=== PATIENT | female | born 1950 | race Caucasian/White ===

== ENCOUNTER 2018-06-24 22:59 | Emergency (ER) | payer OTHER, MEDICARE ==
--- NOTE | 2018-06-24 23:55 | EDPHYS ---
Physician Documentation [facility] Name: [place] Tao Age: 67 yrs Sex: Female : 1950 Arrival Date: 06/24/2018 Time: 23:09 Bed 24 Private MD: Ton Sparks ED Physician Frankie Velázquez HPI: 06/24 23:52 This 67 yrs old Female presents to ER via Ambulatory with complaints of jr8 WITHDRAWAL. 23:52 Patient stated that she has been on 1 mg of Xanax for several months. Stopped abruptly jr8 to get off of it and start Ambien instead for sleeping. Stated that she has been off of it for two days. Now having shaking and feels that her head is on fire . Severity of symptoms: At their worst the symptoms were mild in the emergency department the symptoms are unchanged. The patient has not experienced similar symptoms in the past. The patient has been recently seen by a physician:. Historical: - Allergies: 23:21 Sulfa (Sulfonamide Antibiotics); bp - Home Meds: 23:21 metformin 500 mg Oral Tb24 3 tabs once daily [Active]; Ambien 10 mg Oral tab 1 tab once bp daily [Active]; amlodipine 10 mg tab 1 tab once daily [Active]; metoprolol tartrate 25 mg Oral tab 1 tab once daily [Active]; - PMHx: 23:21 kidney problems; Hypothyroidism; Hypertension; Diabetes - NIDDM; Anxiety; bp - Immunization history:: Adult Immunizations up to date. - Social history:: Smoking status: Patient/guardian denies using tobacco. - Ebola Screening: : Patient negative for fever greater than or equal to 101.5 degrees Fahrenheit, and additional compatible Ebola Virus Disease symptoms Patient denies exposure to infectious person Patient denies travel to an Ebola-affected area in the 21 days before illness onset No symptoms or risks identified at this time. ROS: 23:52 Eyes: Negative for injury, pain, redness, and discharge, ENT: Negative for injury, jr8 pain, and discharge, Neck: Negative for injury, pain, and swelling, Cardiovascular: Negative for chest pain, palpitations, and edema, Respiratory: Negative for shortness of breath, cough, wheezing, and pleuritic chest pain, Abdomen/GI: Negative for abdominal pain, nausea, vomiting, diarrhea, and constipation, Back: Negative for injury and pain, MS/Extremity: Negative for injury and deformity, Skin: Negative for injury, rash, and discoloration, Neuro: Negative for headache, weakness, numbness, tingling, and seizure. Exam: 23:52 Eyes: Pupils equal round and reactive to light, extra-ocular motions intact. Lids and jr8 lashes normal. Conjunctiva and sclera are non-icteric and not injected. Cornea within normal limits. Periorbital areas with no swelling, redness, or edema. ENT: Nares patent. No nasal discharge, no septal abnormalities noted. Tympanic membranes are normal and external auditory canals are clear. Oropharynx with no redness, swelling, or masses, exudates, or evidence of obstruction, uvula midline. Mucous membranes moist. Neck: Trachea midline, no thyromegaly or masses palpated, and no cervical lymphadenopathy. Supple, full range of motion without nuchal rigidity, or vertebral point tenderness. No Meningismus. Cardiovascular: Regular rate and rhythm with a normal S1 and S2. No gallops, murmurs, or rubs. Normal PMI, no JVD. No pulse deficits. Respiratory: Lungs have equal breath sounds bilaterally, clear to auscultation and percussion. No rales, rhonchi or wheezes noted. No increased work of breathing, no retractions or nasal flaring. Abdomen/GI: Soft, non-tender, with normal bowel sounds. No distension or tympany. No guarding or rebound. No evidence of tenderness throughout. Back: No spinal tenderness. No costovertebral tenderness. Full range of motion. Skin: Warm, dry with normal turgor. Normal color with no rashes, no lesions, and no evidence of cellulitis. MS/ Extremity: Pulses equal, no cyanosis. Neurovascular intact. Full, normal range of motion. 23:52 Neuro: Orientation: to person, place \T\ time. Mentation: is normal, Memory: is normal, immediate memory is intact, recent memory is intact, remote memory is intact, Cranial nerves: CN I not tested, CN II- XII are normal as tested, visual merida are intact. Facial palsy and sensory deficits are absent. Nystagmus is absent. Cerebellar function: is grossly normal, Motor: moves all fours, Sensation: no obvious gross deficits, seizure activity, is not displayed by the patient, Abnormal movements: resting tremor, is located in the right arm, left arm, right leg and left leg. Vital Signs: 23:21 BP 154 / 84; Pulse 77; Resp 18; Temp 98; Pulse Ox 97% ; Weight 83.91 kg; Height 5 ft. 3 bp in. (160.02 cm); 06/25 00:00 BP 143 / 77; Pulse 66; Resp 14; Pulse Ox 96% ; bp 06/24 23:21 Body Mass Index 32.77 (83.91 kg, 160.02 cm) bp MDM: 06/24 23:22 Patient medically screened. [facility] 23:52 Data reviewed: vital signs, nurses notes, and as a result, I will discharge patient. jr8 Data interpreted: Pulse oximetry: on room air is 97 %. Interpretation: normal. Counseling: I had a detailed discussion with the patient and/or guardian regarding: the historical points, exam findings, and any diagnostic results supporting the discharge/admit diagnosis, the need for outpatient follow up, a family practitioner, to return to the emergency department if symptoms worsen or persist or if there are any questions or concerns that arise at home. ED course: Patient given Xanax here and has appointment tomorrow morning to start tapering dose . Administered Medications: 06/25 00:08 Drug: XANax Tablet 1 mg Route: PO; bp 00:08 Follow up: Response: Medication administered at discharge. bp Disposition: 06:49 Co-signature as Attending Physician, Frankie Velázquez MD I agree with the assessment and [facility] plan of care. Disposition: 06/24/18 23:55 Discharged to Home. Impression: Adverse effect of benzodiazepines. - Condition is Stable. - Discharge Instructions: Benzodiazepine Withdrawal. - Medication Reconciliation Form, Thank You Letter, Antibiotic Education, Prescription Opioid Use form. - Follow up: Ton Sparks DO; When: Tomorrow; Reason: Recheck today's complaints, Continuance of care, Re-evaluation by your physician. - Problem is new. - Symptoms have improved. Signatures: Frankie Velázquez MD MD cha Roszak, Josh, PA PA jr8 Jareth Ross RN RN bp Corrections: (The following items were deleted from the chart) 00:10 06/24 23:55 06/24/2018 23:55 Discharged to Home. Impression: Adverse effect of bp benzodiazepines. Condition is Stable. Forms are Medication Reconciliation Form, Thank You Letter, Antibiotic Education, Prescription Opioid Use. Follow up: Ton Sparks; When: Tomorrow; Reason: Recheck today's complaints, Continuance of care, Re-evaluation by your physician. Problem is new. Symptoms have improved. jr8
--- NOTE | 2018-06-24 23:55 | ER ---
Nurse's Notes [facility] Name: [place] Tao Age: 67 yrs Sex: Female : 1950 Arrival Date: 06/24/2018 Time: 23:09 Bed 24 Private MD: Ton Sparks Diagnosis: Adverse effect of benzodiazepines Presentation: 06/24 23:19 Presenting complaint: Patient states: SUBJECTIVE XANAX WITHDRAWL. Transition of care: bp patient was not received from another setting of care. Onset of symptoms is unknown. Risk Assessment: Do you want to hurt yourself or someone else? Patient reports no desire to harm self or others. Initial Sepsis Screen: Does the patient meet any 2 criteria? No. Patient's initial sepsis screen is negative. Does the patient have a suspected source of infection? No. Patient's initial sepsis screen is negative. Care prior to arrival: None. 23:19 Method Of Arrival: Ambulatory bp 23:19 Acuity: KYE 5 bp Triage Assessment: 23:21 General: Appears in no apparent distress. comfortable, obese, Behavior is cooperative, bp appropriate for age, anxious. Pain: Denies pain. Historical: - Allergies: 23:21 Sulfa (Sulfonamide Antibiotics); bp - Home Meds: 23:21 metformin 500 mg Oral Tb24 3 tabs once daily [Active]; Ambien 10 mg Oral tab 1 tab once bp daily [Active]; amlodipine 10 mg tab 1 tab once daily [Active]; metoprolol tartrate 25 mg Oral tab 1 tab once daily [Active]; - PMHx: 23:21 kidney problems; Hypothyroidism; Hypertension; Diabetes - NIDDM; Anxiety; bp - Immunization history:: Adult Immunizations up to date. - Social history:: Smoking status: Patient/guardian denies using tobacco. - Ebola Screening: : Patient negative for fever greater than or equal to 101.5 degrees Fahrenheit, and additional compatible Ebola Virus Disease symptoms Patient denies exposure to infectious person Patient denies travel to an Ebola-affected area in the 21 days before illness onset No symptoms or risks identified at this time. Screenin:23 Abuse screen: Denies threats or abuse. Denies injuries from another. Nutritional bp screening: No deficits noted. Tuberculosis screening: No symptoms or risk factors identified. Fall Risk None identified. Assessment: 23:23 General: SEE TRIAGE NOTE. bp Vital Signs: 23:21 BP 154 / 84; Pulse 77; Resp 18; Temp 98; Pulse Ox 97% ; Weight 83.91 kg; Height 5 ft. 3 bp in. (160.02 cm); 06/25 00:00 BP 143 / 77; Pulse 66; Resp 14; Pulse Ox 96% ; bp 06/24 23:21 Body Mass Index 32.77 (83.91 kg, 160.02 cm) bp ED Course: 06/24 23:09 Patient arrived in ED. es 23:09 Ton Sparks DO is Private Physician. es 23:14 Jareth Ross, RN is Primary Nurse. bp 23:19 Abel Martell PA is PHCP. jr8 23:19 Frankie Velázquez MD is Attending Physician. jr8 23:19 Triage completed. bp 23:22 Arm band placed on. bp 23:23 Patient has correct armband on for positive identification. Bed in low position. Call bp light in reach. Side rails up X2. Adult w/ patient. 23:55 Ton Sparks DO is Referral Physician. 06/25 00:09 No provider procedures requiring assistance completed. Patient did not have IV access bp during this emergency room visit. Administered Medications: 00:08 Drug: XANax Tablet 1 mg Route: PO; bp 00:08 Follow up: Response: Medication administered at discharge. bp Outcome: 06/24 23:55 Discharge ordered by . jr8 06/25 00:10 Discharged to home ambulatory, with family. bp Condition: stable Discharge instructions given to patient, Instructed on discharge instructions, follow up and referral plans. Demonstrated understanding of instructions, follow-up care. 00:10 Patient left the ED. bp Signatures: Luanne Felder Josh, PA PA jr8 Jareth Ross, RN RN bp
[2018-06-25] MEDS ORDERED: ALPRAZOLAM 1 MG TABLET ONE (00:11)
[2018-06-25 00:26] VITALS: TEMP 98
[2018-06-25 00:28] VITALS: BP 143/77; O2SAT 96
== END 2018-06-25 00:10 | disposition home or self-care (01) ==
LOC: ER 22:59
DX: T42.4X5A Adverse effect of benzodiazepines, initial encounter (principal); I10 Essential (primary) hypertension; E11.9 Type 2 diabetes mellitus without complications; E03.9 Hypothyroidism, unspecified; F41.9 Anxiety disorder, unspecified; Z88.2 Allergy status to sulfonamides
CPT/HCPCS: 99283

== ENCOUNTER 2018-12-25 08:11 | Emergency (ER) | payer OTHER, MEDICARE ==
--- OUTSIDE RECORDS SUMMARY | 2018-12-25 08:13 | XMS REPORT ---
:1950 [facility] Address [address] [place] [address] Dr. Harris [address] [place] [id number] Care Team Providers Name Role Phone Unavailable Unavailable Unavailable Problems This patient has no known problems. Allergies, Adverse Reactions, Alerts This patient has no known allergies or adverse reactions. Medications This patient has no known medications.
--- NOTE | 2018-12-25 09:47 | EDPHYS ---
Physician Documentation [facility] Name: [place] Tao Age: 68 yrs Sex: Female : 1950 Arrival Date: 12/25/2018 Time: 08:14 Bed 16 Private MD: Harshal Neely C ED Physician Frankie Velázquez HPI: 12/25 09:21 This 68 yrs old Female presents to ER via Ambulatory with complaints of Sinus cinthia Pain. 09:21 The patient or guardian reports airway noise, cough. Onset: The symptoms/episode cinthia began/occurred 3 day(s) ago. Severity of symptoms: At their worst the symptoms were mild, in the emergency department the symptoms are unchanged. Modifying factors: The symptoms are alleviated by nothing, the symptoms are aggravated by nothing. Associated signs and symptoms: The patient has no apparent associated signs or symptoms. The patient has not experienced similar symptoms in the past. Historical: - Allergies: 08:21 Sulfa (Sulfonamide Antibiotics); sv - PMHx: 08:21 Anxiety; Diabetes - NIDDM; Hypertension; Hypothyroidism; kidney problems; sv - PSHx: 08:21 Hysterectomy; Cholecystectomy; sv - Immunization history:: Flu vaccine is up to date. - Social history:: Smoking status: Patient/guardian denies using tobacco, Patient/guardian denies using alcohol. - Ebola Screening: : No symptoms or risks identified at this time. - Family history:: not pertinent. ROS: 09:21 Constitutional: Negative for fever, chills, and weight loss, Eyes: Negative for injury, cinthia pain, redness, and discharge, ENT: Negative for injury, pain, and discharge, Neck: Negative for injury, pain, and swelling, Cardiovascular: Negative for chest pain, palpitations, and edema, Abdomen/GI: Negative for abdominal pain, nausea, vomiting, diarrhea, and constipation, Back: Negative for injury and pain, : Negative for injury, bleeding, discharge, and swelling, MS/Extremity: Negative for injury and deformity, Skin: Negative for injury, rash, and discoloration, Neuro: Negative for headache, weakness, numbness, tingling, and seizure, Psych: Negative for depression, anxiety, suicide ideation, homicidal ideation, and hallucinations, Allergy/Immunology: Negative for hives, rash, and allergies, Endocrine: Negative for neck swelling, polydipsia, polyuria, polyphagia, and marked weight changes, Hematologic/Lymphatic: Negative for swollen nodes, abnormal bleeding, and unusual bruising. 09:21 Respiratory: Positive for cough, with no reported sputum. Exam: 09:21 Constitutional: This is a well developed, well nourished patient who is awake, alert, cinthia and in no acute distress. Head/Face: Normocephalic, atraumatic. Eyes: Pupils equal round and reactive to light, extra-ocular motions intact. Lids and lashes normal. Conjunctiva and sclera are non-icteric and not injected. Cornea within normal limits. Periorbital areas with no swelling, redness, or edema. Neck: Trachea midline, no thyromegaly or masses palpated, and no cervical lymphadenopathy. Supple, full range of motion without nuchal rigidity, or vertebral point tenderness. No Meningismus. Chest/axilla: Normal chest wall appearance and motion. Nontender with no deformity. No lesions are appreciated. Cardiovascular: Regular rate and rhythm with a normal S1 and S2. No gallops, murmurs, or rubs. Normal PMI, no JVD. No pulse deficits. Respiratory: Lungs have equal breath sounds bilaterally, clear to auscultation and percussion. No rales, rhonchi or wheezes noted. No increased work of breathing, no retractions or nasal flaring. Abdomen/GI: Soft, non-tender, with normal bowel sounds. No distension or tympany. No guarding or rebound. No evidence of tenderness throughout. Back: No spinal tenderness. No costovertebral tenderness. Full range of motion. Skin: Warm, dry with normal turgor. Normal color with no rashes, no lesions, and no evidence of cellulitis. MS/ Extremity: Pulses equal, no cyanosis. Neurovascular intact. Full, normal range of motion. Neuro: Awake and alert, GCS 15, oriented to person, place, time, and situation. Cranial nerves II-XII grossly intact. Motor strength 5/5 in all extremities. Sensory grossly intact. Cerebellar exam normal. Normal gait. Psych: Awake, alert, with orientation to person, place and time. Behavior, mood, and affect are within normal limits. 09:21 ENT: Ear canal(s): are normal, no acute changes, TM's: dullness, erythema, Posterior pharynx: Airway: normal, no evidence of obstruction, Tonsils: are normal in appearance, Uvula: normal, midline, swelling, is not appreciated, erythema, that is mild. Vital Signs: 08:21 Pulse 90; Resp 18; Temp 99.5; Pulse Ox 95% ; Weight 77.11 kg; Height 5 ft. 3 in. sv (160.02 cm); Pain 0/10; 09:31 BP 139 / 79; Pulse 88; Resp 18; Pulse Ox 94% ; sv 11:08 BP 145 / 86; Pulse 81; Resp 18; Pulse Ox 96% on R/A; aj1 08:21 Body Mass Index 30.11 (77.11 kg, 160.02 cm) sv MDM: 08:23 Patient medically screened. [facility] 09:23 Data reviewed: vital signs, nurses notes, radiologic studies. [facility] 12/25 09:21 Order name: Urine Culture [facility] 12/25 10:31 Order name: Urine Dipstick--Ancillary (enter results) 12/25 09:21 Order name: Chest Pa And Lat (2 Views) XRAY [facility] 12/25 09:21 Order name: Urine Dipstick-Ancillary (obtain specimen); Complete Time: 10:26 [facility] Administered Medications: 10:20 Drug: Rocephin (cefTRIAXone) 1 grams Route: IM; Site: left gluteus; 1 11:07 Follow up: Response: No adverse reaction [facility] 10:20 Drug: Zithromax 500 mg Route: PO; aj1 11:07 Follow up: Response: No adverse reaction [facility] Disposition: 12/25/18 09:47 Discharged to Home. Impression: Otitis media, unspecified, bilateral, Fever, unspecified, Acute upper respiratory infection, unspecified. - Condition is Stable. - Discharge Instructions: Otitis Media, Adult, Upper Respiratory Infection, Adult, Cool Mist Vaporizer, Otitis Media, Adult, [id number], Cough, Adult. - Prescriptions for Cheratussin AC 10- 100 mg/5 mL Oral liquid - take 10 milliliter by ORAL route every 4 hours; 160 milliliter. Stephenie- D 12 Hour 60-120 mg Oral Tablet Sustained Release 12 hr - take 1 tablet by ORAL route every 12 hours As needed; 14 tablet. Zithromax 500 mg Oral Tablet - take 1 tablet by ORAL route once daily for 5 days; 5 tablet. - Medication Reconciliation Form, Thank You Letter, Antibiotic Education, Prescription Opioid Use form. - Follow up: A Neely; When: 2 - 3 days; Reason: Recheck today's complaints, Continuance of care, Re-evaluation by your physician. - Problem is new. - Symptoms have improved. Signatures: Dispatcher [employer] EDOlga Cardona RN RN aj1 Mona Diaz RN RN sv Anderson, Corey, MD MD cha Corrections: (The following items were deleted from the chart) 11:09 09:47 12/25/2018 09:47 Discharged to Home. Impression: Otitis media, unspecified, aj1 bilateral; Fever, unspecified; Acute upper respiratory infection, unspecified. Condition is Stable. Discharge Instructions: Otitis Media, Adult, Upper Respiratory Infection, Adult, Cool Mist Vaporizer, Otitis Media, Adult, [id number], Cough, Adult. Prescriptions for Cheratussin AC 10-100 mg/5 mL Oral liquid - take 10 milliliter by ORAL route every 4 hours; 160 milliliter, Stephenie-D 12 Hour 60-120 mg Oral Tablet Sustained Release 12 hr - take 1 tablet by ORAL route every 12 hours As needed; 14 tablet, Zithromax 500 mg Oral Tablet - take 1 tablet by ORAL route once daily for 5 days; 5 tablet. and Forms are Medication Reconciliation Form, Thank You Letter, Antibiotic Education, Prescription Opioid Use. Follow up: A Neely; When: 2 - 3 days; Reason: Recheck today's complaints, Continuance of care, Re-evaluation by your physician. Problem is new. Symptoms have improved. cinthia
--- NOTE | 2018-12-25 09:47 | ER ---
Nurse's Notes [facility] Name: Steff Burger Age: 68 yrs Sex: Female : 1950 Arrival Date: 12/25/2018 Time: 08:14 Bed 16 Private MD: Harshal Neely C Diagnosis: Otitis media, unspecified, bilateral;Fever, unspecified;Acute upper respiratory infection, unspecified Presentation: 12/25 08:19 Presenting complaint: Patient states: sinus pain/congestion, left ear unable to hear sv out of since Friday. Transition of care: patient was not received from another setting of care. Onset of symptoms was December 22, 2018. Risk Assessment: Do you want to hurt yourself or someone else? Patient reports no desire to harm self or others. Initial Sepsis Screen: Does the patient meet any 2 criteria? No. Patient's initial sepsis screen is negative. Does the patient have a suspected source of infection? No. Patient's initial sepsis screen is negative. Care prior to arrival: None. 08:19 Method Of Arrival: Ambulatory sv 08:19 Acuity: KYE 4 sv Triage Assessment: 08:19 Headache History: The patient has had previous headaches and this one is similar to previous episodes. General: Appears in no apparent distress. uncomfortable, well developed, Behavior is calm, cooperative, appropriate for age. General: Reports fever for 12-24 hours. Pain: Denies pain. Neuro: Level of Consciousness is awake, alert, obeys commands, Oriented to person, place, time, situation, Moves all extremities. Full function Gait is steady, Speech is normal. Respiratory: Airway is patent Respiratory effort is even, unlabored, Respiratory pattern is regular, symmetrical. Derm: Skin is pink, warm \T\ dry. Historical: - Allergies: 08:21 Sulfa (Sulfonamide Antibiotics); sv - PMHx: 08:21 Anxiety; Diabetes - NIDDM; Hypertension; Hypothyroidism; kidney problems; sv - PSHx: 08:21 Hysterectomy; Cholecystectomy; sv - Immunization history:: Flu vaccine is up to date. - Social history:: Smoking status: Patient/guardian denies using tobacco, Patient/guardian denies using alcohol. - Ebola Screening: : No symptoms or risks identified at this time. - Family history:: not pertinent. Screenin:19 Abuse screen: Denies threats or abuse. Denies injuries from another. Nutritional sv screening: No deficits noted. Tuberculosis screening: No symptoms or risk factors identified. Fall Risk None identified. Assessment: 09:31 Reassessment: Patient appears in no apparent distress at this time. No changes from sv previously documented assessment. Patient and/or family updated on plan of care and expected duration. Pain level reassessed. Patient is alert, oriented x 3, equal unlabored respirations, skin warm/dry/pink. 10:30 Reassessment: Patient appears in no apparent distress at this time. No changes from aj1 previously documented assessment. Patient and/or family updated on plan of care and expected duration. Pain level reassessed. Patient is alert, oriented x 3, equal unlabored respirations, skin warm/dry/pink. Vital Signs: 08:21 Pulse 90; Resp 18; Temp 99.5; Pulse Ox 95% ; Weight 77.11 kg; Height 5 ft. 3 in. sv (160.02 cm); Pain 0/10; 09:31 BP 139 / 79; Pulse 88; Resp 18; Pulse Ox 94% ; sv 11:08 BP 145 / 86; Pulse 81; Resp 18; Pulse Ox 96% on R/A; aj1 08:21 Body Mass Index 30.11 (77.11 kg, 160.02 cm) sv ED Course: 08:14 Patient arrived in ED. rg4 08:14 Harshal Neely MD is Private Physician. rg4 08:16 Mona Diaz, KEELEY is Primary Nurse. sv 08:19 Arm band placed on. sv 08:19 Patient has correct armband on for positive identification. Bed in low position. Call sv light in reach. Pulse ox on. NIBP on. Door closed. Head of bed elevated. 08:21 Triage completed. sv 08:23 Frankie Velázquez MD is Attending Physician. cinthia 09:34 Patient moved to radiology via wheelchair. sw 09:47 Harshal Neely MD is Referral Physician. cinthia 09:56 Report given to Olga MINA. sv 09:59 X-ray completed. Patient tolerated procedure well. sw 10:02 Chest Pa And Lat (2 Views) XRAY In Process Unspecified. EDMS 11:07 No provider procedures requiring assistance completed. Patient did not have IV access aj1 during this emergency room visit. Administered Medications: 10:20 Drug: Rocephin (cefTRIAXone) 1 grams Route: IM; Site: left gluteus; aj1 11: Follow up: Response: No adverse reaction aj1 10:20 Drug: Zithromax 500 mg Route: PO; aj1 : Follow up: Response: No adverse reaction aj1 Outcome: 09:47 Discharge ordered by MD. vicente 11:08 Discharged to home ambulatory, with family. aj1 11:08 Condition: good 11:08 Discharge instructions given to patient, family, Instructed on discharge instructions, follow up and referral plans. medication usage, Demonstrated understanding of instructions, follow-up care, medications, Prescriptions given X 3. 11:09 Patient left the ED. aj1 Signatures: Dispatcher [employer] EDOlga Cardona RN RN aj1 Mona Diaz RN RN sv Anderson, Corey, MD MD cha Warren, Inge Varela rg4
[2018-12-25] MEDS ORDERED: AZITHROMYCIN 250 MG TAB ONE (10:18)
[2018-12-25] MEDS ORDERED: LIDOCAINE 1% MPF 2 ML AMPULE ONE (10:19)
[2018-12-25] MEDS ORDERED: CEFTRIAXONE 1000 MG/VIAL ONE (10:19)
--- NOTE | 2018-12-25 10:30 | RAD REPORT ---
EXAM DESCRIPTION: RAD - Chest Pa And Lat (2 Views) - 12/25/2018 10:02 am CLINICAL HISTORY: Cough and congestion COMPARISON: May 2015 TECHNIQUE: PA and lateral views of the chest were obtained. FINDINGS: The lungs are normal volume. No peripheral mass or consolidation. Interstitial markings ar e prominent and increased over the comparison. Small granuloma in the upper left lung field. Heart s ize is normal and central vasculature is within normal limits. No pleural effusion or pneumothorax s een. No acute bony finding noted. No aortic abnormality. IMPRESSION: No peripheral mass or consolidation. Increased interstitial markings suspicious for interstitial edema or interstitial pneumonia.
[2018-12-25 10:58] LABS: Urine Blood NEGATIVE (NEG); Urine Glucose NEGATIVE (NEG); Urine Protein NEGATIVE (NEG); Urine pH 6.5 (5.0-7.0)
[2018-12-25 11:15] VITALS: TEMP 99.5
[2018-12-25 11:18] VITALS: BP 145/86; O2SAT 96
== END 2018-12-25 11:09 | disposition home or self-care (01) ==
LOC: ER 08:11
DX: H66.93 Otitis media, unspecified, bilateral (principal); J06.9 Acute upper respiratory infection, unspecified; F41.9 Anxiety disorder, unspecified; E11.9 Type 2 diabetes mellitus without complications; I10 Essential (primary) hypertension; E03.9 Hypothyroidism, unspecified; Z88.2 Allergy status to sulfonamides
CPT/HCPCS: 87088; 87086; 81003; 71046; 96372; 99284; J2001

== ENCOUNTER 2019-01-22 21:07 | Emergency (ER) | payer OTHER, MEDICARE ==
--- OUTSIDE RECORDS SUMMARY | 2019-01-22 21:10 | XMS REPORT ---
:1950 [facility] Address [address] [place] [address] Dr. Harris [address] [place] [id number] Care Team Providers Name Role Phone Unavailable Unavailable Unavailable Problems This patient has no known problems. Allergies, Adverse Reactions, Alerts This patient has no known allergies or adverse reactions. Medications This patient has no known medications.
[2019-01-22] MEDS ORDERED: cloNIDine HCl 0.1 MG TAB ONE (22:30)
--- NOTE | 2019-01-22 23:33 | EDPHYS ---
Physician Documentation [facility] Name: Steff Burger Age: 68 yrs Sex: Female : 1950 Arrival Date: 01/22/2019 Time: 21:09 Bed 6 Private MD: Harshal Neely C ED Physician Norbert Aguirre HPI: 01/23 06:13 This 68 yrs old Female presents to ER via Ambulatory with complaints of High tw4 Blood Pressure. 06:13 The patient has elevated blood pressure and discovered this at home. Onset: The tw4 symptoms/episode began/occurred today. Associated signs and symptoms: The patient has no apparent associated signs or symptoms. The patient has not experienced similar symptoms in the past. Historical: - Allergies: 01/22 21:15 Sulfa (Sulfonamide Antibiotics); aj1 - Home Meds: 21:15 metoprolol tartrate 25 mg Oral tab 1 tab once daily [Active]; metformin 500 mg Oral aj1 Tb24 3 tabs once daily [Active]; levothyroxine oral [Active]; - PMHx: 21:15 Anxiety; Diabetes - NIDDM; Hypothyroidism; kidney problems; aj1 - PSHx: 21:15 None; aj1 - Immunization history:: Flu vaccine is up to date. - Social history:: Smoking status: Patient/guardian denies using tobacco. - Ebola Screening: : Patient denies travel to an Ebola-affected area in the 21 days before illness onset. ROS: 01/23 06:13 Constitutional: Negative for fever, chills, and weight loss, Eyes: Negative for injury, tw4 pain, redness, and discharge, Cardiovascular: Negative for chest pain, palpitations, and edema, Respiratory: Negative for shortness of breath, cough, wheezing, and pleuritic chest pain, Abdomen/GI: Negative for abdominal pain, nausea, vomiting, diarrhea, and constipation. Exam: 06:13 Constitutional: This is a well developed, well nourished patient who is awake, alert, tw4 and in no acute distress. Head/Face: Normocephalic, atraumatic. Chest/axilla: Normal chest wall appearance and motion. Nontender with no deformity. No lesions are appreciated. Cardiovascular: Regular rate and rhythm with a normal S1 and S2. No gallops, murmurs, or rubs. Normal PMI, no JVD. No pulse deficits. Respiratory: Lungs have equal breath sounds bilaterally, clear to auscultation and percussion. No rales, rhonchi or wheezes noted. No increased work of breathing, no retractions or nasal flaring. Abdomen/GI: Soft, non-tender, with normal bowel sounds. No distension or tympany. No guarding or rebound. No evidence of tenderness throughout. Back: No spinal tenderness. No costovertebral tenderness. Full range of motion. MS/ Extremity: Pulses equal, no cyanosis. Neurovascular intact. Full, normal range of motion. Neuro: Awake and alert, GCS 15, oriented to person, place, time, and situation. Cranial nerves II-XII grossly intact. Motor strength 5/5 in all extremities. Sensory grossly intact. Cerebellar exam normal. Normal gait. Vital Signs: 01/22 21:15 BP 182 / 96; Pulse 71; Resp 18; Temp 97.8; Pulse Ox 95% on R/A; Weight 79.38 kg (R); aj1 Height 5 ft. 3 in. (160.02 cm) (R); Pain 0/10; 22:04 BP 156 / 87; Pulse 62; Resp 18; Pulse Ox 95% on R/A; tl2 23:10 BP 176 / 99; Pulse 61; Resp 18; Pulse Ox 96% on R/A; tl2 23:29 BP 147 / 87; Pulse 66; Resp 16; Temp 97.8; Pulse Ox 100% ; Pain 0/10; tl1 21:15 Body Mass Index 31.00 (79.38 kg, 160.02 cm) aj1 MDM: 21:21 Patient medically screened. tw4 01/23 06:13 Differential diagnosis: hypertensive crisis, Malignant HTN. Data reviewed: vital signs, tw4 nurses notes. Data interpreted: Pulse oximetry: Interpretation: normal. Counseling: I had a detailed discussion with the patient and/or guardian regarding: the historical points, exam findings, and any diagnostic results supporting the discharge/admit diagnosis, the presence of at least one elevated blood pressure reading (>120/80) during this emergency department visit. Medication response: clonidine reduced the patient's elevated blood pressure to within acceptable limits. Response to treatment: the patient's symptoms have markedly improved after treatment, and as a result, I will discharge patient. Special discussion: I discussed with the patient/guardian in detail that at this point there is no indication for admission to the hospital. It is understood, however, that if the symptoms persist or worsen the patient needs to return immediately for re-evaluation. Administered Medications: 01/22 22:27 Drug: cloNIDine 0.1 mg Route: PO; tl1 23:33 Follow up: Response: No adverse reaction; Marked relief of symptoms; Blood pressure is tl1 lowered Disposition: 01/22/19 23:32 Discharged to Home. Impression: HYPERTENSIVE URGENCY. - Condition is Stable. - Discharge Instructions: Hypertension. - Medication Reconciliation Form, Thank You Letter, Antibiotic Education, Prescription Opioid Use form. - Follow up: Harshal Neely MD; When: Upon discharge from the Emergency Department; Reason: If symptoms return, Recheck today's complaints, Continuance of care. - Problem is new. - Symptoms have improved. Signatures: Olga Lazaro RN RN aj1 Cassandra Lacy RN RN tl1 Norbert Aguirre MD MD tw4 Corrections: (The following items were deleted from the chart) 23:43 23:32 01/22/2019 23:32 Discharged to Home. Impression: HYPERTENSIVE URGENCY. Condition tl1 is Stable. Forms are Medication Reconciliation Form, Thank You Letter, Antibiotic Education, Prescription Opioid Use. Follow up: Harshal Neely; When: Upon discharge from the Emergency Department; Reason: If symptoms return, Recheck today's complaints, Continuance of care. Problem is new. Symptoms have improved. tw4
--- NOTE | 2019-01-22 23:33 | ER ---
Nurse's Notes [facility] Name: Steff Burger Age: 68 yrs Sex: Female : 1950 Arrival Date: 01/22/2019 Time: 21:09 Bed 6 Private MD: Harshal Neely C Diagnosis: HYPERTENSIVE URGENCY Presentation: 01/22 21:12 Presenting complaint: Patient states: She checked her blood pressure at around 1999 aj1 because she had a pounding headache and her blood pressure was high. States that she takes metoprolol for high heart rate, reports she used to take medication for hypertension but has not had to take anything for years. Transition of care: patient was not received from another setting of care. Onset of symptoms was January 22, 2019. Risk Assessment: Do you want to hurt yourself or someone else? Patient reports no desire to harm self or others. Initial Sepsis Screen: Does the patient meet any 2 criteria? No. Patient's initial sepsis screen is negative. Does the patient have a suspected source of infection? No. Patient's initial sepsis screen is negative. Care prior to arrival: None. 21:12 Method Of Arrival: Ambulatory aj1 21:12 Acuity: KYE 3 aj1 Triage Assessment: 21:15 General: Appears in no apparent distress. comfortable, Behavior is calm, cooperative, aj1 appropriate for age. Pain: Denies pain. Neuro: Level of Consciousness is awake, alert, obeys commands, Oriented to person, place, time, situation. Cardiovascular: Patient's skin is warm and dry. Respiratory: Airway is patent Respiratory effort is even, unlabored, Respiratory pattern is regular, symmetrical. Historical: - Allergies: 21:15 Sulfa (Sulfonamide Antibiotics); aj1 - Home Meds: 21:15 metoprolol tartrate 25 mg Oral tab 1 tab once daily [Active]; metformin 500 mg Oral aj1 Tb24 3 tabs once daily [Active]; levothyroxine oral [Active]; - PMHx: 21:15 Anxiety; Diabetes - NIDDM; Hypothyroidism; kidney problems; aj1 - PSHx: 21:15 None; aj1 - Immunization history:: Flu vaccine is up to date. - Social history:: Smoking status: Patient/guardian denies using tobacco. - Ebola Screening: : Patient denies travel to an Ebola-affected area in the 21 days before illness onset. Screenin:32 Abuse screen: Denies threats or abuse. Denies injuries from another. Nutritional tl1 screening: No deficits noted. Tuberculosis screening: No symptoms or risk factors identified. Fall Risk None identified. Assessment: 21:20 General: Appears in no apparent distress. comfortable, Behavior is calm, cooperative, tl2 appropriate for age. Pain: Denies pain. Neuro: Level of Consciousness is awake, alert, obeys commands, Oriented to person, place, time, situation. Cardiovascular: Denies chest pain. Respiratory: Airway is patent Respiratory effort is even, unlabored, Respiratory pattern is regular, symmetrical. GI: No signs and/or symptoms were reported involving the gastrointestinal system. : No signs and/or symptoms were reported regarding the genitourinary system. Derm: Skin is pink, warm \T\ dry. 21:45 Reassessment: Will continue to monitor BP, no further orders at this time. tl2 23:32 Reassessment: Patient and/or family updated on plan of care and expected duration. Pain tl1 level reassessed. Patient is alert, oriented x 3, equal unlabored respirations, skin warm/dry/pink. Patient states feeling better. Patient states symptoms have improved. Vital Signs: 21:15 BP 182 / 96; Pulse 71; Resp 18; Temp 97.8; Pulse Ox 95% on R/A; Weight 79.38 kg (R); aj1 Height 5 ft. 3 in. (160.02 cm) (R); Pain 0/10; 22:04 BP 156 / 87; Pulse 62; Resp 18; Pulse Ox 95% on R/A; tl2 23:10 BP 176 / 99; Pulse 61; Resp 18; Pulse Ox 96% on R/A; tl2 23:29 BP 147 / 87; Pulse 66; Resp 16; Temp 97.8; Pulse Ox 100% ; Pain 0/10; tl1 21:15 Body Mass Index 31.00 (79.38 kg, 160.02 cm) aj1 ED Course: 21:09 Patient arrived in ED. do 21:09 Harshal Neely MD is Private Physician. do 21:14 Triage completed. aj1 21:15 Arm band placed on Patient placed in an exam room. aj1 21:15 Patient has correct armband on for positive identification. Placed in gown. Bed in low tl1 position. Call light in reach. Side rails up X 1. 21:21 Norbert Aguirre MD is Attending Physician. tw4 23:29 Cassandra Lacy RN is Primary Nurse. tl1 23:32 Harshal Neely MD is Referral Physician. tw4 23:32 No provider procedures requiring assistance completed. Patient did not have IV access tl1 during this emergency room visit. Administered Medications: 22:27 Drug: cloNIDine 0.1 mg Route: PO; tl1 23:33 Follow up: Response: No adverse reaction; Marked relief of symptoms; Blood pressure is tl1 lowered Outcome: 23:32 Discharge ordered by MD. tw4 23:42 Discharged to home ambulatory, with family. tl1 23:42 Condition: good 23:42 Discharge instructions given to patient, family, Instructed on discharge instructions, follow up and referral plans. Demonstrated understanding of instructions, follow-up care. 23:43 Patient left the ED. tl1 Signatures: Olga Lazaro RN RN aj1 Cassandra Lacy, RN RN tl1 Tejal Morales Taylor, RN RN tl2 Norbert Aguirre MD MD tw4
[2019-01-22 23:54] VITALS: TEMP 97.8
[2019-01-22 23:58] VITALS: BP 147/87; O2SAT 100
== END 2019-01-22 23:43 | disposition home or self-care (01) ==
LOC: ER 21:07
DX: I16.0 Hypertensive urgency (principal); E03.9 Hypothyroidism, unspecified; E11.9 Type 2 diabetes mellitus without complications; F41.9 Anxiety disorder, unspecified; Z88.2 Allergy status to sulfonamides
CPT/HCPCS: 99283

== ENCOUNTER 2019-01-25 20:21 | Emergency (ER) | payer OTHER, MEDICARE ==
--- OUTSIDE RECORDS SUMMARY | 2019-01-25 20:23 | XMS REPORT ---
:1950 [facility] Address [address] [place] [address] Dr. Harris [address] [place] [id number] Care Team Providers Name Role Phone Unavailable Unavailable Unavailable Problems This patient has no known problems. Allergies, Adverse Reactions, Alerts This patient has no known allergies or adverse reactions. Medications This patient has no known medications.
[2019-01-25 21:37] LABS: Absolute Lymphocytes (CBC) 2.6 K/uL (0.7-4.9); Absolute Monocytes 0.9 K/uL (0.1-1.3); Basophils % 0.9 % (0-1.3); Eosinophils % 6.6 % (0-4.4); Lymphocytes % 32.3 % (15.3-44.8); Monocytes % 10.7 % (3.3-12.3); RBC Red Blood Cell Count 4.75 M/uL (3.86-4.86)
[2019-01-25 21:38] LABS: Protime INR 0.82
--- NOTE | 2019-01-25 21:55 | RAD REPORT ---
EXAM DESCRIPTION: Luis Single View01/25/2019 9:38 pm CLINICAL HISTORY: Chest pain COMPARISON: December 2018 FINDINGS: The lungs appear clear of acute infiltrate. The heart is normal size IMPRESSION: No acute abnormalities displayed
[2019-01-25 21:56] LABS: ALT/SGPT 19 U/L (12-78); AST/SGOT 15 U/L (15-37); Albumin 4.1 g/dL (3.4-5.0); Alkaline Phosphatase 68 U/L (45-117); BUN Blood Urea Nitrogen 19 mg/dL (7-18); Bicarbonate 29 mmol/L (21-32); Bilirubin Direct < 0.1 mg/dL (0-0.2); Bilirubin Total 0.3 mg/dL (0.2-1.0); Glucose Level 118 mg/dL (74-106); Magnesium 2.7 mg/dL (1.8-2.4); NT PRO-BNP 252 pg/mL (<125); Potassium 4.1 mmol/L (3.5-5.1); Protein, Total 7.7 g/dL (6.4-8.2); Sodium Level 142 mmol/L (136-145); Troponin (Emerg Dept Use Only) < 0.02 ng/mL (0.0-0.045)
--- NOTE | 2019-01-25 22:36 | ER ---
Nurse's Notes [facility] Name: Steff Burger Age: 68 yrs Sex: Female : 1950 Arrival Date: 01/25/2019 Time: 20:24 Bed 2 Private MD: Harshal Neely C Diagnosis: Essential (primary) hypertension Presentation: 01/25 20:51 Presenting complaint: Patient states: "My pressure was 176/101 when I checked it at lp1 1999"; Complaint of headache, chest heaviness. Transition of care: patient was not received from another setting of care. Onset of symptoms was January 25, 2019. Risk Assessment: Do you want to hurt yourself or someone else? Patient reports no desire to harm self or others. Initial Sepsis Screen: Does the patient meet any 2 criteria? No. Patient's initial sepsis screen is negative. Does the patient have a suspected source of infection? No. Patient's initial sepsis screen is negative. Care prior to arrival: None. 20:51 Method Of Arrival: Ambulatory lp1 20:51 Acuity: KYE 3 lp1 Historical: - Allergies: 20:53 Sulfa (Sulfonamide Antibiotics); lp1 - Home Meds: 20:53 levothyroxine oral [Active]; metformin 500 mg Oral Tb24 3 tabs once daily [Active]; lp1 metoprolol tartrate 25 mg Oral tab 1 tab once daily [Active]; Lunesta oral oral [Active]; - PMHx: 20:53 Anxiety; Diabetes - NIDDM; Hypothyroidism; kidney problems; lp1 - PSHx: 20:53 Cholecystectomy; Hysterectomy; lp1 - Immunization history:: Adult Immunizations up to date. - Social history:: Smoking status: Patient/guardian denies using tobacco. - Ebola Screening: : No symptoms or risks identified at this time. Screenin:29 Abuse screen: Denies threats or abuse. Denies injuries from another. Nutritional ak1 screening: No deficits noted. Tuberculosis screening: No symptoms or risk factors identified. Fall Risk None identified. Assessment: 21:29 General: Appears in no apparent distress. Behavior is calm, cooperative. Pain: Denies ak1 pain. Pain does not radiate. Quality of pain is described as pressure. Neuro: No deficits noted. Cardiovascular: Reports chest tightness since this morning with elevated blood pressure. pt also c/o headache with elevated BP. pt has appointment with Dr. Neely at 1000 Friday morning. Respiratory: No deficits noted. GI: No signs and/or symptoms were reported involving the gastrointestinal system. : No signs and/or symptoms were reported regarding the genitourinary system. EENT: No signs and/or symptoms were reported regarding the EENT system. Derm: No signs and/or symptoms reported regarding the dermatologic system. Musculoskeletal: No signs and/or symptoms reported regarding the musculoskeletal system. 22:17 Reassessment: Patient appears in no apparent distress at this time. No changes from ak1 previously documented assessment. Patient and/or family updated on plan of care and expected duration. Pain level reassessed. Patient is alert, oriented x 3, equal unlabored respirations, skin warm/dry/pink. Patient denies pain at this time. Patient states feeling better. Patient states symptoms have improved. 22:45 Reassessment: Patient appears in no apparent distress at this time. No changes from ak1 previously documented assessment. Patient and/or family updated on plan of care and expected duration. Pain level reassessed. Patient is alert, oriented x 3, equal unlabored respirations, skin warm/dry/pink. Patient denies pain at this time. Patient states feeling better. Patient states symptoms have improved. Vital Signs: 20:54 BP 183 / 100; Pulse 59; Resp 18; Temp 98.7(O); Pulse Ox 95% on R/A; Weight 81.65 kg; lp1 Height 5 ft. 3 in. (160.02 cm); Pain 1/10; 21:29 BP 177 / 91; Pulse 58; Resp 16; Pulse Ox 95% on R/A; ak1 21:43 BP 178 / 81; Pulse 53; Resp 18; Pulse Ox 96% ; ea 20:54 Body Mass Index 31.89 (81.65 kg, 160.02 cm) lp1 ED Course: 20:24 Patient arrived in ED. ds1 20:25 Harshal Neely MD is Private Physician. ds1 20:52 Triage completed. lp1 20:53 Arm band placed on left wrist. lp1 21:27 Susan Vaughan, KEELEY is Primary Nurse. ak1 21:29 Cleveland Dent NP is PHCP. pm1 21:29 Chintan Riley MD is Attending Physician. pm1 21:29 Patient has correct armband on for positive identification. Placed in gown. Bed in low ak1 position. Call light in reach. Side rails up X 1. air sampling and monitoring on. Pulse ox on. NIBP on. :29 Initial lab(s) drawn, by me, sent to lab. EKG done, by ED staff, reviewed by Chintan Riley MD ak1 X-ray(s) taken. Inserted saline lock: 20 gauge in left antecubital area, using aseptic technique. Blood collected. 21:38 XRAY Chest (1 view) In Process Unspecified. EDMS 22:17 No provider procedures requiring assistance completed. ak1 22:44 IV discontinued, intact, bleeding controlled, No redness/swelling at site. Pressure ak1 dressing applied. Administered Medications: No medications were administered Outcome: 22:35 Discharge ordered by . pm1 22:44 Discharged to home ambulatory, with family. ak1 22:44 Condition: good 22:44 Discharge instructions given to patient, family, Instructed on discharge instructions, follow up and referral plans. Demonstrated understanding of instructions, follow-up care. 22:45 Patient left the ED. ak1 Signatures: Dispatcher [employer] EDME Shahrzad Antonio ds1 Carline Guerra RN RN lp1 Susan Vaughan RN RN ak1 Cleveland Dent, WOOD CABINETMAKER WOOD CABINETMAKER pm1 Nunu Lemus RN RN juliet
--- NOTE | 2019-01-25 22:36 | EDPHYS ---
Physician Documentation [facility] Name: Steff Burger Age: 68 yrs Sex: Female : 1950 Arrival Date: 01/25/2019 Time: 20:24 Bed 2 Private MD: Harshal Neely C ED Physician Chintan Riley HPI: 01/25 22:00 This 68 yrs old Female presents to ER via Ambulatory with complaints of High pm1 Blood Pressure. 22:00 The patient has elevated blood pressure and discovered this at home, with a home device.pm1 22:00 Onset: The symptoms/episode began/occurred 3 day(s) ago. Associated signs and symptoms: pm1 Pertinent positives: chest pain, headache. Severity of symptoms: in the emergency department the blood pressure is improved. The patient has not experienced similar symptoms in the past. The patient has not recently seen a physician, the patient's primary care provider is Dr. Neely, has an appointment scheduled, tomorrow at 1000. Patient with hypertension for the past 3 days. Has had some chest pressure and headache with her hypertension. Today her chest pressure and headache started this AM and have resolved prior to ER arrival. . Historical: - Allergies: 20:53 Sulfa (Sulfonamide Antibiotics); lp1 - Home Meds: 20:53 levothyroxine oral [Active]; metformin 500 mg Oral Tb24 3 tabs once daily [Active]; lp1 metoprolol tartrate 25 mg Oral tab 1 tab once daily [Active]; Lunesta oral oral [Active]; - PMHx: 20:53 Anxiety; Diabetes - NIDDM; Hypothyroidism; kidney problems; lp1 - PSHx: 20:53 Cholecystectomy; Hysterectomy; lp1 - Immunization history:: Adult Immunizations up to date. - Social history:: Smoking status: Patient/guardian denies using tobacco. - Ebola Screening: : No symptoms or risks identified at this time. ROS: 22:00 Constitutional: Negative for fever, chills, and weight loss, Eyes: Negative for injury, pm1 pain, redness, and discharge, ENT: Negative for injury, pain, and discharge, Neck: Negative for injury, pain, and swelling, Respiratory: Negative for shortness of breath, cough, wheezing, and pleuritic chest pain, Abdomen/GI: Negative for abdominal pain, nausea, vomiting, diarrhea, and constipation, Back: Negative for injury and pain, : Negative for injury, bleeding, discharge, and swelling, MS/Extremity: Negative for injury and deformity, Skin: Negative for injury, rash, and discoloration. 22:00 Cardiovascular: Positive for chest pain, Negative for edema, orthopnea, palpitations. 22:00 Neuro: Positive for headache, Negative for numbness, tingling, weakness. Exam: 22:00 Constitutional: This is a well developed, well nourished patient who is awake, alert, pm1 and in no acute distress. Head/Face: Normocephalic, atraumatic. Eyes: Pupils equal round and reactive to light, extra-ocular motions intact. Lids and lashes normal. Conjunctiva and sclera are non-icteric and not injected. Cornea within normal limits. Periorbital areas with no swelling, redness, or edema. ENT: Nares patent. No nasal discharge, no septal abnormalities noted. Tympanic membranes are normal and external auditory canals are clear. Oropharynx with no redness, swelling, or masses, exudates, or evidence of obstruction, uvula midline. Mucous membranes moist. Neck: Trachea midline, no thyromegaly or masses palpated, and no cervical lymphadenopathy. Supple, full range of motion without nuchal rigidity, or vertebral point tenderness. No Meningismus. Chest/axilla: Normal chest wall appearance and motion. Nontender with no deformity. No lesions are appreciated. Cardiovascular: Regular rate and rhythm with a normal S1 and S2. No gallops, murmurs, or rubs. Normal PMI, no JVD. No pulse deficits. Respiratory: Lungs have equal breath sounds bilaterally, clear to auscultation and percussion. No rales, rhonchi or wheezes noted. No increased work of breathing, no retractions or nasal flaring. Abdomen/GI: Soft, non-tender, with normal bowel sounds. No distension or tympany. No guarding or rebound. No evidence of tenderness throughout. Back: No spinal tenderness. No costovertebral tenderness. Full range of motion. Skin: Warm, dry with normal turgor. Normal color with no rashes, no lesions, and no evidence of cellulitis. MS/ Extremity: Pulses equal, no cyanosis. Neurovascular intact. Full, normal range of motion. 22:00 Neuro: Orientation: is normal, Motor: is normal, moves all fours, strength is normal, strength is 5/5 in all extremities. Vital Signs: 20:54 BP 183 / 100; Pulse 59; Resp 18; Temp 98.7(O); Pulse Ox 95% on R/A; Weight 81.65 kg; lp1 Height 5 ft. 3 in. (160.02 cm); Pain 1/10; 21:29 BP 177 / 91; Pulse 58; Resp 16; Pulse Ox 95% on R/A; ak1 21:43 BP 178 / 81; Pulse 53; Resp 18; Pulse Ox 96% ; ea 20:54 Body Mass Index 31.89 (81.65 kg, 160.02 cm) lp1 MDM: 21:38 Patient medically screened. pm1 22:07 Data reviewed: vital signs. Data interpreted: Pulse oximetry: on room air is 96 %. pm1 Interpretation: normal. Counseling: I had a detailed discussion with the patient and/or guardian regarding: the historical points, exam findings, and any diagnostic results supporting the discharge/admit diagnosis, lab results, radiology results, the need for outpatient follow up, to return to the emergency department if symptoms worsen or persist or if there are any questions or concerns that arise at home. 01/25 21:16 Order name: Basic Metabolic Panel; Complete Time: 22:06 01/25 21:16 Order name: CBC with Diff; Complete Time: 22: 01/25 21:16 Order name: LFT's; Complete Time: 22: 01/25 21:16 Order name: Magnesium; Complete Time: 22: 01/25 21:16 Order name: NT PRO-BNP; Complete Time: 22:06 01/25 21:16 Order name: PT-INR; Complete Time: 22:06 01/25 21:16 Order name: Troponin (emerg Dept Use Only); Complete Time: 22:06 01/25 21:16 Order name: XRAY Chest (1 view); Complete Time: 22:06 01/25 21:16 Order name: EKG; Complete Time: 21:17 01/25 21:16 Order name: Cardiac monitoring; Complete Time: 21: 01/25 21:16 Order name: EKG - Nurse/Tech; Complete Time: 21:29 01/25 21:17 Order name: IV Saline Lock; Complete Time: 01/25 21:17 Order name: Labs collected and sent; Complete Time: 01/25 21:17 Order name: O2 Per Protocol; Complete Time: 01/25 21:17 Order name: O2 Sat Monitoring; Complete Time: : Administered Medications: No medications were administered Disposition: 01/26 03:06 Co-signature as Attending Physician, Chintan Riley MD. pk Disposition: 01/25/19 22:35 Discharged to Home. Impression: Essential (primary) hypertension. - Condition is Stable. - Discharge Instructions: Hypertension, How to Take Your Blood Pressure, [id number], DASH Eating Plan, Managing Your Hypertension. - Medication Reconciliation Form, Thank You Letter, Antibiotic Education, Prescription Opioid Use form. - Follow up: Emergency Department; When: As needed; Reason: Worsening of condition. Follow up: Private Physician; When: Tomorrow; Reason: Recheck today's complaints, Continuance of care, Re-evaluation by your physician. - Problem is new. - Symptoms have improved. Signatures: Dispatcher [employer] EDMS Chintan Riley MD MD pkl Ayaka Rivera RN RN Carline Guerra RN RN bruce1 Susan Vaughan RN RN ak1 Cleveland Dent, RYAN RIVET THROWER pm1 Corrections: (The following items were deleted from the chart) 01/25 22:45 22:35 01/25/2019 22:35 Discharged to Home. Impression: Essential (primary) ak1 hypertension. Condition is Stable. Forms are Medication Reconciliation Form, Thank You Letter, Antibiotic Education, Prescription Opioid Use. Follow up: Emergency Department; When: As needed; Reason: Worsening of condition. Follow up: Private Physician; When: Tomorrow; Reason: Recheck today's complaints, Continuance of care, Re-evaluation by your physician. Problem is new. Symptoms have improved. pm1
[2019-01-25 22:58] VITALS: TEMP 98.7
[2019-01-25 23:01] VITALS: BP 178/81; O2SAT 96
--- NOTE | 2019-01-26 05:47 | EKG ---
Test Date: 2019-01-25 Test Time: 21:20:23 Kiln Charger: HOMA MEASUREMENT RESULTS: Intervals: Rate: 52 [place]: 182 QRSD: 80 QT: 444 QTc: 412 [place]: P: 57 [place]: 182 QRS: 62 T: 35 INTERPRETIVE STATEMENTS: Sinus bradycardia Cannot rule out Anterior infarct, age undetermined Abnormal ECG Compared to ECG 08/21/2015 15:13:10 Sinus rhythm no longer present Myocardial infarct finding still present Electronically Signed On 01-26-19 05:47:01 CDT by Steve Arango
== END 2019-01-25 22:45 | disposition home or self-care (01) ==
LOC: ER 20:21
DX: I10 Essential (primary) hypertension (principal); R94.31 Abnormal electrocardiogram [ECG] [EKG]; E11.9 Type 2 diabetes mellitus without complications; E03.9 Hypothyroidism, unspecified; Z79.84 Long term (current) use of oral hypoglycemic drugs; Z79.899 Other long term (current) drug therapy
CPT/HCPCS: 36415; 71045; 80048; 80076; 83735; 83880; 84484; 85025; 85610; 93005; 99284

== ENCOUNTER 2019-02-01 22:21 | Emergency (ER) | payer OTHER, MEDICARE ==
--- OUTSIDE RECORDS SUMMARY | 2019-02-01 22:22 | XMS REPORT ---
:1950 [facility] [address] [place] [address] Dr. Harris [address] [place] [id number] Care Team Providers Name Role Phone Unavailable Unavailable Unavailable Problems This patient has no known problems. Allergies, Adverse Reactions, Alerts This patient has no known allergies or adverse reactions. Medications This patient has no known medications.
--- NOTE | 2019-02-01 23:02 | ER ---
Nurse's Notes [facility] Name: Steff Burger Age: 68 yrs Sex: Female : 1950 Arrival Date: 02/01/2019 Time: 22:22 Bed Waiting Private MD: Harshal Neely C Diagnosis: Presentation: 02/01 22:56 Presenting complaint: Patient states: States having headache about 2000, checked BP and lp1 was 175/102; States began on new meds by PCP and has been keeping log of BP; Wanted to see if BP was any better now; States "If it's better, I think I will just leave". Transition of care: patient was not received from another setting of care. Onset of symptoms was February 01, 2019 at 20:00. Risk Assessment: Do you want to hurt yourself or someone else? Patient reports no desire to harm self or others. Initial Sepsis Screen: Does the patient meet any 2 criteria? No. Patient's initial sepsis screen is negative. Does the patient have a suspected source of infection? No. Patient's initial sepsis screen is negative. Care prior to arrival: None. 22:56 Method Of Arrival: Ambulatory lp1 22:56 Acuity: KYE 3 lp1 Triage Assessment: 22:59 General: Appears in no apparent distress. Behavior is appropriate for age. Pain: lp1 Complains of pain in head, no pain at this time. Neuro: No deficits noted. Respiratory: No deficits noted. Derm: Skin is pink, warm \\T\\ dry. Historical: - Allergies: 22:58 Sulfa (Sulfonamide Antibiotics); lp1 - Home Meds: 22:58 levothyroxine oral [Active]; Lunesta Oral [Active]; metformin 500 mg Oral Tb24 3 tabs lp1 once daily [Active]; metoprolol tartrate 25 mg Oral tab 1 tab once daily [Active]; - PMHx: 22:58 Anxiety; Diabetes - NIDDM; Hypothyroidism; kidney problems; Hypertension; lp1 - Immunization history:: Adult Immunizations up to date. - Social history:: Smoking status: Patient/guardian denies using tobacco. - Ebola Screening: : No symptoms or risks identified at this time. Screenin:58 Abuse screen: Denies threats or abuse. Denies injuries from another. Nutritional lp1 screening: No deficits noted. Tuberculosis screening: No symptoms or risk factors identified. Fall Risk None identified. Assessment: 22:59 Reassessment: After vitals checked, patient states "I think I will just go home, I feel lp1 better now that my blood pressure has gotten lower"; Patient educated on seeing Provider, patient declines; Informed of returning if symptoms worsen. Vital Signs: 22:58 BP 169 / 86; Pulse 64; Resp 18; Temp 99(O); Pulse Ox 96% on R/A; Weight 81.19 kg; lp1 Height 5 ft. 3 in. (160.02 cm); Pain 0/10; 22:58 Body Mass Index 31.71 (81.19 kg, 160.02 cm) lp1 ED Course: 22:22 Patient arrived in ED. am2 22:22 Harshal Neely MD is Private Physician. am2 22:57 Triage completed. lp1 22:58 Arm band placed on right wrist. lp1 Administered Medications: No medications were administered Outcome: 23:00 Eloped from waiting room, before seeing physician Time discovered patient gone: January lp1 2018 at 23:00 23:00 Condition: stable 23:01 Patient left the ED. lp1 Signatures: Carline Guerra RN RN lp1 Maggie Macias amSayda
[2019-02-01 23:16] VITALS: BP 169/86; TEMP 99; O2SAT 96
== END 2019-02-01 23:01 | disposition left against medical advice (07) ==
LOC: ER 22:21
DX: I10 Essential (primary) hypertension (principal); E11.9 Type 2 diabetes mellitus without complications; E03.9 Hypothyroidism, unspecified; F41.9 Anxiety disorder, unspecified; Z79.84 Long term (current) use of oral hypoglycemic drugs; Z88.2 Allergy status to sulfonamides; Z53.21 Procedure and treatment not carried out due to patient leaving prior to being seen by health care provider
CPT/HCPCS: 99281

== ENCOUNTER 2023-07-15 13:06 | Observation (INO) | payer OTHER ==
--- OUTSIDE RECORDS SUMMARY | 2023-07-15 13:09 | XMS REPORT | Continuity of Care Document ---
:1950 Author Organization [facility] t Address [address] [facility] [address] [place] [id number] Care Team Providers Name Role Phone PIOTR NIETO Primary Care Physician Unavailable HIREN, SENDIL K.H. Attending Clinician Unavailable RAVIN LOPES Attending Clinician Unavailable JOVON DURON Attending Clinician Unavailable Hiren FLOYD, Sendil K.H. Attending Clinician Doctor Unassigned, [place] Attending Clinician Unavailable JACKIE TALLEY Attending Clinician Unavailable Ravin Bermudez Attending Clinician Jackie Talley MD Attending Clinician Mikki Gloria MD Attending Clinician MIKKI GLORIA Attending Clinician Unavailable 2, [facility] Attending Clinician Unavailable Nimo Jade DO Attending Clinician NIMO JADE Attending Clinician Unavailable ELIAN RESTREPO Attending Clinician Unavailable HIREN, SENDIL K.H. 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 10-14 ity of mellitus mellitus 00:00: [place] without without 00 Medical complicati complicati Br anch on, on, without without long-term long-term current current use of use of insulin insulin Essential Essential Disease Active 2014-10 Uni vers hypertensi hypertensi 10-14 it y of on on 00:00: [place] 00 [facility] Dyslipidem Dyslipidem Disease Active 2014-10 U nivers ia ia 10-14 ity of 00:00: [place] 00 [facility] Obesity Obesity Disease Active 2014-10 Univers 10-14 ity of 00:00: [place] 00 [facility] Branch Primary Primary Disease Active 2014-10 Univers hypothyroi hypothyroi 10-14 it y of dism dism 00:00: [place] 00 [facility] Branch Postmenopa Postmenopa Disease Active 2014-10 U nivers use use 10-14 ity of 00:00: [place] 00 [facility] Allergies, Adverse Reactions, Alerts Allergy Allergy Status Severity Reaction(s) Onset Inactive Treating Comm ents Source Name Type Date Date Clinician Sulfa Propensi Active Rash Univers (Sulfona ty to 2-02 ity of mide adverse 00:00: [place] Antibiot reaction 00 Medica l ics) s Branch SULFA Drug Active ITCHING Univers (SULFONA Class 2-02 ity of MIDE 00:00: [place] ANTIBIOT 00 Medical ICS) Branch Sulfa Propensi Active Rash Univers (Sulfona ty to 2-02 ity of mide adverse 00:00: [place] Antibiot reaction 00 Medica l ics) s Branch Social History Social Habit Start Date Stop Date Quantity Comments Source History of Current smoker [facility] tobacco use [facility] Exposure to 2022-12-02 2022-12-12 Not sure [facility] SARS-CoV-2 00:00:00 13:38:00 [facility] (event) [place] Alcohol intake 2022-07-24 2022-07-24 0 /d University 00:00:00 00:00:00 [facility] Tobacco use and 2022-07-09 2022-07-09 Smokeless tobacco Un iversity of exposure 00:00:00 00:00:00 non-user [facility] Sex Ass[birth year] Universit y of 00:00:00 00:00:00 [facility] Smoking Status Start Date Stop Date Source Ex-smoker 2022-07-09 00:00:00 2022-07-09 00:00:00 [facility] Medications Ordered Filled Start Stop Current Ordering Indication Dosage Frequency Signature Comments Components Source Medication Medication Date Date Medication? Clinician (SIG) Name Name aspirin 81 Yes 81mg Take 81 mg U nivers mg EC 3-02 by mouth ity of tablet 14:03: daily. [address] rosuvastati Yes 20mg Take 20 mg Univers n 20 mg 3-02 by mouth ity of tablet 14:03: at [place] [address] bedtime. Medical Branch aspirin 81 Yes 81mg Take 81 mg U nivers mg EC 3-02 by mouth ity of tablet 14:03: daily. [address] rosuvastati Yes 20mg Take 20 mg Univers n 20 mg 3-02 by mouth ity of tablet 14:03: at [place] [address] bedtime. [facility] aspirin 81 Yes 81mg Take 81 mg U nivers mg EC 3-02 by mouth ity of tablet 14:03: daily. [address] rosuvastati Yes 20mg Take 20 mg Univers n 20 mg 3-02 by mouth ity of tablet 14:03: at [place] [address] bedtime. [facility] aspirin 81 2021-10 Yes 81mg Take 81 mg U nivers mg EC 0-12 by mouth ity of tablet 15:37: daily. [address] aspirin 81 2021-10 Yes 81mg Take 81 mg U nivers mg EC 0-12 by mouth ity of tablet 15:37: daily. [address] aspirin 81 2021-10 Yes 81mg Take 81 mg U nivers mg EC 0-12 by mouth ity of tablet 15:37: daily. [address] aspirin 81 2021-10 Yes 81mg Take 81 mg U nivers mg EC 0-12 by mouth ity of tablet 15:37: daily. [address] eszopiclone Yes 3mg Take 3 mg U nivers 3 mg tablet 9-27 by mouth ity of 15:46: at [place] [address] bedtime. Medical Branch rosuvastati Yes 20mg Take 20 mg Univers n 20 mg 9-27 by mouth ity of tablet 15:46: at [place] [address] bedtime. Medical Branch CYANOCOBALA Yes Take by Uni vers MIN, 9-27 mouth ity of VITAMIN 15:46: daily. [place] [facility] (VITAMIN Branch B-12 ORAL) MV-MN/IRON/ Yes Take by Uni vers FOLIC 9- mouth ity of ACID/HERB 15:46: daily. [place] 190 [address] Medical (VITAMIN D3 Branch COMPLETE ORAL) FERROUS Yes Take by Univers SULFATE 9- mouth ity of (IRON ORAL) 15:46: daily. [place] [address] Medical Branch L.ACID/L.CA Yes Take by Uni vers SEI/B.BIF/B 9- mouth ity of .MELVIN/FOS 15:46: daily. [place] (PROBIOTIC 51 Medical BLEND ORAL) Branch eszopiclone Yes 3mg Take 3 mg U nivers 3 mg tablet - by mouth ity of 15:46: at [place] [address] bedtime. Medical Branch rosuvastati Yes 20mg Take 20 mg Univers n 20 mg 9-27 by mouth ity of tablet 15:46: at [place] [address] bedtime. Medical Branch CYANOCOBALA Yes Take by Uni vers MIN, 9- mouth ity of VITAMIN 15:46: daily. [place] [facility] (VITAMIN Branch B-12 ORAL) MV-MN/IRON/ Yes Take by Uni vers FOLIC 9-27 mouth ity of ACID/HERB 15:46: daily. [place] 190 51 Medical (VITAMIN D3 Branch COMPLETE ORAL) FERROUS 0 Yes Take by Univers SULFATE 9-27 mouth ity of (IRON ORAL) 15:46: daily. [place] [address] Medical Branch L.ACID/L.CA 0 Yes Take by Uni vers SEI/B.BIF/B 9-27 mouth ity of .MELVIN/FOS 15:46: daily. [place] (PROBIOTIC 51 Medical BLEND ORAL) Branch eszopiclone Yes 3mg Take 3 mg U nivers 3 mg tablet 9-27 by mouth ity of 15:46: at [place] [address] bedtime. Medical Branch rosuvastati Yes 20mg Take 20 mg Univers n 20 mg 9-27 by mouth ity of tablet 15:46: at [place] [address] bedtime. Medical Branch CYANOCOBALA Yes Take by Uni vers MIN, 9-27 mouth ity of VITAMIN 15:46: daily. [place] [facility] (VITAMIN Branch B-12 ORAL) MV-MN/IRON/ Yes Take by Uni vers FOLIC 9- mouth ity of ACID/HERB 15:46: daily. [place] 190 51 Medical (VITAMIN D3 Branch COMPLETE ORAL) FERROUS Yes Take by Univers SULFATE 9- mouth ity of (IRON ORAL) 15:46: daily. [place] [address] Medical Branch L.ACID/L.CA Yes Take by Uni vers SEI/B.BIF/B 9- mouth ity of .MELVIN/FOS 15:46: daily. [place] (PROBIOTIC 51 Medical BLEND ORAL) Branch eszopiclone Yes 3mg Take 3 mg U nivers 3 mg tablet - by mouth ity of 15:46: at [place] [address] bedtime. Medical Branch rosuvastati Yes 20mg Take 20 mg Univers n 20 mg 9-27 by mouth ity of tablet 15:46: at [place] [address] bedtime. Medical Branch CYANOCOBALA Yes Take by Uni vers MIN, 9- mouth ity of VITAMIN 15:46: daily. [place] [facility] (VITAMIN Branch B-12 ORAL) MV-MN/IRON/ Yes Take by Uni vers FOLIC 9-27 mouth ity of ACID/HERB 15:46: daily. [place] 190 51 Medical (VITAMIN D3 Branch COMPLETE ORAL) FERROUS 0 Yes Take by Univers SULFATE 9-27 mouth ity of (IRON ORAL) 15:46: daily. [place] [address] Medical Branch L.ACID/L.CA 0 Yes Take by Uni vers SEI/B.BIF/B 9-27 mouth ity of .MELVIN/FOS 15:46: daily. [place] (PROBIOTIC 51 Medical BLEND ORAL) Branch eszopiclone Yes 3mg Take 3 mg U nivers 3 mg tablet 9-27 by mouth ity of 15:46: at [place] [address] bedtime. Medical Branch rosuvastati Yes 20mg Take 20 mg Univers n 20 mg -27 by mouth ity of tablet 15:46: at [place] [address] bedtime. Medical Branch CYANOCOBALA Yes Take by Uni vers MIN, 9- mouth ity of VITAMIN 15:46: daily. [facility] Medical (VITAMIN Branch B-12 ORAL) MV-MN/IRON/ Yes Take by Uni vers FOLIC 9-27 mouth ity of ACID/HERB 15:46: daily. [place] 190 51 Medical (VITAMIN D3 Branch COMPLETE ORAL) FERROUS Yes Take by Univers SULFATE 9 mouth ity of (IRON ORAL) 15:46: daily. [place] [address] Medical Branch L.ACID/L.CA Yes Take by Uni vers SEI/B.BIF/B 07-09 mouth ity of .MELVIN/FOS 15:46: daily. [place] (PROBIOTIC 51 Medical BLEND ORAL) Branch eszopiclone Yes 3mg Take 3 mg U nivers 3 mg tablet 07-09 by mouth ity of 15:46: at [place] [address] bedtime. Medical Branch CYANOCOBALA Yes Take by Uni vers MIN, 9 mouth ity of VITAMIN 15:46: daily. [facility] Medical (VITAMIN Branch B-12 ORAL) MV-MN/IRON/ Yes Take by Uni vers FOLIC 9-27 mouth ity of ACID/HERB 15:46: daily. [place] [id number] 51 Medical (VITAMIN D3 Branch COMPLETE ORAL) FERROUS Yes Take by Univers SULFATE 07-09 mouth ity of (IRON ORAL) 15:46: daily. [place] [address] Medical Branch L.ACID/L.CA Yes Take by Uni vers SEI/B.BIF/B 9 mouth ity of .MELVIN/FOS 15:46: daily. [place] (PROBIOTIC 51 Medical BLEND ORAL) Branch eszopiclone Yes 3mg Take 3 mg U nivers 3 mg tablet 07-09 by mouth ity of 15:46: at [place] [address] bedtime. Medical Branch CYANOCOBALA Yes Take by Uni vers MIN, 9- mouth ity of VITAMIN 15:46: daily. [facility] Medical (VITAMIN Branch B-12 ORAL) MV-MN/IRON/ Yes Take by Uni vers FOLIC 9-27 mouth ity of ACID/HERB 15:46: daily. [place] 190 [address] Medical (VITAMIN D3 Branch COMPLETE ORAL) FERROUS 0 Yes Take by Univers SULFATE 9-27 mouth ity of (IRON ORAL) 15:46: daily. [place] [address] Medical Branch L.ACID/L.CA Yes Take by Uni vers SEI/B.BIF/B 927 mouth ity of .MELVIN/FOS 15:46: daily. [place] (PROBIOTIC 51 Medical BLEND ORAL) Branch eszopiclone Yes 3mg Take 3 mg U nivers 3 mg tablet 07-09 by mouth ity of 15:46: at [place] [address] bedtime. Medical Branch CYANOCOBALA Yes Take by Uni vers MIN, 07-09 mouth ity of VITAMIN 15:46: daily. [facility] Medical (VITAMIN Branch B-12 ORAL) MV-MN/IRON/ Yes Take by Uni vers FOLIC 9-27 mouth ity of ACID/HERB 15:46: daily. [place] 190 [address] Medical (VITAMIN D3 Branch COMPLETE ORAL) FERROUS Yes Take by Univers SULFATE 9-27 mouth ity of (IRON ORAL) 15:46: daily. [place] [address] Medical Branch L.ACID/L.CA Yes Take by Uni vers SEI/B.BIF/B 9-27 mouth ity of .MELVIN/FOS 15:46: daily. [place] (PROBIOTIC 51 Medical BLEND ORAL) Branch aspirin 81 0 Yes 81mg Take 81 mg U nivers mg EC 07-09 by mouth ity of tablet 15:46: daily. [place] [address] Medical Branch eszopiclone 0 Yes 3mg Take 3 mg U nivers 3 mg tablet 07-09 by mouth ity of 15:46: at [place] [address] bedtime. Medical Branch rosuvastati 0 Yes 20mg Take 20 mg Univers n 20 mg - by mouth ity of tablet 15:46: at [place] [address] bedtime. Medical Branch CYANOCOBALA Yes Take by Uni vers MIN, 07-09 mouth ity of VITAMIN 15:46: daily. [place] Medical (VITAMIN Branch B-12 ORAL) MV-MN/IRON/ Yes Take by Uni vers FOLIC 07-09 mouth ity of ACID/HERB 15:46: daily. [place] 190 51 Medical (VITAMIN D3 Branch COMPLETE ORAL) FERROUS Yes Take by Univers SULFATE 07-09 mouth ity of (IRON ORAL) 15:46: daily. [place] [address] Medical Branch L.ACID/L.CA Yes Take by Uni vers SEI/B.BIF/B 07-09 mouth ity of .MELVIN/FOS 15:46: daily. [place] (PROBIOTIC 51 Medical BLEND ORAL) Branch aspirin 81 Yes 81mg Take 81 mg U nivers mg EC 07-09 by mouth ity of tablet 15:46: daily. [place] [address] Medical Branch eszopiclone Yes 3mg Take 3 mg U nivers 3 mg tablet 07-09 by mouth ity of 15:46: at [place] [address] bedtime. Medical Branch rosuvastati Yes 20mg Take 20 mg Univers n 20 mg 07-09 by mouth ity of tablet 15:46: at [place] [address] bedtime. Medical Branch CYANOCOBALA Yes Take by Uni vers MIN, 07-09 mouth ity of VITAMIN 15:46: daily. [place] [facility] (VITAMIN Branch B-12 ORAL) MV-MN/IRON/ Yes Take by Uni vers FOLIC 07-09 mouth ity of ACID/HERB 15:46: daily. [place] 190 51 Medical (VITAMIN D3 Branch COMPLETE ORAL) FERROUS Yes Take by Univers SULFATE 07-09 mouth ity of (IRON ORAL) 15:46: daily. [place] [address] Medical Branch L.ACID/L.CA Yes Take by Uni vers SEI/B.BIF/B 07-09 mouth ity of .MELVIN/FOS 15:46: daily. [place] (PROBIOTIC 51 Medical BLEND ORAL) Branch aspirin 81 Yes 81mg Take 81 mg U nivers mg EC 07-09 by mouth ity of tablet 15:46: daily. [place] [address] Medical Branch clobetasoL Yes [id number] Apply to Univers 0.05 % 07-09 area(s) ity of ointment 00:00: daily. Use [place] as 00 every Medical night for Branch 4 weeks and then three times a week, M/W/F estradioL 2021-0 Yes [id number] 1g Insert 1 g Univers 0.01 % (0.1 9-27 into ity of mg/gram) 00:00: [place] vaginal 00 the Medical cream morning. Branch Use every night for 2 weeks and then three times a week M/W/F clobetasoL 2021-0 Yes [id number] Apply to Univers 0.05 % 9-27 area(s) ity of ointment 00:00: daily. Use [place] as 00 every Medical night for Branch 4 weeks and then three times a week, M/W/F estradioL 2021-0 Yes [id number] 1g Insert 1 g Univers 0.01 % (0.1 9-27 into ity of mg/gram) 00:00: [place] vaginal 00 the Medical cream morning. Branch Use every night for 2 weeks and then three times a week M/W/F clobetasoL 2021-0 Yes [id number] Apply to Univers 0.05 % 9-27 area(s) ity of ointment 00:00: daily. Use [place] as 00 every Medical night for Branch 4 weeks and then three times a week, M/W/F estradioL 2021-0 Yes [id number] 1g Insert 1 g Univers 0.01 % (0.1 9-27 into ity of mg/gram) 00:00: [place] vaginal 00 the Medical cream morning. Branch Use every night for 2 weeks and then three times a week M/W/F clobetasoL 2021-0 Yes [id number] Apply to Univers 0.05 % 9-27 area(s) ity of ointment 00:00: daily. Use [place] as 00 every Medical night for Branch 4 weeks and then three times a week, M/W/F estradioL 2021-0 Yes [id number] 1g Insert 1 g Univers 0.01 % (0.1 9-27 into ity of mg/gram) 00:00: [place] vaginal 00 the Medical cream morning. Branch Use every night for 2 weeks and then three times a week M/W/F clobetasoL 2-0 Yes [id number] Apply to Univers 0.05 % 9-27 area(s) ity of ointment 00:00: daily. Use [place] as 00 every Medical night for Branch 4 weeks and then three times a week, M/W/F estradioL 2021-0 Yes [id number] 1g Insert 1 g Univers 0.01 % (0.1 9-27 into ity of mg/gram) 00:00: [place] vaginal 00 the Medical cream morning. Branch Use every night for 2 weeks and then three times a week M/W/F clobetasoL 2021-0 Yes [id number] Apply to Univers 0.05 % 9-27 area(s) ity of ointment 00:00: daily. Use [place] as 00 every Medical night for Branch 4 weeks and then three times a week, M/W/F estradioL 2021-0 Yes [id number] 1g Insert 1 g Univers 0.01 % (0.1 9-27 into ity of mg/gram) 00:00: [place] vaginal 00 the Medical cream morning. Branch Use every night for 2 weeks and then three times a week M/W/F clobetasoL 2021-0 Yes [id number] Apply to Univers 0.05 % 9-27 area(s) ity of ointment 00:00: daily. Use [place] as 00 every Medical night for Branch 4 weeks and then three times a week, M/W/F estradioL 2021-0 Yes [id number] 1g Insert 1 g Univers 0.01 % (0.1 9-27 into ity of mg/gram) 00:00: vagina [place] vaginal 00 the Medical cream morning. Branch Use every night for 2 weeks and then three times a week M/W/F clobetasoL 2021-0 Yes [id number] Apply to Univers 0.05 % 9-27 area(s) ity of ointment 00:00: daily. Use [place] as 00 every Medical night for Branch 4 weeks and then three times a week, M/W/F estradioL 2021-0 Yes [id number] 1g Insert 1 g Univers 0.01 % (0.1 9-27 into ity of mg/gram) 00:00: vagina [place] vaginal 00 the Medical cream morning. Branch Use every night for 2 weeks and then three times a week M/W/F clobetasoL Yes [id number] Apply to Univers 0.05 % 9-27 area(s) ity of ointment 00:00: daily. Use [place] as 00 every Medical night for Branch 4 weeks and then three times a week, /W/ estradioL Yes [id number] 1g Insert 1 g Univers 0.01 % (0.1 9-27 into ity of mg/gram) 00:00: vagina [place] vaginal 00 the Medical cream morning. Branch Use every night for 2 weeks and then three times a week /W/ clobetasoL Yes [id number] Apply to Univers 0.05 % 9-27 area(s) ity of ointment 00:00: daily. Use [place] as 00 every Medical night for Branch 4 weeks and then three times a week, /W/ estradioL Yes [id number] 1g Insert 1 g Univers 0.01 % (0.1 9-27 into ity of mg/gram) 00:00: vagina [place] vaginal 00 the Medical cream morning. Branch Use every night for 2 weeks and then three times a week /W/ GLIPIZIDE Yes [id number] 2.5mg Take 1 Univers XL 2.5 mg 1-18 tablet by ity o f 24 hr 00:00: mouth [place] tablet 00 daily with Medical breakfast. [place] GLIPIZIDE Yes [id number] 2.5mg Take 1 Univers XL 2.5 mg 1-18 tablet by ity o f 24 hr 00:00: mouth [place] tablet 00 daily with Medical breakfast. [place] GLIPIZIDE Yes [id number] 2.5mg Take 1 Univers XL 2.5 mg 1-18 tablet by ity o f 24 hr 00:00: mouth [place] tablet 00 daily with Medical breakfast. [place] GLIPIZIDE Yes [id number] 2.5mg Take 1 Univers XL 2.5 mg 1-18 tablet by ity o f 24 hr 00:00: mouth [place] tablet 00 daily with Medical breakfast. [place] GLIPIZIDE Yes [id number] 2.5mg Take 1 Univers XL 2.5 mg 1-18 tablet by ity o f 24 hr 00:00: mouth [place] tablet 00 daily with Medical breakfast. [place] GLIPIZIDE 2021-0 Yes [id number] 2.5mg Take 1 Univers XL 2.5 mg 1-18 tablet by ity o f 24 hr 00:00: mouth [place] tablet 00 daily with Medical breakfast. Branch GLIPIZIDE 2021-0 Yes [id number] 2.5mg Take 1 Univers XL 2.5 mg 1-18 tablet by ity o f 24 hr 00:00: mouth [place] tablet 00 daily with Medical breakfast. Branch GLIPIZIDE 2021-0 Yes [id number] 2.5mg Take 1 Univers XL 2.5 mg 1-18 tablet by ity o f 24 hr 00:00: mouth [place] tablet 00 daily with Medical breakfast. Branch GLIPIZIDE 2021-0 Yes [id number] 2.5mg Take 1 Univers XL 2.5 mg 1-18 tablet by ity o f 24 hr 00:00: mouth [place] tablet 00 daily with Medical breakfast. [place] GLIPIZIDE 2021-0 Yes [id number] 2.5mg Take 1 Univers XL 2.5 mg 1-18 tablet by ity o f 24 hr 00:00: mouth [place] tablet 00 daily with Medical breakfast. Branch GLIPIZIDE 0 Yes [id number] 2.5mg Take 1 Univers XL 2.5 mg 1-18 tablet by ity o f 24 hr 00:00: mouth [place] tablet 00 daily with Medical breakfast. [place] GLIPIZIDE 0 Yes [id number] 2.5mg Take 1 Univers XL 2.5 mg 1-18 tablet by ity o f 24 hr 00:00: mouth [place] tablet 00 daily with Medical breakfast. [place] METFORMIN 0 Yes [id number] TAKE FOUR Univers ER 500 mg 1-12 (4) ity of 24 hr 00:00: TABLET(S) [place] tablet 00 BY MOUTH Medical ONCE A Branch DAY. METFORMIN 2021-0 Yes [id number] TAKE FOUR Univers ER 500 mg 1-12 (4) ity of 24 hr 00:00: TABLET(S) [place] tablet 00 BY MOUTH Medical ONCE A Branch DAY. METFORMIN 2021-0 Yes [id number] TAKE FOUR Univers ER 500 mg 1-12 (4) ity of 24 hr 00:00: TABLET(S) [place] tablet 00 BY MOUTH Medical ONCE A Branch DAY. METFORMIN 2021-0 Yes [id number] TAKE FOUR Univers ER 500 mg 1-12 (4) ity of 24 hr 00:00: TABLET(S) [place] tablet 00 BY MOUTH Medical ONCE A Branch DAY. METFORMIN 2021-0 Yes [id number] TAKE FOUR Univers ER 500 mg 1-12 (4) ity of 24 hr 00:00: TABLET(S) [place] tablet 00 BY MOUTH Medical ONCE A Branch DAY. METFORMIN 2021-0 Yes [id number] TAKE FOUR Univers ER 500 mg 1-12 (4) ity of 24 hr 00:00: TABLET(S) [place] tablet 00 BY MOUTH Medical ONCE A Branch DAY. METFORMIN 2021-0 Yes [id number] TAKE FOUR Univers ER 500 mg 1-12 (4) ity of 24 hr 00:00: TABLET(S) [place] tablet 00 BY MOUTH Medical ONCE A Branch DAY. METFORMIN 2021-0 Yes [id number] TAKE FOUR Univers ER 500 mg 1-12 (4) ity of 24 hr 00:00: TABLET(S) [place] tablet 00 BY MOUTH Medical ONCE A Branch DAY. METFORMIN 2021-0 Yes [id number] TAKE FOUR Univers ER 500 mg 1-12 (4) ity of 24 hr 00:00: TABLET(S) [place] tablet 00 BY MOUTH Medical ONCE A Branch DAY. METFORMIN 2021-0 Yes [id number] TAKE FOUR Univers ER 500 mg 1-12 (4) ity of 24 hr 00:00: TABLET(S) [place] tablet 00 BY MOUTH Medical ONCE A Branch DAY. METFORMIN 2021-0 Yes [id number] TAKE FOUR Univers ER 500 mg 1-12 (4) ity of 24 hr 00:00: TABLET(S) [place] tablet 00 BY MOUTH Medical ONCE A Branch DAY. METFORMIN 2021-0 Yes [id number] TAKE FOUR Univers ER 500 mg 1-12 (4) ity of 24 hr 00:00: TABLET(S) [place] tablet 00 BY MOUTH Medical ONCE A Branch DAY. aspirin 81 2020-10 Yes 81mg Take 81 mg U nivers mg EC 0-11 by mouth ity of tablet 15:57: daily. [address] aspirin 81 2020-10 Yes 81mg Take 81 mg U nivers mg EC 0-11 by mouth ity of tablet 15:57: daily. [address] MV-MN/IRON/ 2020-10 Yes Take by Uni vers FOLIC 0-11 mouth ity of ACID/HERB 15:35: daily. [place] [address] Medical (VITAMIN D3 Branch COMPLETE ORAL) rosuvastati 2020-10 Yes 20mg Take 20 mg Univers n 20 mg 0-11 by mouth ity of tablet 15:35: at [place] [address] bedtime. Medical Branch MV-MN/IRON/ 2020-10 Yes Take by Uni vers FOLIC 0-11 mouth ity of ACID/HERB 15:35: daily. [place] [address] Medical (VITAMIN D3 Branch COMPLETE ORAL) rosuvastati 2020-10 Yes 20mg Take 20 mg Univers n 20 mg 0-11 by mouth ity of tablet 15:35: at [place] [address] bedtime. Medical Branch CYANOCOBALA 2020-10 Yes Take by Uni vers MIN, 0-11 mouth ity of VITAMIN 15:35: daily. [place] B[address] 25 Medical (VITAMIN Branch B-12 ORAL) FERROUS 2020-10 Yes Take by Univers SULFATE 0-11 mouth ity of (IRON ORAL) 15:35: daily. [place] [address] Medical Branch L.ACID/L.CA 2020-10 Yes Take by Uni vers SEI/B.BIF/B 0-11 mouth ity of .MELVIN/FOS 15:35: daily. [place] (PROBIOTIC 25 Medical BLEND ORAL) Branch eszopiclone 2020-10 Yes 3mg Take 3 mg U nivers 3 mg tablet 0-11 by mouth ity of 15:35: at [place] [address] bedtime. Medical Branch CYANOCOBALA 2020-10 Yes Take by Uni vers MIN, 0-11 mouth ity of VITAMIN 15:35: daily. [place] [address] 25 Medical (VITAMIN Branch B-12 ORAL) FERROUS 2020-10 Yes Take by Univers SULFATE 0-11 mouth ity of (IRON ORAL) 15:35: daily. [place] [address] Medical Branch L.ACID/L.CA 2020-10 Yes Take by Uni vers SEI/B.BIF/B 0-11 mouth ity of .MELVIN/FOS 15:35: daily. [place] (PROBIOTIC 25 Medical BLEND ORAL) Branch eszopiclone 2020-10 Yes 3mg Take 3 mg U nivers 3 mg tablet 0-11 by mouth ity of 15:35: at [place] [address] bedtime. Medical Branch metoprolol 2020-10 Yes 50mg Take 1 Unive rs succinate 0-11 tablet by ity o f XL 50 mg 24 00:00: mouth 2 [place] as hr tablet 00 (two) Medical times Branch daily. metoprolol 2020-10 Yes 50mg Take 1 Unive rs succinate 0-11 tablet by ity o f XL 50 mg 24 00:00: mouth 2 [place] hr tablet 00 (two) Medical times Branch daily. metoprolol 2020-10 Yes 50mg Take 1 Unive rs succinate 0-11 tablet by ity o f XL 50 mg 24 00:00: mouth 2 [place] hr tablet 00 (two) Medical times Branch daily. metoprolol 2020-10 Yes 50mg Take 1 Unive rs succinate 0-11 tablet by ity o f XL 50 mg 24 00:00: mouth 2 [place] hr tablet 00 (two) Medical times Branch daily. metoprolol 2020-10 Yes 50mg Take 1 Unive rs succinate 0-11 tablet by ity o f XL 50 mg 24 00:00: mouth 2 [place] hr tablet 00 (two) Medical times Branch daily. metoprolol 2020-10 Yes 50mg Take 1 Unive rs succinate 0-11 tablet by ity o f XL 50 mg 24 00:00: mouth 2 [place] hr tablet 00 (two) Medical times Branch daily. metoprolol 2020-10 Yes 50mg Take 1 Unive rs succinate 0-11 tablet by ity o f XL 50 mg 24 00:00: mouth 2 [place] hr tablet 00 (two) Medical times Branch daily. metoprolol 2020-10 Yes 50mg Take 1 Unive rs succinate 0-11 tablet by ity o f XL 50 mg 24 00:00: mouth 2 [place] hr tablet 00 (two) Medical times Branch daily. metoprolol 2020-10 Yes 50mg Take 1 Unive rs succinate 0-11 tablet by ity o f XL 50 mg 24 00:00: mouth 2 [place] hr tablet 00 (two) Medical times Branch daily. metoprolol 2020-10 Yes 50mg Take 1 Unive rs succinate 0-11 tablet by ity o f XL 50 mg 24 00:00: mouth 2 [place] hr tablet 00 (two) Medical times Branch daily. metoprolol 2020-10 Yes 50mg Take 1 Unive rs succinate 0-11 tablet by ity o f XL 50 mg 24 00:00: mouth 2 Eren as hr tablet 00 (two) Medical times Branch daily. metoprolol 2020-10 Yes 50mg Take 1 Unive rs succinate 0-11 tablet by ity o f XL 50 mg 24 00:00: mouth 2 Eren as hr tablet 00 (two) Medical times [place] daily. levothyroxi Yes [id number] 125ug Take 1 Univers ne 125 mcg 5-04 tablet by ity of tablet 00:00: mouth [place] 00 every Medical morning. [place] levothyroxi Yes [id number] 125ug Take 1 Univers ne 125 mcg 5-04 tablet by ity of tablet 00:00: mouth [place] 00 every Medical morning. [place] levothyroxi Yes [id number] 125ug Take 1 Univers ne 125 mcg 5-04 tablet by ity of tablet 00:00: mouth [place] 00 every Medical morning. Branch levothyroxi Yes [id number] 125ug Take 1 Univers ne 125 mcg 5-04 tablet by ity of tablet 00:00: mouth [place] 00 every Medical morning. [place] levothyroxi Yes [id number] 125ug Take 1 Univers ne 125 mcg 5-04 tablet by ity of tablet 00:00: mouth [place] 00 every Medical morning. [place] levothyroxi Yes [id number] 125ug Take 1 Univers ne 125 mcg 5-04 tablet by ity of tablet 00:00: mouth [place] 00 every Medical morning. Branch levothyroxi Yes [id number] 125ug Take 1 Univers ne 125 mcg 5-04 tablet by ity of tablet 00:00: mouth [place] 00 every Medical morning. Branch levothyroxi Yes [id number] 125ug Take 1 Univers ne 125 mcg 5-04 tablet by ity of tablet 00:00: mouth [place] 00 every Medical morning. [place] levothyroxi Yes [id number] 125ug Take 1 Univers ne 125 mcg 5-04 tablet by ity of tablet 00:00: mouth [place] 00 every Medical morning. Branch levothyroxi Yes [id number] 125ug Take 1 Univers ne 125 mcg 5-04 tablet by ity of tablet 00:00: mouth [place] 00 every Medical morning. [place] levothyroxi Yes [id number] 125ug Take 1 Univers ne 125 mcg 5-04 tablet by ity of tablet 00:00: mouth [place] 00 every Medical morning. [place] levothyroxi 2020-0 Yes [id number] 125ug Take 1 Univers ne 125 mcg 5-04 tablet by ity of tablet 00:00: mouth 00 every Medical morning. Branch amLODIPine 2020-0 Yes 5mg Take 1 Unive rs 5 mg tablet 1-02 tablet by ity of 00:00: mouth (two) Medical times Branch daily. amLODIPine 2020-0 Yes 5mg Take 1 Unive rs 5 mg tablet 1-02 tablet by ity of 00:00: mouth (two) Medical times Branch daily. amLODIPine 2020-0 Yes 5mg Take 1 Unive rs 5 mg tablet 1-02 tablet by ity of 00:00: mouth (two) Medical times Branch daily. amLODIPine 2020-0 Yes 5mg Take 1 Unive rs 5 mg tablet 1-02 tablet by ity of 00:00: mouth (two) Medical times Branch daily. amLODIPine 2020-0 Yes 5mg Take 1 Unive rs 5 mg tablet 1-02 tablet by ity of 00:00: mouth (two) Medical times Branch daily. amLODIPine 2020-0 Yes 5mg Take 1 Unive rs 5 mg tablet 1-02 tablet by ity of 00:00: mouth (two) Medical times Branch daily. amLODIPine 2020-0 Yes 5mg Take 1 Unive rs 5 mg tablet 1-02 tablet by ity of 00:00: mouth (two) Medical times Branch daily. amLODIPine 2020-0 Yes 5mg Take 1 Unive rs 5 mg tablet 1-02 tablet by ity of 00:00: mouth (two) Medical times Branch daily. amLODIPine 2020-0 Yes 5mg Take 1 Unive rs 5 mg tablet 1-02 tablet by ity of 00:00: mouth (two) Medical times Branch daily. amLODIPine 2020-0 Yes 5mg Take 1 Unive rs 5 mg tablet 1-02 tablet by ity of 00:00: mouth (two) Medical times Branch daily. amLODIPine 2020-0 Yes 5mg Take 1 Unive rs 5 mg tablet 1-02 tablet by ity of 00:00: mouth (two) Medical times Branch daily. amLODIPine 2020-0 Yes 5mg Take 1 Unive rs 5 mg tablet 1-02 tablet by ity of 00:00: mouth 2 [place] [id number] (two) Medical times Branch daily. lancets 2014- Yes Use as Univers (ONE TOUCH 1-02 directed, ity of [place]) 33 00:00: daily, [facility] 00 Dx:E11.65 [facility] Branch lancets 2014- Yes Use as Univers (ONE TOUCH 1-02 directed, ity of [place]) 33 00:00: daily, [facility] Dx:E11.65 [facility] Branch lancets 2015- Yes Use as Univers (ONE TOUCH 1-02 directed, ity of [place]) 33 00:00: daily, [facility] Dx:E11.65 [facility] Branch lancets 2014- Yes Use as Univers (ONE TOUCH 1-02 directed, ity of [place]) 33 00:00: daily, [facility] Dx:E11.65 [facility] Branch lancets 2014- Yes Use as Univers (ONE TOUCH 1-02 directed, ity of [place]) 33 00:00: daily, [facility] Dx:E11.65 [facility] Branch lancets 2014- Yes Use as Univers (ONE TOUCH 1-02 directed, ity of [place]) 33 00:00: daily, [facility] Dx:E11.65 [facility] Branch lancets 2014- Yes Use as Univers (ONE TOUCH 1-02 directed, ity of [place]) 33 00:00: daily, [facility] 00 Dx:E11.65 [facility] Branch lancets 2014- Yes Use as Univers (ONE TOUCH 1-02 directed, ity of [place]) 33 00:00: daily, [facility] Dx:E11.65 [facility] Branch lancets 2014- Yes Use as Univers (ONE TOUCH 1-02 directed, ity of [place]) 33 00:00: daily, [facility] 00 Dx:E11.65 [facility] Branch lancets 2014- Yes Use as Univers (ONE TOUCH 1-02 directed, ity of [place]) 33 00:00: daily, [facility] 00 Dx:E11.65 [facility] Branch lancets 2014- Yes Use as Univers (ONE TOUCH 1-02 directed, ity of [place]) 33 00:00: daily, [facility] 00 Dx:E11.65 [facility] Branch lancets 2014-10 Yes Use as Univers (ONE TOUCH 1-02 directed, ity of [place]) 33 00:00: daily, [place] gauge Mis 00 Dx:E11.65 [facility] Branch Vital Signs Vital Name Observation Time Observation Value Comments Source Systolic blood 2022-12-12 19:49:00 133 mm[Hg] Univer sity of pressure [place] [facility] Diastolic blood 2022-12-12 19:49:00 71 mm[Hg] Unive rsity of pressure [place] [facility] Heart rate 2022-12-12 19:49:00 73 /min Universi ty of [place] [facility] Respiratory rate 2022-12-12 19:49:00 19 /min Univ ersity of [place] [facility] Body height 2022-12-12 19:49:00 160 cm Universi ty [facility] [place] [facility] Body weight 2022-12-12 19:49:00 86.183 kg [facility] [place] [facility] BMI 2022-12-12 19:49:00 33.66 kg/m2 Universi [facility] [place] [facility] Oxygen saturation in 2022-12-12 19:49:00 94 /min University of Arterial blood by [facility] Pulse oximetry Branch Systolic blood 2022-07-24 20:39:00 121 mm[Hg] Univer sity of pressure [place] [facility] Diastolic blood 2022-07-24 20:39:00 65 mm[Hg] Unive rsity of pressure [place] [facility] Heart rate 2022-07-24 20:39:00 71 /min Universi ty [facility] [place] [facility] Body weight 2022-07-24 20:39:00 89.812 kg [facility]i [facility] [place] [facility] BMI 2022-07-24 20:39:00 35.07 kg/m2 Universi [facility] [place] [facility] Oxygen saturation in 2022-07-24 20:39:00 95 /min University of Arterial blood by [facility] Pulse oximetry Branch Systolic blood 2022-07-09 20:41:00 114 mm[Hg] Univer sity of pressure [place] [facility] Diastolic blood 2022-07-09 20:41:00 76 mm[Hg] Unive rsity of pressure [place] [facility] Heart rate 2022-07-09 20:41:00 68 /min [facility]i [facility] [place] [facility] Body temperature 2022-07-09 20:41:00 36.61 Essie [facility] Respiratory rate 2022-07-09 20:41:00 18 /min [facility] Body height 2022-07-09 20:41:[address] [facility] Body weight 2022-07-09 20:41:[address] [facility] BMI 2022-07-09 20:41:00 34.72 kg/m2 [facility] Procedures Procedure Date / Time Performed Performing Clinician Aubrey lo [facility] PATIENT 2022-12-12 19:40:14 Doctor Unassigned, No [facility] FINANCIAL POLICY Name [facility] MEDICAL 2022 06:01:00 Doctor Unassigned, No [facility] RELEASE/CLEARANCE Name [facility] FORMS CONSENT/REFUSAL FOR 2022-07-24 20:29:39 Doctor Unassigned, No Un [facility] DIAGNOSIS AND Name [facility] TREATMENT GALV ONLY - VAGINAL 2022-07-09 21:06:00 Jackie [facility] PATHOGENS BY NUCLEIC Medical [facility] ACID TESTING Encounters Start End Encounter Admission Attending Care Care Encounter Source Date/Time Date/Time Type Type Clinicians Facility Department ID 2023-12-12 2023-12-12 Outpatient Colt MARADIAGA [facility] [id number] Univers 10:00:00 10:00:00 SENDALBA [facility] 2023-07-23 2023-07-23 Outpatient Colt LOPES [facility] [id number] Univers 13:00:00 13:00:00 RAVIN [facility] 2023-01-23 2023-01-23 Outpatient MONIQUE DURON [id number] Monique 14:30:00 14:30:00 JOVON muhammad 2022-12-25 2022-12-25 Outpatient Colt MARADIAGA [facility] [id number] Univers 13:49:38 23:59:00 SENDIL [facility] 2022-12-17 2022-12-17 Holli Maradiaga DEYOAV [id number] Univers 00:00:00 00:00:00 Gbaby FOFANA 350.1.13.10 ity of [place] [phone] Mi dicnj NAL [address] [place] [address] 2022-12-12 2022-12-12 Outpatient R HIREN [facility] [id number] Univers 14:00:00 14:12:42 SENDIL ity of [facility] 2022-12-12 2022-12-12 Office Hiren [facility] 1.2.840.114 [id number] Univers 14:00:00 14:12:42 Visit Gabby FOFANA 350.1.13.10 ity [place] [phone] Mi dicnj NAL [address] [place] [address] 2022-12-12 2022-12-12 Orders Doctor MORAN 1.2.840.114 [id number] Univers 00:00:00 00:00:00 Only Unassigned, PATRICIA 350.1.13.10 ity of [place] [facility] 4.2.7.2.686 Eren as [phone] [address] 2022 2022 Orders Doctor LUISA 1.2.840.114 [id number] Univers 00:00:00 00:00:00 Only Unassigned, PATRICIA 350.1.13.10 ity of [place] [facility] 4.2.7.2.686 Eren as [phone] [address] 2022-07-24 2022-07-24 [facility] 1.2.840.114 [id number] Univers 15:40:00 16:02:58 Visit Ravin FOFANA 350.1.13.10 i ty of [place] [phone] Mi dicnj NAL [address] [place] [address] 2022-07-24 2022-07-24 Outpatient R SANDRA [facility] [id number] Univers 15:40:00 16:02:58 RAVIN ity of [facility] 2022-07-24 2022-07-24 Orders Doctor MORAN 1.2.840.114 [id number] Univers 00:00:00 00:00:00 Only Unassigned, PATRICIA 350.1.13.10 ity of [place] [facility] 4.2.7.2.686 Eren as [phone] [address] 2022-07-09 2022-07-09 Outpatient R JONNA, [facility] [id number] Univers 15:00:00 16:11:20 JACKIE ity of [facility] 2022-07-09 2022-07-09 Office Adum, [facility] 1.2.840.114 [id number] Univers 15:00:00 16:11:20 Visit Jackie Camacho ST[place] 350.1.13.10 ity [place] [phone] Mi kaia [address] 2022-01-25 2022-01-25 Refjani Gloria, [facility] 1.2.840.114 [id number] Univers 00:00:00 00:00:00 [facility] 350.1.13.10 it y of [place] 4.2.7.2.686 Eren as ANDREW?BLEA [phone] Mi diclarry [facility] [address] [place] MEDICAL OFFICE BUILDING 2022-01-21 2022-01-21 [facility] 1.2.840.114 [id number] Univers 00:00:00 00:00:00 Critical access hospital 350.1.13.10 it [facility] 4.2.7.2.686 Eren as ANDREW?BLEA [phone] [facility] [address] [place] MEDICAL OFFICE [facility] 2021-12-25 2021-12-25 Outpatient R HIREN, [facility] [id number] Univers 00:00:00 00:00:00 SENDIL ity of [facility] 2021-10-28 2021-10-28 Refjani Gloria, [facility] 1.2.840.114 [id number] Univers 00:00:00 00:00:00 [facility] tado 350.1.13.10 it [facility] 4.2.7.2.686 Eren as ANDREW?BLEA [phone] Mi dic[address] MEDICAL OFFICE BUILDING 2021-10-22 2021-10-22 Refjani Gloria, [facility] 1.2.840.114 [id number] Univers 00:00:00 00:00:00 Critical access hospital 350.1.13.10 it y of [place] 4.2.7.2.686 Eren as ANDREW?BLEA [phone] [facility] [address] [place] MEDICAL OFFICE [facility] 2021-08-21 2021-08-21 Outpatient R FAIZAN [facility] [id number] Univers 14:00:00 14:00:00 WENTONG ity [facility] 2021-07-30 2021-07-30 Refill [facility] 1.2.840.114 [id number] Univers 00:00:00 00:00:00 [facility] 350.1.13.10 it y of [place] 4.2.7.2.686 Eren as Andrew?Blea [phone] [address] Office [facility] 2021-07-23 2021-07-23 Office [facility] 1.2.840.114 [id number] Univers 15:16:51 16:02:57 Visit Gabby Fofana 350.1.13.10 ity [facility] [place] [phone] [facility] 059 [facility] 2021-07-23 2021-07-23 [facility] [id number] Univers 15:30:00 15:30:00 SENDIL ity [facility] 2021-07-23 2021-07-23 Orders Doctor MORAN 1.2.840.114 [id number] Univers 00:00:00 00:00:00 Only Unassigned, PATRICIA 350.1.13.10 ity of [place] [facility] 4.2.7.2.686 Eren as [phone] [address] 2021-07-19 2021-07-19 Outpatient R HIREN [facility] [id number] Univers 13:00:00 13:00:00 SENDIL ity [facility] 2021-06-13 2021-06-13 [facility] 1.2.840.114 [id number] Univers 07:51:09 23:59:00 Encounter Sendil [facility] [place] 350.1.13.10 ity of [place] [phone] [facility] 843 [facility] 2021-06-13 2021-06-13 Outpatient R [facility] [id number] Univers 09:00:00 09:00:00 ity [facility] 2021-06-13 2021-06-13 Outpatient R HIREN [facility] [id number] Univers 08:00:00 08:00:00 SENDIL ity [facility] 2021-05-18 2021-05-18 [facility] [id number] Univers 14:30:00 14:30:00 [facility] 2021-04-25 2021-04-25 [facility]ani [facility] 1.2.840.114 [id number] Univers 00:00:00 00:00:00 Mikki Fofana 350.1.13.10 i ty [place] [phone] [facility] 220 [facility] 2021-02-13 2021-02-13 Office [facility] 1.2.840.114 [id number] Univers 15:48:02 16:28:42 Visit Mikki Fofana 350.1.13.10 i ty of [place] [phone] [facility] 220 [facility] 2021-02-13 2021-02-13 Outpatient R FAIZAN [facility] [id number] Univers 16:00:00 16:00:00 WENTONG ity [facility] 2021-02-12 2021-02-12 Refill [facility] 1.2.840.114 [id number] Univers 00:00:00 00:00:00 Mikki Fofana 350.1.13.10 i ty [place] [phone] [facility] 220 [facility] 2021-01-02 2021-01-02 [facility] [id number] Univers 08:00:00 08:00:00 WENTONG ity [facility] 2021-01-01 2021-01-01 Cut Press Operator 2, Adc Lab [facility] 1.2.840.114 [id number] Univers 10:47:43 11:02:43 Visit Nimo Jade 350.1.13.10 ity of [place] [phone] Mi dical nal 353 [facility] 2021-01-01 2021-01-01 Outpatient R KALIE [facility] [id number] Univers 10:45:00 10:45:00 NIMO elizalde [facility] 2021-01-01 2021-01-01 Telephone Gloria, [facility] [id number] Univers 00:00:00 00:00:00 Mikki [place] 350.1.13.10 i ty of [place] [phone] Mi dical nal 220 [facility] 2020-12-29 2020-12-29 [facility] [id number] [id number] Univers 14:17:39 23:59:00 Encounter Nimo [place] 350.1.13.10 ity [place] [phone] [facility] [address] [place] 2020-12-29 2020-12-29 Outpatient R KALIE [facility] [id number] Univers 00:00:00 00:00:00 NIMO rafalalfred [facility] 2020-11-15 2020-11-15 Outpatient R LAURO [facility] [id number] Univers 15:20:00 15:20:00 ELIAN elizalde [facility] 2020-11-01 2020-11-01 Outpatient R KALIE [facility] [id number] Univers 09:15:00 09:15:00 NIMO elizalde [facility] 2020-11-01 2020-11-01 Cut Press Operator 2, Adc Lab [facility] 1.2.840.114 [id number] Univers 08:50:56 09:05:56 Visit Nimo Jade 350.1.13.10 ity of [place] [phone] [facility] 353 [facility] 2020-11-01 2020-11-01 Orders Doctor LUISA 1.2.840.114 [id number] Univers 00:00:00 00:00:00 Only Unassigned, PATRICIA 350.1.13.10 ity of [place] [facility] 4.2.7.2.686 Eren as [phone] [address] 2020-10-18 2020-10-18 Outpatient R LAURO [facility] [id number] Univers 15:50:00 15:50:00 ELIAN [facility] 2020-08-01 2020-08-01 Telephone [facility] [id number] 00:00:00 00:00:00 Sendalba Fofana 350.1.13.10 [place] 4.2.7.2.686 Professio [phone] [address] 2020-08-01 2020-08-01 Telephone [facility] [id number] Univers 00:00:00 00:00:00 Gabby Fofana 350.1.13.10 ity of [place] [phone] [address] 2020-07-31 2020-07-31 Outpatient R KALIE [facility] [id number] Univers 09:15:00 09:15:00 NIMO ity [facility] 2020-07-31 2020-07-31 Cut Press Operator 2, Adc Lab [facility] 1.2.840.114 [id number] 08:33:54 08:48:54 Visit Salbador 350.1.13.10 [place] 4.2.7.2.686 Professio [phone] [address] 2020-07-31 2020-07-31 Cut Press Operator 2, Adc Lab [facility] 1.2.840.114 [id number] Univers 08:33:54 08:48:54 Visit Nimo Jade 350.1.13.10 ity of [place] [phone] Mi dical nal 353 [facility] 2020-07-31 2020-07-31 Orders Doctor LUISA 1.2.840.114 [id number] 00:00:00 00:00:00 Only Unassigned, PATRICIA 350.1.13.10 [place] [facility] 4.2.7.2.686 [id number] 2020-07-31 2020-07-31 Orders Doctor LUISA 1.2.840.114 [id number] Univers 00:00:00 00:00:00 Only Unassigned, PATRICIA 350.1.13.10 ity of [place] [facility] 4.2.7.2.686 Eren as [phone] [address] 2020-07-14 2020-07-14 Office Hiren [facility] 1.2.840.[id number] [place] [address] 10:42:11 11:35:40 Visit Gabby Fofana 350.1.13.10 ity of [place] [phone] Mi dical nal 059 [facility] 2020-07-14 2020-07-14 Outpatient R HIREN [facility] [id number] [facility] 11:00:00 11:00:00 SENDIL ity of [facility] 2020-07-14 2020-07-14 Orders Doctor MORAN 1.2.840.114 [id number] Univers 00:00:00 00:00:00 Only Unassigned, PATRICIA 350.1.13.10 ity of [place] [facility] 4.2.7.2.686 Eren as [phone] [address] 2020-07-04 2020-07-04 [facility] 1.2.840.114 [id number] 14:45:38 15:43:36 Visit Mikki Fofana 350.1.13.10 [place] 4.2.7.2.686 Professio [phone] [address] 2020-07-04 2020-07-04 Office [facility] 1.2.840.114 [id number] Univers 14:45:38 15:43:36 Visit Mikki Fof[place] 350.1.13.10 i ty of [place] [phone] Mi dical [address] 2020-07-04 2020-07-04 Outpatient R FAIZAN [facility] [id number] Univers 15:00:00 15:00:00 [facility] 2020-02-29 2020-02-29 Office [facility] 1.2.840.114 [id number] Univers 12:50:36 13:29:37 Visit [facility] 350.1.13.10 i ty of [place] [phone] [address] 2020-02-29 2020-02-29 [facility] [id number] Univers 13:00:00 13:00:00 [facility] 2020-02-22 2020-02-22 Out[facility] [id number] Univers 13:00:00 13:00:00 [facility] 2020-02-22 2020-02-22 Telemedici [facility] 1.2.840.114 [id number] Univers 08:11:10 08:41:10 ne Visit Mikki [place] 350.1.13.10 ity of [place] [phone] [address] 2019-12-27 2019-12-27 Refill [facility] 1.2.840.114 [id number] Univers 00:00:00 00:00:00 Mikki Fofana 350.1.13.10 i ty of [place] [phone] [address] Results This patient has no known results.
[2023-07-15] MEDS ORDERED: METOPROLOL TARTRATE 5 MG/5 ML INJ IV ONE (13:29)
[2023-07-15 13:34] LABS: Absolute Lymphocytes (CBC) 4.4 K/uL (0.7-4.9); Hematocrit 39.7 % (36.0-45.0); Lymphocytes % 33.9 % (15.3-44.8); MCV 81.4 fL (80-100); MPV 9.6 fL (7.6-11.3); Platelets 349 thou/uL (152-406); RBC Red Blood Cell Count 4.88 M/uL (3.86-4.86)
[2023-07-15 13:41] LABS: Protime INR 0.93
[2023-07-15 14:02] LABS: ALT/SGPT 22 U/L (13-56); AST/SGOT 9 U/L (15-37); Albumin 3.9 g/dL (3.4-5.0); Alkaline Phosphatase 71 U/L (45-117); BUN Blood Urea Nitrogen 24 mg/dL (7-18); Bicarbonate 25 mEq/L (21-32); Bilirubin Direct < 0.1 mg/dL (0-0.2); Bilirubin Indirect, Calculated ND mg/dL (0.2-0.8); Bilirubin Total 0.4 mg/dL (0.2-1.0); Glomerular Filtration Rate 43 ml/min (=/>90); Glucose Level 194 mg/dL (74-106); NT PRO-BNP 75 pg/mL (<125); Potassium 4.1 mEq/L (3.5-5.1); Protein, Total 8.2 g/dL (6.4-8.2); Sodium Level 138 mEq/L (136-145); Troponin High Sensitivity 8.1 pg/mL (<58.9)
--- NOTE | 2023-07-15 14:24 | RAD REPORT ---
EXAM DESCRIPTION: RAD - Chest Single View - 07/15/2023 2:14 pm CLINICAL HISTORY: CHEST PAIN Chest pain. COMPARISON: <Comparisons> FINDINGS: Portable technique limits examination quality. The lungs are grossly clear. The heart is moderately enlarged in size. No displaced fractures. IMPRESSION: No acute intrathoracic process suspected.
--- NOTE | 2023-07-15 14:51 | EDPHYS ---
Physician Documentation [facility] Name: Steff Burger Age: 72 yrs Sex: Female : 1950 Arrival Date: 07/15/2023 Time: 13:06 Bed 7 Private MD: ED Physician Nir Dominguez HPI: 07/15 13:46 This 72 yrs old Female presents to ER via Wheelchair with complaints of Chest Pain, rt Breathing Difficulty, Shortness Of Breath. 13:46 Patient presents to the ED with acute onset of chest pain, shortness of breath started rt about 1 hour prior to arrival. Patient denies any history of A-fib or a flutter. Patient states that she did take her home dose of oral metoprolol, states no improvement of symptoms. She states her heart rate was elevated. Denies other acute complaints at this time, symptoms are moderate in severity, no other aggravating or alleviating factors.. Historical: - Allergies: 13:19 Sulfa (Sulfonamide Antibiotics); aa5 - PMHx: 13:19 Anxiety; Diabetes - NIDDM; Hypertension; Hypothyroidism; kidney problems; aa5 - Family history:: not pertinent. ROS: 13:46 Constitutional: Negative for fever, chills, and weight loss, Neck: Negative for injury, rt pain, and swelling, Abdomen/GI: Negative for abdominal pain, nausea, vomiting, diarrhea, and constipation, MS/Extremity: Negative for injury and deformity, Skin: Negative for injury, rash, and discoloration, Neuro: Negative for headache, weakness, numbness, tingling, and seizure, Psych: Negative for depression, anxiety, suicide ideation, homicidal ideation, and hallucinations, 13:46 Cardiovascular: Positive for chest pain, Negative for edema, 13:46 Respiratory: Positive for shortness of breath, Negative for cough, Exam: 13:46 Constitutional: This is a well developed, well nourished patient who is awake, alert, rt and in no acute distress. Head/Face: Normocephalic, atraumatic. Chest/axilla: Normal chest wall appearance and motion. Nontender with no deformity. No lesions are appreciated. Cardiovascular: Regular rate and rhythm with a normal S1 and S2. No gallops, murmurs, or rubs. Normal PMI, no JVD. No pulse deficits. Respiratory: Lungs have equal breath sounds bilaterally, clear to auscultation and percussion. No rales, rhonchi or wheezes noted. No increased work of breathing, no retractions or nasal flaring. Abdomen/GI: Soft, non-tender, with normal bowel sounds. No distension or tympany. No guarding or rebound. No evidence of tenderness throughout. Skin: Warm, dry with normal turgor. Normal color with no rashes, no lesions, and no evidence of cellulitis. MS/ Extremity: Pulses equal, no cyanosis. Neurovascular intact. Full, normal range of motion. Neuro: Awake and alert, GCS 15, oriented to person, place, time, and situation. Cranial nerves II-XII grossly intact. Motor strength 5/5 in all extremities. Sensory grossly intact. Cerebellar exam normal. Normal gait. Psych: Awake, alert, with orientation to person, place and time. Behavior, mood, and affect are within normal limits. 13:46 ECG was reviewed by the Attending Physician. 14:11 ECG was reviewed by the Attending Physician. rt Vital Signs: 13:11 BP 145 / 110; Pulse 172; Resp 26 S; Temp 98(TE); Pulse Ox 100% on R/A; aa5 13:15 BP 158 / 106; Pulse 155; Resp 24; Pulse Ox 95% on R/A; ld1 13:23 BP 160 / 102; Pulse 78; Resp 21; Pulse Ox 94% on R/A; ld1 14:21 BP 120 / 79; Pulse 72; Resp 18; Pulse Ox 93% on R/A; ld1 14:49 Weight 86.18 kg; ld1 MDM: 13:14 Patient medically screened. cinthia 14:52 Differential diagnosis: A-flutter, A-fib, electrolyte disturbance, thyrotoxicosis. Data rt reviewed: vital signs, nurses notes, lab test result(s), EKG, radiologic studies. Consideration of Admission/Observation Patient was admitted/placed on observation. Management of patient was discussed with the following: Primary Care Provider: Agrees to admit. I considered the following discharge prescriptions or medication management in the emergency department Medications were administered in the Emergency Department. See MAR. Independent interpretation of the following test(s) in the Emergency Department X-Ray: My interpretation is No edema seen on interpretation of the x-ray images. Care significantly affected by the following chronic conditions: Diabetes. Counseling: I had a detailed discussion with the patient and/or guardian regarding the historical points, exam findings, and any diagnostic results supporting the discharge/admit diagnosis, lab results, radiology results, the need for further work-up and treatment in the hospital. Response to treatment: the patient's symptoms have markedly improved after treatment. 07/15 13:19 Order name: Basic Metabolic Panel; Complete Time: 14:08 rt 07/15 13:19 Order name: CBC with Diff; Complete Time: 13:46 rt 07/15 13:19 Order name: LFT's; Complete Time: 14:08 rt 07/15 13:19 Order name: Magnesium; Complete Time: 14:08 rt 07/15 13:19 Order name: NT PRO-BNP; Complete Time: 14:08 rt 07/15 13:19 Order name: PT-INR; Complete Time: 13:46 rt 07/15 13:19 Order name: Troponin HS; Complete Time: 14:08 rt 07/15 13:19 Order name: TSH; Complete Time: 14:08 rt 07/15 13:19 Order name: XRAY Chest (1 view); Complete Time: 14:27 rt 07/15 13:19 Order name: EKG; Complete Time: 13:20 rt 07/15 13:46 Order name: EKG; Complete Time: 13:46 rt 07/15 14:51 Order name: CONS Physician Consult EDMS 07/15 13:19 Order name: Cardiac monitoring; Complete Time: 13:19 rt 07/15 13:19 Order name: EKG - Nurse/Tech; Complete Time: 13:19 rt 07/15 13:19 Order name: IV Saline Lock; Complete Time: 13:19 rt 07/15 13:19 Order name: Labs collected and sent; Complete Time: 13:19 rt 07/15 13:19 Order name: O2 Per Protocol; Complete Time: 13:19 rt 07/15 13:19 Order name: O2 Sat Monitoring; Complete Time: 13:19 rt 07/15 13:46 Order name: EKG - Nurse/Tech; Complete Time: 14:05 rt EC:46 Rate is 156 beats/min. Rhythm is regular, A flutter with No ectopy, Rate related ST and rt T wave changes. QRS interval is normal. QT interval is normal. No Q waves. 14:11 Rate is 74 beats/min. Rhythm is regular, Normal Sinus Rhythm with No ectopy. QRS [place] rt is Normal. [place] interval is normal. QRS interval is normal. QT interval is normal. No Q waves. T waves are Normal. No ST changes noted. Administered Medications: 13:19 Drug: Metoprolol IVP 5 mg IVP every 5 minutes; Hold for SBP < 100 or HR < 60. x3 Route: ld1 IVP; Site: right antecubital; 14:57 Drug: Enoxaparin Sub-Q 1 mg/kg Sub-Q once Route: Sub-Q; Site: abdomen; kc6 Disposition Summary: 07/15/23 14:51 Hospitalization Ordered Notes: Hospitalization Status: Observation rt Provider: Anselmo Neely rt Location: Telemetry/MedSurg (observation) rt Condition: Stable rt Problem: new rt Symptoms: have improved rt Bed/Room Type: Standard rt Room Assignment: 217(07/15/23 16:29) bd Diagnosis - New onset atrial flutter with rapid ventricular rate rt Forms: - Medication Reconciliation Form rt - SBAR form rt - Leadership Thank You Letter rt Signatures: Dispatcher [employer] EDTrinidad Cason Corey, MD MD cha Calderon, Audri RN RN aa5 Dione Rendon RN RN ld1 Sonia Florence RN RN kc6 Nir Dominguez MD MD rt Corrections: (The following items were deleted from the chart) 16:29 14:51 rt bd
--- NOTE | 2023-07-15 14:51 | ER ---
Nurse's Notes [facility] Name: Steff Burger Age: 72 yrs Sex: Female : 1950 Arrival Date: 07/15/2023 Time: 13:06 Bed 7 Private MD: Diagnosis: New onset atrial flutter with rapid ventricular rate Presentation: 07/15 13:11 Acuity: KYE 2 aa5 13:11 Onset of symptoms was July 15, 2023. aa5 13:11 Chief complaint: Patient states: chest pain and SOB, pt states "I checked my pulse and aa5 it was 140 on the little machine". Coronavirus screen: shortness of breath. Ebola Screen: Patient denies travel to an Ebola-affected area in the 21 days before illness onset. Initial Sepsis Screen: Does the patient meet any 2 criteria? HR > 90 bpm. Does the patient have a suspected source of infection? No. Patient's initial sepsis screen is negative. Risk Assessment: Do you want to hurt yourself or someone else? Patient reports no desire to harm self or others. 13:11 Method Of Arrival: Wheelchair aa5 Historical: - Allergies: 13:19 Sulfa (Sulfonamide Antibiotics); aa5 - PMHx: 13:19 Anxiety; Diabetes - NIDDM; Hypertension; Hypothyroidism; kidney problems; aa5 - Family history:: not pertinent. Screenin:[address] [facility] ED Fall Risk Assessment (Adult) History of falling in the last 3 months, ld1 including since admission No falls in past 3 months (0 pts). Abuse screen: Denies threats or abuse. Denies injuries from another. Nutritional screening: No deficits noted. Tuberculosis screening: No symptoms or risk factors identified. Assessment: 13:20 General: Appears in no apparent distress. uncomfortable, Behavior is calm, cooperative, ld1 appropriate for age. Pain: Denies pain. Neuro: Level of Consciousness is awake, alert, obeys commands, Oriented to person, place, time, situation. Cardiovascular: Capillary refill < 3 seconds Patient's skin is warm and dry. Rhythm is atrial flutter. Respiratory: Airway is patent Respiratory effort is even, unlabored. GI: Abdomen is round non-distended. : No signs and/or symptoms were reported regarding the genitourinary system. EENT: No signs and/or symptoms were reported regarding the EENT system. Derm: No signs and/or symptoms reported regarding the dermatologic system. Musculoskeletal: No signs and/or symptoms reported regarding the musculoskeletal system. Vital Signs: 13:11 BP 145 / 110; Pulse 172; Resp 26 S; Temp 98(TE); Pulse Ox 100% on R/A; aa5 13:15 BP 158 / 106; Pulse 155; Resp 24; Pulse Ox 95% on R/A; ld1 13:23 BP 160 / 102; Pulse 78; Resp 21; Pulse Ox 94% on R/A; ld1 14:21 BP 120 / 79; Pulse 72; Resp 18; Pulse Ox 93% on R/A; ld1 14:49 Weight 86.18 kg; ld1 ED Course: 13:10 Patient arrived in ED. mg5 13:11 Arm band placed on Patient placed in an exam room, on a stretcher. aa5 13:14 Frankie Velázquez MD is Attending Physician. cinthia 13:17 Triage completed. aa5 13:18 Attending Physician role handed off by Frankie Velázquez MD rt 13:18 Nir Dominguez MD is Attending Physician. rt 13:19 Dione Rendon, KEELEY is Primary Nurse. ld1 13:23 Patient has correct armband on for positive identification. Placed in gown. Bed in low ld1 position. Call light in reach. Side rails up X2. registered nurse bone marrow transplant on. Pulse ox on. NIBP on. Door closed. Noise minimized. Warm blanket given. 13:23 No provider procedures requiring assistance completed. Inserted saline lock: 22 gauge ld1 in right antecubital area, using aseptic technique. Blood collected. Patient maintains SpO2 saturation greater than 95% on room air. 14:12 XRAY Chest (1 view) In Process Unspecified. EDMS 14:51 Anselmo Neely MD is Hospitalizing Provider. rt 17:07 Patient admitted, IV remains in place. ld1 Administered Medications: 13:19 Drug: Metoprolol IVP 5 mg IVP every 5 minutes; Hold for SBP < 100 or HR < 60. x3 Route: ld1 IVP; Site: right antecubital; 14:57 Drug: Enoxaparin Sub-Q 1 mg/kg Sub-Q once Route: Sub-Q; Site: abdomen; kc6 Medication: 13:23 VIS not applicable for this client. ld1 Outcome: 14:51 Decision to Hospitalize by Provider. rt 17:07 Admitted to Med/surg accompanied by nurse, via wheelchair, ld1 17:07 Condition: stable 17:07 Instructed on the need for admit, 17:08 Patient left the ED. ld1 Signatures: Dispatcher [employer] EDFrankie Mazariegos MD MD cha Calderon, Audri RN RN aa5 Dione Rendon RN RN ld1 Sonia Florence RN RN kc6 Nir Dominguez MD MD rt Lynne Antoine mg5
[2023-07-15] MEDS ORDERED: ENOXAPARIN 80 MG/0.8 ML SQ ONE (15:03)
[2023-07-15 18:21] VITALS: BMI 33.6
[2023-07-15 18:46] VITALS: O2SAT 96
[2023-07-15] MEDS: APIXABAN 5 MG TABLET PO SCH (20:06)
[2023-07-15 22:27] LABS: Specific Gravity 1.006 (1.005-1.030); Urine Bilirubin NEGATIVE (Negative); Urine Blood Negative (Negative); Urine Clarity Clear (Clear); Urine Color Colorless (Yellow); Urine Glucose NEGATIVE (Negative); Urine Protein NEGATIVE (Negative); Urine Urobilinogen Normal (Normal); Urine pH 6.5 (5.0-7.0)
--- NOTE | 2023-07-16 01:06 | HP ---
Date of Admission: 07/15/2023 Chief Complaint: Heart racing feeling. History Of Present Illness: This is a 72-year-old female patient who was doing fine in her normal usual state of health until today. All of a sudden, she started to have this heart racing feeling associated with some shortness of breath and heaviness, tightness in her chest. She took 2 doses of metoprolol at home and her symptoms did not improve, so after about 20 minutes she came into emergency room and after she arrived in the emergency room, she was given metoprolol and initially she was in atrial flutter with rapid ventricular rate and subsequently after metoprolol she converted to sinus rhythm and her symptoms resolved and I was contacted requesting admission to the hospital. I saw her this evening. She was sitting in the bed. Her and daughter were present with her at bedside. Allergies: TO CODEINE, CAUSING ITCHING; AND SULFA, CAUSING SWELLING OF FINGERS AND REDNESS. Medications: Amlodipine 5 mg daily, Lunesta 3 mg at bedtime as needed for sleep, ferrous fumarate 324 mg daily, levothyroxine 100 mcg daily, metformin 500 mg takes 2 tablets daily with breakfast, metoprolol succinate 50 mg 2 times a day, pantoprazole 40 mg daily, paroxetine 10 mg daily with breakfast, rosuvastatin 20 mg daily in the evening, vitamin B12 500 mcg daily. Review of Systems: Cardiovascular: As mentioned above. All other systems reviewed and negative. Past Medical History: Significant for hypothyroidism, type 2 diabetes mellitus, hypertension, mixed hyperlipidemia, gastroesophageal reflux disease, chronic kidney disease stage 3A, osteoarthritis at multiple sites, anxiety, insomnia. Past Surgical History: Cholecystectomy, hemorrhoid surgery, and hysterectomy. Family History: Father had prostate cancer. Mother had stroke and heart disease. Brother with lung cancer and sister also with lung cancer. Social History: Prior history of smoking, not at present time. Use of alcohol negative. Physical Examination: Vital Signs: When she first arrived to emergency room, temperature 98, pulse 172, respiratory rate 26, blood pressure 145/110, oxygen saturation 100%. Height 5 feet, 3 inches, weight 190 pounds. General: Awake, alert, oriented, not in distress. HEENT: Head atraumatic, normocephalic. Conjunctivae nonerythematous. Sclerae white. Mouth, no thrush or edema noted. Ears/Nose, no mass, lesion, discharge noted. Neck: Supple. No JVD, lymph nodes, bruit, thyromegaly noted. Lungs: Bilateral good equal air entry. Clear to auscultation. No rhonchi. No rales. Heart: Normal heart sounds, no murmur or gallop. Abdomen: Soft, bowel sounds normal. No guarding, rigidity, tenderness, mass, hepatosplenomegaly, distention, or bruit noted. Extremities: No leg edema. No calf tenderness. Skin: No rash, ulcer, cellulitis. Lymphatics: No lymph node enlargement in neck, supraclavicular, infraclavicular region. Neuro: No focal neurological deficit. Chest: Unremarkable. External Genitalia: Deferred. Rectal: Deferred. Laboratory Data: White count 13.1, hemoglobin 12.8, platelets 340. Sodium 138, potassium 4.1, chloride 108, bicarb 25, BUN 24, creatinine 1.32, glucose 194. Liver function tests unremarkable. ProBNP 75. Troponin 8.1. TSH 1.96, magnesium 2.0. Chest x-ray, no acute cardiopulmonary changes. Impression: 1. Atrial flutter. 2. Chronic kidney disease, stage 3B. 3. Hypertension. 4. Mixed hyperlipidemia. 5. Type 2 diabetes mellitus. 6. Gastroesophageal reflux disease. 7. Hypothyroidism. 8. Insomnia. 9. Osteoarthritis, multiple sites. Plan: We will go ahead and admit the patient to hospital for further evaluation and management of this problem. We will consult circulation supervisor to get an echo with Doppler. We will start the patient on Eliquis 5 mg 2 times a day. Diabetes will be managed with sliding scale insulin. Continue antihypertensive medication for blood pressure and monitor blood pressure. If necessary, adjust antihypertensive medication. We will continue statin therapy for hyperlipidemia and continue levothyroxine for hypothyroidism. Details of plan of treatment discussed with the patient. NNAMDI/MODL Voice ID: [id number] J LUIS
[2023-07-16] MEDS ORDERED: GLUCAGON 1 MG/VIAL IM PRN (07:09)
[2023-07-16] MEDS ORDERED: D50W 25 GM/50 ML SYRINGE IV PRN (07:09)
[2023-07-16] MEDS ORDERED: PANTOPRAZOLE 40MG TABLET PO SCH (07:15)
[2023-07-16] MEDS ORDERED: LEVOTHYROXINE SOD 0.1 MG TAB PO SCH (07:15)
[2023-07-16] MEDS ORDERED: D10W 125 ML IV PRN (07:16)
[2023-07-16] MEDS: INSULIN -REGULAR HUMAN 50 UNIT/0.5 ML ML SQ SCH ×3 (07:30→17:11)
[2023-07-16 08:15] LABS: Absolute Lymphocytes (CBC) 2.2 K/uL (0.7-4.9); Hematocrit 36.6 % (36.0-45.0); Lymphocytes % 33.4 % (15.3-44.8); MCV 80.3 fL (80-100); Platelets 284 thou/uL (152-406); RBC Red Blood Cell Count 4.56 M/uL (3.86-4.86)
[2023-07-16 08:33] LABS: Potassium 4.2 mEq/L (3.5-5.1); Troponin High Sensitivity 15.4 pg/mL (<58.9)
[2023-07-16] MEDS ORDERED: AMLODIPINE 5 MG TAB PO SCH (09:00)
[2023-07-16] MEDS ORDERED: PARoxetine HCL 10 MG TAB PO SCH (09:00)
[2023-07-16] MEDS ORDERED: METOPROLOL XL 50 MG TAB PO SCH (09:00)
[2023-07-16] MEDS: APIXABAN 5 MG TABLET PO SCH (09:11)
--- NOTE | 2023-07-16 16:40 | EKG ---
Test Date: 2023-07-15 Test Time: 13:15:02 Concessions Manager: Doug LAKHANI MEASUREMENT RESULTS: Intervals: Rate: 156 [place]: QRSD: 94 QT: 288 QTc: 464 [place]: P: [place]: QRS: 79 T: 3 INTERPRETIVE STATEMENTS: Supraventricular tachycardia Low voltage QRS Nonspecific ST abnormality Abnormal ECG Compared to ECG 06/17/2019 09:31:36 Low QRS voltage now present ST (T wave) deviation now present Sinus bradycardia no longer present Myocardial infarct finding no longer present Electronically Signed On 07-16-23 16:38:22 CDT by Salvador Marvin
--- NOTE | 2023-07-16 16:40 | EKG ---
Test Date: 2023-07-15 Test Time: 14:00:43 Social Work Lecturer: Doug LAKHANI MEASUREMENT RESULTS: Intervals: Rate: 74 NM: 174 QRSD: 76 QT: 410 QTc: 455 [place]: P: 39 NM: 174 QRS: 52 T: 35 INTERPRETIVE STATEMENTS: Normal sinus rhythm Normal ECG Compared to ECG 07/15/2023 13:15:02 Supraventricular tachycardia no longer present ST (T wave) deviation no longer present Electronically Signed On 07-16-23 16:38:14 CDT by Salvador Marvin
[2023-07-16 17:01] VITALS: BP 141/81; TEMP 96.9
--- NOTE | 2023-07-16 20:07 | DS ---
Date of Discharge: 07/16/2023 Disposition: Discharged to go home. Physical Examination: HEENT: Unremarkable. Lungs: Clear to auscultation. Heart: Sounds normal. Abdomen: Soft. Bowel sounds normal. No guarding, rigidity, tenderness, distention. Extremities: No leg edema. Laboratory Data: Yesterday, white count 13.1, hemoglobin 12.8, platelets 349. Today, white count 6.5, hemoglobin 11.9, platelets 284. Yesterday, sodium 138, potassium 4.1, chloride 108, bicarb 25, BUN 24, creatinine 1.32, glucose 194. Liver function tests are unremarkable. Troponin 8.1 on the first set, second set 15.4. This morning, sodium 140, potassium 4.2, chloride 108 bicarb 29, BUN 20, creatinine 1.16, glucose 161. Discharge Medications And Instructions: 1. Continue all prior home medication. 2. Do not take any aspirin, Aleve, or Motrin type of medications. 3. Start Eliquis 5 mg 2 times a day and prescription was sent to her [facility]. 4. Follow up at my office next week and follow up with Dr. Marvin in 2 weeks. Hospital Course: This is a 72-year-old female patient came into emergency room with complaints of palpitation. Please see dictated H and P for more information. After patient was evaluated in the ER, she was admitted to the hospital. Patient was in atrial flutter with rapid ventricular rate. Heart rate around 160-170. She took 2 doses of metoprolol at home and that did not help her. After she arrived in the emergency room, she was given IV metoprolol and she converted to sinus rhythm and has remained in sinus rhythm since that time. Cardiology consultation was obtained from Dr. Marvin who has actually released her to go home from cardiac point of view and he will pursue further outpatient testing on her. She was started on Eliquis yesterday and will continue that on outpatient basis. Echocardiogram was done today, result pending. I will follow up on the results on outpatient basis. Final Diagnoses: 1. Atrial flutter. 2. Chronic kidney disease, stage 3B. 3. Hypertension. 4. Mixed hyperlipidemia. 5. Type 2 diabetes mellitus. 6. Gastroesophageal reflux disease. 7. Hypothyroidism. 8. Insomnia. 9. Osteoarthritis, multiple sites. NNAMDI/MODL Voice ID: [id number] Report ID: [id number] J LUIS
--- NOTE | 2023-07-16 20:13 | CON ---
Date of Consultation: 07/16/2023 Reason For Consultation: Atrial fibrillation. History Of Present Illness: A 72-year-old male, Dr. Neely's patient, has past medical history of diab etes, hypothyroidism, hypertension, dyslipidemia, who presented because of fast heart rate, it was keen dden and associated with shortness of breath and heaviness on the chest. Denies having any nausea, d iaphoresis, or vomiting. On metoprolol he is back in sinus rhythm and has been since. Past Medical History: As outlined above in HPI. Medications: Refer to reconciliation sheet for detailed list. Allergies: SULFA, CODEINE. Family History: No premature coronary artery disease or cancer. Social History: He does not smoke. Does not drink or use any drugs. Review of Systems: All systems reviewed and they were negative except as mentioned in the HPI. Physical Examination: Vital signs: Reviewed. Head and Neck: Pupils are equal, reactive to light. Intact eye movements. No JVD. No cervical lym phadenopathy. Neck is supple. Thyroid is not enlarged. Lungs: Clear to auscultation bilaterally. No rhonchi, wheezing, or crackles. No accessory muscle u se. Heart: Regular rate and rhythm. No extra sounds. Abdomen: Soft, nontender. Bowel sounds positive. No organomegaly. No masses or hernia. No rigidi ty or rebound. Extremities: No edema, clubbing, or cyanosis. Intact pulses. Skin: No rash. No nodule. Neurologic: Alert, awake, oriented x3. No acute focal deficits appreciated. Lymph nodes: No cervical or axillary lymphadenopathy. Investigations: BUN 20, creatinine 1.1, and troponins are negative and hemoglobin is 11.9. Assessment And Recommendations: 1.Supraventricular tachycardia per EKG. I looked at the EKG myself. I am not sure if this is atria l flutter or fibrillation, but he is converted to sinus rhythm. This could be supraventricular tachy cardia and now he is in sinus rhythm. Continue metoprolol and he is on Eliquis too. I will plan to do an outpatient long-term monitoring and evaluation advisor to further diagnose this issue. 2.Dyslipidemia. Continue rosuvastatin. 3.Hypertension. Blood pressure is controlled. From Cardiology standpoint, the patient can be relea sed. Follow up as an outpatient within a week. SR/MODL Voice ID: [id number] Report ID: [id number]
[2023-07-16] MEDS ORDERED: ROSUVASTATIN 10 MG TAB PO SCH (21:00)
--- NOTE | 2023-07-17 07:43 | ECHO ---
HEIGHT: 5 ft 3 in WEIGHT: 190 lb 0 oz DATE OF STUDY: 07/16/[address]: Nir Dominguez 2-DIMENSIONAL: YES M.MODE: YES DOPPLER: YES COLOR FLOW: YES TDS: PORTABLE: YES DEFINITY: BUBBLE STUDY: DIAGNOSIS: ATRIAL FLUTTER CARDIAC HISTORY: CATHERIZATION: NO SURGERY: NO PROSTHETIC VALVE: NO PACEMAKER: NO MEASUREMENTS (cm) DIASTOLIC (NORMALS) SYSTOLIC (NORMALS) IVSd 1.1 (0.6-1.2) LA Diam 2.6 (1.9-4.0) LVEF 62% LVIDd 3.5 (3.5-5.7) LVIDs 2.4 (2.0-3.5) %FS 33% LVPWd 1.2 (0.6-1.2) Ao Diam 3.0 (2.0-3.7) 2 DIMENSIONAL ASSESSMENT: RIGHT ATRIUM: NORMAL LEFT ATRIUM: NORMAL RIGHT VENTRICLE: NORMAL LEFT VENTRICLE: NORMAL TRICUSPID VALVE: TRACE TRICUSPID REGURGITATION MITRAL VALVE: MILD MITRAL REGURGITATION PULMONIC VALVE: NORMAL AORTIC VALVE: NORMAL PERICARDIAL EFFUSION: NONE AORTIC ROOT: NORMAL LEFT VENTRICULAR WALL MOTION: NORMAL DOPPLER/COLOR FLOW: SEE BELOW COMMENTS: 1. NORMAL LEFT VENTRICULAR EJECTION FRACTION WITH NORMAL WALL MOTION 2. GRADE I DIASTOLIC DYSFUNCTION 3. MILD MITRAL REGURGITATION 4. TRACE TRICUSPID REGURGITATION TECHNOLOGIST: DOLLY MORA
== END 2023-07-16 18:50 | disposition home or self-care (01) ==
LOC: ER 13:06 → ERHOLD 14:47 → 2ND 17:04
PROVIDERS: ADMIT Internal Medicine; ATTEND Internal Medicine
DX: I47.10 Supraventricular tachycardia, unspecified (principal); I12.9 Hypertensive chronic kidney disease with stage 1 through stage 4 chronic kidney disease, or unspecified chronic kidney disease; E11.22 Type 2 diabetes mellitus with diabetic chronic kidney disease; N18.32 Chronic kidney disease, stage 3b; E78.2 Mixed hyperlipidemia; K21.9 Gastro-esophageal reflux disease without esophagitis; E03.9 Hypothyroidism, unspecified; G47.00 Insomnia, unspecified; M19.90 Unspecified osteoarthritis, unspecified site; Z88.5 Allergy status to narcotic agent; Z88.2 Allergy status to sulfonamides
CPT/HCPCS: 93005 ×2; 93306; 85025 ×2; 80048 ×2; 36415; 83735; 85610; 82947 ×3; 80076; 84443; 81003; 84484 ×2; 83880; 71045; 96372; 96374; 99285; J1815; G0378

== ENCOUNTER 2024-01-13 14:18 | Observation (INO) | payer OTHER ==
--- OUTSIDE RECORDS SUMMARY | 2024-01-13 14:27 | XMS REPORT | Continuity of Care Document ---
Author Name Unknown Address [address] [facility] [address] [place] [address] [facility] Address [address] [facility] [address] [place] [address] Care Team Providers Care [employer] Receptionist Name Role Phone Jerod Neelypetey Kent Primary Care Physician [phone] MELVIN MARADIAGA.HAllegra Attending Clinician UnavailRAJAT Heart Attending Clinician UnavailRajat Wheat MD Attending Clinician [phone] Melvin Maradiaga MDHAllegra Attending Clinician [phone], [facility] Attending Clinician Unavailable Doctor Unassigned, Dinuba Attending Clinician U navailable RAVIN FLORES Attending Clinician Unavailable JOVON DURON Attending Clinician Unavailable JACKIE TALLEY Attending Clinician Unavailable Ravin Bermudez Attending Clinician [phone] Jackie Talley MD Attending Clinician [phone] Mikki Gloria MD Attending Clinician [phone] MIKKI GLORIA Attending Clinician Unavailable Nimo Jade DO Attending Clinician [phone] NIMO JADE Attending Clinician Unavailable ELIAN RESTREPO Attending Clinician Unavailable RAJAT LAZARO Admitting Clinician Rajat Tyson MD Admitting Clinician [phone] MELVIN MARADIAGA.HAllegra Admitting Clinician Unavaileddie chandler Payers Payer Name Policy Type Policy Number Effective Date Expirati on Date Source [facility] [place] P[place] [id number] 2020 00:00:00 [facility] [place]FS 5 [id number] 2022 00:00:00 MEDICARE PART A \\T\\ B [id number] 2014 00:00:00 [facility] MEDICARE SUPPLEMENT [id number] 2014 00:00:00 Problems Condition Name Condition Details Condition Category Status Onset Date Resolution Date Last Treatment Date Treating Clinician Comments Source Type 2 diabetes mellitus without complicati on, without long-term current use of insulin Type 2 diabetes mellitus without complicati on, without long-term current use of insulin Disease Active 2014-10 00:00: 00 [facility] Essential hypertensi on Essential hypertensi on Disease Active 2014-10 00:00: 00 [facility] Dyslipidem ia Dyslipidem ia Disease Active 2014-10 00:00: 00 [facility] Obesity Obesity Disease Active 2014-10 00:00: 00 [facility] Primary hypothyroi dism Primary hypothyroi dism Disease Active 2014-10 00:00: 00 [facility] Postmenopa use Postmenopa use Disease Active 2014-10 00:00: 00 [facility] Allergies, Adverse Reactions, Alerts Allergy Name Allergy Type Status Severity Reaction(s) Onset Date Inactive Date Treating Clinician Comments Source Sulfa (Sulfona mide Antibiot ics) Propensi ty to adverse reaction s Active Rash 11-14 00:00: 00 [facility] SULFA (SULFONA MIDE ANTIBIOT ICS) Drug Class Active ITCHING 11-14 00:00: 00 [facility] Sulfa (Sulfona mide Antibiot ics) Propensi ty to adverse reaction s Active Rash 11-14 00:00: 00 [facility] Social History Social Habit Start Date Stop Date Quantity Comments [facility] of [facility] use Current smoker [facility] History of Social function 2024-01-07 00:00:00 2024-01-07 00:00:00 [facility] Alcohol intake 2023-12-31 00:00:00 2023-12-31 00:00:00 0 /d [facility] Exposure to SARS-CoV-2 (event) 2022-12-02 00:00:00 2022-12-12 13:38:00 Not sure [facility] Tobacco use and exposure 2022-07-09 00:00:00 2022-07-09 00:00:00 Smokeless tobacco non-user [facility] Sex Assigned At 1950 00:00:00 1950 00:00:00 [facility] Smoking Status Start Date Stop Date Source Ex-smoker 2022-07-09 00:00:00 2022-07-09 [facility]00[facility] Medications Ordered Medication Name Filled Medication Name Start Date Stop Date Current Medication? Ordering Clinician Indication Dosage Frequency Signature (SIG) Comments Components Source neomycin-po lymyxin-dex amethasone (MAXITROL) 3.5 mg/g-10,000 unit/g-0.1 % ophthalmic ointment 01-06 14:48: 00 01-06 15:04 :32 No PRN, Starting on Fri01/07/24 at 0948, Until Fri01/07/24 at 1004, Routine, Intra-op [facility] [place] [place] sodium chloride (NS) injection 01-06 14:47: 00 01-06 15:04 :32 No PRN, Starting on Fri01/07/24 at 0947, Until Fri01/07/24 at 1004, Routine, Intra-op [facility] [place] [place] dexamethaso ne (DECADRON PHOSPHATE) injection 01-06 14:47: 00 01-06 15:04 :32 No PRN, Starting on Fri01/07/24 at 0947, Until Fri01/07/24 at 1004, Routine, Intra-op [facility] [place] [place] ceFAZolin (ANCEF) injection 01-06 14:46: 00 01-06 15:04 :32 No PRN, Starting on Fri01/07/24 at 0946, Until Fri01/07/24 at 1004, MARIFER, Intra-op [facility] [place] carbachoL (MIOSTAT) 0.01 % intraocular injection 01-06 14:45: 00 01-06 15:04 :32 No PRN, Starting on Fri01/07/24 at 0945, Until Fri01/07/24 at 1004, Routine, Intra-op Univers y [facility] chondroitin sulf-sod hyaluronate (DUOVISC VISCO ELASTIC) intraocular injection 01-06 14:39: 00 01-06 15:04 :32 No PRN, Starting on Fri01/07/24 at 0939, Until Fri01/07/24 at 1004, Routine, Intra-op [facility] [place] [place] EPINEPHrine (PF) 1:1,000 (1 mg/mL) (ADRENALIN (PF)) 0.5 mL in balanced salt soln no.2 irrig. (BSS) 500 mL OR irrigation 01-06 14:38: 00 01-06 15:04 :32 No PRN, Starting on Fri01/07/24 at 0938, Intra-op [facility] [place] [place] water for irrigation irrigation solution 01-06 14:34: 00 01-06 15:04 :32 No PRN, Starting on Fri01/07/24 at 0934, Until Fri01/07/24 at 1004, Routine, Intra-op [facility] [place] [place] Hyaluronida se, Human Recomb. (HYLENEX) injection 01-06 14:27: 00 01-06 15:04 :32 No PRN, Starting on Fri01/07/24 at 0927, Until Fri01/07/24 at 1004, Routine, Intra-op [facility] [place] [place] eye block syringe 11 mL 01-06 14:27: 00 01-06 15:04 :32 No PRN, Starting on Fri01/07/24 at 0927, Until Fri01/07/24 at 1004, Intra-op [facility] [place] [place] cyclopent 1%-tropic 1%-phenyl 2.5%-ketor 0.5% (MYDRIATIC #5) ophthalmic solution syringe 0.5 mL 01-06 13:00: 00 01-06 13:08 :00 No .5mL 0.5 mL, Right Eye, ONCE, 1 dose, On Fri01/07/24 at 0800, Routine, DSU Pre-op [facility] lactated ringers IV infusion 1,000 mL 01-06 13:00: 00 01-06 13:08 :00 No 1000mL at 42 mL/hr, 1,000 mL, IV Infusion, ONCE, 1 dose, On Fri01/07/24 at 0800, Routine, DSU Pre-op [facility] CYANOCOBALA MIN, VITAMIN B-12, (VITAMIN B-12 ORAL) 01-06 10:36: 19 Yes Take by mouth daily. [facility] aspirin 81 mg EC tablet 01-06 10:36: 19 Yes 81mg Take 1 tablet by mouth in the morning. [facility] eszopiclone 3 mg tablet 01-06 10:36: 19 Yes 3mg Take 1 tablet by mouth at bedtime. [facility] pantoprazol e 40 mg EC tablet 01-06 10:36: 19 Yes 40mg Take 1 tablet by mouth in the morning. [facility] cholestyram ine powder packet 01-06 10:36: 19 Yes 4000mg Take 4,000 mg by mouth in the morning and 4,000 mg in the evening. [facility] ramelteon 8 mg tablet 01-06 10:36: 19 Yes 8mg Take 1 tablet by mouth at bedtime. [facility] neomycin-po lymyxin-dex amethasone (MAXITROL) 3.5 mg/g-10,000 unit/g-0.1 % ophthalmic ointment 12-23 15:53: 00 12-23 15:56 :56 No PRN, Starting on Fri12/24/23 at 1053, Until Fri12/24/23 at 1056, Routine, Intra-op [facility] sodium chloride (NS) injection 12-23 15:51: 00 12-23 15:56 :56 No PRN, Starting on Fri12/24/23 at 1051, Until Fri12/24/23 at 1056, Routine, Intra-op [facility] dexamethaso ne (DECADRON PHOSPHATE) injection 12-23 15:51: 00 12-23 15:56 :56 No PRN, Starting on Fri12/24/23 at 1051, Until Fri12/24/23 at 1056, Routine, Intra-op [facility] ceFAZolin (ANCEF) injection 12-23 15:51: 00 12-23 15:56 :56 No PRN, Starting on Fri12/24/23 at 1051, Until Fri12/24/23 at 1056, MARIFER, Intra-op [facility] carbachoL (MIOSTAT) 0.01 % intraocular injection 12-23 15:50: 00 12-23 15:56 :56 No PRN, Starting on Fri12/24/23 at 1050, Until Fri12/24/23 at 1056, Routine, Intra-op [facility] chondroitin sulf-sod hyaluronate (DUOVISC VISCO ELASTIC) intraocular injection 12-23 15:39: 00 12-23 15:56 :56 No PRN, Starting on Fri12/24/23 at 1039, Until Fri12/24/23 at 1056, Routine, Intra-op [facility] EPINEPHrine (PF) 1:1,000 (1 mg/mL) (ADRENALIN (PF)) 0.5 mL in balanced salt soln no.1 irrig. (BSS PLUS) 500 mL OR irrigation 12-23 15:36: 00 12-23 15:56 :56 No PRN, Starting on Fri12/24/23 at 1036, Intra-op [facility] water for irrigation irrigation solution 12-23 15:30: 00 12-23 15:56 :56 No PRN, Starting on Fri12/24/23 at 1030, Until Fri12/24/23 at 1056, Routine, Intra-op [facility] [place] [place] Hyaluronida se, Human Recomb. (HYLENEX) injection 12-23 15:25: 00 12-23 15:56 :56 No PRN, Starting on Fri12/24/23 at 1025, Until Fri12/24/23 at 1056, Routine, Intra-op [facility] [place] eye block syringe 11 mL 12-23 15:25: 00 12-23 15:56 :56 No PRN, Starting on Fri12/24/23 at 1025, Until Fri12/24/23 at 1056, Intra-op [facility] [place] cyclopent 1%-tropic 1%-phenyl 2.5%-ketor 0.5% (MYDRIATIC #5) ophthalmic solution syringe 0.5 mL 12-23 14:15: 00 12-23 14:24 :00 No .5mL 0.5 mL, Left Eye, ONCE, 1 dose, On Fri12/24/23 at 0915, Routine, DSU Pre-op [facility] lactated ringers IV infusion 1,000 mL 12-23 14:15: 00 12-23 14:23 :00 No 1000mL at 42 mL/hr, 1,000 mL, IV Infusion, ONCE, 1 dose, On Fri12/24/23 at 0915, Routine, DSU Pre-op [facility] pantoprazol e 40 mg EC tablet 12-23 11:49: 12 Yes 40mg Take 1 tablet by mouth in the morning. [facility] B.coagul,keen btilis/inul in/vit C (CULTURELLE PROBIOTIC-P REBIOTIC ORAL) 12-23 11:49: 12 Yes 200mg Take 200 mg by mouth daily before a meal. [facility] CYANOCOBALA MIN, VITAMIN B-12, (VITAMIN B-12 ORAL) 12-23 11:49: 11 Yes Take by mouth daily. [facility] aspirin 81 mg EC tablet 12-23 11:49: 11 Yes 81mg Take 1 tablet by mouth in the morning. [facility] eszopiclone 3 mg tablet 12-23 11:49: 11 Yes 3mg Take 1 tablet by mouth at bedtime. [facility] CYANOCOBALA MIN, VITAMIN B-12, (VITAMIN B-12 ORAL) 12-16 15:07: 34 Yes Take by mouth daily. [facility] aspirin 81 mg EC tablet 12-16 15:07: 34 Yes 81mg Take 1 tablet by mouth in the morning. [facility] eszopiclone 3 mg tablet 12-16 15:07: 34 Yes 3mg Take 1 tablet by mouth at bedtime. [facility] pantoprazol e 40 mg EC tablet 12-16 15:07: 34 Yes 40mg Take 1 tablet by mouth in the morning. [facility] prednisoLON E acetate 1 % ophthalmic suspension drops 12-09 00:00: 00 Yes INSTILL ONE (1) DROP(S) IN LEFT EYE THREE TIMES A DAY FOR 1 WEEK, THEN ONE (1) DROP TWICE A DAY FOR 1 WEEK, THEN ONE (1) DROP ONCE A DAY FO [facility] ketorolac 0.5 % ophthalmic solution 12-08 00:00: 00 Yes INSTILL ONE (1) DROP(S) IN LEFT EYE TWICE A DAY FOR 2 WEEKS AFTER SURGERY. [facility] ofloxacin 0.3 % ophthalmic solution 12-08 00:00: 00 Yes INSTILL ONE (1) DROP(S) IN LEFT EYE THE NIGHT BEFORE AND MORNING OF SURGERY, THEN ONE (1) DROP THREE TIMES A DAY FOR 1 WEEK POST-OP. [facility] sulfur hexafluorid e microsphr (LUMASON) injection 5 mL 12-04 21:27: 00 12-04 21:27 :00 No [id number] 5mL 5 mL, Intravenou s, ONCE, 1 dose, On Jodee 12/04/23 at 1545, Routine [facility] rosuvastati n 20 mg tablet 11-24 13:41: 21 11-24 00:00 :00 No 20mg Take 1 tablet by mouth at bedtime. [facility] aspirin 81 mg EC tablet 11-24 13:34: 28 Yes 81mg Take 1 tablet by mouth in the morning. [facility] CYANOCOBALA MIN, VITAMIN B-12, (VITAMIN B-12 ORAL) 11-24 13:23: 29 Yes Take by mouth daily. [facility] pantoprazol e 40 mg EC tablet 11-24 13:21: 49 Yes 40mg Take 1 tablet by mouth in the morning. [facility] rosuvastati n 10 mg tablet 11-24 00:00: 00 Yes 10mg Take 1 tablet by mouth at bedtime. [facility] amLODIPine 5 mg tablet 11-24 00:00: 00 Yes 5mg Take 1 tablet by mouth in the morning. [facility] MOUNJARO 5 mg/0.5 mL subcutaneou s injection 11-19 00:00: 00 Yes 7.5mg inject 7.5 mg under the skin weekly. Pt takes on Friday [facility] ELIQUIS 5 mg tablet 11-15 00:00: 00 Yes 5mg Take 1 tablet by mouth in the morning and 1 tablet in the evening. [facility] PARoxetine 10 mg tablet 2022-10 00:00: 00 Yes 10mg Take 1 tablet by mouth at bedtime. [facility] aspirin 81 mg EC tablet 12-12 14:03: 56 Yes 81mg Take 81 mg by mouth daily. [facility] rosuvastati n 20 mg tablet 12-12 14:03: 56 Yes 20mg Take 20 mg by mouth at bedtime. [facility] aspirin 81 mg EC tablet 2021-10 15:37: 23 Yes 81mg Take 81 mg by mouth daily. [facility] eszopiclone 3 mg tablet 9 15:46: 51 Yes 3mg Take 3 mg by mouth at bedtime. [facility] rosuvastati n 20 mg tablet 07-09 15:46: 51 Yes 20mg Take 20 mg by mouth at bedtime. [facility] CYANOCOBALA MIN, VITAMIN B-12, (VITAMIN B-12 ORAL) 07-09 15:46: 51 Yes Take by mouth daily. [facility] aspirin 81 mg EC tablet 07-09 15:46: 51 Yes 81mg Take 81 mg by mouth daily. [facility] clobetasoL 0.05 % ointment 07-09 00:00: 00 Yes [id number] Apply to area(s) daily. Use every night for 4 weeks and then three times a week, M/W/ [facility] estradioL 0.01 % (0.1 mg/gram) vaginal cream 07-09 00:00: 00 Yes [id number] 1g Insert 1 g into vagina in the morning. Use every night for 2 weeks and then three times a week M/W/F [facility] GLIPIZIDE XL 2.5 mg 24 hr tablet 10-30 00:00: 00 Yes [id number] 2.5mg Take 1 tablet by mouth daily with breakfast. [facility] METFORMIN ER 500 mg 24 hr tablet 10-24 00:00: 00 Yes [id number] TAKE FOUR (4) TABLET(S) BY MOUTH ONCE A DAY. [facility] aspirin 81 mg EC tablet 2020-10 15:57: 03 Yes 81mg Take 81 mg by mouth daily. [facility] MV-MN/IRON/ FOLIC ACID/HERB 190 (VITAMIN D3 COMPLETE ORAL) 2020-10 15:35: 31 Yes Take by mouth daily. [facility] rosuvastati n 20 mg tablet 2020-10 15:35: 31 Yes 20mg Take 20 mg by mouth at bedtime. [facility] CYANOCOBALA MIN, VITAMIN B-12, (VITAMIN B-12 ORAL) 2020-10 15:35: 25 Yes Take by mouth daily. [facility] eszopiclone 3 mg tablet 2020-10 15:35: 25 Yes 3mg Take 3 mg by mouth at bedtime. [facility] metoprolol succinate XL 50 mg 24 hr tablet 2020-10 00:00: 00 Yes 50mg Take 1 tablet by mouth in the morning and 1 tablet in the evening. [facility] levothyroxi ne 125 mcg tablet 02-13 00:00: 00 Yes [id number] 125ug Take 1 tablet by mouth every morning. [facility] amLODIPine 5 mg tablet 10-14 00:00: 00 11-24 00:00 :00 No 5mg Take 1 tablet by mouth in the morning and 1 tablet in the evening. [facility] lancets (ONE TOUCH DELICA) 33 gauge Misc 2014-10 00:00: 00 Yes Use as directed, daily, Dx:E11.65 [facility] Immunizations Ordered Immunization Name Filled Immunization Name Date Status Comments Source SARS-COV-2 COVID-19 MODERNA 12+ YRS VACCINE 2020-11-15 00:00:00 Completed [facility] SARS-COV-2 COVID-19 MODERNA 12+ YRS VACCINE 2020-11-15 00:00:00 Completed [facility] SARS-COV-2 COVID-19 MODERNA 12+ YRS VACCINE 2020-11-15 00:00:00 Completed [facility] SARS-COV-2 COVID-19 MODERNA 12+ YRS VACCINE 2020-11-15 00:00:00 Completed [facility] SARS-COV-2 COVID-19 MODERNA 12+ YRS VACCINE 2020-11-15 00:00:00 Completed [facility] SARS-COV-2 COVID-19 MODERNA 12+ YRS VACCINE 2020-11-15 00:00:00 Completed [facility] SARS-COV-2 COVID-19 MODERNA 12+ YRS VACCINE 2020-11-15 00:00:00 Completed [facility] SARS-COV-2 COVID-19 MODERNA 12+ YRS VACCINE 2020-11-15 00:00:00 Completed [facility] SARS-COV-2 COVID-19 MODERNA VACCINE 2020-11-15 00:00:00 Completed [facility] SARS-COV-2 COVID-19 MODERNA VACCINE 2020-11-15 00:00:00 Completed [facility] SARS-COV-2 COVID-19 MODERNA 12+ YRS VACCINE 2020-11-15 00:00:00 Completed [facility] SARS-COV-2 COVID-19 MODERNA 12+ YRS VACCINE 2020-11-15 00:00:00 Completed [facility] SARS-COV-2 COVID-19 MODERNA 12+ YRS VACCINE 2020-10-18 00:00:00 Completed [facility] SARS-COV-2 COVID-19 MODERNA 12+ YRS VACCINE 2020-10-18 00:00:00 Completed [facility] SARS-COV-2 COVID-19 MODERNA 12+ YRS VACCINE 2020-10-18 00:00:00 Completed [facility] SARS-COV-2 COVID-19 MODERNA 12+ YRS VACCINE 2020-10-18 00:00:00 Completed [facility] SARS-COV-2 COVID-19 MODERNA 12+ YRS VACCINE 2020-10-18 00:00:00 Completed [facility] SARS-COV-2 COVID-19 MODERNA 12+ YRS VACCINE 2020-10-18 00:00:00 Completed [facility] SARS-COV-2 COVID-19 MODERNA 12+ YRS VACCINE 2020-10-18 00:00:00 Completed [facility] SARS-COV-2 COVID-19 MODERNA 12+ YRS VACCINE 2020-10-18 00:00:00 Completed [facility] SARS-COV-2 COVID-19 MODERNA VACCINE 2020-10-18 00:00:00 Completed [facility] SARS-COV-2 COVID-19 MODERNA VACCINE 2020-10-18 00:00:00 Completed [facility] SARS-COV-2 COVID-19 MODERNA 12+ YRS VACCINE 2020-10-18 00:00:00 Completed [facility] SARS-COV-2 COVID-19 MODERNA 12+ YRS VACCINE 2020-10-18 00:00:00 Completed [facility] SARS-COV-2 COVID-19 MODERNA 12+ YRS VACCINE Unknown Completed [facility] SARS-COV-2 COVID-19 MODERNA 12+ YRS VACCINE Unknown Completed [facility] SARS-COV-2 COVID-19 MODERNA 12+ YRS VACCINE Unknown Completed [facility] SARS-COV-2 COVID-19 MODERNA 12+ YRS VACCINE Unknown Completed [facility] SARS-COV-2 COVID-19 MODERNA 12+ YRS VACCINE Unknown Completed [facility] SARS-COV-2 COVID-19 MODERNA 12+ YRS VACCINE Unknown Completed [facility] SARS-COV-2 COVID-19 MODERNA 12+ YRS VACCINE Unknown Completed [facility] SARS-COV-2 COVID-19 MODERNA 12+ YRS VACCINE Unknown Completed [facility] SARS-COV-2 COVID-19 MODERNA 12+ YRS VACCINE Unknown Completed [facility] SARS-COV-2 COVID-19 MODERNA 12+ YRS VACCINE Unknown Completed [facility] SARS-COV-2 COVID-19 MODERNA 12+ YRS VACCINE Unknown Completed [facility] SARS-COV-2 COVID-19 MODERNA 12+ YRS VACCINE Unknown Completed [facility] SARS-COV-2 COVID-19 MODERNA 12+ YRS VACCINE Unknown Completed [facility] SARS-COV-2 COVID-19 MODERNA 12+ YRS VACCINE Unknown Completed [facility] SARS-COV-2 COVID-19 MODERNA 12+ YRS VACCINE Unknown Completed [facility] SARS-COV-2 COVID-19 MODERNA 12+ YRS VACCINE Unknown Completed [facility] SARS-COV-2 COVID-19 MODERNA 12+ YRS VACCINE Unknown Completed [facility] SARS-COV-2 COVID-19 MODERNA 12+ YRS VACCINE Unknown Completed [facility] SARS-COV-2 COVID-19 MODERNA 12+ YRS VACCINE Unknown Completed [facility] SARS-COV-2 COVID-19 MODERNA 12+ YRS VACCINE Unknown Completed [facility] SARS-COV-2 COVID-19 MODERNA 12+ YRS VACCINE Unknown Completed [facility] SARS-COV-2 COVID-19 MODERNA 12+ YRS VACCINE Unknown Completed [facility] SARS-COV-2 COVID-19 MODERNA 12+ YRS VACCINE Unknown Completed [facility] SARS-COV-2 COVID-19 MODERNA 12+ YRS VACCINE Unknown Completed [facility] SARS-COV-2 COVID-19 MODERNA 12+ YRS VACCINE Unknown Completed [facility] SARS-COV-2 COVID-19 MODERNA 12+ YRS VACCINE Unknown Completed [facility] SARS-COV-2 COVID-19 MODERNA 12+ YRS VACCINE Unknown Completed [facility] SARS-COV-2 COVID-19 MODERNA 12+ YRS VACCINE Unknown Completed [facility] SARS-COV-2 COVID-19 MODERNA 12+ YRS VACCINE Unknown Completed [facility] SARS-COV-2 COVID-19 MODERNA 12+ YRS VACCINE Unknown Completed [facility] SARS-COV-2 COVID-19 MODERNA 12+ YRS VACCINE Unknown Completed [facility] SARS-COV-2 COVID-19 MODERNA 12+ YRS VACCINE Unknown Completed [facility] SARS-COV-2 COVID-19 MODERNA 12+ YRS VACCINE Unknown Completed [facility] SARS-COV-2 COVID-19 MODERNA 12+ YRS VACCINE Unknown Completed [facility] SARS-COV-2 COVID-19 MODERNA 12+ YRS VACCINE Unknown Completed [facility] SARS-COV-2 COVID-19 MODERNA 12+ YRS VACCINE Unknown Completed [facility] SARS-COV-2 COVID-19 MODERNA 12+ YRS VACCINE Unknown Completed [facility] SARS-COV-2 COVID-19 MODERNA 12+ YRS VACCINE Unknown Completed [facility] SARS-COV-2 COVID-19 MODERNA 12+ YRS VACCINE Unknown Completed [facility] SARS-COV-2 COVID-19 MODERNA 12+ YRS VACCINE Unknown Completed [facility] SARS-COV-2 COVID-19 MODERNA 12+ YRS VACCINE Unknown Completed [facility] SARS-COV-2 COVID-19 MODERNA 12+ YRS VACCINE Unknown Completed [facility] SARS-COV-2 COVID-19 MODERNA 12+ YRS VACCINE Unknown Completed [facility] SARS-COV-2 COVID-19 MODERNA 12+ YRS VACCINE Unknown Completed [facility] Vital Signs Vital Name Observation Time Observation Value Comments S ource Heart rate 2024-01-07 15:10:00 72 /min [facility] Respiratory rate 2024-01-07 15:10:00 11 /min [facility] Oxygen saturation in Arterial blood by Pulse oximetry 2024-01-07 15:10:00 99 /min [facility] Systolic blood pressure 2024-01-07 15:08:00 123 mm[Hg] [facility] Diastolic blood pressure 2024-01-07 15:08:00 68 mm[Hg] [facility] Body temperature 2024-01-07 12:58:00 36.39 Essie [facility] Body height 2023-12-31 18:45:00 160 cm [facility] Body weight 2023-12-31 18:45:00 75.297 kg [facility] BMI 2023-12-31 18:45:00 29.41 kg/m2 [facility] Systolic blood pressure 2024-01-07 12:58:00 130 mm[Hg] [facility] Diastolic blood pressure 2024-01-07 12:58:00 81 mm[Hg] [facility] Heart rate 2024-01-07 12:58:00 85 /min Unive [facility] Body temperature 2024-01-07 12:58:00 36.39 Essie [facility] Respiratory rate 2024-01-07 12:58:00 15 /min [facility] Oxygen saturation in Arterial blood by Pulse oximetry 2024-01-07 12:58:00 97 /min [facility] Body height 2023-12-31 18:45:00 160 cm [facility] Body weight 2023-12-31 18:45:00 75.297 kg [facility] BMI 2023-12-31 18:45:00 29.41 kg/m2 [facility] Systolic blood pressure 2023-12-24 16:15:00 114 mm[Hg] [facility] Diastolic blood pressure 2023-12-24 16:15:00 67 mm[Hg] [facility] Heart rate 2023-12-24 16:15:00 69 /min [facility] Oxygen saturation in Arterial blood by Pulse oximetry 2023-12-24 16:15:00 96 /min [facility] Respiratory rate 2023-12-24 16:10:00 15 /min [facility] Body temperature 2023-12-24 15:55:00 36.28 Essie [facility] Body height 2023-12-17 21:15:00 160 cm [facility] Body weight 2023-12-17 21:15:00 75.297 kg [facility] BMI 2023-12-17 21:15:00 29.41 kg/m2 [facility] Systolic blood pressure 2023-12-24 14:21:00 117 mm[Hg] [facility] Diastolic blood pressure 2023-12-24 14:21:00 74 mm[Hg] [facility] Heart rate 2023-12-24 14:21:00 84 /min [facility] Body temperature 2023-12-24 14:21:00 36.39 Essie [facility] Respiratory rate 2023-12-24 14:21:00 19 /min [facility] Oxygen saturation in Arterial blood by Pulse oximetry 2023-12-24 14:21:00 99 /min [facility] Body height 2023-12-17 21:15:00 160 cm [facility] Body weight 2023-12-17 21:15:00 75.297 kg [facility] BMI 2023-12-17 21:15:00 29.41 kg/m2 [facility] Systolic blood pressure 2023-11-24 19:17:00 115 mm[Hg] [facility] Diastolic blood pressure 2023-11-24 19:17:00 75 mm[Hg] [facility] Heart rate 2023-11-24 19:17:00 80 /min [facility] Respiratory rate 2023-11-24 19:17:00 18 /min [facility] Body height 2023-11-24 19:17:00 160 cm [facility] Body weight 2023-11-24 19:17:00 79.107 kg [facility] BMI 2023-11-24 19:17:00 30.89 kg/m2 [facility] Oxygen saturation in Arterial blood by Pulse oximetry 2023-11-24 19:17:00 94 /min [facility] Systolic blood pressure 2022-12-12 19:49:00 133 mm[Hg] [facility] Diastolic blood pressure 2022-12-12 19:49:00 71 mm[Hg] [facility] Heart rate 2022-12-12 19:49:00 73 /min [facility] Respiratory rate 2022-12-12 19:49:00 19 /min [facility] Body height 2022-12-12 19:49:00 160 cm [facility] Body weight 2022-12-12 19:49:00 86.183 kg [facility] BMI 2022-12-12 19:49:00 33.66 kg/m2 [facility] Oxygen saturation in Arterial blood by Pulse oximetry 2022-12-12 19:49:00 94 /min [facility] Systolic blood pressure 2022-07-24 20:39:00 121 mm[Hg] [facility] Diastolic blood pressure 2022-07-24 20:39:00 65 mm[Hg] [facility] Heart rate 2022-07-24 20:39:00 71 /min [facility] Body weight 2022-07-24 20:39:00 89.812 kg [facility] BMI 2022-07-24 20:39:00 35.07 kg/m2 [facility] Oxygen saturation in Arterial blood by Pulse oximetry 2022-07-24 20:39:00 95 /min [facility] Systolic blood pressure 2022-07-09 20:41:00 114 mm[Hg] [facility] Diastolic blood pressure 2022-07-09 20:41:00 76 mm[Hg] [facility] Heart rate 2022-07-09 20:41:00 68 /min [facility] Body temperature 2022-07-09 20:41:00 36.61 Essie [facility] Respiratory rate 2022-07-09 20:41:00 18 /min [facility] Body height 2022-07-09 20:41:00 160 cm [facility] Body weight 2022-07-09 20:41:00 88.905 kg [facility] BMI 2022-07-09 20:41:00 34.72 kg/m2 [facility] Procedures Procedure Date / Time Performed Performing Clinician Source PHACOEMULSIFICATION OF CATARACT WITH INTRAOCULAR LENS IMPLANT 2024-01-07 14:16:00 Rajat Lazaro [facility] POCT GLUCOSE (AUTOMATED) 2024-01-07 13:01:00 Rajat Lazaro [facility] POCT GLUCOSE (AUTOMATED) 2024-01-07 13:01:00 Rajat Lazaro [facility] EXTERNAL PROVIDER RECORDS 2024-01-05 05:01:00 Doctor Unassigned, Dinuba [facility] EXTERNAL PROVIDER RECORDS 2024-01-05 05:01:00 Doctor Unassigned, Dinuba [facility] PHACOEMULSIFICATION OF CATARACT WITH INTRAOCULAR LENS IMPLANT 2023-12-24 15:16:00 Rajat Lazaro [facility] POCT GLUCOSE (AUTOMATED) 2023-12-24 14:21:00 Rajat Lazaro [facility] POCT GLUCOSE (AUTOMATED) 2023-12-24 14:21:00 Rajat Lazaro [facility] PATIENT FINANCIAL POLICY 2023-12-18 14:58:11 Doctor Unassigned, Dinuba [facility] ASSIGNMENT OF BENEFITS 2023-12-08 21:19:38 Doctor Unassigned, Dinuba [facility] TRANSTHORACIC ECHO (TTE) COMPLETE W/ CONTRAST 2023-12-04 21:33:57 Melvin Maradiaga [facility] ASSIGNMENT OF BENEFITS 2023-11-24 18:53:23 Doctor Unassigned, Dinuba [facility] MEDICAL RELEASE/CLEARANCE FORMS 2023-11-20 06:01:00 Doctor Unassigned, Dinuba [facility] PATIENT FINANCIAL POLICY 2022-12-12 19:40:14 Doctor Unassigned, Dinuba [facility] MEDICAL RELEASE/CLEARANCE FORMS 2022 06:01:00 Doctor Unassigned, Dinuba [facility] CONSENT/REFUSAL FOR DIAGNOSI S AND TREATMENT 2022-07-24 20:29:39 Doctor Unassigned, Dinuba [facility] GALV ONLY - VAGINAL PATHOGEN S BY NUCLEIC ACID TESTING 2022-07-09 21:06:00 Jackie Talley [facility] Encounters Start Date/Time End Date/Time Encounter Type Admission Type Attending [facility] Care Facility Care Department Encounter ID Source 2024-01-07 07:49:00 2024-01-07 10:15:00 Outpatient RAJAT FOY [facility] OPH [id number] [facility] 2024-01-07 07:49:00 2024-01-07 10:15:00 Hospital Encounter Rajat Lazaro [facility] 1.2.840.114 350.1.13.10 4.2.7.2.686 [id number] [facility] 2024-01-07 08:58:00 2024-01-07 09:31:00 Surgery Rajat Lazaro [facility] 1.2.840.114 350.1.13.10 4.2.7.2.686 [id number] [facility] 2023-12-24 09:10:00 2023-12-24 11:20:00 Outpatient RAJAT FOY [facility] [id number] [facility] 2023-12-24 09:10:00 2023-12-24 11:20:00 Hospital Encounter Rajat Lazaro [facility] 1.2.840.114 350.1.13.10 4.2.7.2.686 [id number] [facility] 2023-12-24 10:04:00 2023-12-24 10:37:00 Surgery Rajat Lazaro [facility] 1.2.840.114 350.1.13.10 4.2.7.2.686 [id number] [facility] 2023-12-19 00:00:00 2023-12-19 00:00:00 Telephone Melvin Maradiaga [facility] 1.2.840.114 350.1.13.10 4.2.7.2.686 [id number] [facility] 2023-12-18 09:00:00 2023-12-18 09:00:56 Outpatient R MELVIN MARADIAGA [facility] [id number] [facility] 2023-12-18 09:00:00 2023-12-18 09:00:56 Material Handling Equipment Stevedore Visit 2, Adc Lab Melvin Maradiaga [facility] 1.2.840.114 350.1.13.10 4.2.7.2.686 [id number] [facility] 2023-12-18 00:00:00 2023-12-18 00:00:00 Orders Only Doctor Unassigned, Dinuba [facility] 1.2840.114 350.1.13.10 4.2.7.2.686 [id number] [facility] 2023-12-12 10:00:00 2023-12-12 10:00:00 Outpatient R MELVIN MARADIAGA [facility] [id number] [facility] 2023-12-08 00:00:00 2023-12-08 00:00:00 Orders Only Doctor Unassigned, Dinuba [facility] 1.2840.114 350.1.13.10 4.2.7.2.686 [id number] [facility] 2023-12-05 00:00:00 2023-12-05 00:00:00 Telephone Melvin Maradiaga [facility] 1.2.840.114 350.1.13.10 4.2.7.2.686 [id number] [facility] 2023-12-04 15:31:47 2023-12-04 23:59:00 Hospital Encounter Get Maradiagail JerryAllegraRaminAllegra [facility] 1.2.840.114 350.1.13.10 4.2.7.2.686 [id number] [facility] 2023-12-04 14:45:58 2023-12-04 15:30:00 Outpatient R HIRENGETALBA [facility] [id number] [facility] 2023-12-04 14:45:58 2023-12-04 15:30:00 Hospital Encounter MaradiagaGetalba YassineAllegra [facility] 1.2.840.114 350.1.13.10 4.2.7.2.686 [id number] [facility] 2023-11-24 13:00:00 2023-11-24 13:47:12 Outpatient R MELVIN MARADIAGA [facility] [id number] [facility] 2023-11-24 13:00:00 2023-11-24 13:47:12 Office Visit Hiren Getalba JerryAllegraRaminAllegra [facility] 1.2840.114 350.1.13.10 4.2.7.2.686 [id number] [facility] 2023-11-24 00:00:00 2023-11-24 00:00:00 Orders Only Doctor Unassigned, Dinuba [facility] 1.2840.114 350.1.13.10 4.2.7.2.686 [id number] [facility] 2023-11-20 00:00:00 2023-11-20 00:00:00 Telephone Hiren Getalba OsborneRaminAllegra [facility] 1.2.840.114 350.1.13.10 4.2.7.2.686 [id number] [facility] 2023-11-20 00:00:00 2023-11-20 00:00:00 Orders Only Doctor Unassigned, Dinuba [facility] 1.2.840.114 350.1.13.10 4.2.7.2.686 [id number] [facility] 2023-11-04 00:00:00 2023-11-04 00:00:00 Telephone Melvin Maradiaga [facility] 1.2.840.114 350.1.13.10 4.2.7.2.686 [id number] [facility] 2023-09-18 14:00:00 2023-09-18 14:00:00 Outpatient R MELVIN MARADIAGA [facility] [id number] [facility] 2023-07-23 13:00:00 2023-07-23 13:00:00 Outpatient R RAVIN FLORES [facility] [id number] [facility] 2023-01-23 14:30:00 2023-01-23 14:30:00 Outpatient JOVON DURON [id number] Monique Barrientos 2022-12-25 13:49:38 2022-12-25 23:59:00 Outpatient R MELVIN MARADIAGA [facility] [id number] [facility] 2022-12-17 00:00:00 2022-12-17 00:00:00 Telephone Melvin Maradiaga [facility] 1.2.840.114 350.1.13.10 4.2.7.2.686 [id number] [facility] 2022-12-12 14:00:00 2022-12-12 14:12:42 Outpatient R MELVIN MARADIAGA [facility] [id number] [facility] 2022-12-12 14:00:00 2022-12-12 14:12:42 Office Visit Melvin Maradiaga [facility] 1.2.840.114 350.1.13.10 4.2.7.2.686 [id number] [facility] 2022-12-12 00:00:00 2022-12-12 00:00:00 Orders Only Doctor Unassigned, Dinuba [facility] 1.2840.114 350.1.13.10 4.2.7.2.686 [id number] [id number] [facility] 2022 00:00:00 2022 00:00:00 Orders Only Doctor Unassigned, Dinuba [facility] 1.2840.114 350.1.13.10 4.2.7.2.686 [id number] [facility] 2022-07-24 15:40:00 2022-07-24 16:02:58 Office Visit Ravin Flores [facility] 1.2840.114 350.1.13.10 4.2.7.2.686 [id number] [facility] 2022-07-24 15:40:00 2022-07-24 16:02:58 Outpatient R RAVIN FLORES [facility] [id number] [facility] 2022-07-24 00:00:00 2022-07-24 00:00:00 Orders Only Doctor Unassigned, Dinuba [facility] 1.2840.114 350.1.13.10 4.2.7.2.686 [id number] [facility] 2022-07-09 15:00:00 2022-07-09 16:11:20 Outpatient R JACKIE TALLEY [facility] [id number] [facility] 2022-07-09 15:00:00 2022-07-09 16:11:20 Office Visit Jackie Talley [facility] 1.2.840.114 350.1.13.10 4.2.7.2.686 [id number] [facility] 2022-01-25 00:00:00 2022-01-25 00:00:00 Refill Faizan [facility] GAFFNEYE?[facility] 1..840.114 350.1.13.10 4.2.7.2.686 [id number] [facility] 2022-01-21 00:00:00 2022-01-21 00:00:00 Refill [facility] ANDREW?[facility] 1..840.114 350.1.13.10 4.2.7.2.686 [id number] [facility] 2021-12-25 00:00:00 2021-12-25 00:00:00 Outpatient R MELVIN MARADIAGA [facility] [id number] [facility] 2021-10-28 00:00:00 2021-10-28 00:00:00 Refill [facility] ANDREW?[facility] 1..840.114 350.1.13.10 4.2.7.2.686 [id number] [facility] 2021-10-22 00:00:00 2021-10-22 00:00:00 Refill [facility] ANDREW?[facility] 1..840.114 350.1.13.10 4.2.7.2.686 [id number] [facility] 2021-08-21 14:00:00 2021-08-21 14:00:00 Outpatient R FAIZAN [facility] [id number] [facility] 2021-07-30 00:00:00 2021-07-30 00:00:00 Refill Faizan [facility] Andrew?[facility] Medical Office Building 1.2.840.114 350.1.13.10 4.2.7.2.686 [id number] [facility] 2021-07-23 15:16:51 2021-07-23 16:02:57 Office Visit Melvin Maradiaga [facility] Building 1.2.840.114 350.1.13.10 4.2.7.2.686 [id number] [facility] 2021-07-23 15:30:00 2021-07-23 15:30:00 Outpatient R MELVIN MARADIAGA [facility] [id number] [facility] 2021-07-23 00:00:00 2021-07-23 00:00:00 Orders Only Doctor Unassigned, Dinuba [facility] 1..840.114 350.1.13.10 4.2.7.2.686 [id number] [id number] [facility] 2021-07-19 13:00:00 2021-07-19 13:00:00 Outpatient R MELVIN MARADIAGA [facility] [id number] [facility] 2021-06-13 07:51:09 2021-06-13 23:59:00 Hospital Encounter Melvin Maradiaga [facility] Building 1.2.840.114 350.1.13.10 4.2.7.2.686 [id number] [facility] 2021-06-13 09:00:00 2021-06-13 09:00:00 Outpatient R [facility] [id number] [facility] 2021-06-13 08:00:00 2021-06-13 08:00:00 Outpatient R MELVIN MARADIAGA [facility] [id number] [facility] 2021-05-18 14:30:00 2021-05-18 14:30:00 Outpatient R MELVIN MARADIAGA [facility] [id number] [facility] 2021-04-25 00:00:00 2021-04-25 00:00:00 [facility] Building 1.2.840.114 350.1.13.10 4.2.7.2.686 [id number] [facility] 2021-02-13 15:48:02 2021-02-13 16:28:42 Office Visit Faizan [facility] 1.2.840.114 350.1.13.10 4.2.7.2.686 [id number] [facility] 2021-02-13 16:00:00 2021-02-13 16:00:00 Outpatient R FAIZAN [facility] [id number] [facility] 2021-02-12 00:00:00 2021-02-12 00:00:00 Refill Faizan [facility] 1.2.840.114 350.1.13.10 4.2.7.2.686 [id number] [facility] 2021-01-02 08:00:00 2021-01-02 08:00:00 Outpatient R FAIZAN [facility] [id number] [facility] 2021-01-01 10:47:43 2021-01-01 11:02:43 Material Handling Equipment Stevedore Visit 2, Adc Lab Nimo Jade [facility] 1.2.840.114 350.1.13.10 4.2.7.2.686 [id number] [facility] 2021-01-01 10:45:00 2021-01-01 10:45:00 Outpatient R NIMO JADE [facility] [id number] [facility] 2021-01-01 00:00:00 2021-01-01 00:00:00 [facility] 1.2.840.114 350.1.13.10 4.2.7.2.686 [id number] [facility] 2020-12-29 14:17:39 2020-12-29 23:59:00 Hospital Encounter Nimo Jade [facility] 1.2.840.114 350.1.13.10 4.2.7.2.686 [id number] [facility] 2020-12-29 00:00:00 2020-12-29 00:00:00 Outpatient Colt JADE NIMO [facility] [id number] [facility] 2020-11-15 15:20:00 2020-11-15 15:20:00 Outpatient ELIAN DE LEON [facility] [id number] [facility] 2020-11-01 09:15:00 2020-11-01 09:15:00 Outpatient Colt CHANKAE NIMO [facility] [id number] [facility] 2020-11-01 08:50:56 2020-11-01 09:05:56 Material Handling Equipment Stevedore Visit 2, Adc Lab Nimo Jade [facility]al Building 1.2.840.114 350.1.13.10 4.2.7.2.686 [id number] [facility] 2020-11-01 00:00:00 2020-11-01 00:00:00 Orders Only Doctor Unassigned, Dinuba [facility] 1.2.840.114 350.1.13.10 4.2.7.2.686 [id number] [id number] [facility] 2020-10-18 15:50:00 2020-10-18 15:50:00 Outpatient ELIAN DE LEON [facility] [id number] [facility] 2020-08-01 00:00:00 2020-08-01 00:00:00 Telephone MaradiagaGetalba IndiaRaminAllegra [facility] 1.2.840.114 350.1.13.10 4.2.7.2.686 [id number] 2020-08-01 00:00:00 2020-08-01 00:00:00 Telephone Melvin Maradiaga. [facility] 1.2.840.114 350.1.13.10 4.2.7.2.686 [id number] [facility] 2020-07-31 09:15:00 2020-07-31 09:15:00 Outpatient NIMO GOMES [facility] [id number] [facility] 2020-07-31 08:33:54 2020-07-31 08:48:54 Material Handling Equipment Stevedore Visit 2, Adc Lab [facility] 1.2.840.114 350.1.13.10 4.2.7.2.686 [id number] 2020-07-31 08:33:54 2020-07-31 08:48:54 Material Handling Equipment Stevedore Visit 2, Adc Lab Nimo Jade [facility] 1.2.840.114 350.1.13.10 4.2.7.2.686 [id number] [facility] 2020-07-31 00:00:00 2020-07-31 00:00:00 Orders Only Doctor Unassigned, Dinuba [facility] 1.2.840.114 350.1.13.10 4.2.7.2.686 [id number] [id number] 2020-07-31 00:00:00 2020-07-31 00:00:00 Orders Only Doctor Unassigned, Dinuba [facility] 1.2.840.114 350.1.13.10 4.2.7.2.686 [id number] [facility] 2020-07-14 10:42:11 2020-07-14 11:35:40 Office Visit Melvin Maradiaga [facility] Building 1.2.840.114 350.1.13.10 4.2.7.2.686 [id number] [facility] 2020-07-14 11:00:00 2020-07-14 11:00:00 Outpatient R MELVIN MARADIAGA [facility] [id number] [facility] 2020-07-14 00:00:00 2020-07-14 00:00:00 Orders Only Doctor Unassigned, Dinuba [facility] 1.2.840.114 350.1.13.10 4.2.7.2.686 [id number] [facility] 2020-07-04 14:45:38 2020-07-04 15:43:36 Office Visit Faizan [facility] 1.2.840.114 350.1.13.10 4.2.7.2.686 [id number] 2020-07-04 14:45:38 2020-07-04 15:43:36 Office Visit Faizan [facility] 1.2.840.114 350.1.13.10 4.2.7.2.686 [id number] [facility] 2020-07-04 15:00:00 2020-07-04 15:00:00 Outpatient R FAIZAN [facility] [id number] [facility] 2020-02-29 12:50:36 2020-02-29 13:29:37 Office Visit Faizan [facility] 1.2.840.114 350.1.13.10 4.2.7.2.686 [id number] [facility] 2020-02-29 13:00:00 2020-02-29 13:00:00 Outpatient R GLORIA [facility] [id number] [facility] 2020-02-22 13:00:00 2020-02-22 13:00:00 Outpatient R FAIZAN [facility] [id number] [facility] 2020-02-22 08:11:10 2020-02-22 08:41:10 Telemedici ne Visit [facility] Building 1.2.840.114 350.1.13.10 4.2.7.2.686 [id number] [facility] 2019-12-27 00:00:00 2019-12-27 00:00:00 [facility]ill [facility] Building 1.2.840.114 350.1.13.10 4.2.7.2.686 [id number] [facility] Results Test Description Test Time Test Comments Results Result Co mments Source [facility] GLUCOSE (AUTOMATED)2024-01-07 13:02:20* Test Item Value Reference Range Interpretation Comme [facility] POCT GLU (test code = 5845910801) 123 mg/dL 70-110 H Lab Interpretation (test cod e = 22167-7) Abnormal [facility] GLUCOSE (AUTOMATED)2023-12-24 14:22:49* Test Item Value Reference Range Interpretation Comme [facility] POCT GLU (test code = 4651784200) 118 mg/dL 70-110 H Lab Interpretation (test cod e = 36765-0) Abnormal [facility] GLUCOSE (AUTOMATED)2023-12-24 14:22:49* Test Item Value Reference Range Interpretation Comme [facility] POCT GLU (test code = 6015745321) 118 mg/dL 70-110 H Lab Interpretation (test cod e = 96421-2) [facility] 01:36:07* Test Item Value Reference Range Interpretation Comme nts Height (test code = 2751378986) 63 in Weight (test code = 3350903792) 174 lbs Systolic BP (test code = 8700642218) 133 mmHg Diastolic BP (test code = 9407427758) 68 mmHg Heart Rate (test code = 2831706853) 74 bpm Ao root diam (test code = 1091793751) 3.50 cm Aortic root (test code = 5510971636) 3.5 cm Ao root annulus (test code = 7965009784) 3.5 cm BSA (test code = 4457959399) 1.82 m2 LVOT diameter (test code = 5466233988) 2.19 cm LVOT area (test code = 8721471597) 3.80 cm2 LA size (test code = 5546993644) 4.4 cm ACS (test code = 5025659157) 2.70 cm PV PEAK VELOCITY (test code = 2265269774) 80.7 cm/s PV peak gradient (test code = 1637500846) 2.6 mmHg MV E-F slope (test code = 1544657337) 33.90 cm/s MV Peak E Ata (test code = 3643787802) 73.4 cm/s MV Peak A Ata (test code = 7064799500) 76.0 cm/s E/A ratio (test code = 4952205261) 0.97 ratio MV valve area p 1/2 method (test code = 1720154728) 3.90 cm2 MV dec slope (test code = 0608740554) 385.40 cm/s2 MV P1/2t max ata (test code = 6188141471) 73.40 cm/s LVOT stroke volume (test code = 5424349865) 79.40 cm3 LVOT peak ata (test code = 7781417745) 102.7 cm/s LVOT mn grad (test code = 8858070613) 1.8 mmHg AV LVOT peak gradient (test code = 7373994781) 4.2 mmHg LVOT peak VTI (test code = 4950868725) 21.1 cm LV V1 mean (test code = 2592754924) 61.10 cm/s Aortic valve mean velocity (test code = 5930876963) 61.4 cm/s Ao peak ata (test code = 9633936039) 100.6 cm/s Ao VTI (test code = 7714940327) 19.9 cm AV area by cont VTI (test code = 1245212079) 4.0 cm2 AV area peak ata (test code = 5661823255) 3.8 cm2 Ao max PG (test code = 6285116397) 4.00 mm[Hg] AV peak gradient (test code = 2833817095) 4.0 mmHg AV valve area (test code = 1069358595) 4.00 cm2 AV mean gradient (test code = 7185894666) 1.78 mmHg LVIDD (test code = 6005429978) 4.50 cm Left Ventricular End Diastolic Volume by Teichholz Method (test code = 1468529) 90.9 mL IVS (test code = 4529145102) 1.14 cm Interventricular Septum Diastolic Thickness by 2D (test code = 4669012) 1.14 cm LVPWD (test code = 1901486137) 1.20 cm PW (test code = 8179722063) 1.20 cm 0.6-1.1 EF(Teich) (test code = 5765072412) 60.50 % LVIDS (test code = 8540907665) 3.00 cm Left Ventricular End Systolic Volume by Teichholz Method (test code = 4076475) 35.9 mL FS (test code = 8816030871) 32 % EF - 2D (test code = 19872159) 60.50 % Radiology Study observation (narrative) (test code = 91080-1) AMANDA (test code = AMANDA) ?Left?Ventricle: Left ventricle size is normal. Normal wall thickness. Normal wall motion. Normal systolic function with a visually estimated EF of 55 - 60%. There is impaired relaxation. Normal left ventricular filling pressure. ?Tricuspid?Valve: Trace transvalvular regurgitation. Insufficient tricuspid regurgitation jet to estimate RVSP . ?RA pressure is 0-5 mmHg. ?Pericardium: Trivial pericardial effusion present. ?Aorta: Mildly enlarged ascending aorta 3.6cm. Left VentricleLeft ventricle size is normal. Normal wall thickness. Normal wall motion. Normal systolic function with a visually estimated EF of 55 - 60%. There is impaired relaxation. Normal left ventricular filling pressure.Right VentricleRight ventricle size is normal. Normal systolic function.Left AtriumLeft atrium size is normal.Right AtriumRight atrium size is normal.Mitral ValveMild mitral annular calcification. Trace transvalvular regurgitation.Tricusp id ValveTricuspid valve structure is grossly normal. Trace transvalvular regurgitation. Insufficient tricuspid regurgitation jet to estimate RVSP . RA pressure is 0-5 mmHg.Aortic ValveAortic valve opens well. Mildly calcified cusps.Pulmonic ValvePulmonic valve is grossly normal in structure and function. Trace transvalvular regurgitation.Ascendi ng AortaMildly enlarged ascending aorta 3.6cm.PericardiumTriv ial pericardial effusion present.Study DetailsStudy quality experienced technical difficulty. A complete echocardiogram was performed using 2D, color flow Doppler and spectral Doppler. 5 mL of Lumason ultrasound enhancing agent used. [facility] History and Physical Notes Date/Time Note Provider Source 2024-01-07 08:27:50 Mw7AVWFuFaa+uYPhmubr Ja4JRUu+C0EmBDT4MgyH/H MAJ4EFCmZj3HvgFkoF+0fY7823-59-77Y13:27:50F ormatting of this note might be different from the original.H&P UpdateH&P was reviewed and the patient was examined and there was no change in the patient's condition. 65708-8Wpfqdox and physical bjzqJM5796-27-04H71:28:01History and physical noteTXT1.2.840.043595.1.13.104.2.7.2.48331 9|[id number] for patient bvft75954-2Vgqsrlk and physical noteLNNARRATIVEFormatted C-CDA narrative textUT[address] RdxyPzczbbbsfTqlezpffzZZFJ0278424212PXNVFE IYTAQEOBZULZHRQP7446-84-97O12:28:011.2.840 .830451.1.72.3.15|1.2.840.050109.1.13.104. 2.7.2.727879_[id number] [facility] 2023-12-24 09:33:27 XJ9XMa9Cqz0Nb544EMYl 7Kb+NHliSHe8N2MxjovXQt oWl3H9ZJFZqzSIy+ymyTk99585-02-33B04:33:27F ormatting of this note might be different from the original.H&P UpdateH&P was reviewed and the patient was examined and there was no change in the patient's condition. 21003-5Pistqud and physical ymegLV6387-57-60Q78:33:37History and physical noteTXT1.2.840.587528.1.13.104.2.7.2.46266 9|[id number] for patient vxho87248-3Wspdsqz and physical noteLNNARRATIVEFormatted C-CDA narrative textUT[address] KxczT[id number] VGYLCXZGNOUMAGNH6135-51-33M07:33:371.2.840 .231303.1.72.3.15|1.2.840.415156.1.13.104. 2.7.2.727879_[id number] [facility] Notes Date/Time Note Provider Source 2023-12-31 13:46:52 EmvGfO5t0odoGnJbdYbL mU/JAIDEN+mQeJ7vA /xYPfIZu8c65iSMn80q+tZi6ZL49Nq7917 -03-20T13:46:52 Images from the original note were not included.Your procedure is at [facility] on 01/07/24. The address is [address] [place] [address], [facility]. [facility] nursing staff will call you the workday before your procedure to let you know what time to arrive.On the day of your procedure, please go inside that door and check in at the desk.Please note: You may not travel home alone and that includes in a taxi or by bus. We must speak to your Responsible Adult (who will be picking you up) the morning of your procedure, before the start of your procedure. This person must be an adult over the age of 18 years of age.Do not eat any solid food after midnight the night before surgery. You may have sips of clear liquids such as water, gatorade, and sprite up until two hours before your scheduled procedure.You may take your medications with a sip of water as directed by physician.Anticoagulants will be per physician guidance. Medication Note(s)/Instructions: The patient was instructed to hold Mounjaro 1 week prior the procedure. Pt educated on medication. Understanding was verbalized, with no questions or concerns at this time. Teach-back method repeated and confirmed. There are no pre-op orders for labs or further testing at this time.Pending screening, we may test for COVID. If a patient tests positive, their cases are cancelled and/or rescheduled. COVID SCREENING NOTE: Denies COVID symptoms, no testing required.Additional requests, questions, concerns:Patient verbalized understanding of pre-op instructions and voiced no further questions at this time. 44267-4Wtoan CcqsCT1510-42-44P02:52:30Nurse NoteTXT1.2.840.855197.1.13.104.2.7 .2.949714|[id number] for patient bgou54571-3Stqez NoteLNNARRATIVEFormatted C-CDA narrative textUT[address] Mw[id number] 49CTGXEMZTYRKFKKKLMTLQDQ7162-67-45 T13:52:301.2.840.439414.1.72.3.15| 1.2.840.249741.1.13.104.2.7.2.7278 [id number] [facility] 2023-12-19 14:50:13 tJumX7zTsKgnD9UJp97j CJLipehrjOMQlP BOEn3GTpFIrs9Pk6m0enYvNUfnJ47R1949 -03-08T14:50:13 Images from the original note were not included.Notified patient per Dr Maradiaga:Melvin Maradiaga MD P Cardiology NurseLipid panel at goal.CMP within acceptable limits. Creatinine mildly elevated 1.2 similar to 2 years ago.NT-proBNP normal.Patient verbal understanding. 31487-9Wspouuizy encounter DqdnFS1655-44-93V42:50:33Telephone encounter NoteTXT1.2.840.084824.1.13.104.2.7 .2.357625|[id number] for patient oxqv28320-9SujvGYFTJABMPGLFbtxqtqe d C-CDA narrative lzpb336260684Zpjollgls D Garcia MA[address] Za[id number] 08MAARCLACXKQBLQYWCFSORI2346-75-83 T14:50:331.2.840.837929.1.72.3.15| 1.2.840.292754.1.13.104.2.7.2.7278 [id number] Mona Clark MA [facility] 2023-12-18 09:00:00 aLNg+aCJCTV1nflKb9Ww xlBI8iOwFNqFy9 oSFa8H6BgHxl8skaFyZwz4a+M4qZES3996 -03-07T09:00:00 Images from the original note were not included.Venipuncture collection performed by clean technique on the left anticubitus. Total of 1 attempts were made. Slight pressure and a bandage/dressing were applied to the site(s). The patient experienced no complications. The following specimens were processed according to instructions and sent to [facility] laboratories per lab order on 12/18/2023:LT BLUESST 1REDLAVPPTDK GREEN (LiHep)DK GREEN (SodH)GRAYDK BLUE (K2)DK BLUE (S)ACDBlood CultureNIPT/NTD 28003-5Gqmox NrydWN1006-49-97J45:05:03Nurse NoteTXT1.2.840.197537.1.13.104.2.7 .2.793268|[id number] for patient inxc98841-2Ijcgz NoteLNNARRATIVEFormatted C-CDA narrative textUT[address] Cq[id number] 32GHQRAMZUTXZXEIJJYLHOYY6280-23-18 T09:05:031.2.840.514449.1.72.3.15| 1.2.840.099845.1.13.104.2.7.2.7278 [id number] [facility] 2023-12-17 15:15:22 p+gvxVJPpUm8KCmYZHE2 abcV8hJwRCD4Fj MbPIEIfg3zxpF19o9bExF2NHldsGS35601 T15:15:22 Images from the original note were not included.Your procedure is at [facility] on 12/24/23. The address is [address] [place] [address], [facility]. [facility] nursing staff will call you the workday before your procedure to let you know what time to arrive.On the day of your procedure, please go inside that door and check in at the desk.Please note: You may not travel home alone and that includes in a taxi or by bus. We must speak to your Responsible Adult (who will be picking you up) the morning of your procedure, before the start of your procedure. This person must be an adult over the age of 18 years of age.Do not eat any solid food after midnight the night before surgery. You may have sips of clear liquids such as water, gatorade, and sprite up until two hours before your scheduled procedure.You may take your medications with a sip of water as directed by physician.Anticoagulants will be per physician guidance. Medication Note(s)/Instructions: The patient was educated on medication. Understanding was verbalized, with no questions or concerns at this time. Teach-back method repeated and confirmed. There are no pre-op orders for labs or further testing at this time.Pending screening, we may test for COVID. If a patient tests positive, their cases are cancelled and/or rescheduled. COVID SCREENING NOTE: Denies COVID symptoms, no testing required.Additional requests, questions, concerns:Patient verbalized understanding of pre-op instructions and voiced no further questions at this time. 63524-3Zvxot FwxjOW7418-99-38K00:17:04Nurse NoteTXT1.2.840.292527.1.13.104.2.7 .2.449397|[id number] for patient wbib77570-9Hliio NoteLNNARRATIVEFormatted C-CDA narrative textUT[address] Lf[id number] 29IWKHRGCSQMIBADCTEYCLQL7333-55-04 T15:17:041.2.840.136424.1.72.3.15| 1.2.840.799748.1.13.104.2.7.2.7278 [id number] [facility] 2023-12-05 15:17:11 at0SvHGeJ5JJwk2KnkGH MESuh7qkxJhhPX K20BOAAaNU5VU9KLOu6fUMqa//NgQJ59542023T15:17:11 Images from the original note were not included.Called patient for results patient verbalized understanding with no further questionsMelvin Maradiaga MD P Cardiology NurseMenifee with in acceptable limits. Preserved LVEF. No significant valve diease notedNo significant changes compared to the previous echocardiogram.Awaiting 30-day event monitor results. 84875-8Taftunwtq encounter IznoJH5131-25-59V61:19:58Telephone encounter NoteTXT1.2.840.878826.1.13.104.2.7 .2.974441|[id number] for patient peei87523-8MgtwXFSFBBMPCVMJmkbmzex d C-CDA narrative kxvv246262644Thtjkzt Castillo [id number] 12TTFUXMXGGUYYMNPHWSPPXJ9455-30-26 T15:19:581.2.840.380014.1.72.3.15| 1.2.840.285552.1.13.104.2.7.2.7278 [id number] Dolly Jacobo [facility] 2023-12-04 16:00:00 TKAb2bu1wfYZmuUgq2ny bUyUiaRmJEw+SZ R8iTvM1E28xEyRnXHUcYG/+o1V1is69419 -02-22T16:00:00 [employer] 30-day event monitor applied to patient. Wear and care explained. Patient verbalized understanding. Patient given instruction on how to return monitor on 01/03/24 to [employer]. 30384-0Afdsf CnfrIQ4381-78-96H80:56:58Nurse NoteTXT1.2.840.212274.1.13.104.2.7 .2.715065|[id number] for patient nnqc97376-9Qudgg NoteLNNARRATIVEFormatted C-CDA narrative qnpi489646096Lvcb Sheavly [id number] 81ADUZICVTSSNNBRVXYJNRLI0148-01-23 T16:56:581.2.840.852658.1.72.3.15| 1.2.840.548014.1.13.104.2.7.2.7278 [id number] Leta Gimenez RN [facility] 2023-12-04 15:00:00 QaPZvpUpKetcw/g/t43n HmkN2E1NMu0tXU IZMlqsM1AHVQtcamonSfe+hqgQSI0V0133 -02-22T15:00:00 Echo with in acceptable limits. Preserved LVEF. No significant valve diease notedNo significant changes compared to the previous echocardiogram.Awaiting 30-day event monitor results. 67184-1Qpvnuhvp pytfMP9265-54-17O68:47:39Progress noteTXT1.2.840.528289.1.13.104.2.7 .2.195466|4763702611WFAvbyhbmla for patient tvil22542-6KrqxJZOLSJNXWBZBhbmuuoc d C-CDA narrative textUT[address]IsruWhsbzauxmGtctscwxlYAUQ61334434 50FHHLNURTGOKFXFCRROKFBS2025-50-85 T20:47:391.2.840.942425.1.72.3.15| 1.2.840.590046.1.13.104.2.7.2.7278 [id number] [facility] 2023-11-25 11:26:20 aFkprdXFwQJmzdTQS073 bCvnLF3Y4QeL+8 gT0vZzd1JZ/8w3aMQZqBDsc2GDHqjU1507 -02-13T11:26:20 Patient's clearance faxed to [facility] 02192-9Pwjtwohvm encounter PiqdOQ0284-51-15Z50:26:48Telephone encounter NoteTXT1.2.840.556194.1.13.104.2.7 .2.375838|[id number] for patient wyxc50080-1KstjZNENURWLAUZNsyezbex d C-CDA narrative textUTUTMB - Vjnyqo[address] [employer] RqmlWtamczhjrZqmzkpzciFWZG15918951 92DEUZFKOFAZZTOEXLKIUQRX4902-84-46 T11:26:481.2.840.111022.1.72.3.15| 1.2.840.003137.1.13.104.2.7.2.7278 79_[id number] [facility] 2023-11-21 16:33:10 G1mxhlhg+Gkpk4Hudjb0 IwuK9H4Gq5RX1E tNRGwtRNETksBvtp3RwhkP4+wrMALX46022023T16:33:10 Patient was notified of the results below, she verbally understood and agreed to the plan. Thank you 13067-9Nrrudcwgz encounter AwotOS8535-01-45P75:33:21Telephone encounter NoteTXT1.2.840.995132.1.13.104.2.7 .2.759829|[id number] for patient yvtx19429-1SxlgSPVVBIAUWMHTgdfhlaf d C-CDA narrative aopo815590084Xtodna M Hernandez [id number] 14VQQCPPCKAYLVVAWASLIOEJ2346-72-01 T16:33:211.2.840.955293.1.72.3.15| 1.2.840.469612.1.13.104.2.7.2.7278 79_[id number] Jennifer Villarreal MA [facility] 2023-11-21 14:21:04 kiGx0D7DaLKQuVVCDww0 cGlLDMbvQ9pVc7 pvI4CgK2jIGtRvHf0KJonJBaHBFuEi0172 -02-09T14:21:04 Patient was notified of the results below, she verbally understood and agreed to the plan. Thank you 46109-1Putmszgjy encounter CdugEL2236-32-32F97:21:14Telephone encounter NoteTXT1.2.840.870676.1.13.104.2.7 .2.129453|[id number] for patient ssgj77972-1ZpcrMVONZWUOIEBAyexzrkp d C-CDA narrative yhsu554622750Jvzwuj M Hernandez [id number] 16HITYBDRAAXXSMAKSTEPGJV2090-48-90 T14:21:141.2.840.772651.1.72.3.15| 1.2.840.759851.1.13.104.2.7.2.7278 79_[id number] Jennifer Villarreal [facility] 2023-11-20 16:46:20 b0ZzA3ew9LieZLlQYKmJ Y0eaawk9fi8VAm qQGP3Dmvww/bVtQjrhiv72FPgjg8iX9880 -02-08T16:46:20 Will update the CV risk stratification during the upcoming office visit 11/24/2023 also discussed regarding the low blood pressure. 46684-8Fhmlgczda encounter QmzsAC3559-28-38C87:46:22Telephone encounter NoteTXT1.2.840.443362.1.13.104.2.7 .2.807824|[id number] for patient cils97328-7IgkyIIIQTHQIZSRWqoxjugi d C-CDA narrative text[address]vdG[id number] 26ZQBPDDHHNZJVFPZKQSGQAN1989-40-51 T16:46:221.2.840.581638.1.72.3.15| 1.2.840.284794.1.13.104.2.7.2.7278 79_[id number] [facility] 2023-11-20 16:45:12 u6TxW7lf6HqtOJmHRVcI J8fzdtz8zy5RAd sYRZ6Gjlaf/bOlQqseqs90IWcin5xR2130 -02-08T16:45:12 Will update the CV risk stratification during the upcoming office visit 11/24/2023 also discussed regarding the low blood pressure. 82428-8Hcigaafqe encounter QatmUM4530-77-92V17:46:10Telephone encounter NoteTXT1.2.840.907477.1.13.104.2.7 .2.288299|[id number] for patient obky32369-9GkapLQPWAJJQVMYAmwpklhq d C-CDA narrative [address] Dyah[id number] 00NDDYGLZOEHIVQFJIOBBYDP1211-77-97 T16:46:101.2.840.768010.1.72.3.15| 1.2.840.040350.1.13.104.2.7.2.7278 79_[id number] [facility] 2023-11-20 14:30:57 j+ZBbZivpxx7u+XL32rF On5KMBThLnKVjr SD6/0/PY1s+e+n7h/H3VlyoOwQWtS21676 -02-08T14:30:[address] Arvizu inbox folder for chart review. 48363-2Yiymkaxmu encounter QejeIL0867-86-98H40:34:00Telephone encounter NoteTXT1.2.840.601638.1.13.104.2.7 .2.129485|[id number] for patient tvvg46196-8IrnfCFENQSRJLWSAsqbwjmd d C-CDA narrative [id number] 44OHROLSGAKUWYWZKNOUBQSZ0538-66-29 T14:34:001.2.840.353904.1.72.3.15| 1.2.840.756868.1.13.104.2.7.2.7278 [id number] [facility] 2023-11-20 14:30:25 rw9aJf0sdpWgyUC6SPhw jcDq+eciNdNbcd RXsMi0ka9amCW4HhaZLODsPCj0QCKO4723 -02-08T14:30:[address] Maradiaga. 42122-4Sbxzdwhmg encounter XjqwZX8489-21-40B48:30:35Telephone encounter NoteTXT1.2.840.700031.1.13.104.2.7 .2.318710|5606666223XUVeefdthww for patient eyje71325-7DitqRSKJETVPRIRTyvslsxo d C-CDA narrative [id number] 88ECIQLDBWNXGRSHGXOHDWGA5447-75-89 T14:30:351.2.840.923543.1.72.3.15| 1.2.840.074081.1.13.104.2.7.2.7278 [id number] [facility] 2023-11-04 11:22:03 qB8FOSNlIqqucJVjf1uP rNNm4wjmzYHuVc cna3b0o4QqRnIDoobT2sZ5+C/Nhdsi6228 -11-04T11:22:03 Call back to Ms Jacobo regarding low BP. Stated that her BP has been low 82/64, and she has lost 30 lbs.States occasional dizziness, she stopped her Metoprolol and Amlodipine x several days NOV 11/24/23ER precautions provided , verbalized understandingRouted to Dr Maradiaga for advice 65279-9Xhagdzfyq encounter QfquTI0554-18-54H99:33:32Telephone encounter NoteTXT1.2.840.632250.1.13.104.2.7 .2.845882|[id number] for patient htyy22633-5HdztJOQNOASSOSUNscsruog d C-CDA narrative [id number] A Roller RN[address] TqtlB[id number] 09DLTUJEUUAVNLUDITMGZRBT7658-19-90 T11:33:321.2.840.803691.1.72.3.15| 1.2.840.245688.1.13.104.2.7.2.7278 [id number] Malena Otoole RN [facility]"
[2024-01-13] MEDS ORDERED: ONDANSETRON 4 MG/2 ML VIAL IV PRN (16:04)
[2024-01-13] MEDS: NA CHLORIDE 0.9% 1,000 ML IV SCH (16:50)
[2024-01-13 17:02] VITALS: BMI 29.4
[2024-01-13 17:24] LABS: Absolute Basophils 0.1 K/uL (0-0.5); Absolute Eosinophils 0.1 K/uL (0-0.5); Absolute Lymphocytes (CBC) 1.9 K/uL (0.7-4.9); Absolute Monocytes 0.6 K/uL (0.1-1.3); Absolute Neutrophil 8.3 K/uL (1.8-8.0); Basophils % 0.7 % (0-1.3); Eosinophils % 0.7 % (0-4.4); Hemoglobin 12.4 g/dL (12.0-15.0); Lymphocytes % 17.6 % (15.3-44.8); MCH 25.4 pg (27.0-35.0); MCHC 31.9 g/dL (32.0-36.0); MCV 79.7 fL (80-100); MPV 9.8 fL (7.6-11.3); Monocytes % 5.4 % (3.3-12.3); Neutrophils % 75.6 % (41.7-73.7); Platelets 326 thou/uL (152-406); RBC Red Blood Cell Count 4.89 M/uL (3.86-4.86); Red Cell Distribution Width 18.4 % (12.1-15.2)
[2024-01-13 17:31] LABS: Specific Gravity 1.011 (1.005-1.030); Sqamous Epithelial <5 /HPF (None Seen); Urine Bacteria None Seen /HPF (<20); Urine Bilirubin NEGATIVE (Negative); Urine Blood Negative (Negative); Urine Clarity Clear (Clear); Urine Color Colorless (Yellow); Urine Culture Reflex Order NOT NEEDED; Urine Glucose NEGATIVE (Negative); Urine Ketones NEGATIVE (Negative); Urine Micro Reflex YN NO BILL MICROSCOPIC; Urine Mucus Slight /HPF (None Seen); Urine Nitrite NEGATIVE (Negative); Urine Protein NEGATIVE (Negative); Urine RBC <5 /HPF (None Seen); Urine Urobilinogen Normal (Normal); Urine WBC <5 /HPF (<5); Urine pH 6.5 (5.0-7.0)
[2024-01-13] MEDS: CEFTRIAXONE 1,000 MG in NA CHLORIDE 0.9% 50 ML IVPB SCH (17:32)
[2024-01-13 17:45] LABS: Albumin 3.6 g/dL (3.4-5.0); Albumin/Globulin Ratio 0.9 (1.1-1.8); Anion Gap 7.8 mEq/L (5.0-15.0); Bilirubin Total 0.2 mg/dL (0.2-1.0); Globulin 3.9 g/dL (2.3-3.5); Potassium 3.8 mEq/L (3.5-5.1); Protein, Total 7.5 g/dL (6.4-8.2)
[2024-01-13] MEDS: ESZOPICLONE 1 MG TAB PO SCH (21:00)
[2024-01-13] MEDS: APIXABAN 5 MG TABLET PO SCH (21:25)
[2024-01-13] MEDS: METOPROLOL XL 50 MG TAB PO SCH (21:25)
[2024-01-13] MEDS: ROSUVASTATIN 10 MG TAB PO SCH (21:26)
--- NOTE | 2024-01-13 23:32 | HP ---
Date of Admission: 01/13/2024 Chief Complaint: Back pain, trouble voiding, chills, nausea, vomiting, diarrhea. History Of Present Illness: This is a 73-year-old pleasant female patient, who came into office toda y after she called office earlier today and was asked to come see me because of above-mentioned compl aints. The patient says as of last night, she started to have chills, nausea, vomiting, felt like sh e had to go to bathroom frequently with some burning sensation on urination, but trouble emptying monserrat dder and bilateral posterior flank pain. She has been having chills, but no fever. With all these c omplaints, she was evaluated at office and decision was made to admit her to the hospital. Allergies: TO CODEINE CAUSING ITCHING AND SULFA CAUSING SWELLING OF FINGER AND REDNESS. Medications: Eliquis 5 mg 2 times a day, Lunesta 3 mg daily at bedtime, Ferrocite 324 mg daily, levo thyroxine 112 mcg daily, metoprolol succinate 50 mg daily, pantoprazole 40 mg daily, paroxetine 10 mg daily, rosuvastatin 10 mg daily, Mounjaro 7.5 mg once a week, vitamin B12 500 mcg daily. Review of Systems: Genitourinary: As mentioned above. Constitutional: As mentioned above. GI: As mentioned above. All other systems reviewed and negative. Past Medical History: Significant for hypothyroidism, type 2 diabetes mellitus, hypertension, mixed hyperlipidemia, gastroesophageal reflux disease, osteoarthritis at multiple sites, anxiety, insomnia, depression, chronic kidney disease stage IIIA, diverticulosis, and iron deficiency anemia. Past Surgical History: Cataract surgery, cholecystectomy, hemorrhoid surgery, and hysterectomy. Family History: Father , had prostate cancer. Mother , had heart disease, stroke, and kidne y disease. Brother , had lung cancer. Sister and had lung cancer as well. Social History: Prior history of smoking, not at present time. Use of alcohol negative. Physical Examination: Vital Signs: Height 5 feet 3 inches, weight 166 pounds, temperature 97.8, pulse 76, respiratory rate 15, blood pressure 147/87, oxygen saturation 95% on room air. General: Awake, alert, oriented, not in distress. HEENT: Head atraumatic, normocephalic. Conjunctivae nonerythematous. Sclerae white. Mouth, no thr ush or edema noted. Ears/Nose, no mass, lesion, discharge noted. Neck: Supple. No JVD, lymph nodes, bruit, thyromegaly noted. Lungs: Bilateral good equal air entry. Clear to auscultation. No rhonchi. No rales. Heart: Normal heart sounds, no murmur or gallop. Abdomen: Soft. Bowel sounds normal. No guarding, rigidity, distention. Presence of tenderness in bilateral posterior flank and lower abdominal area. No rebound tenderness. Bowel sounds normoactive . Extremities: No leg edema. No calf tenderness. Skin: No rash, ulcer, cellulitis. Lymphatics: No lymph node enlargement in neck, supraclavicular, infraclavicular region. Neuro: No focal neurological deficit. Chest: Unremarkable. External Genitalia: Deferred. Rectal: Deferred. Laboratory Data: Urinalysis shows leukocyte esterase , wbc , rbc , nit rites , blood . CBC shows WBC , hemoglobin , platelets , and chemistry shows sodium , potassium , chloride , bicarb , glucose , BUN , creatinine , liver function tests . Impression: 1.Acute pyelonephritis. 2.Acute gastroenteritis. 3.Hypothyroidism. 4.Type 2 diabetes mellitus with chronic kidney disease. 5.Chronic kidney disease stage IIIA. 6.Hypertension. 7.Mixed hyperlipidemia. 8.Gastroesophageal reflux disease. 9.Osteoarthritis, multiple sites. 10.Insomnia. 11.Anxiety. 12.Depression. 13.Diverticulosis. 14.Atrial flutter. 15.Chronic anticoagulation therapy. Plan: We will go ahead and admit the patient to hospital for further evaluation and management of th is problem. I will follow up on urine culture and blood culture. Empiric antibiotic ceftriaxone was started. IV fluid will be given and for diabetes, we will manage it with sliding scale insulin. Th e patient is on Eliquis for atrial flutter. We will continue that. For hypertension, she takes meto prolol, which we will continue it as per order. Monitor blood pressure. Adjust blood pressure medic ation if necessary. For hyperlipidemia, we will go ahead and continue her rosuvastatin as per order and no need for further intervention. Hypothyroidism will not require any further intervention excep t continuation of current medication. The patient will receive Eliquis as part of her normal home me dication and I will provide her DVT prophylaxis as well. Details of plan of treatment discussed with her. I will go ahead and give her clear liquid diet and depending on her condition tomorrow, we leland l decide about advancing her diet. Zofran was ordered for nausea on a p.r.n. basis. NNAMDI/MODL Voice ID: [id number]
[2024-01-14] MEDS: PARoxetine HCL 10 MG TAB PO SCH (10:26)
[2024-01-14] MEDS: LEVOTHYROXINE SOD 0.112 MG TAB PO SCH (10:27)
[2024-01-14] MEDS: AMLODIPINE 5 MG TAB PO SCH (10:27)
[2024-01-14] MEDS: PANTOPRAZOLE 40MG TABLET PO SCH (10:28)
--- NOTE | 2024-01-14 10:57 | RAD REPORT ---
EXAM DESCRIPTION: CT - Abdomen Pelvis Wo Contrast - 01/14/2024 10:16 am CLINICAL HISTORY: Abdominal pain. flank pain, rule out kidney stone COMPARISON: Stone Protocol dated 09/29/2017 TECHNIQUE: CT imaging of the abdomen and pelvis was performed without contrast. Solid organ and vasc ular assessment is limited due to lack of IV contrast. All CT scans are performed using dose optimization technique as appropriate and may include automated exposure control or mA/KV adjustment according to patient size. FINDINGS: The lower lung merida are clear.Moderate hiatal hernia. Cholecystectomy clips. The liver, spleen, pancreas, adrenal glands and kidneys are within normal limits for a limited non-co ntrast examination. No bowel obstruction, free air, free fluid or abscess. Aortoiliac atherosclerosis. Mild sigmoid diver ticulosis coli without diverticulitis. The appendix is normal. Mild lumbosacral degenerative changes. IMPRESSION: No urinary tract stone, obstructive uropathy or other abnormality to explain clinical hi story. Moderate hiatal hernia. A limited non-contrast examination was performed as detailed.
[2024-01-14 11:00] VITALS: O2SAT 96
[2024-01-14 12:42] VITALS: BP 155/74; TEMP 97
--- NOTE | 2024-01-14 20:30 | DS ---
Date of Discharge: 01/14/2024 Disposition: Discharged to go home. Physical Examination: HEENT: Unremarkable. Lungs: Clear to auscultation. Heart: Sounds normal. Abdomen: Soft. Bowel sounds normal. No guarding, rigidity, tenderness, distention, except she santos oconnor had some suprapubic discomfort upon palpation and bilateral posterior flank discomfort upon palpati on, but better today than yesterday. Extremities: No leg edema. Laboratory Data: Yesterday, white count 10.9, hemoglobin 12.4, platelets 326. Sodium 139, potassium 3.8, chloride 107, bicarb 28, BUN 10, creatinine 1.25, glucose 107. Liver function tests unremarkab le. Urinalysis was unremarkable. CAT scan of the abdomen and pelvis done today without IV contrast per kidney stone protocol, was negative for any kidney stone or any other acute intraabdominal or pel deb findings. Hospital Course: This is a 73-year-old pleasant female patient, came into office yesterday with chil ls, lower abdominal pain, posterior flank pain, nausea, vomiting, and diarrhea. Please see dictated H and P for more information. After she was evaluated at office, decision was made to admit her to [facility]. The patient also reported that she felt like having some burning sensation with urination a nd had trouble voiding. Denies any blood in urine. After she was evaluated, she was admitted to the hospital and further workup was done in the hospital. We were concerned about pyelonephritis and ac lisa gastroenteritis. IV fluid was given and clear liquid diet was started. After her admission to [facility], when I saw her this morning for followup, she was feeling much better and she did not faulkner ve any urinary complaints anymore. Did not have any vomiting or diarrhea overnight and overall she w as feeling a lot better. The patient was discharged to go home in stable condition with following lydia perla medications and instructions. Discharge Medications And Instructions: 1.Continue all prior home medications. 2.Zofran 4 mg IV 4 times a day as needed for nausea and vomiting. 3.Follow up at my office next week. Final Diagnoses: 1.Acute gastroenteritis. 2.Hypothyroidism. 3.Type 2 diabetes mellitus with chronic kidney disease. 4.Chronic kidney disease stage 3A. 5.Hypertension. 6.Mixed hyperlipidemia. 7.Gastroesophageal reflux disease. 8.Osteoarthritis, multiple sites. 9.Insomnia. 10.Anxiety. 11.Depression. 12.Diverticulosis. 13.Atrial flutter. 14.Chronic anticoagulation therapy. NNAMDI/MODL Voice ID: [id number] Report ID: [id number]
== END 2024-01-14 14:38 | disposition home or self-care (01) ==
LOC: INTOOBSV 14:18 → 4TH 14:18
PROVIDERS: ADMIT Internal Medicine; ATTEND Internal Medicine
DX: K52.9 Noninfective gastroenteritis and colitis, unspecified (principal); N10 Acute pyelonephritis; E03.9 Hypothyroidism, unspecified; E11.22 Type 2 diabetes mellitus with diabetic chronic kidney disease; I12.9 Hypertensive chronic kidney disease with stage 1 through stage 4 chronic kidney disease, or unspecified chronic kidney disease; N18.31 Chronic kidney disease, stage 3a; E78.5 Hyperlipidemia, unspecified; K21.9 Gastro-esophageal reflux disease without esophagitis; M19.90 Unspecified osteoarthritis, unspecified site; G47.00 Insomnia, unspecified; F41.9 Anxiety disorder, unspecified; F32.A Depression, unspecified; K57.90 Diverticulosis of intestine, part unspecified, without perforation or abscess without bleeding; I48.92 Unspecified atrial flutter; Z79.01 Long term (current) use of anticoagulants
CPT/HCPCS: 87040 ×2; 87088; 85025; 81001; 87086; 36415; 82947 ×3; 80053; 74176; J7030 ×2; J0696 ×2; G0378; G0379

== ENCOUNTER 2024-10-07 10:32 | Emergency (ER) | payer OTHER ==
--- OUTSIDE RECORDS SUMMARY | 2024-10-07 10:36 | XMS REPORT | Continuity of Care Document ---
Author Name Unknown Address [address] [place] [address] [facility] Address [address] [place] [address] Care Team Providers Care Cargo Supervisor Name Role Phone Anselmo Neely Donte Primary Care Physician [phone] MELVIN MARADIAGAHAllegra Attending Clinician Unavaila IVETTE Gonzalez Attending Clinician Unavailable IVETTE DIMAS Attending Clinician Unavailable Melvin Maradiaga MD K.HAllegra Attending Clinician [phone] RAJAT LAZARO Attending Clinician UnavailRajat Wheat MD Attending Clinician [phone], [facility] Attending Clinician Unavailable Doctor Unassigned, [employer] Attending Clinician U navailable RAVIN FLORES Attending Clinician Unavailable JOVON DURON Attending Clinician Unavailable JACKIE TALLEY Attending Clinician Unavailable Ravin Bermudez Attending Clinician [phone] Jackie Talley MD Attending Clinician [phone] Mikki Gloria MD Attending Clinician [phone] MIKKI GLORIA Attending Clinician Unavailable Nimo Jade DO Attending Clinician [phone] NIMO JADE Attending Clinician Unavailable ELIAN RESTREPO Attending Clinician Unavailable RAJAT LAZARO Admitting Clinician UnavailRajat Wheat MD Admitting Clinician [phone] MELVIN MARADIAGA K.H. Admitting Clinician Unavaila ble Payers Payer Name Policy Type Policy Number Effective Date Expirati on Date Source [facility] [place] [id number] 2020 00:00:00 [facility] [place]FS 5 [id number] 2022 00:00:00 MEDICARE PART A \T\ B [id number] 2014 00:00:00 [facility] MEDICARE SUPPLEMENT [id number] 2014 00:00:00 Problems Condition Name Condition Details Condition Category Status Onset Date Resolution Date Last Treatment Date Treating Clinician Comments Source Type 2 diabetes mellitus without complicati on, without long-term current use of insulin Type 2 diabetes mellitus without complicati on, without long-term current use of insulin Disease Active 2014-10 00:00: 00 [facility] Essential hypertensi on Essential hypertensi on Disease Active 2014-10 00:00: 00 [facility] Dyslipidem ia Dyslipidem ia Disease Active 2014-10 00:00: 00 [facility] Obesity Obesity Disease Active 2014-10 00:00: 00 [facility] Primary hypothyroi dism Primary hypothyroi dism Disease Active 2014-10 00:00: 00 [facility] Postmenopa use Postmenopa use Disease Active 2014-10 00:00: 00 [facility] Allergies, Adverse Reactions, Alerts Allergy Name Allergy Type Status Severity Reaction(s) Onset Date Inactive Date Treating Clinician Comments Source Sulfa (Sulfona mide Antibiot ics) Propensi ty to adverse reaction s Active Rash 11-14 00:00: 00 [facility] SULFA (SULFONA MIDE ANTIBIOT ICS) Drug Class Active ITCHING 11-14 00:00: 00 [facility] Sulfa (Sulfona mide Antibiot ics) Propensi ty to adverse reaction s Active Rash 11-14 00:00: 00 [facility] Social History Social Habit Start Date Stop Date Quantity Comments [facility] of tobacco use Current smoker [facility] Alcoholic beverage intake 2024-01-08 00:00:00 2024-01-08 00:00:00 0 /d [facility] History of Social function 2024-01-07 00:00:00 2024-01-07 00:00:00 [facility] Alcohol intake 2023-12-31 00:00:00 2023-12-31 00:00:00 0 /d [facility] Exposure to SARS-CoV-2 (event) 2022-12-02 00:00:00 2022-12-12 13:38:00 Not sure [facility] Tobacco use and exposure 2022-07-09 00:00:00 2022-07-09 00:00:00 Smokeless tobacco non-user [facility] Sex assigned at 1950 00:00:00 1950 00:00:00 [facility] Smoking Status Start Date Stop Date Source Ex-smoker 2022-07-09 00:00:00 [facility]22[facility]07[facility]09 [facility] Ordered Medication Name Filled Medication Name Start Date Stop Date Current Medication? Ordering Clinician Indication Dosage Frequency Signature (SIG) Comments Components Source aspirin 81 mg EC tablet 03-23 15:19: 43 Yes 81mg Take 1 tablet by mouth in the morning. [facility] neomycin-po lymyxin-dex amethasone (MAXITROL) 3.5 mg/g-10,000 unit/g-0.1 % ophthalmic ointment 01-06 14:48: 00 01-06 15:04 :32 No PRN, Starting on Fri01/07/24 at 0948, Until Fri01/07/24 at 1004, Routine, Intra-op [facility] sodium chloride (NS) injection 01-06 14:47: 00 01-06 15:04 :32 No PRN, Starting on Fri01/07/24 at 0947, Until Fri01/07/24 at 1004, Routine, Intra-op [facility] dexamethaso ne (DECADRON PHOSPHATE) injection 01-06 14:47: 00 01-06 15:04 :32 No PRN, Starting on Fri01/07/24 at 0947, Until Fri01/07/24 at 1004, Routine, [facility]-op [facility] ceFAZolin (ANCEF) injection 01-06 14:46: 00 01-06 15:04 :32 No PRN, Starting on Fri01/07/24 at 0946, Until Fri01/07/24 at 1004, MARIFER, Intra-op [facility] carbachoL (MIOSTAT) 0.01 % intraocular injection 01-06 14:45: 00 01-06 15:04 :32 No PRN, Starting on Fri01/07/24 at 0945, Until Fri01/07/24 at 100, Routine, Intra-op [facility] chondroitin sulf-sod hyaluronate (DUOVISC VISCO ELASTIC) intraocular injection 01-06 14:39: 00 01-06 15:04 :32 No PRN, Starting on Fri01/07/24 at 0939, Until Fri01/07/24 at 1004, Routine, Intra-op [facility] EPINEPHrine (PF) 1:1,000 (1 mg/mL) (ADRENALIN (PF)) 0.5 mL in balanced salt soln no.2 irrig. (BSS) 500 mL OR irrigation 01-06 14:38: 00 01-06 15:04 :32 No PRN, Starting on Fri01/07/24 at 0938, Intra-op [facility] water for irrigation irrigation solution 01-06 14:34: 00 01-06 15:04 :32 No PRN, Starting on Fri01/07/24 at 0934, Until Fri01/07/24 at 1004, Routine, Intra-op [facility] Hyaluronida se, Human Recomb. (HYLENEX) injection 01-06 14:27: 00 01-06 15:04 :32 No PRN, Starting on Fri01/07/24 at 0927, Until Fri01/07/24 at 1004, Routine, Intra-op [facility] eye block syringe 11 mL 01-06 14:27: 00 01-06 15:04 :32 No PRN, Starting on Fri01/07/24 at 0927, Until Fri01/07/24 at 1004, Intra-op [facility] cyclopent 1%-tropic 1%-phenyl 2.5%-ketor 0.5% (MYDRIATIC #5) ophthalmic solution syringe 0.5 mL 01-06 13:00: 00 01-06 13:08 :00 No .5mL 0.5 mL, Right Eye, ONCE, 1 dose, On Fri01/07/24 at 0800, Routine, DSU Pre-op [facility] lactated ringers IV infusion 1,000 mL 01-06 13:00: 00 01-06 13:08 :00 No 1000mL at 42 mL/hr, 1,000 mL, IV Infusion, ONCE, 1 dose, On Fri01/07/24 at 0800, Routine, DSU Pre-op [facility] CYANOCOBALA MIN, VITAMIN B-12, (VITAMIN B-12 ORAL) 01-06 10:36: 19 Yes Take by mouth daily. [facility] aspirin 81 mg EC tablet 01-06 10:36: 19 Yes 81mg Take 1 tablet by mouth in the morning. [facility] eszopiclone 3 mg tablet 01-06 10:36: 19 Yes 3mg Take 1 tablet by mouth at bedtime. [facility] pantoprazol e 40 mg EC tablet 01-06 10:36: 19 Yes 40mg Take 1 tablet by mouth in the morning. [facility] cholestyram ine powder packet 01-06 10:36: 19 Yes 4000mg Take 4,000 mg by mouth in the morning and 4,000 mg in the evening. [facility] ramelteon 8 mg tablet 01-06 10:36: 19 Yes 8mg Take 1 tablet by mouth at bedtime. [facility] neomycin-po lymyxin-dex amethasone (MAXITROL) 3.5 mg/g-10,000 unit/g-0.1 % ophthalmic ointment 12-23 15:53: 00 12-23 15:56 :56 No PRN, Starting on Fri12/24/23 at 1053, Until Fri12/24/23 at 1056, Routine, Intra-op [facility] sodium chloride (NS) injection 12-23 15:51: 00 12-23 15:56 :56 No PRN, Starting on Fri12/24/23 at 1051, Until Fri12/24/23 at 1056, Routine, Intra-op [facility] dexamethaso ne (DECADRON PHOSPHATE) injection 12-23 15:51: 00 12-23 15:56 :56 No PRN, Starting on Fri12/24/23 at 1051, Until Fri12/24/23 at 1056, Routine, Intra-op [facility] ceFAZolin (ANCEF) injection 12-23 15:51: 00 12-23 15:56 :56 No PRN, Starting on Fri12/24/23 at 1051, Until Fri12/24/23 at 1056, MARIFER, Intra-op [facility] carbachoL (MIOSTAT) 0.01 % intraocular injection 12-23 15:50: 00 12-23 15:56 :56 No PRN, Starting on Fri12/24/23 at 1050, Until Fri12/24/23 at 1056, Routine, Intra-op [facility] chondroitin sulf-sod hyaluronate (DUOVISC VISCO ELASTIC) intraocular injection 12-23 15:39: 00 12-23 15:56 :56 No PRN, Starting on Fri12/24/23 at 1039, Until Fri12/24/23 at 1056, Routine, [facility]-op [facility] EPINEPHrine (PF) 1:1,000 (1 mg/mL) (ADRENALIN (PF)) 0.5 mL in balanced salt soln no.1 irrig. (BSS PLUS) 500 mL OR irrigation 2024-0 3-13 15:36: 00 12-23 15:56 :56 No PRN, Starting on Fri12/24/23 at 1036, Intra-op [facility] water for irrigation irrigation solution 12-23 15:30: 00 12-23 15:56 :56 No PRN, Starting on Fri12/24/23 at 1030, Until Fri12/24/23 at 1056, Routine, Intra-op [facility] Hyaluronida se, Human Recomb. (HYLENEX) injection 12-23 15:25: 00 12-23 15:56 :56 No PRN, Starting on Fri12/24/23 at 1025, Until Fri12/24/23 at 1056, Routine, Intra-op [facility] eye block syringe 11 mL 12-23 15:25: 00 12-23 15:56 :56 No PRN, Starting on Fri12/24/23 at 1025, Until Fri12/24/23 at 1056, Intra-op [facility] cyclopent 1%-tropic 1%-phenyl 2.5%-ketor 0.5% (MYDRIATIC #5) ophthalmic solution syringe 0.5 mL 12-23 14:15: 00 12-23 14:24 :00 No .5mL 0.5 mL, Left Eye, ONCE, 1 dose, On Fri12/24/23 at 0915, Routine, DSU Pre-op [facility] lactated ringers IV infusion 1,000 mL 12-23 14:15: 00 12-23 14:23 :00 No 1000mL at 42 mL/hr, 1,000 mL, IV Infusion, ONCE, 1 dose, On Fri12/24/23 at 0915, Routine, DSU Pre-op [facility] pantoprazol e 40 mg EC tablet 12-23 11:49: 12 Yes 40mg Take 1 tablet by mouth in the morning. [facility] B.coagul,keen btilis/inul in/vit C (CULTURELLE PROBIOTIC-P REBIOTIC ORAL) 2024-0 3-13 11:49: 12 Yes 200mg Take 200 mg by mouth daily before a meal. [facility] CYANOCOBALA MIN, VITAMIN B-12, (VITAMIN B-12 ORAL) 12-23 11:49: 11 Yes Take by mouth daily. [facility] aspirin 81 mg EC tablet 12-23 11:49: 11 Yes 81mg Take 1 tablet by mouth in the morning. [facility] eszopiclone 3 mg tablet 12-23 11:49: 11 Yes 3mg Take 1 tablet by mouth at bedtime. [facility] CYANOCOBALA MIN, VITAMIN B-12, (VITAMIN B-12 ORAL) 12-16 15:07: 34 Yes Take by mouth daily. [facility] aspirin 81 mg EC tablet 12-16 15:07: 34 Yes 81mg Take 1 tablet by mouth in the morning. [facility] eszopiclone 3 mg tablet 12-16 15:07: 34 Yes 3mg Take 1 tablet by mouth at bedtime. [facility] pantoprazol e 40 mg EC tablet 12-16 15:07: 34 Yes 40mg Take 1 tablet by mouth in the morning. [facility] prednisoLON E acetate 1 % ophthalmic suspension drops 12-09 00:00: 00 Yes INSTILL ONE (1) DROP(S) IN LEFT EYE THREE TIMES A DAY FOR 1 WEEK, THEN ONE (1) DROP TWICE A DAY FOR 1 WEEK, THEN ONE (1) DROP ONCE A DAY FO [facility] ketorolac 0.5 % ophthalmic solution 12-08 00:00: 00 Yes INSTILL ONE (1) DROP(S) IN LEFT EYE TWICE A DAY FOR [address] [facility] ofloxacin 0.3 % ophthalmic solution 12-08 00:00: 00 Yes INSTILL ONE (1) DROP(S) IN LEFT EYE THE NIGHT BEFORE AND MORNING OF SURGERY, THEN ONE (1) DROP THREE TIMES A DAY FOR 1 WEEK POST-OP. [facility] sulfur hexafluorid e microsphr (LUMASON) injection 5 mL 12-04 21:27: 00 12-04 21:27 :00 No [id number] 5mL 5 mL, Intravenou s, ONCE, 1 dose, On Jodee 12/04/23 at 1545, Routine [facility] rosuvastati n 20 mg tablet 11-24 13:41: 21 11-24 00:00 :00 No 20mg Take 1 tablet by mouth at bedtime. [facility] aspirin 81 mg EC tablet 11-24 13:34: 28 Yes 81mg Take 1 tablet by mouth in the morning. [facility] CYANOCOBALA MIN, VITAMIN B-12, (VITAMIN B-12 ORAL) 11-24 13:23: 29 Yes Take by mouth daily. [facility] pantoprazol e 40 mg EC tablet 11-24 13:21: 49 Yes 40mg Take 1 tablet by mouth in the morning. [facility] rosuvastati n 10 mg tablet 11-24 00:00: 00 Yes 10mg Take 1 tablet by mouth at bedtime. [facility] amLODIPine 5 mg tablet 11-24 00:00: 00 Yes 5mg Take 1 tablet by mouth in the morning. [facility] MOUNJARO 5 mg/0.5 mL subcutaneou s injection 11-19 00:00: 00 Yes 7.5mg inject 7.5 mg under the skin weekly. Pt takes on Friday [facility] ELIQUIS 5 mg tablet 11-15 00:00: 00 Yes 5mg Take 1 tablet by mouth in the morning and 1 tablet in the evening. [facility] PARoxetine 10 mg tablet 2022-10 00:00: 00 Yes 10mg Take 1 tablet by mouth at bedtime. [facility] aspirin 81 mg EC tablet 12-12 14:03: 56 Yes 81mg Take 81 mg by mouth daily. [facility] rosuvastati n 20 mg tablet 12-12 14:03: 56 Yes 20mg Take 20 mg by mouth at bedtime. [facility] aspirin 81 mg EC tablet 2021-10 15:37: 23 Yes 81mg Take 81 mg by mouth daily. [facility] eszopiclone 3 mg tablet 07-09 15:46: 51 Yes 3mg Take 3 mg by mouth at bedtime. [facility] rosuvastati n 20 mg tablet 07-09 15:46: 51 Yes 20mg Take 20 mg by mouth at bedtime. [facility] CYANOCOBALA MIN, VITAMIN B-12, (VITAMIN B-12 ORAL) 07-09 15:46: 51 Yes Take by mouth daily. [facility] aspirin 81 mg EC tablet 07-09 15:46: 51 Yes 81mg Take 81 mg by mouth daily. [facility] clobetasoL 0.05 % ointment 07-09 00:00: 00 Yes [id number] Apply to area(s) daily. Use every night for 4 weeks and then three times a week, M/W/F [facility] estradioL 0.01 % (0.1 mg/gram) vaginal cream 07-09 00:00: 00 Yes [id number] 1g Insert 1 g into vagina in the morning. Use every night for 2 weeks and then three times a week M/W/F [facility] GLIPIZIDE XL 2.5 mg 24 hr tablet 10-30 00:00: 00 Yes [id number] 2.5mg Take 1 tablet by mouth daily with breakfast. [facility] METFORMIN ER 500 mg 24 hr tablet 10-24 00:00: 00 Yes [id number] TAKE FOUR (4) TABLET(S) BY MOUTH ONCE A DAY. [facility] aspirin 81 mg EC tablet 2020-10 15:57: 03 Yes 81mg Take 81 mg by mouth daily. [facility] MV-MN/IRON/ FOLIC ACID/HERB 190 (VITAMIN D3 COMPLETE ORAL) 2020-10 15:35: 31 Yes Take by mouth daily. [facility] rosuvastati n 20 mg tablet 2020-10 15:35: 31 Yes 20mg Take 20 mg by mouth at bedtime. [facility] CYANOCOBALA MIN, VITAMIN B-12, (VITAMIN B-12 ORAL) 2020-10 15:35: 25 Yes Take by mouth daily. [facility] eszopiclone 3 mg tablet 2020-10 15:35: 25 Yes 3mg Take 3 mg by mouth at bedtime. [facility] metoprolol succinate XL 50 mg 24 hr tablet 2020-10 00:00: 00 Yes 50mg Take 1 tablet by mouth in the morning and 1 tablet in the evening. [facility] levothyroxi ne 125 mcg tablet 02-13 00:00: 00 Yes [id number] 125ug Take 1 tablet by mouth every morning. [facility] amLODIPine 5 mg tablet 10-14 00:00: 00 11-24 00:00 :00 No 5mg Take 1 tablet by mouth in the morning and 1 tablet in the evening. [facility] lancets (ONE TOUCH DELICA) 33 gauge [facility] 2014-10 00:00: 00 Yes Use as directed, daily, Dx:E11.65 [facility] Immunizations Ordered Immunization Name Filled Immunization Name Date Status Comments Source SARS-COV-2 COVID-19 MODERNA 12+ YRS VACCINE 2020-11-15 00:00:00 Completed [facility] SARS-COV-2 COVID-19 MODERNA 12+ YRS VACCINE 2020-11-15 00:00:00 Completed [facility] SARS-COV-2 COVID-19 MODERNA 12+ YRS VACCINE 2020-11-15 00:00:00 Completed [facility] SARS-COV-2 COVID-19 MODERNA 12+ YRS VACCINE 2020-11-15 00:00:00 Completed [facility] SARS-COV-2 COVID-19 MODERNA 12+ YRS VACCINE 2020-11-15 00:00:00 Completed [facility] SARS-COV-2 COVID-19 MODERNA 12+ YRS VACCINE 2020-11-15 00:00:00 Completed [facility] SARS-COV-2 COVID-19 MODERNA VACCINE 2020-11-15 00:00:00 Completed [facility] SARS-COV-2 COVID-19 MODERNA VACCINE 2020-11-15 00:00:00 Completed [facility] SARS-COV-2 COVID-19 MODERNA 12+ YRS VACCINE 2020-11-15 00:00:00 Completed [facility] SARS-COV-2 COVID-19 MODERNA 12+ YRS VACCINE 2020-10-18 00:00:00 Completed [facility] SARS-COV-2 COVID-19 MODERNA 12+ YRS VACCINE 2020-10-18 00:00:00 Completed [facility] SARS-COV-2 COVID-19 MODERNA 12+ YRS VACCINE 2020-10-18 00:00:00 Completed [facility] SARS-COV-2 COVID-19 MODERNA 12+ YRS VACCINE 2020-10-18 00:00:00 Completed [facility] SARS-COV-2 COVID-19 MODERNA 12+ YRS VACCINE 2020-10-18 00:00:00 Completed [facility] SARS-COV-2 COVID-19 MODERNA 12+ YRS VACCINE 2020-10-18 00:00:00 Completed [facility] SARS-COV-2 COVID-19 MODERNA VACCINE 2020-10-18 00:00:00 Completed [facility] SARS-COV-2 COVID-19 MODERNA VACCINE 2020-10-18 00:00:00 Completed [facility] SARS-COV-2 COVID-19 MODERNA 12+ YRS VACCINE 2020-10-18 00:00:00 Completed [facility] SARS-COV-2 COVID-19 MODERNA 12+ YRS VACCINE Unknown Completed [facility] SARS-COV-2 COVID-19 MODERNA 12+ YRS VACCINE Unknown Completed [facility] SARS-COV-2 COVID-19 MODERNA 12+ YRS VACCINE Unknown Completed [facility] SARS-COV-2 COVID-19 MODERNA 12+ YRS VACCINE Unknown Completed [facility] SARS-COV-2 COVID-19 MODERNA 12+ YRS VACCINE Unknown Completed [facility] SARS-COV-2 COVID-19 MODERNA 12+ YRS VACCINE Unknown Completed [facility] SARS-COV-2 COVID-19 MODERNA 12+ YRS VACCINE Unknown Completed [facility] SARS-COV-2 COVID-19 MODERNA 12+ YRS VACCINE Unknown Completed [facility] SARS-COV-2 COVID-19 MODERNA 12+ YRS VACCINE Unknown Completed [facility] SARS-COV-2 COVID-19 MODERNA 12+ YRS VACCINE Unknown Completed [facility] SARS-COV-2 COVID-19 MODERNA 12+ YRS VACCINE Unknown Completed [facility] SARS-COV-2 COVID-19 MODERNA 12+ YRS VACCINE Unknown Completed [facility] SARS-COV-2 COVID-19 MODERNA 12+ YRS VACCINE Unknown Completed [facility] SARS-COV-2 COVID-19 MODERNA 12+ YRS VACCINE Unknown Completed [facility] SARS-COV-2 COVID-19 MODERNA 12+ YRS VACCINE Unknown Completed [facility] SARS-COV-2 COVID-19 MODERNA 12+ YRS VACCINE Unknown Completed [facility] SARS-COV-2 COVID-19 MODERNA 12+ YRS VACCINE Unknown Completed [facility] Vital Signs Vital Name Observation Time Observation Value Comments S ource Systolic blood pressure 2024-03-23 20:02:00 129 mm[Hg] [facility] Diastolic blood pressure 2024-03-23 20:02:00 78 mm[Hg] [facility] Heart rate 2024-03-23 20:02:00 66 /[facility] Body temperature 2024-03-23 20:02:00 36.56 Essie [facility] Body height 2024-03-23 20:02:00 160 cm [facility] Body weight 2024-03-23 20:02:00 77.111 kg [facility] BMI 2024-03-23 20:02:00 30.11 kg/m2 [facility] Oxygen saturation in Arterial blood by Pulse oximetry 2024-03-23 20:02:00 94 /min [facility] Heart rate 2024-01-07 15:10:00 72 /min [facility] Respiratory rate 2024-01-07 15:10:00 11 /min [facility] Oxygen saturation in Arterial blood by Pulse oximetry 2024-01-07 15:10:00 99 /min [facility] Systolic blood pressure 2024-01-07 15:08:00 123 mm[Hg] [facility] Diastolic blood pressure 2024-01-07 15:08:00 68 mm[Hg] [facility] Body temperature 2024-01-07 12:58:00 36.39 Essie [facility] Body height 2023-12-31 18:45:00 160 cm [facility] Body weight 2023-12-31 18:45:00 75.297 kg [facility] BMI 2023-12-31 18:45:00 29.41 kg/m2 [facility] Systolic blood pressure 2024-01-07 12:58:00 130 mm[Hg] [facility] Diastolic blood pressure 2024-01-07 12:58:00 81 mm[Hg] [facility] Heart rate 2024-01-07 12:58:00 85 /min [facility] Body temperature 2024-01-07 12:58:00 36.39 Essie [facility] Respiratory rate 2024-01-07 12:58:00 15 /min [facility] Oxygen saturation in Arterial blood by Pulse oximetry 2024-01-07 12:58:00 97 /min [facility] Body height 2023-12-31 18:45:00 160 cm [facility] Body weight 2023-12-31 18:45:00 75.297 kg [facility] BMI 2023-12-31 18:45:00 29.41 kg/m2 [facility] Systolic blood pressure 2023-12-24 16:15:00 114 mm[Hg] [facility] Diastolic blood pressure 2023-12-24 16:15:00 67 mm[Hg] [facility] Heart rate 2023-12-24 16:15:00 69 /min [facility] Oxygen saturation in Arterial blood by Pulse oximetry 2023-12-24 16:15:00 96 /min [facility] Respiratory rate 2023-12-24 16:10:00 15 /min [facility] Body temperature 2023-12-24 15:55:00 36.28 Essie [facility] Body height 2023-12-17 21:15:00 160 cm [facility] Body weight 2023-12-17 21:15:00 75.297 kg [facility] BMI 2023-12-17 21:15:00 29.41 kg/m2 [facility] Systolic blood pressure 2023-12-24 14:21:00 117 mm[Hg] [facility] Diastolic blood pressure 2023-12-24 14:21:00 74 mm[Hg] [facility] Heart rate 2023-12-24 14:21:00 84 /min [facility] Body temperature 2023-12-24 14:21:00 36.39 Essie [facility] Respiratory rate 2023-12-24 14:21:00 19 /min [facility] Oxygen saturation in Arterial blood by Pulse oximetry 2023-12-24 14:21:00 99 /min [facility] Body height 2023-12-17 21:15:00 160 cm [facility] Body weight 2023-12-17 21:15:00 75.297 kg [facility] BMI 2023-12-17 21:15:00 29.41 kg/m2 [facility] Systolic blood pressure 2023-11-24 19:17:00 115 mm[Hg] [facility] Diastolic blood pressure 2023-11-24 19:17:00 75 mm[Hg] [facility] Heart rate 2023-11-24 19:17:00 80 /min [facility] Respiratory rate 2023-11-24 19:17:00 18 /min [facility] Body height 2023-11-24 19:17:00 160 cm [facility] Body weight 2023-11-24 19:17:00 79.107 kg [facility] BMI 2023-11-24 19:17:00 30.89 kg/m2 [facility] Oxygen saturation in Arterial blood by Pulse oximetry 2023-11-24 19:17:00 94 /min [facility] Systolic blood pressure 2022-12-12 19:49:00 133 mm[Hg] [facility] Diastolic blood pressure 2022-12-12 19:49:00 71 mm[Hg] [facility] Heart rate 2022-12-12 19:49:00 73 /min [facility] Respiratory rate 2022-12-12 19:49:00 19 /min [facility] Body height 2022-12-12 19:49:00 160 cm [facility] Body weight 2022-12-12 19:49:00 86.183 kg [facility] BMI 2022-12-12 19:49:00 33.66 kg/m2 [facility] [facility] O[facility] saturation in Arterial blood by Pulse oximetry 2022-12-12 19:49:00 94 /min [facility] Systolic blood pressure 2022-07-24 20:39:00 121 mm[Hg] [facility] Diastolic blood pressure 2022-07-24 20:39:00 65 mm[Hg] [facility] Heart rate 2022-07-24 20:39:00 71 /min [facility] Body weight 2022-07-24 20:39:00 89.812 kg [facility] BMI 2022-07-24 20:39:00 35.07 kg/m2 [facility] Oxygen saturation in Arterial blood by Pulse oximetry 2022-07-24 20:39:00 95 /min [facility] Systolic blood pressure 2022-07-09 20:41:00 114 mm[Hg] [facility] Diastolic blood pressure 2022-07-09 20:41:00 76 mm[Hg] [facility] Heart rate 2022-07-09 20:41:00 68 /min [facility] Body temperature 2022-07-09 20:41:00 36.61 Essie [facility] Respiratory rate 2022-07-09 20:41:00 18 /min [facility] Body height 2022-07-09 20:41:00 160 cm [facility] Body weight 2022-07-09 20:41:00 88.905 kg [facility] BMI 2022-07-09 20:41:00 34.72 kg/m2 [facility] Procedures Procedure Date / Time Performed Performing Clinician Source PHACOEMULSIFICATION OF CATARACT WITH INTRAOCULAR LENS IMPLANT 2024-01-07 14:16:00 Rajat Lazaro [facility] POCT GLUCOSE (AUTOMATED) 2024-01-07 13:01:00 Rajat Lazaro [facility] POCT GLUCOSE (AUTOMATED) 2024-01-07 13:01:00 Rajat Lazaro [facility] EXTERNAL PROVIDER RECORDS 2024-01-05 05:01:00 Doctor Unassigned, [employer] [facility] EXTERNAL PROVIDER RECORDS 2024-01-05 05:01:00 Doctor Unassigned, [employer] [facility] PHACOEMULSIFICATION OF CATARACT WITH INTRAOCULAR LENS IMPLANT 2023-12-24 15:16:00 Rajat Lazaro [facility] POCT GLUCOSE (AUTOMATED) 2023-12-24 14:21:00 Rajat Lazaro [facility] POCT GLUCOSE (AUTOMATED) 2023-12-24 14:21:[address] [facility] PATIENT FINANCIAL POLICY 2023-12-18 14:58:11 Doctor Unassigned, [employer] [facility] ASSIGNMENT OF BENEFITS 2023-12-08 21:19:38 Doctor Unassigned, [employer] [facility] TRANSTHORACIC ECHO (TTE) COMPLETE W/ CONTRAST 2023-12-04 21:33:57 Melvin Maradiaga [facility] ASSIGNMENT OF BENEFITS 2023-11-24 18:53:23 Doctor Unassigned, [employer] [facility] MEDICAL RELEASE/CLEARANCE FORMS 2023-11-20 06:01:00 Doctor Unassigned, [employer] [facility] PATIENT FINANCIAL POLICY 2022-12-12 19:40:14 Doctor Unassigned, [employer] [facility] MEDICAL RELEASE/CLEARANCE FORMS 2022 06:01:00 Doctor Unassigned, [employer] [facility] CONSENT/REFUSAL FOR DIAGNOSI S AND TREATMENT 2022-07-24 20:29:39 Doctor Unassigned, [employer] [facility] GALV ONLY - VAGINAL PATHOGEN S BY NUCLEIC ACID TESTING 2022-07-09 21:06:00 Jackie Talley [facility] Encounters Start Date/Time End Date/Time Encounter Type Admission Type Attending [facility] Care Facility Care Department Encounter ID Source 2024-03-23 15:00:00 2024-03-24 07:41:53 Outpatient R MELVIN MARADIAGA [facility] [id number] [facility] 2024-03-23 15:00:00 2024-03-24 07:41:53 Office Visit Melvin Maradiaga [facility] 1..840.114 350.1.13.10 4.2.7.2.[id number] [facility] 2024-01-07 07:49:00 2024-01-07 10:15:00 Outpatient R RAJAT LAZARO [facility] OPH [id number] [facility] 2024-01-07 07:49:00 2024-01-07 10:15:00 Hospital Encounter Rajat Lazaro [facility] 1..840.114 350.1.13.10 4.2.7.2.[id number] [facility] 2024-01-07 08:58:00 2024-01-07 09:31:00 Surgery Rajat Lazaro [facility] [place] 1..840.114 350.1.13.10 4.2.7.2.[id number] [facility] 2023-12-24 09:10:00 2023-12-24 11:20:00 Outpatient R RAJAT LAZARO [facility]PH [id number] [facility] 2023-12-24 09:10:00 2023-12-24 11:20:00 Hospital Encounter Rajat Lazaro [facility] 1..840.114 350.1.13.10 4.2.7.2.[id number] [facility] 2023-12-24 10:04:00 2023-12-24 10:37:00 Surgery Rajat Lazaro [facility] 1.2.840.114 350.1.13.10 4.2.7.2.[id number] [facility] 2023-12-19 00:00:00 2023-12-19 00:00:00 Telephone Melvin Maradiaga [facility] 1.2840.114 350.1.13.10 4.2.7.2.[id number] [facility] 2023-12-18 09:00:00 2023-12-18 09:00:56 Outpatient R MELVIN MARADIAGA [facility] [id number] [facility] 2023-12-18 09:00:00 2023-12-18 09:00:56 Historiography Professor Visit 2, Adc Lab Melvin Maradiaga [facility] 1.2840.114 350.1.13.10 4.2.7.2.[id number] [facility] 2023-12-18 00:00:00 2023-12-18 00:00:00 Orders Only Doctor Unassigned, [employer] [facility] 1.2.840.114 350.1.13.10 4.2.7.2.[id number] [facility] 2023-12-12 10:00:00 2023-12-12 10:00:00 Outpatient R MELVIN MARADIAGA [facility] [id number] [facility] 2023-12-08 00:00:00 2023-12-08 00:00:00 Orders Only Doctor Unassigned, [employer] [facility] 1.2840.114 350.1.13.10 4.2.7.2.[id number] [facility] 2023-12-05 00:00:00 2023-12-05 00:00:00 Telephone Velasquez Amirahfernanda YassineAllegra [facility] 1.284.114 350.1.13.10 4.2.7.2.[id number] [facility] 2023-12-04 15:31:47 2023-12-04 23:59:00 Hospital Encounter MaradiagaAmirahfernanda YassineAllegra [facility] 1.840.114 350.1.13.10 4.2.7.2.[id number] [facility] 2023-12-04 14:45:58 2023-12-04 15:30:00 Outpatient R MELVIN MARADIAGA [facility] [id number] [facility] 2023-12-04 14:45:58 2023-12-04 15:30:00 Hospital Encounter MaradiagaAmirahfernanda YassineAllegra [facility] 1.840.114 350.1.13.10 4.2.7.2.[id number] [facility] 2023-11-24 13:00:00 2023-11-24 13:47:12 Outpatient R MELVIN MARADIAGA [facility] [id number] [facility] 2023-11-24 13:00:00 2023-11-24 13:47:12 Office Visit Melvin Maradiaga JerryAllegraRaminAllegra [facility] 1.284.114 350.1.13.10 4.2.7.2.[id number] [facility] 2023-11-24 00:00:00 2023-11-24 00:00:00 Orders Only Doctor Unassigned, [employer] [facility] 1.2.114 350.1.13.10 4.2.7.2.[id number] [facility] 2023-11-20 00:00:00 2023-11-20 00:00:00 Telephone [facility] 1.2.840.114 350.1.13.10 4.2.7.2.[id number] [facility] 2023-11-20 00:00:00 2023-11-20 00:00:00 Orders Only Doctor Unassigned, [employer] [facility] 1.2.840.114 350.1.13.10 4.2.7.2.[id number] [facility] 2023-11-04 00:00:00 2023-11-04 00:00:00 Telephone Melvin Maradiaga [facility] 1..840.114 350.1.13.10 4.2.7.2.[id number] [facility] 2023-09-18 14:00:00 2023-09-18 14:00:00 Outpatient MELVIN MARIEE [facility] [id number] [facility] 2023-07-23 13:00:00 2023-07-23 13:00:00 Outpatient RAVIN LIEJA [facility] [id number] [facility] 2023-01-23 14:30:00 2023-01-23 14:30:00 Outpatient JOVON DURON [id number] Monique Barrientos 2022-12-25 13:49:38 2022-12-25 23:59:00 Outpatient MELVIN MARIEE [facility] [id number] [facility] 2022-12-17 00:00:00 2022-12-17 00:00:00 Telephone Melvin Maradiaga [facility] 1.2840.114 350.1.13.10 4.2.7.2.[id number] [facility] 2022-12-12 14:00:00 2022-12-12 14:12:42 Outpatient R MELVIN MARADIAGA [facility] [id number] [facility] 2022-12-12 14:00:00 2022-12-12 14:12:42 Office Visit Melvin Maradiaga [facility] 1.2840.114 350.1.13.10 4.2.7.2.[id number] [facility] 2022-12-12 00:00:00 2022-12-12 00:00:00 Orders Only Doctor Unassigned, [employer] [facility] 1.2840.114 350.1.13.10 4.2.7.2.[id number] [facility] 2022 00:00:00 2022 00:00:00 Orders Only Doctor Unassigned, [employer] [facility] 1.2840.114 350.1.13.10 4.2.7.2.[id number] [facility] 2022-07-24 15:40:00 2022-07-24 16:02:58 Office Visit Ravin Flores [facility] 1.2840.114 350.1.13.10 4.2.7.2.[id number] [facility] 2022-07-24 15:40:00 2022-07-24 16:02:58 Outpatient R RAVIN FLORES [facility] [id number] [facility] 2022-07-24 00:00:00 2022-07-24 00:00:00 Orders Only Doctor Unassigned, [employer] [facility] 1.2840.114 350.1.13.10 4.2.7.2.[id number] [facility] 2022-07-09 15:00:00 2022-07-09 16:11:20 Outpatient R JONNA JACKIE [facility] [id number] [facility] 2022-07-09 15:00:00 2022-07-09 16:11:20 [facility] 1..840.114 350.1.13.10 4.2.7.2.[id number] [facility] 2022-01-25 00:00:00 2022-01-25 00:00:00 Refill Gloria, [facility] ANDREW?ANNIE [facility] 1..840.114 350.1.13.10 4.2.7.2.[id number] [facility] 2022-01-21 00:00:00 2022-01-21 00:00:00 Refill Gloria, [facility] ANDREW?[facility] 1..840.114 350.1.13.10 4.2.7.2.[id number] [facility] 2021-12-25 00:00:00 2021-12-25 00:00:00 Outpatient R MELVIN MARADIAGA [facility] [id number] [facility] 2021-10-28 00:00:00 2021-10-28 00:00:00 Refill Gloria, [facility] ANDREW?[facility] 1..840.114 350.1.13.10 4.2.7.2.[id number] [facility] 2021-10-22 00:00:00 2021-10-22 00:00:00 Refill Gloria, [facility] ANDREW?[facility] 1..840.114 350.1.13.10 4.2.7.2.[id number] [facility] 2021-08-21 14:00:00 2021-08-21 14:00:00 Outpatient R FAIZANMIKKI [facility] [id number] [facility] 2021-07-30 00:00:00 2021-07-30 00:00:00 Refill [facility] 1.840.114 350.1.13.10 4.2.7.2.[id number] [facility] 2021-07-23 15:16:51 2021-07-23 16:02:57 Office Visit Melvin Maradiaga [facility] 1.840.114 350.1.13.10 4.2.7.2.[id number] [facility] 2021-07-23 15:30:00 2021-07-23 15:30:00 Outpatient R MELVIN MARADIAGA [facility] [id number] [facility] 2021-07-23 00:00:00 2021-07-23 00:00:00 Orders Only Doctor Unassigned, [employer] [facility] 1.840.114 350.1.13.10 4.2.7.2.[id number] [facility] 2021-07-19 13:00:00 2021-07-19 13:00:00 Outpatient R MELVIN AMRADIAGA [facility] [id number] [facility] 2021-06-13 07:51:09 2021-06-13 23:59:00 Hospital Encounter Melvin Maradiaga [facility] Building 1.840.114 350.1.13.10 4.2.7.2.[id number] [facility] 2021-06-13 09:00:00 2021-06-13 09:00:00 Outpatient R [facility] [id number] [facility] 2021-06-13 08:00:00 2021-06-13 08:00:00 Outpatient R MELVIN MARADIAGA [facility] [id number] [facility] 2021-05-18 14:30:00 2021-05-18 14:30:00 Outpatient R MELVIN MARADIAGA [facility] [id number] [facility] 2021-04-25 00:00:00 2021-04-25 00:00:[address] [facility] Building 1.2.840.114 350.1.13.10 4.2.7.2.[id number] [facility] 2021-02-13 15:48:02 2021-02-13 16:28:42 Office Visit Faizan [facility] 1.2.840.114 350.1.13.10 4.2.7.2.[id number] [facility] 2021-02-13 16:00:00 2021-02-13 16:00:00 Outpatient R [facility] [id number] [facility] 2021-02-12 00:00:00 2021-02-12 00:00:00 Refill Gloria [facility] 1.2.840.114 350.1.13.10 4.2.7.2.[id number] [facility] 2021-01-02 08:00:00 2021-01-02 08:00:00 Outpatient R [facility] [id number] [facility] 2021-01-01 10:47:43 2021-01-01 11:02:43 Historiography Professor Visit 2, Adc Lab [place], Nimo [facility] Professio nal Building 1.2.840.114 350.1.13.10 4.2.7.2.[id number] [facility] 2021-01-01 10:45:00 2021-01-01 10:45:00 Outpatient R NIMO JADE [facility] [id number] [facility] 2021-01-01 00:00:00 2021-01-01 00:00:00 [facility] 1.2.840.114 350.1.13.10 4.2.7.2.[id number] [facility] 2020-12-29 14:17:39 2020-12-29 23:59:00 Hospital Encounter Nimo Jade [facility] 1.2.840.114 350.1.13.10 4.2.7.2.[id number] [facility] 2020-12-29 00:00:00 2020-12-29 00:00:00 Outpatient R NIMO JADE [facility] [id number] [facility] 2020-11-15 15:20:00 2020-11-15 15:20:00 Outpatient R ELIAN RESTREPO [facility] [id number] [facility] 2020-11-01 09:15:00 2020-11-01 09:15:00 Outpatient R NIMO JADE [facility] [id number] [facility] 2020-11-01 08:50:56 2020-11-01 09:05:56 Historiography Professor Visit 2, Adc Lab Nimo Jade [facility] Professio nal Building 1.2.840.114 350.1.13.10 4.2.7.2.[id number] [facility] 2020-11-01 00:00:00 2020-11-01 00:00:00 Orders Only Doctor Unassigned, [employer] [facility] 1.2840.114 350.1.13.10 4.2.7.2.[id number] [facility] 2020-10-18 15:50:00 2020-10-18 15:50:00 Outpatient ELIAN DE LEON [facility] [id number] [facility] 2020-08-01 00:00:00 2020-08-01 00:00:00 Telephone Melvin Maradiaga [facility] 1.2.840.114 350.1.13.10 4.2.7.2.686 [id number] 2020-08-01 00:00:00 2020-08-01 00:00:00 Telephone Melvin Maradiaga [facility] 1.2840.114 350.1.13.10 4.2.7.2.[id number] [facility] 2020-07-31 09:15:00 2020-07-31 09:15:00 Outpatient NIMO GOMES [facility] [id number] [facility] 2020-07-31 08:33:54 2020-07-31 08:48:54 Historiography Professor Visit 2, Adc Lab [facility] 1.2.840.114 350.1.13.10 4.2.7.2.686 [id number] 2020-07-31 08:33:54 2020-07-31 08:48:54 Historiography Professor Visit 2, Adc Lab Nimo Jade [facility] 1.2.840.114 350.1.13.10 4.2.7.2.[id number] [facility] 2020-07-31 00:00:00 2020-07-31 00:00:00 Orders Only Doctor Unassigned, [employer] [facility] 1.2.840.114 350.1.13.10 4.2.7.2.686 [id number] 2020-07-31 00:00:00 2020-07-31 00:00:00 Orders Only Doctor Unassigned, [employer] [facility] 1.2.840.114 350.1.13.10 4.2.7.2.[id number] [facility] 2020-07-14 10:42:11 2020-07-14 11:35:40 Office Visit Melvin Maradiaga [facility] 1.284.114 350.1.13.10 4.2.7.2.[id number] [facility] 2020-07-14 11:00:00 2020-07-14 11:00:00 Outpatient R MELVIN MARADIAGA [facility] [id number] [facility] 2020-07-14 00:00:00 2020-07-14 00:00:00 Orders Only Doctor Unassigned, [employer] [facility] 1.2840.114 350.1.13.10 4.2.7.2.[id number] [facility] 2020-07-04 14:45:38 2020-07-04 15:43:36 Office Visit Faizan [facility] 1.2840.114 350.1.13.10 4.2.7.2.[id number] [facility] 2020-07-04 14:45:38 2020-07-04 15:43:36 Office Visit Faizan [facility] 1.2840.114 350.1.13.10 4.2.7.2.686 [id number] 2020-07-04 15:00:00 2020-07-04 15:00:00 Outpatient R [facility] [id number] [facility] 2020-02-29 12:50:36 2020-02-29 13:29:[address] [facility] Building 1.2.840.114 350.1.13.10 4.2.7.2.[id number] [facility] 2020-02-29 13:00:00 2020-02-29 13:00:00 Outpatient R [facility] [id number] [facility] 2020-02-22 13:00:00 2020-02-22 13:00:00 Outpatient R [facility] [id number] [facility] 2020-02-22 08:11:10 2020-02-22 08:41:10 Telemedici ne Visit Faizan [facility] 1.2.840.114 350.1.13.10 4.2.7.2.[id number] [facility] 2019-12-27 00:00:00 2019-12-27 00:00:[address] [facility] 1.2.840.114 350.1.13.10 4.2.7.2.[id number] [facility] Results Test Description Test Time Test Comments Results Result Co mments Source [facility] GLUCOSE (AUTOMATED)2024-01-07 13:02:20* Test Item Value Reference Range Interpretation Comme [facility] POCT GLU (test code = 7502073825) 123 mg/dL 70-110 H Lab Interpretation (test cod e = 03654-5) Abnormal [facility] GLUCOSE (AUTOMATED)2023-12-24 14:22:49* Test Item Value Reference Range Interpretation Comme [facility] POCT GLU (test code = 6189356512) 118 mg/dL 70-110 H Lab Interpretation (test cod e = 57838-1) Abnormal [facility] GLUCOSE (AUTOMATED)2023-12-24 14:22:49* Test Item Value Reference Range Interpretation Comme nts POCT GLU (test code = 6296870698) 118 mg/dL 70-110 H Lab Interpretation (test cod e = 92474-7) [facility] 01:36:07* Test Item Value Reference Range Interpretation Comme nts Height (test code = 1994143078) 63 in Weight (test code = 8576558908) 174 lbs Systolic BP (test code = 6525802233) 133 mmHg Diastolic BP (test code = 0419192731) 68 mmHg Heart Rate (test code = 2092117362) 74 bpm Ao root diam (test code = 9766373214) 3.50 cm Aortic root (test code = 5754375987) 3.5 cm Ao root annulus (test code = 8248356835) 3.5 cm BSA (test code = 8850691436) 1.82 m2 LVOT diameter (test code = 7244939188) 2.19 cm LVOT area (test code = 2653453398) 3.80 cm2 LA size (test code = 1735640533) 4.4 cm ACS (test code = 9375349221) 2.70 cm PV PEAK VELOCITY (test code = 6896459017) 80.7 cm/s PV peak gradient (test code = 7819108810) 2.6 mmHg MV E-F slope (test code = 9409088626) 33.90 cm/s MV Peak E Ata (test code = 7580472042) 73.4 cm/s MV Peak A Ata (test code = 0921067259) 76.0 cm/s E/A ratio (test code = 2532845207) 0.97 ratio MV valve area p 1/2 method (test code = 6012156153) 3.90 cm2 MV dec slope (test code = 5832712866) 385.40 cm/s2 MV P1/2t max ata (test code = 0978275874) 73.40 cm/s LVOT stroke volume (test code = 8987624229) 79.40 cm3 LVOT peak ata (test code = 8484459893) 102.7 cm/s LVOT mn grad (test code = 5407940640) 1.8 mmHg AV LVOT peak gradient (test code = 7028049549) 4.2 mmHg LVOT peak VTI (test code = 5774075334) 21.1 cm LV V1 mean (test code = 8913508596) 61.10 cm/s Aortic valve mean velocity (test code = 7764105691) 61.4 cm/s Ao peak ata (test code = 6690572305) 100.6 cm/s Ao VTI (test code = 7339521367) 19.9 cm AV area by cont VTI (test code = 8723388724) 4.0 cm2 AV area peak ata (test code = 3930281500) 3.8 cm2 Ao max PG (test code = 7028514210) 4.00 mm[Hg] AV peak gradient (test code = 7864163035) 4.0 mmHg AV valve area (test code = 0825509605) 4.00 cm2 AV mean gradient (test code = 9510450029) 1.78 mmHg LVIDD (test code = 9286821026) 4.50 cm Left Ventricular End Diastolic Volume by Teichholz Method (test code = 6704261) 90.9 mL IVS (test code = 1171743215) 1.14 cm Interventricular Septum Diastolic Thickness by 2D (test code = 4696029) 1.14 cm LVPWD (test code = 0582529417) 1.20 cm PW (test code = 8240316257) 1.20 cm 0.6-1.1 EF(Teich) (test code = 1410284389) 60.50 % LVIDS (test code = 8095287278) 3.00 cm Left Ventricular End Systolic Volume by Teichholz Method (test code = 2235829) 35.9 mL FS (test code = 9380370416) 32 % EF - 2D (test code = 01884725) 60.50 % Radiology Study observation (narrative) (test code = 15204-4) AMANDA (test code = AMANDA) ?Left?Ventricle: Left [...] mL of Lumason ultrasound enhancing agent used. [facility] History and Physical Notes Date/Time Note Provider Source 2024-01-07 08:27:50 H&P Update H&P was reviewed and the patient was examined and there was no change in the patient's condition. [facility] [employer] 2023-12-24 09:33:27 H&P Update H&P was reviewed and the patient was examined and there was no change in the patient's condition. [facility] [employer]
[2024-10-07] MEDS ORDERED: NA CHLORIDE 0.9% 1,000 ML ONE (11:01)
[2024-10-07 11:09] LABS: Absolute Eosinophils 0.2 K/uL (0-0.5); Absolute Lymphocytes (CBC) 1.4 K/uL (0.7-4.9); Absolute Monocytes 0.5 K/uL (0.1-1.3); Absolute Neutrophil 8.2 K/uL (1.8-8.0); Basophils % 0.4 % (0-1.3); Eosinophils % 2.1 % (0-4.4); Hematocrit 22.9 % (36.0-45.0); Lymphocytes % 13.5 % (15.3-44.8); MCH 22.9 pg (27.0-35.0); MCHC 30.6 g/dL (32.0-36.0); MCV 74.7 fL (80-100); MPV 8.9 fL (7.6-11.3); Monocytes % 5.2 % (3.3-12.3); Neutrophils % 78.8 % (41.7-73.7); Platelets 331 thou/uL (152-406); RBC Red Blood Cell Count 3.06 M/uL (3.86-4.86); Red Cell Distribution Width 17.2 % (12.1-15.2)
[2024-10-07 11:29] LABS: Anion Gap 6.8 mEq/L (5.0-15.0); Potassium 3.8 mEq/L (3.5-5.1); Troponin High Sensitivity 4.1 pg/mL (<58.9)
--- NOTE | 2024-10-07 11:45 | EDPHYS ---
Physician Documentation [facility] [place] Name: Steff Burger Age: 73 yrs Sex: Female : 1950 Arrival Date: 10/07/2024 Time: 10:32 Bed 20 Private MD: ED Physician Isauro James HPI: 10/07 11:03 This 73 yrs old Female presents to ER via Unassigned with complaints of Sent by pcp:low ec2 blood pressure. 11:03 Patient arrives today for generalized weakness and fatigue. Was seen by PCP was found ec2 to be hypotensive and pale and told to come to the ED for further evaluation. Patient reports generalized weakness. Patient is on Eliquis. Historical: - Allergies: 10:40 Sulfa (Sulfonamide Antibiotics); rs5 - PMHx: 10:40 Diabetes - NIDDM; kidney problems; Hypertension; Anxiety; Hypothyroidism; rs5 - PSHx: 10:40 None; rs5 - Immunization history:: Adult Immunizations up to date. - Infectious Disease History:: Denies. - Social history:: Smoking status: Patient denies any tobacco usage or history of. ROS: 11:03 Constitutional: as per hpi ec2 Exam: 11:03 Constitutional: GEN: NAD Head: atraumatic Eyes: EOMI Ears: External ears are ec2 normal. CV: regular rate LUNGS: no respiratory distress ABD: non-distended SKIN: no evidence of rashes MSK: no evidence of trauma Vital Signs: 10:40 BP 127 / 74; Pulse 74; Resp 17; Pulse Ox 99% on R/A; rs5 11:00 BP 109 / 66; Pulse 71; Resp 15; Pulse Ox 100% ; me1 11:07 BP 122 / 70; Pulse 71; Pulse Ox 100% ; ec2 11:31 BP 121 / 70; Pulse 73; ec2 12:00 BP 131 / 66; Pulse 70; Resp 16; Pulse Ox 97% ; me1 13:00 BP 122 / 67; Pulse 75; Resp 16; Temp 98.4; Pulse Ox 100% ; me1 14:00 BP 120 / 63; Pulse 79; Resp 16; Pulse Ox 98% ; me1 15:22 BP 111 / 63; Pulse 79; Resp 16; Temp 98.3; Pulse Ox 100% ; rs5 MDM: 10:39 Medical Screening Exam initiated ec2 10:59 Data reviewed: vital signs, nurses notes. ED course: EKG independently reviewed and ec2 interpreted by me, shows atrial flutter with variable conduction rate of 72, intervals are otherwise nonactionable with no acute ST elevations. 11:03 ED course: Patient arrives today for generalized weakness. Examination yields ec2 reassuring physical exam, appropriate hemodynamics with blood pressure 122/70. Will obtain lab work, chest x-ray, EKG, type and screen. Differential includes anemia, electrolyte disturbances, dehydration.. 11:31 ED course: Metabolic profile shows renal dysfunction with a GFR 57. Minimal BNP ec2 elevation 152, troponin within normal ranges. Will transfuse for symptomatic anemia.. 11:42 ED course: Rectal exam performed under nurse supervision, KEELEY Jean-Baptiste, shows melanic ec2 stools. Will start the patient on Protonix push and drip. Will transfuse blood.. 12:34 ED course: I discussed case with transfer facility who agrees except the patient for ec2 transfer. Family updated regarding plan of care.. 10/07 10:40 Order name: Basic Metabolic Panel; Complete Time: 11:31 ec2 10/07 10:40 Order name: CBC with Diff; Complete Time: 11:19 ec2 10/07 10:40 Order name: NT PRO-BNP; Complete Time: 11:31 ec2 10/07 10:40 Order name: PT-INR; Complete Time: 12:24 ec2 10/07 10:40 Order name: Troponin HS; Complete Time: 11:31 ec2 10/07 10:40 Order name: Type And Screen ec2 10/07 11:30 Order name: LFT's; Complete Time: 12:24 ec2 10/07 11:45 Order name: Packed RBC Leukored EDMS 10/07 12:03 Order name: ABO/RH no charge; Complete Time: 12:24 EDMS 10/07 10:40 Order name: XRAY Chest (1 view); Complete Time: 11:47 ec2 10/07 10:40 Order name: EKG; Complete Time: 10:40 ec2 10/07 10:40 Order name: Cardiac monitoring; Complete Time: 12:10 ec2 10/07 10:40 Order name: EKG - Nurse/Tech; Complete Time: 12:10 ec2 10/07 10:40 Order name: IV Saline Lock; Complete Time: 12:10 ec2 10/07 10:40 Order name: Labs collected and sent; Complete Time: 12:10 ec2 10/07 10:40 Order name: O2 Per Protocol; Complete Time: 12:10 ec2 10/07 10:40 Order name: O2 Sat Monitoring; Complete Time: 12:10 ec2 10/07 11:08 Order name: Misc. Order: Recollect - Blue top; Complete Time: 12:15 bc6 10/07 11:19 Order name: Consent for Blood Transfusion; Complete Time: 12:15 ec2 Administered Medications: 11:10 Drug: NS 0.9% IV 1000 ml IV at 1 bolus Per protocol; to be given as a bolus over 60 rs5 minutes Route: IV; Rate: 1 bolus; Site: right antecubital; 13:11 Follow up: Response: No adverse reaction; IV Status: Completed infusion; IV Intake: me1 1000ml 12:00 Drug: Pantoprazole IVP 80 mg IVP once Route: IVP; Site: left antecubital; rs5 12:37 Follow up: Response: No adverse reaction me1 12:10 Drug: Pantoprazole IV 8 mg/hr IV at 25 ml/hr continuous; (Standard dilution is 80 mg in rs5 250 mL NS) Route: IV; Rate: 25 ml/hr; Site: left antecubital; 13:11 Follow up: IV Status: Infusion continued upon transfer me1 Disposition Summary: 10/07/24 11:45 Transfer Ordered Notes: Transfer Location: Other Acute Care Facility ec2 Reason: Higher level of care ec2 Condition: Stable ec2 Problem: new ec2 Symptoms: are unchanged ec2 Accepting Physician: transferring doc(10/07/24 15:28) me1 Diagnosis - GI Bleed/ Gastrointestinal hemorrhage, unspecified ec2 - Anemia, unspecified ec2 Forms: - Medication Reconciliation Form ec2 - SBAR form ec2 Critical care time excluding procedures: 11:44 Critical care time: Bedside Care: 30 minutes, Consultation: 5 minutes, Family ec2 Intervention: 5 minutes. Total time: 40 minutes Signatures: Dispatcher [employer] Jigar Florez RN RN rs5 Mojgan Theodore 6 Lexus Gonzalez RN RN me1 Isauro James MD MD ec2 Corrections: (The following items were deleted from the chart) 11:08 11:07 BP 122 / 77; Pulse 71bpm; Pulse Ox 100%; ec2 ec2 11:44 11:03 Patient arrives today for generalized weakness and fatigue. Was seen by PCP was ec2 found to be hypotensive and pale and told to come to the ED for further evaluation. Patient reports generalized weakness.. ec2 11: 11:20 PACKED RBC LEUKORED+BB.LAB.BRZ ordered. EDMS EDMS 11:22 ABO/RH typing ordered. EDMS EDMS 11:22 Antibody Screen ordered. EDMS EDMS 15:28 11:45 transferring doc ec2 me1
--- NOTE | 2024-10-07 11:45 | ER ---
Nurse's Notes [facility] Name: Steff Burger Age: 73 yrs Sex: Female : 1950 Arrival Date: 10/07/2024 Time: 10:32 Bed 20 Private MD: Diagnosis: GI Bleed/ Gastrointestinal hemorrhage, unspecified;Anemia, unspecified Presentation: 10/07 10:40 Chief complaint: Patient states: Referred here by PCP for low BP readings in 80's rs5 systolic, reports dizziness and SOB. Denies chest pain at this moment. Coronavirus screen: At this time, the client does not indicate any symptoms associated with coronavirus-19. Ebola Screen: No symptoms or risks identified at this time. Initial Sepsis Screen: Does the patient meet any 2 criteria? No. Patient's initial sepsis screen is negative. Does the patient have a suspected source of infection? No. Patient's initial sepsis screen is negative. Risk Assessment: Do you want to hurt yourself or someone else? Patient reports no desire to harm self or others. Onset of symptoms was October 07, 2024. 10:40 Method Of Arrival: Wheelchair rs5 10:40 Acuity: KYE 3 rs5 Historical: - Allergies: 10:40 Sulfa (Sulfonamide Antibiotics); rs5 - PMHx: 10:40 Diabetes - NIDDM; kidney problems; Hypertension; Anxiety; Hypothyroidism; rs5 - PSHx: 10:40 None; rs5 - Immunization history:: Adult Immunizations up to date. - Infectious Disease History:: Denies. - Social history:: Smoking status: Patient denies any tobacco usage or history of. Screenin:40 [facility] ED Fall Risk Assessment (Adult) History of falling in the last 3 months, rs5 including since admission No falls in past 3 months (0 pts) Confusion or Disorientation No (0 pts) Intoxicated or Sedated No (0 pts) Impaired Gait No (0 pts) Mobility Assist Device Used No (0 pt) Altered Elimination No (0 pt) Score/Fall Risk Level 0 - 2 = Low Risk Oriented to surroundings, Maintained a safe environment. Abuse screen: Denies threats or abuse. Nutritional screening: No deficits noted. Tuberculosis screening: No symptoms or risk factors identified. Assessment: 10:40 General: Appears in no apparent distress. comfortable, Behavior is calm, cooperative. rs5 Pain: Denies pain. Neuro: Level of Consciousness is awake, alert, obeys commands, Oriented to person, place, time, situation. Cardiovascular: Patient's skin is warm and dry. Respiratory: Airway is patent Respiratory effort is even, unlabored, Respiratory pattern is regular, symmetrical. GI: Abdomen is round non-distended, Abd is soft and non tender X 4 quads. Reports tarry stools. : No signs and/or symptoms were reported regarding the genitourinary system. EENT: No signs and/or symptoms were reported regarding the EENT system. Derm: Skin is intact, Skin is dry, Skin is pale, Skin temperature is warm. Musculoskeletal: Range of motion: intact in all extremities. 12:05 General: Appears comfortable, well groomed, well developed, well nourished, Behavior is me1 calm, cooperative, appropriate for age. Pain: Denies pain. Neuro: Level of Consciousness is awake, alert, obeys commands, Oriented to person, place, time, situation, Appropriate for age Reports dizziness. Cardiovascular: Patient's skin is warm and dry. Respiratory: Airway is patent Respiratory effort is even, unlabored, Respiratory pattern is regular, symmetrical. GI: Abdomen is round non-distended, Bowel sounds present X 4 quads. Abd is soft and non tender X 4 quads. : No signs and/or symptoms were reported regarding the genitourinary system. EENT: No signs and/or symptoms were reported regarding the EENT system. Derm: Skin is intact, is healthy with good turgor, Skin is Skin is pink, warm \T\ dry. Musculoskeletal: Circulation, motion, and sensation intact. Range of motion: intact in all extremities. 12:14 Reassessment: Patient and/or family updated on plan of care and expected duration. Pain rs5 level reassessed. Patient is alert, oriented x 3, equal unlabored respirations, skin warm/dry/pink. 13:30 Reassessment: Blood transfusion started. me1 14:45 Reassessment: Patient and/or family updated on plan of care and expected duration. Pain rs5 level reassessed. Patient is alert, oriented x 3, equal unlabored respirations, skin warm/dry/pink. 15:22 Reassessment: Patient and/or family updated on plan of care and expected duration. Pain rs5 level reassessed. Patient is alert, oriented x 3, equal unlabored respirations, skin warm/dry/pink. Vital Signs: 10:40 BP 127 / 74; Pulse 74; Resp 17; Pulse Ox 99% on R/A; rs5 11:00 BP 109 / 66; Pulse 71; Resp 15; Pulse Ox 100% ; me1 11:07 BP 122 / 70; Pulse 71; Pulse Ox 100% ; ec2 11:31 BP 121 / 70; Pulse 73; ec2 12:00 BP 131 / 66; Pulse 70; Resp 16; Pulse Ox 97% ; me1 13:00 BP 122 / 67; Pulse 75; Resp 16; Temp 98.4; Pulse Ox 100% ; me1 14:00 BP 120 / 63; Pulse 79; Resp 16; Pulse Ox 98% ; me1 15:22 BP 111 / 63; Pulse 79; Resp 16; Temp 98.3; Pulse Ox 100% ; rs5 ED Course: 10:34 Patient arrived in ED. ra3 10:35 Isauro James MD is Attending Physician. ec2 10:40 Jigar Vogel RN is Primary Nurse. rs5 10:40 Patient has correct armband on for positive identification. Placed in gown. Bed in low rs5 position. Call light in reach. Side rails up X2. 10:40 No provider procedures requiring assistance completed. rs5 10:41 Inserted saline lock: 20 gauge in left antecubital area, using aseptic technique. Blood rs5 collected. Flushed with 10 mL NS. 11:13 Triage completed. rs5 11:27 XRAY Chest (1 view) In Process Unspecified. EDMS 11:52 Called [facility] rang until disconnected. bc6 12:01 Called [facility] rang until disconnected. bc6 12:05 Provided Education on: POC. Verbalized understanding.. Client placed on continuous me1 cardiac and pulse oximetry monitoring. NIBP monitoring applied. satellite project site monitor on. Pulse ox on. NIBP on. 12:06 [facility] Transfer Center called to initiate transferAntoinette. bc6 12:16 [facility] TC will call back for [id number]. bc6 12:33 [facility] received MOT. bc6 12:37 Inserted saline lock: 22 gauge in right antecubital area, using aseptic technique. me1 12:42 [id number] handed to Nurse. ty 13:11 Packed RBC Leukored Sent. me1 14:22 [facility] ETA 30mins. ty 15:27 Arm band placed on Patient placed in an exam room. me1 15:27 Patient transferred, IV remains in place. me1 Administered Medications: 11:10 Drug: NS 0.9% IV 1000 ml IV at 1 bolus Per protocol; to be given as a bolus over 60 rs5 minutes Route: IV; Rate: 1 bolus; Site: right antecubital; 13:11 Follow up: Response: No adverse reaction; IV Status: Completed infusion; IV Intake: me1 1000ml 12:00 Drug: Pantoprazole IVP 80 mg IVP once Route: IVP; Site: left antecubital; rs5 12:37 Follow up: Response: No adverse reaction me1 12:10 Drug: Pantoprazole IV 8 mg/hr IV at 25 ml/hr continuous; (Standard dilution is 80 mg in rs5 250 mL NS) Route: IV; Rate: 25 ml/hr; Site: left antecubital; 13:11 Follow up: IV Status: Infusion continued upon transfer me1 Medication: 12:14 VIS not applicable for this client. rs5 Intake: 13:11 IV: 1000ml; Total: 1000ml. me1 Outcome: 11:45 ER care complete, transfer ordered by . ec2 15:27 Transferred by ground EMS to [facility], Note: Report called me1 to Dorothy Falcon 15:27 Condition: stable 15:27 Instructed on the need for transfer, 15:28 Patient left the ED. ks1 Signatures: Dispatcher [employer] Jigar Florez RN RN rs5 Mojgan Theodore6 Lexus Gonzalez RN RN me1 Isauro James MD MD ec2 Cherie Martines ra3 Bret Palma ty Corrections: (The following items were deleted from the chart) 13:17 13:00 BP 122 / 67; Pulse 75bpm; Resp 16bpm; Pulse Ox 100%; me1 me1 16:54 15:00 BP 111 / 63; Pulse 79bpm; Resp 16bpm; Pulse Ox 100%; Temp 98.3F; me1 rs5
--- NOTE | 2024-10-07 11:46 | RAD REPORT ---
EXAMINATION: ONE VIEW CHEST XR CLINICAL INDICATION: Female, 73 years old.,COUGH TECHNIQUE: Frontal chest projection is submitted. Examination is limited by patient positioning and t echnique. COMPARISON: 09/14/2023 FINDINGS: The lungs are mildly hypoinflated. Medial right infrahilar streaky opacities, could represent atelect asis or superimposition of vascular structures. No pneumothorax or sizable effusion. The heart is normal in size. Mediastinal contours are unremarkable. IMPRESSION: No acute intrathoracic abnormalities.
[2024-10-07 11:49] LABS: Albumin 3.4 g/dL (3.4-5.0); Albumin/Globulin Ratio 1.1 (1.1-1.8); Alkaline Phosphatase 47 U/L (45-117); Bilirubin Total 0.3 mg/dL (0.2-1.0); Globulin 3.2 g/dL (2.3-3.5); Protein, Total 6.6 g/dL (6.4-8.2)
[2024-10-07 11:51] LABS: ALT/SGPT < 14 U/L (13-56); AST/SGOT < 10 U/L (15-37); Bilirubin Direct < 0.2 mg/dL (0-0.2); Bilirubin Indirect, Calculated 0.1 mg/dL (0.2-0.8)
[2024-10-07] MEDS ORDERED: PANTOPRAZOLE 40 MG INJ ONE (11:53)
[2024-10-07] MEDS ORDERED: NA CHLORIDE 0.9% 250 ML ONE ×2 (11:53→12:49)
[2024-10-07 11:55] LABS: PT Prothrombin Time 13.5 SECONDS (9.4-12.5); Protime INR 1.21
[2024-10-07 16:08] VITALS: BP 111/63; TEMP 98.3; O2SAT 100
--- NOTE | 2024-10-08 13:38 | EKG ---
Test Date: 2024-10-07 Test Time: 10:48:35 Bridge Operator: [place] MEASUREMENT RESULTS: Intervals: Rate: 72 ID: [id number] QT: 404 QTc: 442 [place]: P: ID: [id number] T: 6 INTERPRETIVE STATEMENTS: Sinus rhythm Abnormal ECG Compared to ECG 07/15/2023 14:00:43 Electronically Signed On 10-08-24 13:36:21 EGYPTOLOGIST by Salvador Marvin
== END 2024-10-07 15:28 ==
LOC: ER 10:32
PROC: 30233N1 Transfusion of Nonautologous Red Blood Cells into Peripheral Vein, Percutaneous Approach (ICD-10-PCS; principal; 2024-10-07)
DX: D64.9 Anemia, unspecified (principal); E11.9 Type 2 diabetes mellitus without complications; I10 Essential (primary) hypertension; Z79.01 Long term (current) use of anticoagulants
CPT/HCPCS: 96365; 96361; 93005; 85025; 80048; 36415; 86900; 86850; 85610; 86901; 80076; 86920; 84484; 83880; 71045; 99285; 36430; J2470; P9016; J7050 ×2; J7030

== ENCOUNTER 2024-12-30 11:07 | Emergency (ER) | payer OTHER ==
--- OUTSIDE RECORDS SUMMARY | 2024-12-30 11:15 | XMS REPORT | Continuity of Care Document ---
Author Name Unknown Address [address] [facility] [place] [address] [facility] [place] Address [address] [facility] [place] [address] Care Team Providers Care Retail Training Manager Name Role Phone PIOTR NEELY Primary Care Physician Unavailab TAMIR Marie Attending Clinician Unav TAMIR Rajput Attending Clinician Unav kathy MARADIAGA, SENDIL K.H. Attending Clinician Unavaila ble Doctor Unassigned, [place] Attending Clinician U antonio Maradiaga MD, Sendil K.H. Attending Clinician [phone] Jason Ramirez RN Attending Clinician Unavail ANA Gruber Attending Clinician Unavailab qasim Vinson MD, Ana Guy Attending Clinician [phone] Jair Mcgill MD Attending Clinician +[phone] Kyara Elise CRNA Attending Clinician + [phone] Emilia Lebron MD, Leonard Attending Clinician + [phone] IVETTE DIMAS Attending Clinician Unavailable IVETTE DIMAS Attending Clinician Unavailable Hiren FLOYD, Sendil K.H. Attending Clinician [phone] RAJAT GRAF Attending Clinician UnavailRajat Wheat MD Attending Clinician [phone], [facility] Attending Clinician Unavailable Doctor Unassigned, [place] Attending Clinician U navailable MARJORIE LOPES Attending Clinician Unavailable JOVON DURON Attending Clinician Unavailable JACKIE TALLEY Attending Clinician Unavailable Marjorie Bermudez Attending Clinician Jackie Talley MD Attending Clinician Henok FLOYD, Mikki Attending Clinician MIKKI WHITING Attending Clinician Unavailable Bridger MOORE Nimo G Attending Clinician [phone] NIMO SPARKS Attending Clinician Unavailable ELIAN RESTREPO Attending Clinician Unavailable ANA VINSON Admitting Clinician Unavailab qasim Vinson MD, Ana Guy Admitting Clinician [phone] RAJAT GRAF Admitting Clinician Unavailab Rajat Tracy MD Admitting Clinician [phone] GABBY MARADIAGA Admitting Clinician Unavaila ble Payers Payer Name Policy Type Policy Number Effective Date Expirati on Date Source [facility] [place] P[place] [id number] 2020 00:00:00 [facility] FFS 5 [id number] 2022 00:00:00 MEDICARE PART A \\T\\ B [id number] 2014 00:00:00 [facility] MEDICARE SUPPLEMENT [id number] 2014 00:00:00 Problems Condition Name Condition Details Condition Category Status Onset Date Resolution Date Last Treatment Date Treating Clinician Comments Source Melena Melena Disease Active 2023-10 00:00: 00 [facility] Type 2 diabetes mellitus without complicati on, without long-term current use of insulin Type 2 diabetes mellitus without complicati on, without long-term current use of insulin Disease Active 2014-10 00:00: 00 [facility] Essential hypertensi on Essential hypertensi on Disease Active 2014-10 00:00: 00 [facility] Dyslipidem ia Dyslipidem ia Disease Active 2014-10 00:00: 00 [facility] Obesity Obesity Disease Active 2014-10 00:00: 00 [facility] Primary hypothyroi dism Primary hypothyroi dism Disease Active 2014-10 00:00: 00 [facility] Postmenopa use Postmenopa use Disease Active 2014-10 00:00: 00 [facility] Allergies, Adverse Reactions, Alerts Allergy Name Allergy Type Status Severity Reaction(s) Onset Date Inactive Date Treating Clinician Comments Source Sulfa (Sulfona mide Antibiot ics) Propensi ty to adverse reaction s Active Rash 11-14 00:00: 00 [facility] SULFA (SULFONA MIDE ANTIBIOT ICS) Drug Class Active ITCHING 11-14 00:00: 00 [facility] Sulfa (Sulfona mide Antibiot ics) Propensi ty to adverse reaction s Active Rash 11-14 00:00: 00 [facility] Social History Social Habit Start Date Stop Date Quantity Comments Source Sexual orientation U [facility] History of tobacco use Current smoker [facility] Alcoholic beverage intake 2024-10-11 00:00:00 2024-10-11 00:00:00 0 /d [facility] History of Social function 2024-01-07 00:00:00 2024-01-07 00:00:00 [facility] Alcohol intake 2023-12-31 00:00:00 2023-12-31 00:00:00 0 /d [facility] Exposure to SARS-CoV-2 (event) 2022-12-02 00:00:00 2022-12-12 13:38:[address] [facility] Tobacco use and exposure 2022-07-09 00:00:00 2022-07-09 00:00:00 Smokeless tobacco non-user [facility] Sex assigned at 1950 00:00:00 1950 00:00:00 [facility] Smoking Status Start Date Stop Date Source Ex-smoker 2022-07-09 00:00:00 2022-07-09 00:00:00 U [facility] Medications Ordered Medication Name Filled Medication Name Start Date Stop Date Current Medication? Ordering Clinician Indication Dosage Frequency Signature (SIG) Comments Components Source levoFLOXaci n 750 mg tablet 10-13 00:00: 00 10-26 05:59 :00 No [id number] 750mg Take 1 tablet by mouth every 24 (twenty-fo ur) hours for 12 days. [facility] levoFLOXaci n (LEVAQUIN) tablet 750 mg 2023-10 20:15: 00 10-24 20:14 :00 Yes 750mg 750 mg, Oral, Q24H ABX, 12 doses, First dose on Fri10/12/24 at 1415, Last dose on Fri10/23/24 at 1415, MARIFER, Reason for Anti-Infec tive: Documented Infection, Documented Infection Site: Blood, Duration of Therapy: Other (see Comments) [facility] perflutren lipid microsphere s (DEFINITY) injection 2 mL 2023-10 21:15: 00 10-11 20:48 :00 No [id number] 2mL 2 mL, IV Push, ONCE, 1 dose, On Fri10/11/24 at 1515, Routine [facility] cefTRIAXone (ROCEPHIN) 2,000 mg in water for injection, sterile 20 mL IV Push 2023-10 14:15: 00 10-12 19:15 :44 No 2000mg 2,000 mg, Intravenou s, Q24H ABX, 5 doses, First dose on Fri10/11/24 at 0815, Last dose on Fri10/15/24 at 0815, 20 mL, Reason for Anti-Infec tive: Documented Infection, Documented Infection Site: Blood, Duration of Therapy: 7 days [facility] vancomycin (VANCOCIN/X ELLIA) 750 mg in 150 mL sterile water IV Piggyback 2023-10 16:00: 00 10-11 13:15 :56 No 750mg 750 mg, IV Piggyback, Q12H ABX, 14 doses, First dose on Fri10/10/24 at 1000, Last dose on Fri10/16/24 at 2200, Administer over 90 Minutes, 150 mL, Reason for Anti-Infec tive: Documented Infection, Documented Infection Site: Blood, Duration of Therapy: 7 days [facility] pantoprazol e (PROTONIX) EC tablet 40 mg 2023-10 15:00: 00 10-13 00:51 :38 No 40mg 40 mg, Oral, DAILY, First dose on 10/09/24 at 0900, Until Discontinu ed, Routine [facility] magnesium citrate solution 296 mL 2023-10 14:45: 00 10-09 15:02 :00 No 296mL 296 mL, Oral, ONCE, 1 dose, On 10/09/24 at 0845, Routine [facility] PHENYLephri ne 1000 mcg/10 mL in 0.9% NaCl syringe 2023-10 18:46: 00 10-08 19:05 :23 No Slow IV Push, ONCE INTRA PROCEDURE, Starting on Fri10/08/24 at 1246, Until Fri10/08/24 at 1305, Routine, Intra-op [facility] propofoL IV infusion 2023-10 18:31: 00 10-08 18:55 :30 No Intravenou s, ONCE INTRA PROCEDURE, Starting on Fri10/08/24 at 1231, Until Fri10/08/24 at 1255, Routine, Intra-op [facility] lidocaine 1% (XYLOCAINE) 100 mg/10 mL (1 %) injection 2023-10 18:31: 00 10-08 18:55 :30 No Intravenou s, ONCE INTRA PROCEDURE, Starting on Fri10/08/24 at 1231, Until Fri10/08/24 at 1255, Routine, Intra-op [facility] lactated ringers IV infusion 2023-10 18:20: 00 10-08 18:55 :30 No IV Infusion, CONTINUOUS PRN, Starting on Fri10/08/24 at 1220, Until Fri10/08/24 at 1255, Routine, Intra-op [facility] vitamin B-12 (CYANOCOBAL NEELY) tablet 1,000 mcg 2023-10 15:00: 00 10-13 00:51 :38 No 1000ug 1,000 mcg, Oral, DAILY, First dose on Fri10/08/24 at 0900, Until Discontinu ed [facility] polyethylen e glycol 3350 powder 17 g 2023-10 15:00: 00 10-10 18:51 :34 No 17g 17 g, Oral, DAILY, First dose on Fri10/08/24 at 0900, Until Discontinu ed, Routine [facility] sennosides- docusate sodium (SENOKOT-S) 8.6-50 mg per tablet 1 tablet 2023-10 15:00: 00 10-10 18:51 :28 No 1{tbl} 1 tablet, Oral, DAILY, First dose on Fri10/08/24 at 0900, Until Discontinu ed, Routine [facility] pantoprazol e (PROTONIX) injection 40 mg 2023-10 14:00: 00 10-08 18:59 :13 No 40mg 40 mg, Slow IV Push, Q12H, First dose (after last modificati on) on Fri10/08/24 at 0800, Until Discontinu ed [facility] sodium ferric gluconate (FERRLECIT) 125 mg in NaCl 0.9% (NS) 100 mL IV piggyback 2023-10 07:30: 00 10-08 09:37 :00 No 125mg 125 mg, IV Piggyback, ONCE, 1 dose, On Fri10/08/24 at 0130, Administer over 60 Minutes, 100 mL [facility] Sliding Scale Insulin - Lispro (HumaLOG) 2023-10 03:00: 00 10-13 00:51 :38 No Subcutaneo us, TID MEALS+HS, First dose on Fri10/07/24 at 2100, Until Discontinu ed, Routine [facility] rosuvastati n (CRESTOR) tablet 10 mg 2023-10 03:00: 00 10-13 00:51 :38 No 10mg 10 mg, Oral, QHS, First dose on Fri10/07/24 at 2100, Until Discontinu ed, Routine [facility] PARoxetine (PAXIL) tablet 10 mg 2023-10 03:00: 00 10-13 00:51 :38 No 10mg 10 mg, Oral, QHS, First dose on Fri10/07/24 at 2100, Until Discontinu ed, Routine [facility] ramelteon (ROZEREM) tablet 8 mg 2023-10 00:15: 00 10-13 00:51 :38 No 8mg 8 mg, Oral, QHS, First dose on Fri10/07/24 at 1815, Until Discontinu ed, Routine [facility] glucagon HCL injection 1 mg 2023-10 00:00: 58 10-13 00:51 :38 No 1mg 1 mg, Intramuscu lar, PRN, Starting on Fri10/07/24 at 1800, Until Fri10/12/24 at 1851, MARIFER, Low blood sugar, Blood Glucose < or = 70 mg/dL and patient is NPO, unable to swallow or has mental changes. [facility] dextrose 50 % in water (D50W) injection 25 mL 2023-10 00:00: 58 10-13 00:51 :38 No 25mL 25 mL, Slow IV Push, PRN, Starting on Fri10/07/24 at 1800, Until Fri10/12/24 at 1851, MARIFER, Blood Glucose < or = 70 mg/dL and patient is NPO, unable to swallow or has mental status changes. [facility] pantoprazol e (PROTONIX) injection 40 mg 2023-10 23:45: 00 10-08 00:51 :00 No 40mg 40 mg, Slow IV Push, ONCE, 1 dose, On Fri10/07/24 at 1745 [facility] ondansetron (ZOFRAN (PF)) injection 4 mg 2023-10 22:49: 32 10-13 00:51 :38 No 4mg 4 mg, Slow IV Push, Q6HPRN, Starting on Fri10/07/24 at 1649, Until Fri10/12/24 at 1851, Administer over 2-5 Minutes, 2 mL [facility] acetaminoph en (TYLENOL) tablet 650 mg 2023-10 22:49: 13 10-13 00:51 :38 No 650mg 650 mg, Oral, Q6HPRN, Starting on Fri10/07/24 at 1649, Until Fri10/12/24 at 1851, Routine, Pain (scale 1-3) [facility] aspirin 81 mg EC tablet 11 15:19: 43 10-12 00:00 :00 No 81mg Take 1 tablet by mouth in the morning. [facility] neomycin-po lymyxin-dex amethasone (MAXITROL) 3.5 mg/g-10,000 unit/g-0.1 % ophthalmic ointment 01-06 14:48: 00 01-06 15:04 :32 No PRN, Starting on Fri01/07/24 at 0948, Until Fri01/07/24 at 1004, Routine, Intra-op [facility] sodium chloride (NS) injection 01-06 14:47: 00 01-06 15:04 :32 No PRN, Starting on Fri01/07/24 at 0947, Until Fri01/07/24 at 1004, Routine, Intra-op [facility] dexamethaso ne (DECADRON PHOSPHATE) injection 01-06 14:47: 00 01-06 15:04 :32 No PRN, Starting on Fri01/07/24 at 0947, Until Fri01/07/24 at 1004, Routine, Intra-op [facility] ceFAZolin (ANCEF) injection 01-06 14:46: 00 01-06 15:04 :32 No PRN, Starting on Fri01/07/24 at 0946, Until Fri01/07/24 at 1004, MARIFER, Intra-op [facility] carbachoL (MIOSTAT) 0.01 % intraocular injection 01-06 14:45: 00 01-06 15:04 :32 No PRN, Starting on Fri01/07/24 at 0945, Until Fri01/07/24 at 1004, Routine, Intra-op [facility] chondroitin sulf-sod hyaluronate (DUOVISC VISCO ELASTIC) intraocular injection 01-06 14:39: 00 01-06 15:04 :32 No PRN, Starting on Fri01/07/24 at 0939, Until Fri01/07/24 at 1004, Routine, Intra-op [facility] EPINEPHrine (PF) 1:1,000 (1 mg/mL) (ADRENALIN (PF)) 0.5 mL in balanced salt soln no.2 irrig. (BSS) 500 mL OR irrigation 01-06 14:38: 00 01-06 15:04 :32 No PRN, Starting on Fri01/07/24 at 0938, Intra-op [facility] water for irrigation irrigation solution 01-06 14:34: 00 01-06 15:04 :32 No PRN, Starting on Fri01/07/24 at 0934, Until Fri01/07/24 at 1004, Routine, Intra-op [facility] Hyaluronida se, Human Recomb. (HYLENEX) injection 01-06 14:27: 00 01-06 15:04 :32 No PRN, Starting on Fri01/07/24 at 0927, Until Fri01/07/24 at 1004, Routine, Intra-op [facility] eye block syringe 11 mL 01-06 14:27: 00 01-06 15:04 :32 No PRN, Starting on Fri01/07/24 at 0927, Until Fri01/07/24 at 1004, Intra-op [facility] cyclopent 1%-tropic 1%-phenyl 2.5%-ketor 0.5% (MYDRIATIC #5) ophthalmic solution syringe 0.5 mL 01-06 13:00: 00 01-06 13:08 :00 No .5mL 0.5 mL, Right Eye, ONCE, 1 dose, On Fri01/07/24 at 0800, Routine, DSU Pre-op [facility] lactated ringers IV infusion 1,000 mL 01-06 13:00: 00 01-06 13:08 :00 No 1000mL at 42 mL/hr, 1,000 mL, IV Infusion, ONCE, 1 dose, On Fri01/07/24 at 0800, Routine, DSU Pre-op [facility] aspirin 81 mg EC tablet 01-06 10:36: 19 Yes 81mg Take 1 tablet by mouth in the morning. [facility] B.coagul,keen btilis/inul in/vit C (CULTURELLE PROBIOTIC-P REBIOTIC ORAL) 01-06 10:36: 19 Yes 200mg Take 200 mg by mouth daily before a meal. [facility] eszopiclone 3 mg tablet 01-06 10:36: 19 Yes 3mg Take 1 tablet by mouth at bedtime. [facility] pantoprazol e 40 mg EC tablet 01-06 10:36: 19 Yes 40mg Take 1 tablet by mouth in the morning. [facility] cholestyram ine powder packet 01-06 10:36: 19 Yes 4000mg Take 4,000 mg by mouth in the morning and 4,000 mg in the evening. [facility] ramelteon 8 mg tablet 01-06 10:36: 19 Yes 8mg Take 1 tablet by mouth at bedtime. [facility] neomycin-po lymyxin-dex amethasone (MAXITROL) 3.5 mg/g-10,000 unit/g-0.1 % ophthalmic ointment 12-23 15:53: 00 12-23 15:56 :56 No PRN, Starting on Fri12/24/23 at 1053, Until Fri12/24/23 at 1056, Routine, Intra-op [facility] sodium chloride (NS) injection 12-23 15:51: [...] Starting on Fri12/24/23 at 1036, Intra-op [facility] water for irrigation irrigation solution 12-23 15:30: 00 12-23 15:56 :56 No PRN, Starting on Fri12/24/23 at 1030, Until Fri12/24/23 at 1056, Routine, Intra-op [facility] Hyaluronida se, Human Recomb. (HYLENEX) injection 12-23 15:25: 00 12-23 15:56 :56 No PRN, Starting on Fri12/24/23 at 1025, Until Fri12/24/23 at 1056, Routine, Intra-op [facility] eye block syringe 11 mL 12-23 15:25: 00 12-23 15:56 :56 No PRN, Starting on Fri12/24/23 at 1025, Until Fri12/24/23 at 1056, Intra-op [facility] cyclopent 1%-tropic 1%-phenyl 2.5%-ketor 0.5% (MYDRIATIC #5) ophthalmic solution syringe 0.5 mL 12-23 14:15: 00 12-23 14:24 :00 No .5mL 0.5 mL, Left Eye, ONCE, 1 dose, On Fri12/24/23 at 0915, Routine, DSU Pre-op [facility] lactated ringers IV infusion 1,000 mL 12-23 14:15: 00 12-23 14:23 :00 No 1000mL at 42 mL/hr, 1,000 mL, IV Infusion, ONCE, 1 dose, On Fri12/24/23 at 0915, Routine, DSU Pre-op [facility] pantoprazol e 40 mg EC tablet 12-23 11:49: 12 Yes 40mg Take 1 tablet by mouth in the morning. [facility] B.coagul,keen btilis/inul in/vit C (CULTURELLE PROBIOTIC-P REBIOTIC ORAL) 12-23 11:49: 12 Yes 200mg Take 200 mg by mouth daily before a meal. [facility] CYANOCOBALA MIN, VITAMIN B-12, (VITAMIN B-12 ORAL) 12-23 11:49: 11 Yes Take by mouth daily. [facility] aspirin 81 mg EC tablet 12-23 11:49: 11 Yes 81mg Take 1 tablet by mouth in the morning. [facility] eszopiclone 3 mg tablet 12-23 11:49: 11 Yes 3mg Take 1 tablet by mouth at bedtime. [facility] CYANOCOBALA MIN, VITAMIN B-12, (VITAMIN B-12 ORAL) 12-16 15:07: 34 Yes Take by mouth daily. [facility] aspirin 81 mg EC tablet 12-16 15:07: 34 Yes 81mg Take 1 tablet by mouth in the morning. [facility] eszopiclone 3 mg tablet 12-16 15:07: 34 Yes 3mg Take 1 tablet by mouth at bedtime. [facility] pantoprazol e 40 mg EC tablet 12-16 15:07: 34 Yes 40mg Take 1 tablet by mouth in the morning. [facility] prednisoLON E acetate 1 % ophthalmic suspension drops 12-09 00:00: 00 Yes INSTILL ONE (1) DROP(S) IN LEFT EYE THREE TIMES A DAY FOR 1 WEEK, THEN ONE (1) DROP TWICE A DAY FOR 1 WEEK, THEN ONE (1) DROP ONCE A DAY FO [facility] ketorolac 0.5 % ophthalmic solution 12-08 00:00: 00 Yes INSTILL ONE (1) DROP(S) IN LEFT EYE TWICE A DAY FOR 2 WEEKS AFTER SURGERY. [facility] ofloxacin 0.3 % ophthalmic solution 12-08 00:00: 00 Yes INSTILL ONE (1) DROP(S) IN LEFT EYE THE NIGHT BEFORE AND MORNING OF SURGERY, THEN ONE (1) DROP THREE TIMES A DAY FOR 1 WEEK POST-OP. [facility] sulfur hexafluorid e microsphr (LUMASON) injection 5 mL 12-04 21:27: 00 12-04 21:27 :00 No [id number] 5mL 5 mL, Intravenou s, ONCE, 1 dose, On Jodee 12/04/23 at 1545, Routine [facility] rosuvastati n 20 mg tablet 11-24 13:41: 21 11-24 00:00 :00 No 20mg Take 1 tablet by mouth at bedtime. [facility] aspirin 81 mg EC tablet 11-24 13:34: 28 Yes 81mg Take 1 tablet by mouth in the morning. [facility] CYANOCOBALA MIN, VITAMIN B-12, (VITAMIN B-12 ORAL) 11-24 13:23: 29 Yes Take by mouth daily. [facility] pantoprazol e 40 mg EC tablet 11-24 13:21: 49 Yes 40mg Take 1 tablet by mouth in the morning. [facility] rosuvastati n 10 mg tablet 11-24 00:00: 00 Yes 10mg Take 1 tablet by mouth at bedtime. [facility] amLODIPine 5 mg tablet 11-24 00:00: 00 Yes 5mg Take 1 tablet by mouth in the morning. [facility] MOUNJARO 5 mg/0.5 mL subcutaneou s injection 11-19 00:00: 00 Yes 7.5mg inject 7.5 mg under the skin weekly. Pt takes on Friday [facility] ELIQUIS 5 mg tablet 11-15 00:00: 00 Yes 5mg Take 1 tablet by mouth in the morning and 1 tablet in the evening. [facility] PARoxetine 10 mg tablet 2022-10 00:00: 00 Yes 10mg Take 1 tablet by mouth at bedtime. [facility] aspirin 81 mg EC tablet 12-12 14:03: 56 Yes 81mg Take 81 mg by mouth daily. [facility] rosuvastati n 20 mg tablet 12-12 14:03: 56 Yes 20mg Take 20 mg by mouth at bedtime. [facility] aspirin 81 mg EC tablet 2021-10 15:37: 23 Yes 81mg Take 81 mg by mouth daily. [facility] eszopiclone 3 mg tablet 07-09 15:46: 51 Yes 3mg Take 3 mg by mouth at bedtime. [facility] rosuvastati n 20 mg tablet 07-09 15:46: 51 Yes 20mg Take 20 mg by mouth at bedtime. [facility] CYANOCOBALA MIN, VITAMIN B-12, (VITAMIN B-12 ORAL) 07-09 15:46: 51 Yes Take by mouth daily. [facility] aspirin 81 mg EC tablet 07-09 15:46: 51 Yes 81mg Take 81 mg by mouth daily. [facility] clobetasoL 0.05 % ointment 07-09 00:00: 00 Yes [id number] Apply to area(s) daily. Use every night for 4 weeks and then three times a week, M/W/ [facility] estradioL 0.01 % (0.1 mg/gram) vaginal cream 07-09 00:00: 00 Yes [id number] 1g Insert 1 g into vagina in the morning. Use every night for 2 weeks and then three times a week M/W/ [facility] GLIPIZIDE XL 2.5 mg 24 hr tablet 10-30 00:00: 00 Yes [id number] 2.5mg Take 1 tablet by mouth daily with breakfast. [facility] METFORMIN ER 500 mg 24 hr tablet 10-24 00:00: 00 Yes [id number] TAKE FOUR (4) TABLET(S) BY MOUTH ONCE A DAY. [facility] aspirin 81 mg EC tablet 2020-10 15:57: 03 Yes 81mg Take 81 mg by mouth daily. [facility] MV-MN/IRON/ FOLIC ACID/HERB 190 (VITAMIN D3 COMPLETE ORAL) 2020-10 15:35: 31 Yes Take by mouth daily. [facility] rosuvastati n 20 mg tablet 2020-10 15:35: 31 Yes 20mg Take 20 mg by mouth at bedtime. [facility] CYANOCOBALA MIN, VITAMIN B-12, (VITAMIN B-12 ORAL) 2020-10 15:35: 25 Yes Take by mouth daily. [facility] eszopiclone 3 mg tablet 2020-10 15:35: 25 Yes 3mg Take 3 mg by mouth at bedtime. [facility] metoprolol succinate XL 50 mg 24 hr tablet 2020-10 00:00: 00 Yes 50mg Take 1 tablet by mouth in the morning. [facility] levothyroxi ne 125 mcg tablet 02-13 00:00: 00 Yes [id number] 125ug Take 1 tablet by mouth every morning. [facility] amLODIPine 5 mg tablet 10-14 00:00: 00 11-24 00:00 :00 No 5mg Take 1 tablet by mouth in the morning and 1 tablet in the evening. [facility] lancets (ONE TOUCH DELICA) 33 gauge [facility] 2014-10 00:00: 00 Yes Use as directed, daily, Dx:E11.65 [facility] Immunizations Ordered Immunization Name Filled Immunization Name Date Status Comments Source SARS-COV-2 COVID-19 MODERNA 12+ YRS VACCINE 2020-11-15 00:00:[address] [facility] SARS-COV-2 COVID-19 MODERNA 12+ YRS VACCINE 2020-11-15 00:00:[address] [facility] SARS-COV-2 COVID-19 MODERNA 12+ YRS VACCINE 2020-11-15 00:00:[address] [facility] SARS-COV-2 COVID-19 MODERNA 12+ YRS VACCINE 2020-11-15 00:00:[address] [facility] SARS-COV-2 COVID-19 MODERNA 12+ YRS VACCINE 2020-11-15 00:00:[address] [facility] SARS-COV-2 COVID-19 MODERNA 12+ YRS VACCINE 2020-11-15 00:00:[address] [facility] SARS-COV-2 COVID-19 MODERNA 12+ YRS VACCINE 2020-11-15 00:00:[address] [facility] SARS-COV-2 COVID-19 MODERNA VACCINE 2020-11-15 00:00:[address] [facility] SARS-COV-2 COVID-19 MODERNA VACCINE 2020-11-15 00:00:[address] [facility] SARS-COV-2 COVID-19 MODERNA 12+ YRS VACCINE 2020-11-15 00:00:[address] [facility] SARS-COV-2 COVID-19 MODERNA 12+ YRS VACCINE 2020-10-18 00:00:[address] [facility] SARS-COV-2 COVID-19 MODERNA 12+ YRS VACCINE 2020-10-18 00:00:[address] [facility] SARS-COV-2 COVID-19 MODERNA 12+ YRS VACCINE 2020-10-18 00:00:[address] [facility] SARS-COV-2 COVID-19 MODERNA 12+ YRS VACCINE 2020-10-18 00:00:[address] [facility] SARS-COV-2 COVID-19 MODERNA 12+ YRS VACCINE 2020-10-18 00:00:[address] [facility] SARS-COV-2 COVID-19 MODERNA 12+ YRS VACCINE 2020-10-18 00:00:[address] [facility] SARS-COV-2 COVID-19 MODERNA 12+ YRS VACCINE 2020-10-18 00:00:[address] [facility] SARS-COV-2 COVID-19 MODERNA VACCINE 2020-10-18 00:00:[address] [facility] SARS-COV-2 COVID-19 MODERNA VACCINE 2020-10-18 00:00:[address] [facility] SARS-COV-2 COVID-19 MODERNA 12+ YRS VACCINE 2020-10-18 00:00:[address] [facility] SARS-COV-2 COVID-19 MODERNA 12+ YRS VACCINE Unknown Completed [facility] SARS-COV-2 COVID-19 MODERNA 12+ YRS VACCINE Unknown Completed [facility] SARS-COV-2 COVID-19 MODERNA 12+ YRS VACCINE Unknown Completed [facility] SARS-COV-2 COVID-19 MODERNA 12+ YRS VACCINE Unknown Completed [facility] SARS-COV-2 COVID-19 MODERNA 12+ YRS VACCINE Unknown Completed [facility] SARS-COV-2 COVID-19 MODERNA 12+ YRS VACCINE Unknown Completed [facility] SARS-COV-2 COVID-19 MODERNA 12+ YRS VACCINE Unknown Completed [facility] SARS-COV-2 COVID-19 MODERNA 12+ YRS VACCINE Unknown Completed [facility] SARS-COV-2 COVID-19 MODERNA 12+ YRS VACCINE Unknown Completed [facility] SARS-COV-2 COVID-19 MODERNA 12+ YRS VACCINE Unknown Completed [facility] SARS-COV-2 COVID-19 MODERNA 12+ YRS VACCINE Unknown Completed [facility] SARS-COV-2 COVID-19 MODERNA 12+ YRS VACCINE Unknown Completed [facility] SARS-COV-2 COVID-19 MODERNA 12+ YRS VACCINE Unknown [address]pleted [facility] SARS-COV-2 COVID-19 MODERNA 12+ YRS VACCINE Unknown [address]pleted [facility] SARS-COV-2 COVID-19 MODERNA 12+ YRS VACCINE Unknown [address]pleted [facility] SARS-COV-2 COVID-19 MODERNA 12+ YRS VACCINE Unknown Completed [facility] SARS-COV-2 COVID-19 MODERNA 12+ YRS VACCINE Unknown Completed [facility] Vital Signs Vital Name Observation Time Observation Value Comments S ource Systolic blood pressure 2024-11-09 20:06:00 140 mm[Hg] [facility] Diastolic blood pressure 2024-11-09 20:06:00 91 mm[Hg] [facility] Heart rate 2024-11-09 20:06:00 69 /min [facility] Body temperature 2024-11-09 20:06:[address] [facility] Respiratory rate 2024-11-09 20:06:00 16 /min [facility] Body height 2024-11-09 20:06:[address] [facility] Body weight 2024-11-09 20:06:[address] [facility] BMI 2024-11-09 20:06:00 30.68 kg/m2 [facility] Oxygen saturation in Arterial blood by Pulse oximetry 2024-11-09 20:06:00 94 /min [facility] Systolic blood pressure 2024-10-12 21:44:00 138 mm[Hg] [facility] Diastolic blood pressure 2024-10-12 21:44:00 80 mm[Hg] [facility] Heart rate 2024-10-12 21:44:00 77 /min [facility] Body temperature 2024-10-12 21:44:[address] [facility] Respiratory rate 2024-10-12 21:44:00 18 /min [facility] Oxygen saturation in Arterial blood by Pulse oximetry 2024-10-12 21:44:00 98 /min [facility] Body weight 2024-10-10 10:00:[address] [facility] BMI 2024-10-10 10:00:00 31.44 kg/m2 [facility] Body height 2024-10-09 18:00:[address] [facility] Systolic blood pressure 2024-10-08 19:41:00 166 mm[Hg] RN Notified [facility] Diastolic blood pressure 2024-10-08 19:41:00 65 mm[Hg] RN Notified [facility] Heart rate 2024-10-08 19:41:00 77 /min [facility] Body temperature 2024-10-08 19:41:[address] [facility] Respiratory rate 2024-10-08 19:41:00 20 /min [facility] Oxygen saturation in Arterial blood by Pulse oximetry 2024-10-08 19:41:00 92 /min [facility] Body weight 2024-10-07 22:37:[address] [facility] BMI 2024-10-07 22:37:00 31.44 kg/m2 [facility] Systolic blood pressure 2024-03-23 20:02:00 129 mm[Hg] [facility] Diastolic blood pressure 2024-03-23 20:02:00 78 mm[Hg] [facility] Heart rate 2024-03-23 20:02:00 66 /min [facility] Body temperature 2024-03-23 20:02:[address] [facility] Body height 2024-03-23 20:02:[address] [facility] Body weight 2024-03-23 20:02:[address] [facility] BMI 2024-03-23 20:02:00 30.11 kg/m2 [facility] Oxygen saturation in Arterial blood by Pulse oximetry 2024-03-23 20:02:00 94 /min [facility] Heart rate 2024-01-07 15:10:00 72 /min [facility] Respiratory rate 2024-01-07 15:10:00 11 /min [facility] Oxygen saturation in Arterial blood by Pulse oximetry 2024-01-07 15:10:00 99 /min [facility] Systolic blood pressure 2024-01-07 15:08:00 123 mm[Hg] [facility] Diastolic blood pressure 2024-01-07 15:08:00 68 mm[Hg] [facility] Body temperature 2024-01-07 12:58:[address] [facility] Body height 2023-12-31 18:45:[address] [facility] Body weight 2023-12-31 18:45:00 75.297 kg [facility] BMI 2023-12-31 18:45:00 29.41 kg/m2 [facility] Systolic blood pressure 2024-01-07 12:58:00 130 mm[Hg] [facility] Diastolic blood pressure 2024-01-07 12:58:00 81 mm[Hg] [facility] Heart rate 2024-01-07 12:58:00 85 /min [facility] Body temperature 2024-01-07 12:58:[address] [facility] Respiratory rate 2024-01-07 12:58:00 15 /min [facility] Oxygen saturation in Arterial blood by Pulse oximetry 2024-01-07 12:58:00 97 /min [facility] Body height 2023-12-31 18:45:[address] [facility] Body weight 2023-12-31 18:45:[address] [facility] BMI 2023-12-31 18:45:00 29.41 kg/m2 [facility] Systolic blood pressure 2023-12-24 16:15:00 114 mm[Hg] [facility] Diastolic blood pressure 2023-12-24 16:15:00 67 mm[Hg] [facility] Heart rate 2023-12-24 16:15:00 69 /min [facility] Oxygen saturation in Arterial blood by Pulse oximetry 2023-12-24 16:15:00 96 /min [facility] Respiratory rate 2023-12-24 16:10:00 15 /min [facility] Body temperature 2023-12-24 15:55:[address] [facility] Body height 2023-12-17 21:15:[address] [facility] Body weight 2023-12-17 21:15:[address] [facility] BMI 2023-12-17 21:15:00 29.41 kg/m2 [facility] Systolic blood pressure 2023-12-24 14:21:00 117 mm[Hg] [facility] Diastolic blood pressure 2023-12-24 14:21:00 74 mm[Hg] [facility] Heart rate 2023-12-24 14:21:00 84 /min [facility] Body temperature 2023-12-24 14:21:[address] [facility] Respiratory rate 2023-12-24 14:21:00 19 /min [facility] Oxygen saturation in Arterial blood by Pulse oximetry 2023-12-24 14:21:00 99 /min [facility] Body height 2023-12-17 21:15:[address] [facility] Body weight 2023-12-17 21:15:[address] [facility] BMI 2023-12-17 21:15:00 29.41 kg/m2 [facility] Systolic blood pressure 2023-11-24 19:17:00 115 mm[Hg] [facility] Diastolic blood pressure 2023-11-24 19:17:00 75 mm[Hg] [facility] Heart rate 2023-11-24 19:17:00 80 /min [facility] Respiratory rate 2023-11-24 19:17:00 18 /min [facility] Body height 2023-11-24 19:17:[address] [facility] Body weight 2023-11-24 19:17:[address] [facility] BMI 2023-11-24 19:17:00 30.89 kg/m2 [facility] Oxygen saturation in Arterial blood by Pulse oximetry 2023-11-24 19:17:00 94 /min [facility] Systolic blood pressure 2022-12-12 19:49:00 133 mm[Hg] [facility] Diastolic blood pressure 2022-12-12 19:49:00 71 mm[Hg] [facility] Heart rate 2022-12-12 19:49:00 73 /min [facility] Respiratory rate 2022-12-12 19:49:00 19 /min [facility] Body height 2022-12-12 19:49:00 160 cm [facility] Body weight 2022-12-12 19:49:[address] [facility] BMI 2022-12-12 19:49:00 33.66 kg/m2 [facility] Oxygen saturation in Arterial blood by Pulse oximetry 2022-12-12 19:49:00 94 /min [facility] Systolic blood pressure 2022-07-24 20:39:00 121 mm[Hg] [facility] Diastolic blood pressure 2022-07-24 20:39:00 65 mm[Hg] [facility] Heart rate 2022-07-24 20:39:00 71 /min [facility] Body weight 2022-07-24 20:39:[address] [facility] BMI 2022-07-24 20:39:00 35.07 kg/m2 [facility] Oxygen saturation in Arterial blood by Pulse oximetry 2022-07-24 20:39:00 95 /min [facility] Systolic blood pressure 2022-07-09 20:41:00 114 mm[Hg] [facility] Diastolic blood pressure 2022-07-09 20:41:00 76 mm[Hg] [facility] Heart rate 2022-07-09 20:41:00 68 /min [facility] Body temperature 2022-07-09 20:41:[address] [facility] Respiratory rate 2022-07-09 20:41:00 18 /min [facility] Body height 2022-07-09 20:41:[address] [facility] Body weight 2022-07-09 20:41:[address] [facility] BMI 2022-07-09 20:41:00 34.72 kg/m2 [facility] Procedures Procedure Date / Time Performed Performing Clinician Source POCT GLUCOSE (AUTOMATED) 2024-10-12 23:29:[address] [facility] POCT GLUCOSE (AUTOMATED) 2024-10-12 18:17:[address] [facility] POCT GLUCOSE (AUTOMATED) 2024-10-12 14:09:00 Ana Vinson [facility] ENDOSCOPY PROCEDURE DOCUMENTATION 2023-10 13:55:23 Doctor Unassigned, [place] [facility] BLOOD CULTURE SCREEN 2024-10-12 08:15:[address] [facility] MAGNESIUM 2024-10-12 08:15:[address] [facility] BASIC METABOLIC PANEL (NA, K , CL, CO2, GLUCOSE, BUN, CREATININE, CA) 2024-10-12 08:15:00 [facility] CBC WITH DIFF 2024-10-12 08:15:[address] [facility] POCT GLUCOSE (AUTOMATED) 2024-10-12 03:00:[address] [facility] POCT GLUCOSE (AUTOMATED) 2024-10-11 23:28:00 Ana Vinson [facility] BLOOD CULTURE SCREEN 2024-10-11 20:55:00 Gisela [facility] CBC WITHOUT DIFF 2024-10-11 20:55:[address] [facility] TRANSTHORACIC ECHO (TTE) COM PLETE W/ CONTRAST 2024-10-11 20:50:[address] [facility] [facility] POCT GLUCOSE (AUTOMATED) 2024-10-11 18:19:00 Ana Vinson [facility] POCT GLUCOSE (AUTOMATED) 2024-10-11 18:19:00 Ana Vinson [facility] POCT GLUCOSE (AUTOMATED) 2024-10-11 14:59:00 Ana Vinson [facility] POCT GLUCOSE (AUTOMATED) 2024-10-11 14:59:00 Ana Vinson [facility] MAGNESIUM 2024-10-11 11:19:00 Gisela [facility] BASIC METABOLIC PANEL (NA, K , CL, CO2, GLUCOSE, BUN, CREATININE, CA) 2024-10-11 11:19:00 Gisela [facility] VANCOMYCIN RANDOM LEVEL 2024-10-11 11:19:00 Adina [facility] CBC WITH DIFF 2024-10-11 11:19:00 Gisela [facility] MAGNESIUM 2024-10-11 11:19:00 Gisela [facility] BASIC METABOLIC PANEL (NA, K , CL, CO2, GLUCOSE, BUN, CREATININE, CA) 2024-10-11 11:19:00 Gisela [facility] VANCOMYCIN RANDOM LEVEL 2024-10-11 11:19:00 Adina [facility] CBC WITH DIFF 2024-10-11 11:19:00 Gisela [facility] POCT GLUCOSE (AUTOMATED) 2024-10-11 03:09:00 Ana Vinson [facility] POCT GLUCOSE (AUTOMATED) 2024-10-11 03:09:00 Ana Vinson [facility] CBC WITH DIFF 2024-10-10 20:05:00 Gisela [facility] CBC WITH DIFF 2024-10-10 20:05:00 Gisela [facility] MRSA / MSSA SCREEN BY PCRTARIK 2024-09 18:14:00 Adina [facility] MRSA / MSSA SCREEN BY PCRTARIK 2024-09 18:14:00 Adina [facility] POCT GLUCOSE (AUTOMATED) 2024-10-10 [facility] 2024-10-10 14:20:[address] [facility] MAGNESIUM 2024-10-10 10:28:[address] [facility] BASIC METABOLIC PANEL (NA, K , CL, CO2, GLUCOSE, BUN, CREATININE, CA) 2024-10-10 10:28:[address] [facility] CBC WITH DIFF 2024-10-10 10:28:[address] [facility] MAGNESIUM 2024-10-10 10:28:00 [facility] BASIC METABOLIC PANEL (NA, K , CL, CO2, GLUCOSE, BUN, CREATININE, CA) 2024-10-10 10:28:[address] [facility] CBC WITH DIFF 2024-10-10 10:28:[address] [facility] POCT GLUCOSE (AUTOMATED) 2024-10-10 02:51:00 Ana Vinson [facility] POCT GLUCOSE (AUTOMATED) 2024-10-10 02:51:00 Ana Vinson [facility] POCT GLUCOSE (AUTOMATED) 2024-10-10 00:41:00 Ana Vinson [facility] POCT GLUCOSE (AUTOMATED) 2024-10-10 00:41:00 Ana Vinson [facility] XR CHEST 1 VW 2024-10-09 19:04:[address] [facility] POCT GLUCOSE (AUTOMATED) 2024-10-09 18:24:00 Ana Vinson [facility] POCT GLUCOSE (AUTOMATED) 2024-10-09 18:24:00 Ana Vinson [facility] BLOOD CULTURE SCREEN 2024-10-09 17:43:[address] [facility] BLOOD CULTURE WORKUP 2024-10-09 17:43:[address] [facility] GRAM POSITIVE BLOOD PATHOGEN S DNA PROBE-AEROBIC 2024-10-09 17:43:[address] [facility] BLOOD CULTURE SCREEN 2024-10-09 17:43:[address] [facility] BLOOD CULTURE WORKUP 2024-10-09 17:43:[address] [facility] GRAM POSITIVE BLOOD PATHOGEN S DNA PROBE-AEROBIC 2024-10-09 17:43:[address] [facility] BLOOD CULTURE SCREEN 2024-10-09 17:42:[address] [facility] BLOOD CULTURE SCREEN 2024-10-09 17:42:[address] [facility] INFLUENZA A/B RSV COVID NAAT 2024-10-09 17:41:[address] [facility] LAB ONLY COVID INTERPRETATION 2024-10-09 17:41:[address] [facility] INFLUENZA A/B RSV COVID NAAT 2024-10-09 17:41:[address] [facility] LAB ONLY COVID INTERPRETATION 2024-10-09 17:41:[address] [facility] URINALYSIS 2024-10-09 15:04:[address] [facility] URINALYSIS 2024-10-09 15:04:[address] [facility] POCT GLUCOSE (AUTOMATED) 2024-10-09 14:34[facility] 2024-10-09 14:34:[address] [facility] MAGNESIUM 2024-10-09 12:03:[address] [facility] BASIC METABOLIC PANEL (NA, K , CL, CO2, GLUCOSE, BUN, CREATININE, CA) 2024-10-09 12:03:[address] [facility] CBC WITH DIFF 2024-10-09 12:03:[address] [facility] MAGNESIUM 2024-10-09 12:03:[address] [facility] BASIC METABOLIC PANEL (NA, K , CL, CO2, GLUCOSE, BUN, CREATININE, CA) 2024-10-09 12:03:[address] [facility] CBC WITH DIFF 2024-10-09 12:03:00 Ana Vinson [facility] POCT GLUCOSE (AUTOMATED) 2024-10-09 03:27:00 Ana Vinson [facility] POCT GLUCOSE (AUTOMATED) 2024-10-09 03:27:00 Ana Vinson [facility] EGD (ENDO) 2024-10-08 23:40:21 [facility] EGD (ENDO) 2024-10-08 23:40:21 [facility] POCT GLUCOSE (AUTOMATED) 2024-10-08 22:50:00 Ana Vinson [facility] POCT GLUCOSE (AUTOMATED) 2024-10-08 22:50:00 Ana Vinson [facility] CBC WITH DIFF 2024-10-08 22:41:00 Gisela [facility] CBC WITH DIFF 2024-10-08 22:41:[address] [facility] ESOPHAGOGASTRODUODENOSCOPY 2024-10-08 18:15:[address] [facility] ESOPHAGOGASTRODUODENOSCOPY 2024-10-08 18:15:[address] [facility] POCT GLUCOSE (AUTOMATED) 2024-10-08 15:04:00 Ana Vinson [facility] POCT GLUCOSE (AUTOMATED) 2024-10-08 15:04:00 Ana Vinson [facility] MAGNESIUM 2024-10-08 11:16:[address] [facility] TROPONIN I 2024-10-08 11:16:[address] [facility] BASIC METABOLIC PANEL (NA, K , CL, CO2, GLUCOSE, BUN, CREATININE, CA) 2024-10-08 11:16:[address] [facility] CBC WITH DIFF 2024-10-08 11:16:00 [facility] GLYCOSYLATED HEMOGLOBIN (A1C) 2024-10-08 11:16:00 [facility] PROTHROMBIN TIME / INR 2024-10-08 11:16:00 [facility] ACTIVATED PARTIAL THRMPLAS MARCIA 2024-09-13 7 11:16:00 [facility] MAGNESIUM 2024-10-08 11:16:00 [facility] TROPONIN I 2024-10-08 11:16:00 [facility] BASIC METABOLIC PANEL (NA, K , CL, CO2, GLUCOSE, BUN, CREATININE, CA) 2024-10-08 11:16:00 [facility] CBC WITH DIFF 2024-10-08 11:16:00 [facility] GLYCOSYLATED HEMOGLOBIN (A1C) 2024-10-08 11:16:00 [facility] PROTHROMBIN TIME / INR 2024-10-08 11:16:00 [facility] ACTIVATED PARTIAL THRMPLAS MARCIA 2024-09-13 7 11:16:00 [facility] POCT GLUCOSE (AUTOMATED) 2024-10-08 02:19[facility] 2024-10-08 02:19:[address] [facility] HB ECG ROUTINE & RHYTHM STRIP 2024-10-08 00:07:57 [facility] HB ECG ROUTINE & RHYTHM STRIP 2024-10-08 00:07:[address] [facility] LACTATE DEHYDROGENASE 2024-10-07 23:33:[address] [facility] LIPASE 2024-10-07 23:33:[address] [facility] MAGNESIUM 2024-10-07 23:33:00 [facility] FERRITIN SERUM 2024-10-07 23:33:00 [facility] FREE T4 2024-10-07 23:33:[address] [facility] THYROID STIMULATING HORMONE 2024-10-07 23:33:00 [facility] HEPATIC FUNCTION PANEL (8007 [id number]) (ALB,T.PRO,BILI T,BU/BC,ALT,AST,ALK PHOS) 2024-10-07 23:33:00 [facility] BASIC METABOLIC PANEL (NA, K , CL, CO2, GLUCOSE, BUN, CREATININE, CA) 2024-10-07 23:33:00 [facility] IRON PANEL 2024-10-07 23:33:00 Idris Isaacs [facility] CBC WITH DIFF 2024-10-07 23:33:00 Idris Isaacs [facility] HB ABO GROUPING 2024-10-07 23:33:[address] [facility] FREE T3 2024-10-07 23:33:[address] [facility] LACTATE DEHYDROGENASE 2024-10-07 23:33:[address] [facility] LIPASE 2024-10-07 23:33:00 [facility] MAGNESIUM 2024-10-07 23:33:00 [facility] FERRITIN SERUM 2024-10-07 23:33:00 [facility] FREE T4 2024-10-07 23:33:[address] [facility] THYROID STIMULATING HORMONE 2024-10-07 23:33:[address] [facility] HEPATIC FUNCTION PANEL (8007 [id number]) (ALB,T.PRO,BILI T,BU/BC,ALT,AST,ALK PHOS) 2024-10-07 23:33:[address] [facility] BASIC METABOLIC PANEL (NA, K , CL, CO2, GLUCOSE, BUN, CREATININE, CA) 2024-10-07 23:33:[address] [facility] IRON PANEL 2024-10-07 23:33:00 [facility] CBC WITH DIFF 2024-10-07 23:33:00 [facility] HB ABO GROUPING 2024-10-07 23:33:00 [facility] FREE T3 2024-10-07 23:33:[address] [facility] PHACOEMULSIFICATION OF CATAR ACT WITH INTRAOCULAR LENS IMPLANT 2024-01-07 14:16:[address] [facility] POCT GLUCOSE (AUTOMATED) 2024-01-07 13:01:[address] [facility] POCT GLUCOSE (AUTOMATED) 2024-01-07 13:01:[address] [facility] EXTERNAL PROVIDER RECORDS 2024-01-05 05:01:00 Doctor Unassigned, [facility] [facility] EXTERNAL PROVIDER RECORDS 2024-01-05 05:01:00 Doctor Unassigned, [place] [facility] PHACOEMULSIFICATION OF CATAR ACT WITH INTRAOCULAR LENS IMPLANT 2023-12-24 15:16:[address] [facility] POCT GLUCOSE (AUTOMATED) 2023-12-24 14:21:[address] [facility] POCT GLUCOSE (AUTOMATED) 2023-12-24 14:21:00 Rajat Graf [facility] PATIENT FINANCIAL POLICY 2023-12-18 14:58:11 Doctor Unassigned, [place] [facility] ASSIGNMENT OF BENEFITS 2023-12-08 21:19:38 Doctor Unassigned, [place] [facility] TRANSTHORACIC ECHO (TTE) COM PLETE W/ CONTRAST 2023-12-04 21:33:[address] [facility] ASSIGNMENT OF BENEFITS 2023-11-24 18:53:23 Doctor Unassigned, [place] [facility] MEDICAL RELEASE/CLEARANCE FORMS 06:01:00 Doctor Unassigned, [place] [facility] PATIENT FINANCIAL POLICY 2022-12-12 19:40:14 Doctor Unassigned, [facility] MEDICAL RELEASE/CLEARANCE FORMS 06:01:00 Doctor Unassigned, [facility] CONSENT/REFUSAL FOR DIAGNOSI S AND TREATMENT 2022-07-24 20:29:39 Doctor Unassigned, [facility] GALV ONLY - VAGINAL PATHOGEN S BY NUCLEIC ACID TESTING 2022-07-09 21:06:[address] [facility] Encounters Start Date/Time End Date/Time Encounter Type Admission Type Attending [facility] Facility Care Department Encounter ID Source 2024-12-23 09:45:00 2024-12-23 09:45:00 Outpatient MALLIKA MONTOYA [facility] [id number] [facility] 2024-12-16 08:00:00 2024-12-16 08:24:59 Outpatient MALLIKA MONTOYA [facility] [id number] [facility] 2024-10-25 00:00:00 2024-11-27 18:20:09 Patient Secure Msg Doctor Unassigned, [place] Doctor Unassigned, [place] [id number] [facility] 2024-10-12 00:00:00 2024-11-27 06:24:24 Orders Only Doctor Unassigned, [facility] Doctor Unassigned, [facility] [id number] [facility] 2024-10-14 00:00:00 2024-11-20 18:22:34 Patient Secure Msg Doctor Unassigned, [place] Doctor Unassigned, [facility] [id number] [facility] 2024-11-09 14:00:00 2024-11-09 14:36:14 Outpatient R GABBY MARADIAGA [facility] [id number] [facility] 2024-11-09 14:00:00 2024-11-09 14:36:14 [facility] [id number] [facility] 2024-10-14 00:00:00 2024-10-14 11:44:04 Transition of Care Jason Ramirez Michele A SHEARN [facility] [place] [id number] [facility] 2024-10-07 16:48:00 2024-10-12 18:51:00 Inpatient U ANA VINSON [facility] [id number] [facility] 2024-10-07 16:48:00 2024-10-12 18:51:00 Hospital Encounter Ana [facility] 1.2.840.114 350.1.13.10 4.2.7.2.686 [id number] 100 [id number] [facility] 2024-10-08 13:40:00 2024-10-08 14:19:00 Surgery Jair Mcgill [facility] 1.2840.114 350.1.13.10 4.2.7.2.686 [id number] [id number] [facility] 2024-10-08 12:25:00 2024-10-08 12:55:00 Anesthesia Event Kyara Elise Leonard [facility] 1.2840.114 350.1.13.10 4.2.7.2.686 [id number] [facility] 2024-03-23 15:00:00 2024-03-24 07:41:53 Outpatient GABBY MARIEE [facility] [id number] [facility] 2024-03-23 15:00:00 2024-03-24 07:41:53 Office Visit Gabby Maradiaga [facility] 1.2840.114 350.1.13.10 4.2.7.2.686 [id number] [id number] [facility] 2024-01-07 07:49:00 2024-01-07 10:15:00 Outpatient RAJAT FOY [facility] OPH [id number] [facility] 2024-01-07 07:49:00 2024-01-07 10:15:00 Hospital Encounter Rajat Graf [facility] SURGICAL [facility]AA[facility]O 1.2840.114 350.1.13.10 4.2.7.2.686 [id number] [facility] 2024-01-07 08:58:00 2024-01-07 09:31:00 Surgery Rajat Graf [facility] SURGICAL PAAUILO 1.2840.114 350.1.13.10 4.2.7.2.686 [id number] [facility] 2023-12-24 09:10:00 2023-12-24 11:20:00 Outpatient R RAJAT GRAF [facility] OPH [id number] [facility] 2023-12-24 09:10:00 2023-12-24 11:20:00 Hospital Encounter Rajat Graf [facility] SURGICAL PAAUILO 1.2.840.114 350.1.13.10 4.2.7.2.686 [id number] [facility] 2023-12-24 10:04:00 2023-12-24 10:37:00 Surgery Rajat Graf [facility] 1.2.840.114 350.1.13.10 4.2.7.2.686 [id number] [facility] 2023-12-19 00:00:00 2023-12-19 00:00:00 Telephone Gabby Maradiaga [facility] 1.2840.114 350.1.13.10 4.2.7.2.686 [id number] [id number] [facility] 2023-12-18 09:00:00 2023-12-18 09:00:56 Outpatient GABBY MARIEE [facility] [id number] [facility] 2023-12-18 09:00:00 2023-12-18 09:00:56 Agricultural Research Technician Visit 2, Adc Lab Gabby Maradiaga [facility] 1.2.840.114 350.1.13.10 4.2.7.2.686 [id number] [facility] 2023-12-18 00:00:00 2023-12-18 00:00:00 Orders Only Doctor Unassigned, [place] 1.2.840.114 350.1.13.10 4.2.7.2.686 [id number] [facility] 2023-12-12 10:00:00 2023-12-12 10:00:00 Outpatient R GABBY MARADIAGA [facility] [id number] [facility] 2023-12-08 00:00:00 2023-12-08 00:00:00 Orders Only Doctor Unassigned, [place] [facility] 1.2.840.114 350.1.13.10 4.2.7.2.686 [id number] [id number] [facility] 2023-12-05 00:00:00 2023-12-05 00:00:[address] [facility] 1.2.840.114 350.1.13.10 4.2.7.2.686 [id number] 059 [id number] [facility] 2023-12-04 15:31:47 2023-12-04 23:59:00 Hospital Encounter Gabby MaradiagaAllegra [facility] 1.2.840.114 350.1.13.10 4.2.7.2.686 [id number] [facility] 2023-12-04 14:45:58 2023-12-04 15:30:00 Outpatient R GABBY MARADIAGA [facility] [id number] [facility] 2023-12-04 14:45:58 2023-12-04 15:30:00 Hospital Encounter Gabby Maradiaga [facility] 1.2.840.114 350.1.13.10 4.2.7.2.686 [id number] [facility] 2023-11-24 13:00:00 2023-11-24 13:47:12 Outpatient R GABBY MARADIAGA [facility] [id number] [facility] 2023-11-24 13:00:00 2023-11-24 13:47:12 Office Visit Gabby Maradiaga [facility] 1.2.840.114 350.1.13.10 4.2.7.2.686 [id number] [id number] [facility] 2023-11-24 00:00:00 2023-11-24 00:00:00 Orders Only Doctor Unassigned, [place] [facility] 1.2.840.114 350.1.13.10 4.2.7.2.686 [id number] [id number] [facility] 2023-11-20 00:00:00 2023-11-20 00:00:00 Telephone Gabby Maradiaga [facility] 1.2.840.114 350.1.13.10 4.2.7.2.686 [id number] 059 [id number] [facility] 2023-11-20 00:00:00 2023-11-20 00:00:00 Orders Only Doctor Unassigned, [place] [facility] 1.2.840.114 350.1.13.10 4.2.7.2.686 [id number] [id number] [facility] 2023-11-04 00:00:00 2023-11-04 00:00:[address] [facility] 1.2.840.114 350.1.13.10 4.2.7.2.686 [id number] 059 [id number] [facility] 2023-09-18 14:00:00 2023-09-18 14:00:00 Outpatient GABBY MARIEE [facility] [id number] [facility] 2023-07-23 13:00:00 2023-07-23 13:00:00 Outpatient MARJORIE LEIJA [facility] [id number] [facility] 2023-01-23 14:30:00 2023-01-23 14:30:00 Outpatient JOVON DURON [id number] Monique Barrientos 2022-12-25 13:49:38 2022-12-25 23:59:00 Outpatient R HIREN GABBY [facility] [id number] [facility] 2022-12-17 00:00:00 2022-12-17 00:00:00 Telephone Gabby Maradiaga [facility] 1.2.840.114 350.1.13.10 4.2.7.2.686 [id number] [id number] [facility] 2022-12-12 14:00:00 2022-12-12 14:12:42 Outpatient R HIREN GABBY [facility] [id number] [facility] 2022-12-12 14:00:00 2022-12-12 14:12:42 Office Visit Gabby Maradiaga [facility] 1.2.840.114 350.1.13.10 4.2.7.2.686 [id number] [id number] [facility] 2022-12-12 00:00:00 2022-12-12 00:00:00 Orders Only Doctor Unassigned, [place] [facility] 1.2.840.114 350.1.13.10 4.2.7.2.686 [id number] [id number] [facility] 2022 00:00:00 2022 00:00:00 Orders Only Doctor Unassigned, [place] [facility] 1.2.840.114 350.1.13.10 4.2.7.2.686 [id number] [facility] 2022-07-24 15:40:00 2022-07-24 16:02:58 Office Visit Marjorie Lopes [facility] 1.2.840.114 350.1.13.10 4.2.7.2.686 [id number] [id number] [facility] 2022-07-24 15:40:00 2022-07-24 16:02:58 Outpatient R MOSESMARJORIE [facility] [id number] [facility] 2022-07-24 00:00:00 2022-07-24 00:00:00 Orders Only Doctor Unassigned, [place] [facility] 1.2.840.114 350.1.13.10 4.2.7.2.686 [id number] [id number] [facility] 2022-07-09 15:00:00 2022-07-09 16:11:20 Outpatient R JACKIE TALLEY [facility] [id number] [facility] 2022-07-09 15:00:00 2022-07-09 16:11:20 Office Visit Jackie Talley [facility] 1..840.114 350.1.13.10 4.2.7.2.686 [id number] [facility] 2022-01-25 00:00:00 2022-01-25 00:00:00 Refill Henok [facility]LEY?GRACEHarshal [facility] 1..840.114 350.1.13.10 4.2.7.2.686 [id number] 220 [id number] [facility] 2022-01-21 00:00:00 2022-01-21 00:00:00 [facility]GRACE[facility] 1.2.840.114 350.1.13.10 4.2.7.2.686 [id number] 220 [id number] [facility] 2021-12-25 00:00:00 2021-12-25 00:00:00 Outpatient R GABBY MARADIAGA [facility] [id number] [facility] 2021-10-28 00:00:00 2021-10-28 00:00:00 [facility] 1.2.840.114 350.1.13.10 4.2.7.2.686 [id number] [facility] 2021-10-22 00:00:00 2021-10-22 00:00:00 Refill Henok [facility] 1..840.114 350.1.13.10 4.2.7.2.686 [id number] 220 [id number] [facility] 2021-08-21 14:00:00 2021-08-21 14:00:00 Outpatient R [facility] [id number] [facility] 2021-07-30 00:00:00 2021-07-30 00:00:00 Refill Henok [facility] Medical Office Building 1..840.114 350.1.13.10 4.2.7.2.686 [id number] [facility] 2021-07-23 15:16:51 2021-07-23 16:02:57 Office Visit Gabby Maradiaga [facility] 1..840.114 350.1.13.10 4.2.7.2.686 [id number] 059 [id number] [facility] 2021-07-23 15:30:00 2021-07-23 15:30:00 Outpatient R GABBY MARADIAGA [facility] [id number] [facility] 2021-07-23 00:00:00 2021-07-23 00:00:00 Orders Only Doctor Unassigned, [place] [facility] 1.2840.114 350.1.13.10 4.2.7.2.686 [id number] [id number] [facility] 2021-07-19 13:00:00 2021-07-19 13:00:00 Outpatient R GABBY MARADIAGA [facility] [id number] [facility] 2021-06-13 07:51:09 2021-06-13 23:59:00 Hospital Encounter Gabby MaradiagaAllegraRaminAllegra [facility] Building 1.2.840.114 350.1.13.10 4.2.7.2.686 [id number] [facility] 2021-06-13 09:00:00 2021-06-13 09:00:00 Outpatient R [facility] [id number] [facility] 2021-06-13 08:00:00 2021-06-13 08:00:00 Outpatient R MARADIAGA GABBY [facility] [id number] [facility] 2021-05-18 14:30:00 2021-05-18 14:30:00 Outpatient R HIREN GABBY [facility] [id number] [facility] 2021-04-25 00:00:00 2021-04-25 00:00:00 Refill Henok [facility] 1.2.840.114 350.1.13.10 4.2.7.2.686 [id number] [facility] 2021-02-13 15:48:02 2021-02-13 16:28:42 [facility] 1.2.840.114 350.1.13.10 4.2.7.2.686 [id number] [facility] 2021-02-13 16:00:00 2021-02-13 16:00:00 Outpatient R [facility] [id number] [facility] 2021-02-12 00:00:00 2021-02-12 00:00:00 Refill Henok [facility] Building 1.2.840.114 350.1.13.10 4.2.7.2.686 [id number] [facility] 2021-01-02 08:00:00 2021-01-02 08:00:00 Outpatient R MIKKI WHITING [facility] [id number] [facility] 2021-01-01 10:47:43 2021-01-01 11:02:43 Agricultural Research Technician Visit 2, Adc Lab HubertmichelleNimo pruett [facility] 1.2.840.114 350.1.13.10 4.2.7.2.686 [id number] [facility] 2021-01-01 10:45:00 2021-01-01 10:45:00 Outpatient NIMO GOMES [facility] [id number] [facility] 2021-01-01 00:00:00 2021-01-01 00:00:00 Telephone Mikki Whiting [facility] 1.2.840.114 350.1.13.10 4.2.7.2.686 [id number] [facility] 2020-12-29 14:17:39 2020-12-29 23:59:00 Hospital Encounter Nimo Sparks [facility] 1.2.840.114 350.1.13.10 4.2.7.2.686 [id number] [facility] 2020-12-29 00:00:00 2020-12-29 00:00:00 Outpatient NIMO GOMES [facility] [id number] [facility] 2020-11-15 15:20:00 2020-11-15 15:20:00 Outpatient ELIAN DE LEON [facility] [id number] [facility] 2020-11-01 09:15:00 2020-11-01 09:15:00 Outpatient NIMO GOMES [facility] [id number] [facility] 2020-11-01 08:50:56 2020-11-01 09:05:56 Agricultural Research Technician Visit 2, Adc Lab Nimo Sparks [facility] 1.2.840.114 350.1.13.10 4.2.7.2.686 [id number] [facility] 2020-11-01 00:00:00 2020-11-01 00:00:00 Orders Only Doctor Unassigned, [place] [facility] 1.2840.114 350.1.13.10 4.2.7.2.686 [id number] [id number] [facility] 2020-10-18 15:50:00 2020-10-18 15:50:00 Outpatient ELIAN DE LEON [facility] [id number] [facility] 2020-08-01 00:00:00 2020-08-01 00:00:00 Telephone Gabby Maradiaga [facility] 1.284.114 350.1.13.10 4.2.7.2.686 [id number] [facility] 2020-08-01 00:00:00 2020-08-01 00:00:00 Telephone Gabby Maradiaga [facility] 1.2.840.114 350.1.13.10 4.2.7.2.686 [id number] 2020-07-31 09:15:00 2020-07-31 09:15:00 Outpatient NIMO GOMES [facility] [id number] [facility] 2020-07-31 08:33:54 2020-07-31 08:48:54 Agricultural Research Technician Visit 2, Adc Lab Nimo Sparks [facility] 1.2840.114 350.1.13.10 4.2.7.2.686 [id number] [facility] 2020-07-31 08:33:54 2020-07-31 08:48:54 Agricultural Research Technician Visit 2, Adc Lab [facility] 1.2.840.114 350.1.13.10 4.2.7.2.686 [id number] 2020-07-31 00:00:00 2020-07-31 00:00:00 Orders Only Doctor Unassigned, [place] [facility] 1.2.840.114 350.1.13.10 4.2.7.2.686 [id number] [id number] [facility] 2020-07-31 00:00:00 2020-07-31 00:00:00 Orders Only Doctor Unassigned, [place] [facility] 1.2.840.114 350.1.13.10 4.2.7.2.686 [id number] 2020-07-14 10:42:11 2020-07-14 11:35:40 Office Visit Gabby Maradiaga [facility] 1.2.840.114 350.1.13.10 4.2.7.2.686 [id number] [facility] 2020-07-14 11:00:00 2020-07-14 11:00:00 Outpatient R GABBY MARADIAGA [facility] [id number] [facility] 2020-07-14 00:00:00 2020-07-14 00:00:00 Orders Only Doctor Unassigned, [place] [facility] 1.2.840.114 350.1.13.10 4.2.7.2.686 [id number] [id number] [facility] 2020-07-04 14:45:38 2020-07-04 15:43:36 Office Visit Mikki Whiting [facility] 1.2.840.114 350.1.13.10 4.2.7.2.686 [id number] 220 [id number] [facility] 2020-07-04 14:45:38 2020-07-04 15:43:36 Office Visit Henok [facility] 1.2.840.114 350.1.13.10 4.2.7.2.686 [id number] 2020-07-04 15:00:00 2020-07-04 15:00:00 Outpatient R [facility] [id number] [facility] 2020-02-29 12:50:36 2020-02-29 13:29:37 Office Visit Henok [facility] 1.2.840.114 350.1.13.10 4.2.7.2.686 [id number] [facility] 2020-02-29 13:00:00 2020-02-29 13:00:00 Outpatient R [facility] [id number] [facility] 2020-02-22 13:00:00 2020-02-22 13:00:00 Outpatient R [facility] [id number] [facility] 2020-02-22 08:11:10 2020-02-22 08:41:10 Telemedici ne Visit Henok [facility] 1.2.840.114 350.1.13.10 4.2.7.2.686 [id number] 220 [id number] [facility] 2019-12-27 00:00:00 2019-12-27 00:00:00 Refill Henok [facility] 1.2.840.114 350.1.13.10 4.2.7.2.686 [id number] 220 [id number] [facility] Results Test Description Test Time Test Comments Results Result Co mments Source [facility] GLUCOSE (AUTOMATED)2024-10-12 18:18:24* Test Item Value Reference Range Interpretation Comme nts POCT GLU (test code = 8237706711) 108 mg/dL 70-110 Lab Interpretation (test cod e = 26545-2) Normal [facility] GLUCOSE (AUTOMATED)2024-10-12 14:10:29* Test Item Value Reference Range Interpretation Comme [facility] POCT GLU (test code = 5389582500) 147 mg/dL 70-110 H Lab Interpretation (test cod e = 52361-9) [facility] [id number] 13:55:23Ordered by an unspecified provider.[facility] [id number] 03:04:28EXAM: XR CHEST 1 VW COMPARISON: 12/29/2020 HISTORY:73 years old, Female ?with leukocytosis and fever, newnonproductive cough .[facility] GLUCOSE (AUTOMATED)2024-10-12 03:02:20* Test Item Value Reference Range Interpretation Comme [facility] POCT GLU (test code = 7438847469) 139 mg/dL 70-110 H Lab Interpretation (test cod e = 19351-2) Abnormal [facility] GLUCOSE (AUTOMATED)2024-10-11 23:29:22* Test Item Value Reference Range Interpretation Comme [facility] POCT GLU (test code = 7687051103) 120 mg/dL 70-110 H Lab Interpretation (test cod e = 59955-3) Abnormal [facility] (TTE) [id number] 22:38:27* Test Item Value Reference Range Interpretation Comme nts Height (test code = 2391621823) 63 in Weight (test code = 7582480972) 177 lbs Systolic BP (test code = 1902367947) 120 mmHg Diastolic BP (test code = 7579845477) 63 mmHg Heart Rate (test code = 7188703653) 78 bpm BSA (test code = 9328231947) 1.84 m2 LVIDD (test code = 5962459955) 4.50 cm Left Ventricular End Diastolic Volume by Teichholz Method (test code = 6953587) 90.4 mL IVS (test code = 0199759214) 1.09 cm Interventricular Septum Diastolic Thickness by 2D (test code = 4708940) 1.09 cm LVPWD (test code = 1122549771) 0.99 cm PW (test code = 3441871047) 0.99 cm 0.6-1.1 EF(Teich) (test code = 5746411337) 71.10 % LVIDS (test code = 4445071297) 2.70 cm Left Ventricular End Systolic Volume by Teichholz Method (test code = 8189610) 26.2 mL FS (test code = 2229853234) 40 % EF - 2D (test code = 94108250) 71.10 % LVOT diameter (test code = 6186062689) 2.13 cm LVOT area (test code = 6156177251) 3.60 cm2 Ao root diam (test code = 8471358421) 3.00 cm Aortic root (test code = 0620047865) 3.0 cm Ao root annulus (test code = 4992990794) 3.0 cm LA size (test code = 9908980740) 3.9 cm LAV(MOD-sp4) (test code = 2853929928) 44.00 mL MV Prop V (test code = 6945161424) 55.80 cm/s MV Peak E Sammy (test code = 1356969409) 90.9 cm/s E wave decelartion time (test code = 8243474297) 0.25 s MV valve area p 1/2 method (test code = 1993248338) 3.00 cm2 MV dec slope (test code = 0291016012) 363.50 cm/s2 MV P1/2t max sammy (test code = 7972702365) 91.50 cm/s MV Peak A Sammy (test code = 7028105938) 92.7 cm/s E/A ratio (test code = 2940981146) 0.98 ratio MV E/e' septal (test code = 9322059808) 13.9 cm/s TASV (test code = 6155181184) 16.9 cm/s Tapse (test code = 9826045668) 2.6 cm LVOT stroke volume (test code = 4452923858) 109.50 cm3 LVOT peak sammy (test code = 5715117072) 133.5 cm/s LVOT mn grad (test code = 3423826743) 2.9 mmHg AV LVOT peak gradient (test code = 1739961370) 7.1 mmHg LVOT peak VTI (test code = 7246114355) 30.7 cm LV V1 mean (test code = 4222900589) 76.60 cm/s Aortic valve mean velocity (test code = 0322883738) 85.6 cm/s Ao peak sammy (test code = 5776706152) 135.5 cm/s Ao VTI (test code = 5355066662) 27.1 cm AV area by cont VTI (test code = 9932561110) 4.0 cm2 AV area peak sammy (test code = 9471668381) 3.5 cm2 Ao max PG (test code = 4517964838) 7.30 mm[Hg] AV peak gradient (test code = 8420041829) 7.3 mmHg AV valve area (test code = 2479203449) 4.00 cm2 AV mean gradient (test code = 6832104022) 3.4 mmHg LA Volume Index (BP) (test code = 1528970671) 26.6 mL/m2 LA volume (BP) (test code = 7934060424) 48.8 mL LAV(MOD-sp2) (test code = 0222694369) 47.70 mL Radiology Study observation (narrative) (test code = 44442-2) AMANDA (test code = AMANDA) ?Left?Ventricle: Left ventricle size is normal. Normal wall thickness. Normal wall motion. Normal systolic function with a visually estimated EF of 60 - 65%. Normal diastolic function. ?Right?Ventricle: Right ventricle size is normal. Normal systolic function. ?Left?Atrium: Left atrium size is normal. ?Tricuspid?Valve: Trace transvalvular regurgitation. Insufficient tricuspid regurgitation jet to estimate RVSP . ?IVC/SVC: IVC diameter is less than or equal to 21 mm and decreases greater than 50% during inspiration; therefore the estimated right atrial pressure is normal (~0-5 mmHg). Left VentricleLeft ventricle size is normal. Normal wall thickness. Normal wall motion. Normal systolic function with a visually estimated EF of 60 - 65%. Normal diastolic function.Right VentricleRight ventricle size is normal. Normal systolic function.Left AtriumLeft atrium size is normal.Right AtriumRight atrium size is normal.IVC/SVCIVC diameter is less than or equal to 21 mm and decreases greater than 50% during inspiration; therefore the estimated right atrial pressure is normal (~0-5 mmHg).Mitral ValveMitral valve structure is normal. Trace transvalvular regurgitation.Tricuspi d ValveTricuspid valve structure is normal. Trace transvalvular regurgitation. Insufficient tricuspid regurgitation jet to estimate RVSP .Aortic ValveAortic valve structure is normal. No hemodynamically significant .Pulmonic ValveNot well visualized.Ascending AortaNormal sized annulus.PericardiumEvi dence of epicardial fat. Trivial pericardial effusion present.Study DetailsStudy quality was adequate. A complete echocardiogram was performed using 2D, color flow Doppler and spectral Doppler. 2 mL of Definity ultrasound enhancing agent used. Patient exhibited sinus rhythm. [facility] GLUCOSE (AUTOMATED)2024-10-11 18:20:21* Test Item Value Reference Range Interpretation Comme nts POCT GLU (test code = 1135640748) 121 mg/dL 70-110 H Lab Interpretation (test cod e = 54132-5) Abnormal [facility] GLUCOSE (AUTOMATED)2024-10-11 18:20:21* Test Item Value Reference Range Interpretation Comme nts POCT GLU (test code = 0220100410) 121 mg/dL 70-110 H Lab Interpretation (test cod e = 94872-3) Abnormal [facility] GLUCOSE (AUTOMATED)2024-10-11 14:59:51* Test Item Value Reference Range Interpretation Comme nts POCT GLU (test code = [id number]) 127 mg/dL 70-110 H Lab Interpretation (test cod e = 25949-1) Abnormal [facility] GLUCOSE (AUTOMATED)2024-10-11 14:59:51* Test Item Value Reference Range Interpretation Comme nts POCT GLU (test code = [id number]) 127 mg/dL 70-110 H Lab Interpretation (test cod e = 30112-0) Abnormal [facility] GLUCOSE (AUTOMATED)2024-10-11 03:10:52* Test Item Value Reference Range Interpretation Comme nts POCT GLU (test code = [id number]) 140 mg/dL 70-110 H Lab Interpretation (test cod e = 73117-5) Abnormal [facility] GLUCOSE (AUTOMATED)2024-10-11 03:10:52* Test Item Value Reference Range Interpretation Comme nts POCT GLU (test code = [id number]) 140 mg/dL 70-110 H Lab Interpretation (test cod e = 72690-1) Abnormal [facility] GLUCOSE (AUTOMATED)2024-10-10 14:21:18* Test Item Value Reference Range Interpretation Comme nts POCT GLU (test code = [id number]) 119 mg/dL 70-110 H Lab Interpretation (test cod e = 50390-1) Abnormal [facility] GLUCOSE (AUTOMATED)2024-10-10 14:21:18* Test Item Value Reference Range Interpretation Comme nts POCT GLU (test code = [id number]) 119 mg/dL 70-110 H Lab Interpretation (test cod e = 07224-9) Abnormal [facility] GLUCOSE (AUTOMATED)2024-10-10 02:52:16* Test Item Value Reference Range Interpretation Comme nts POCT GLU (test code = [id number]) 156 mg/dL 70-110 H Lab Interpretation (test cod e = 72288-8) Abnormal [facility] GLUCOSE (AUTOMATED)2024-10-10 02:52:16* Test Item Value Reference Range Interpretation Comme nts POCT GLU (test code = 4270872744) 156 mg/dL 70-110 H Lab Interpretation (test cod e = 08143-1) Abnormal [facility] GLUCOSE (AUTOMATED)2024-10-10 00:42:13* Test Item Value Reference Range Interpretation Comme nts POCT GLU (test code = 3385704094) 155 mg/dL 70-110 H Lab Interpretation (test cod e = 00330-6) Abnormal [facility] GLUCOSE (AUTOMATED)2024-10-10 00:42:13* Test Item Value Reference Range Interpretation Comme nts POCT GLU (test code = 6147857528) 155 mg/dL 70-110 H Lab Interpretation (test cod e = 39942-0) Abnormal [facility] GLUCOSE (AUTOMATED)2024-10-09 18:25:42* Test Item Value Reference Range Interpretation Comme nts POCT GLU (test code = 1367856482) 131 mg/dL 70-110 H Lab Interpretation (test cod e = 72183-7) Abnormal [facility] GLUCOSE (AUTOMATED)2024-10-09 18:25:42* Test Item Value Reference Range Interpretation Comme nts POCT GLU (test code = 0166406900) 131 mg/dL 70-110 H Lab Interpretation (test cod e = 44475-4) Abnormal [facility] GLUCOSE (AUTOMATED)2024-10-09 14:35:16* Test Item Value Reference Range Interpretation Comme nts POCT GLU (test code = 6646403106) 145 mg/dL 70-110 H Lab Interpretation (test cod e = 66167-1) Abnormal [facility] GLUCOSE (AUTOMATED)2024-10-09 14:35:16* Test Item Value Reference Range Interpretation Comme nts POCT GLU (test code = 9234578789) 145 mg/dL 70-110 H Lab Interpretation (test cod e = 94808-9) Abnormal [facility] GLUCOSE (AUTOMATED)2024-10-09 03:28:11* Test Item Value Reference Range Interpretation Comme nts POCT GLU (test code = 7346796234) 148 mg/dL 70-110 H Lab Interpretation (test cod e = 62699-0) Abnormal [facility] GLUCOSE (AUTOMATED)2024-10-09 03:28:11* Test Item Value Reference Range Interpretation Comme nts POCT GLU (test code = 0403826355) 148 mg/dL 70-110 H Lab Interpretation (test cod e = 07460-6) Abnormal [facility] GLUCOSE (AUTOMATED)2024-10-08 22:50:43* Test Item Value Reference Range Interpretation Comme nts POCT GLU (test code = 8121645182) 94 mg/dL 70-110 Lab Interpretation (test cod e = 20540-0) Normal [facility] GLUCOSE (AUTOMATED)2024-10-08 22:50:43* Test Item Value Reference Range Interpretation Comme nts POCT GLU (test code = 9224614096) 94 mg/dL 70-110 Lab Interpretation (test cod e = 13506-6) Normal [facility] GLUCOSE (AUTOMATED)2024-10-08 15:05:41* Test Item Value Reference Range Interpretation Comme nts POCT GLU (test code = 0252037985) 124 mg/dL 70-110 H Lab Interpretation (test cod e = 45926-7) Abnormal [facility] GLUCOSE (AUTOMATED)2024-10-08 15:05:41* Test Item Value Reference Range Interpretation Comme nts POCT GLU (test code = 9962887100) 124 mg/dL 70-110 H Lab Interpretation (test cod e = 78048-0) Abnormal [facility] GLUCOSE (AUTOMATED)2024-10-08 02:21:39* Test Item Value Reference Range Interpretation Comme nts POCT GLU (test code = 3289614740) 107 mg/dL 70-110 Lab Interpretation (test cod e = 87225-9) Normal [facility] GLUCOSE (AUTOMATED)2024-10-08 02:21:39* Test Item Value Reference Range Interpretation Comme nts POCT GLU (test code = 9734829352) 107 mg/dL 70-110 Lab Interpretation (test cod e = 11966-3) Normal [facility] GLUCOSE (AUTOMATED)2024-01-07 13:02:20* Test Item Value Reference Range Interpretation Comme nts POCT GLU (test code = 4649963416) 123 mg/dL 70-110 H Lab Interpretation (test cod e = 57445-5) Abnormal [facility] GLUCOSE (AUTOMATED)2024-01-07 13:02:20* Test Item Value Reference Range Interpretation Comme nts POCT GLU (test code = 6494048357) 123 mg/dL 70-110 H Lab Interpretation (test cod e = 89108-7) Abnormal [facility] GLUCOSE (AUTOMATED)2023-12-24 14:22:49* Test Item Value Reference Range Interpretation Comme nts POCT GLU (test code = 3612932421) 118 mg/dL 70-110 H Lab Interpretation (test cod e = 02423-9) Abnormal [facility] GLUCOSE (AUTOMATED)2023-12-24 14:22:49* Test Item Value Reference Range Interpretation Comme nts POCT GLU (test code = 2524276386) 118 mg/dL 70-110 H Lab Interpretation (test cod e = 28548-8) [facility] 01:36:07* Test Item Value Reference Range Interpretation Comme nts Height (test code = 4547925371) 63 in Weight (test code = 4958601943) 174 lbs Systolic BP (test code = 0076420842) 133 mmHg Diastolic BP (test code = 5681926150) 68 mmHg Heart Rate (test code = 1730251655) 74 bpm Ao root diam (test code = 2741486117) 3.50 cm Aortic root (test code = 3913796399) 3.5 cm Ao root annulus (test code = 3852699003) 3.5 cm BSA (test code = 7970208204) 1.82 m2 LVOT diameter (test code = 6703117733) 2.19 cm LVOT area (test code = 1360168615) 3.80 cm2 LA size (test code = 8158177389) 4.4 cm ACS (test code = 0335989355) 2.70 cm PV PEAK VELOCITY (test code = 4573227146) 80.7 cm/s PV peak gradient (test code = 1875469004) 2.6 mmHg MV E-F slope (test code = 9986657225) 33.90 cm/s MV Peak E Sammy (test code = 0252544629) 73.4 cm/s MV Peak A Sammy (test code = 8775770551) 76.0 cm/s E/A ratio (test code = 6523420967) 0.97 ratio MV valve area p 1/2 method (test code = 5008685142) 3.90 cm2 MV dec slope (test code = 6830033714) 385.40 cm/s2 MV P1/2t max sammy (test code = 4286300894) 73.40 cm/s LVOT stroke volume (test code = 8615898971) 79.40 cm3 LVOT peak sammy (test code = 0724435141) 102.7 cm/s LVOT mn grad (test code = 4806720166) 1.8 mmHg AV LVOT peak gradient (test code = 0508378191) 4.2 mmHg LVOT peak VTI (test code = 2529968097) 21.1 cm LV V1 mean (test code = 4595486317) 61.10 cm/s Aortic valve mean velocity (test code = 0244932313) 61.4 cm/s Ao peak sammy (test code = 3837765024) 100.6 cm/s Ao VTI (test code = 1089084339) 19.9 cm AV area by cont VTI (test code = 4721052090) 4.0 cm2 AV area peak sammy (test code = 8535155959) 3.8 cm2 Ao max PG (test code = 6058475359) 4.00 mm[Hg] AV peak gradient (test code = 1582736185) 4.0 mmHg AV valve area (test code = 2782508196) 4.00 cm2 AV mean gradient (test code = 3203087886) 1.78 mmHg LVIDD (test code = 1196845084) 4.50 cm Left Ventricular End Diastolic Volume by Teichholz Method (test code = 4076296) 90.9 mL IVS (test code = 6497906185) 1.14 cm Interventricular Septum Diastolic Thickness by 2D (test code = 5641696) 1.14 cm LVPWD (test code = 0395663768) 1.20 cm PW (test code = 5069340816) 1.20 cm 0.6-1.1 EF(Teich) (test code = 6149750680) 60.50 % LVIDS (test code = 3933591403) 3.00 cm Left Ventricular End Systolic Volume by Teichholz Method (test code = 1476839) 35.9 mL FS (test code = 9722666566) 32 % EF - 2D (test code = 99470072) 60.50 % Radiology Study observation (narrative) (test code = 44722-5) AMANDA (test code = AMANDA) ?Left?Ventricle: Left [...] mL of Lumason ultrasound enhancing agent used. [facility] Consult Notes Date/Time Note Provider Source 2024-10-08 09:35:00 Associated Order(s): CONSULT ADULT OCCUPATIONAL THERAPY OT GENERAL EVALUATION Consult received via [place], EMR reviewed and evaluation completed 10/08/24. Patient referred to occupational therapy for evaluation and treatment secondary to GI bleed. Patient agreeable to participate in occupational therapy. Patient found semireclining in bed, Spouse present. Discharge Recommendations: Therapy Needs and Potential:Not applicable as no further skilled acute care OT needs at this time. Challenges to Home Transition: - Increased risk of falls - Environmental barriers - combo tub Equipment Recommendations: Shower Chair for Energy Conservation PLAN OF CARE: Discharge from OT services Precautions: Weight bearing status: NA General: PPE Utilized: Gloves Bracing: N/A Subjective: "I don't have any concerns. We are pretty active people." Current Occupational Performance and/or Treatment: AM-PAC 6 Clicks (Raw Score 0=Dependent, 24=Independent; Low function Raw Score 0= Dependent, 32=Independent): Raw Score - Daily Activity: 24 T-Scale Score - Daily Activity: 57.54 Feeding: Independent, to eat per patient report Grooming: Independent, to complete standing grooming tasks at sink without assistive device UB Dressing: Independent, to don gown from front and secure appropriately while standing LB Dressing: Independent, to don pajama pants and non slip socks Tub/Shower Transfer: Independent, simulated step over threshold for combo tub at home, cleared without holding on to nearby objects or grab bars for needed stability Toilet Transfer: Independent, with grab bar Functional Mobility: The patient was independent with all mobility for safe participation in BADLs. Patient/caregiver educated on: Adaptive equipment , Energy conservation, Relaxation/breathing techniques, Role of OT, and Safety awareness Patient left semireclining in bed with call brown in reach. Spouse present. Please, see full evaluation below for more detail. OT EVALUATION: 73 year old female Admit date: 10/07/2024 Date of onset: 10/07/2024 Admit Diagnosis: Dyslipidemia [E78.5] OT Diagnosis: Impaired IADL independence and Decreased endurance PMH: Past Medical History: Diagnosis Date HTN (hypertension) Tachycardia PSH: Past Surgical History: Procedure Laterality Date HYSTERECTOMY 1960 PHACOEMULSIFICATION OF CATARACT WITH INTRAOCULAR LENS IMPLANT Left 12/24/2023 Surgeon: Rajat Graf MD; Location: [facility] PHACOEMULSIFICATION OF CATARACT WITH INTRAOCULAR LENS IMPLANT Right 01/07/2024 Surgeon: Rajat Graf MD; Location: [facility] PAIN: Denies pain before and after session. OCCUPATIONAL ROLES/HOME ENVIRONMENT: Home environment: The patient lives in a single story home with her and dog. Bathroom access: Yes Bathroom setup: [employer] Occupation(s): Retired. She reports having a love for cooking. Function prior to admission: Household ambulation, Community ambulation, Independent with BADLs, and Independent with IADLs Suspected ischemic or hemorraghic stroke patient: No Equipment prior to admission: Rolling Walker, Straight Cane PERFORMANCE SKILLS/FACTORS: UE Muscle Tone: bilateral WNL UE ROM: bilateral AROM WFL UE Strength: MARLON UE WFL Hand dominance: right Dexterity/Coordination: bilateral Intact Endurance - Sitting: Good Standing: Fair+ Sitting Balance - Static: Good Dynamic: Good Standing: Balance - Static Good Dynamic: Good Dizziness: No Skin Integrity: No breakdown noted and defer full skin assessment to nursing Sensation: bilateral Intact to light touch Oral Motor: WFL Communication: Able to verbalize needs Yes Other: N/A Vision: WFL Yes Other: reading glasses Hearing: good; no issues reported COGNITION: Orientation: person, place, date/time, and situation Follows Commands: 1-step Yes Multi-step Yes Inconsistencies No Safety Awareness/Judgment: Good PROBLEM LIST: Decreased independence with IADL and Decreased endurance for functional activity REHAB POTENTIAL/PROGNOSIS: good PATIENT/FAMILY GOALS: 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 TREATMENT/INTERVENTION PLAN: Discharge from OT PATIENT-FAMILY TEACHING Patient and Significant other provided with preferred teaching of verbal information and demonstration on Adaptive equipment , Energy conservation, Relaxation/breathing techniques, Role of OT, and Safety awareness. Shows readiness to learn. Verbal instruction and Demonstration teaching provided. Individual is able to read and verbalizes understanding of teaching provided. Monique Shepherd OTR, OTD Pager #: [phone] Total Timed Treatment Codes: 8 Min Total Treatment Time: 20 Min Patient Complexity Level Low - An occupational therapy evaluation of low complexity was completed using the above tests and measures. The following information was obtained: An occupational profile and medical and therapy history, including a brief history with review of medical and/or therapy records related to the presenting problem. Various standardized and non-standardized assessments were used to identify at least 1-3 performance deficits related to physical, cognitive, or psychosocial skills that result in activity limitations and/or participation restrictions. Clinical decision making of low complexity may have been utilized, which includes an analysis of the occupational profile, analysis of data from problem-focused assessment(s), and consideration of a limited number of treatment options. Patient may presents with no comorbidities that affect occupational performance. Modification of tasks or assistance (e.g., physical or verbal) with assessment(s) may not have been necessary to enable completion of evaluation component. ENTIVE MAINTENANCE ENGINEER Monique Shepherd OT [facility] 2024-10-08 09:33:47 Associated Order(s): CONSULT GASTROENTEROLOGY Department of Gastroenterology & Hepatology Consult Note Requesting Physician: Ana Vinson, * Service: IM Reason for Consultation: melena and acute anemia Date of Service: 10/08/2024 CHIEF COMPLAINT: Melena History of Present Illness Steff Jacobo is a 73 year old female with a PMHX of - A fib on eliquis - DM2 - CAD - hypothyroidism Presents to an OSH yesterday with dizziness and lightheaded for 1 week. Was found to have a hb of 6 from a reported normal hb being normal 3 months back. Reports black tarry stool, last one 3 days ago. Has not had any bowel movements after presentation. Since admission she has been HDS, Hb 8.4 and then repeat 7.2. Her last dose of eliquis was on 10/06/24. Denies NSAID use. PREVIOUS ENDOSCOPY: COLONOSCOPY: 3 years ago and had a small polyp which was removed. Told that she does not need further colonoscopies EGD: 5 years ago PAST MEDICAL HISTORY Past Medical History: Diagnosis Date HTN (hypertension) Tachycardia PAST SURGICAL HISTORY Past Surgical History: Procedure Laterality Date HYSTERECTOMY 1960 PHACOEMULSIFICATION OF CATARACT WITH INTRAOCULAR LENS IMPLANT Left 12/24/2023 Surgeon: Rajat Graf MD; Location: [facility] PHACOEMULSIFICATION OF CATARACT WITH INTRAOCULAR LENS IMPLANT Right 01/07/2024 Surgeon: aRjat Graf MD; Location: [facility] FAMILY HISTORY Family History Problem Relation Age of Onset Diabetes Mother Diabetes Sister Diabetes Sister Diabetes Sister Diabetes Daughter Diabetes Grandchild T1DM ALLERGIES Allergies Allergen Reactions Sulfa (Sulfonamide Antibiotics) Itching and Rash MEDICATIONS Reviewed SOCIAL HISTORY Social History Socioeconomic History Marital status: Spouse name: Not on file Number of children: Not on file Years of education: Not on file Highest education level: Not on file Occupational History Not on file Tobacco Use Smoking status: Former Smokeless tobacco: Never Vaping Use Vaping status: Never Used Substance and Sexual Activity Alcohol use: Not Currently Alcohol/week: 0.0 standard drinks of alcohol Drug use: Not Currently Sexual activity: Not Currently Partners: Male Other Topics Concern Not on file Social History Narrative Not on file Social Determinants of Health Financial Resource Strain: Not on file Food Insecurity: Not on file Transportation Needs: Not on file Physical Activity: Not on file Stress: Not on file Social Connections: Not on file Housing Stability: Not on file PHYSICAL EXAM: BP 107/64 (BP Location: Left arm, Patient Position: Supine) | Pulse 77 | Temp 37.5 ?C (99.5 ?F) (Tympanic) | Resp 18 | Wt 78.1 kg (172 lb 1.6 oz) | SpO2 93% | BMI 30.49 kg/m? Constitutional: comfortable and in no acute distress EENT: no scleral icterus, no conjunctival pallor Respiratory: non-labored, on room air Gastrointestinal: soft, non-distended, non-tender to palpation in all quadrants, no rebound tenderness or guarding MSK: moving all extremities Skin: no rash or jaundice Neurologic: grossly non-focal Psychiatric: normal affect LABORATORY HGB (g/dL) Date Value 10/08/2024 7.2 (L) 10/07/2024 8.4 (L) 01/01/2021 12.6 PLT (10*3/?L) Date Value 10/08/2024 245 10/07/2024 270 01/01/2021 290 INR (no units) Date Value 10/08/2024 1.1 BMP NA (mmol/L) Date Value 10/08/2024 140 K (mmol/L) Date Value 10/08/2024 3.8 CALCIUM (mg/dL) Date Value 10/08/2024 8.1 (L) CL (mmol/L) Date Value 10/08/2024 112 (H) BUN (mg/dL) Date Value 10/08/2024 20 CREATININE (mg/dL) Date Value 10/08/2024 1.03 GLUCOSE (mg/dL) Date Value 10/08/2024 103 CO2 TOTAL (mmol/L) Date Value 10/08/2024 22 (L) Hepatic Function Panel ALBUMIN (g/dL) Date Value 10/07/2024 3.5 T PROTEIN (g/dL) Date Value 10/07/2024 6.0 (L) TOTAL BILI (mg/dL) Date Value 10/07/2024 0.8 BILI UNCON (mg/dL) Date Value 10/07/2024 0.4 BILI CONJ (mg/dL) Date Value 10/07/2024 0.0 ALT(SGPT) (U/L) Date Value 01/28/2018 32 ALTv (U/L) Date Value 10/07/2024 11 AST(SGOT) (U/L) Date Value 10/07/2024 23 ALK PHOS (U/L) Date Value 10/07/2024 37 ASSESSMENT and PLAN [place] is a 73 year old female with PMH as stated above, GI consulted for melena with acute blood loss anemia concerning for an acute upper Gi bleed. D/d includes PUD, gastritis, esophagitis, angioectasia and malignancy. Last dose of eliquis was on 10/06/24 Plan: - Keep NPO for EGD today afternoon - Maintain 2 large bore IV lines - Monitor Hgb q6h, transfuse if there is active bleeding or Hb<7 - Maintain active type and cross at all times - Protonix 80 mg IV bolus and then 40 mg BID - Hold all anti-platelet agents and anticoagulation at this time - Notify GI fellow remediation project engineer with any changes Patient was seen and discussed with Dr. Mcgill GI will continue to follow. Please call with any questions. Robby Cao MD Gastroenterology and Hepatology Fellow ENTIVE MAINTENANCE ENGINEER Associated attestation - Jair Mcgill MD - 10/08/2024 12:16 PM PREVENTIVE MAINTENANCE ENGINEER I personally examined the patient on 10/08/[address] Cao's note as written . I actively participated in the decision-making process. Please see the fellow's note for additional details. Jair Mcgill MD Radiographer Mammographer of Internal Medicine Division of Gastroenterology and Hepatology [facility] 2024-10-08 09:03:00 Associated Order(s): CONSULT ADULT PHYSICAL THERAPY Patient agreeable to working with physical therapy. Patient semireclining in bed, Spouse present. Recommend nursing staff utilize non device to safely assist patient with mobility out of the bed or chair. PHYSICAL THERAPY EVALUATION Consult received, chart reviewed and evaluation complete this date. Patient is referred to PT for evaluation and treatment. Patient is a 73 year old female who presents to hospital for Dyslipidemia [E78.5] symptomatic anemia 2/2 gi blood loss . Discharge Recommendations: Therapy Needs and Potential: Patient without any skilled PT needs at this time. Challenges to Home Transition: increased risk of falls Equipment recommendations: no device Current Functional Status and/or Treatment: AM-PAC 6 Clicks (Raw Score 0=Dependent, 24=Independent; Low function Raw Score 0= Dependent, 32=Independent): Raw Score - Basic Mobility : 24 T-Scale Score - Basic Mobility : 57.68 Bed Mobility: Supine-sit: Independent Sit to supine: Independent Dizziness No Transfers: Sit to stand: Independent using no device Stand to sit: Independent using no device Dizziness No Ambulation: Assisted patient with ambulation as follows: 200 feet using no device and Independent. Patient presenting with Step-through gait pattern. Educated on pacing and gait distance progression as tolerated. Dizziness No Therapeutic exercise: patient educated in Fall prevention, Relaxation/breathing techniques, and Safety awareness. Functional Outcome Measures: (Values within the past 12 hours) Tinetti Gait Score- # / 12 Initiation of gait: No hesitancy Step length: On both sides, swing foot passes stance foot Foot clearance: Both feet completely clear floor Step Symmetry: Step lengths equal Step continuity: Steps appear continuous Path: Straight without AD Trunk: No sway, no flexion, no use of arms, no use of AD Walking: Heels almost touching Tinetti Gait Score: 12 Tinetti Gait Score Interpretation: >= 7 - Low risk for falls TINETTI BALANCE SCORE- # / 16 Sitting balance: Steady, safe Arises: Able without using arms Attempts to Rise: Able to rise, 1 attempt Immediate standing balance (first 5 sec): Steady without walker or other support Standing Balance: Narrow stance without support Nudged 3 times *: Steady Eyes closed*: Steady Turning 360 degrees: Continuous steps and steady Sitting down: Safe smooth Tinetti Balance Score: 16 Tinetti Balance Interpretation: >= 9 - Low risk for falls After session, patient semireclining in bed, Spouse present. Call button provided. RN informed. PLAN OF CARE: PT signs off. See below for complete details. Admit Date: 10/07/2024 Hospital Diagnosis:Dyslipidemia [E78.5] symptomatic anemia 2/2 gi blood loss PT Diagnosis: Malaise/fatigue Weight Bearing Precaution: NA General Precautions: PPE used:Gloves, General, Fall, Bracing/Cast present or required:N/A PMH: Past Medical History: Diagnosis Date HTN (hypertension) Tachycardia PSH: Past Surgical History: Procedure Laterality Date HYSTERECTOMY 1960 PHACOEMULSIFICATION OF CATARACT WITH INTRAOCULAR LENS IMPLANT Left 12/24/2023 Surgeon: Rajat Graf MD; [place] [facility] [place] PHACOEMULSIFICATION OF CATARACT WITH INTRAOCULAR LENS IMPLANT Right 01/07/2024 Surgeon: Rajat Graf MD; Location: [facility] PRIOR LIVING SITUATION: lives with their spouse and in a house, DME: No device Prior level of Mobility: community ambulation, house hold ambulation, ambulates with no device Suspected ischemic or hemorraghic stroke:No Subjective: Patient in bed and agreeable to Physical Therapy session. Patient reports " better now" Patient/Family Goals: to return to normal Patient/Family verbalizes understanding of condition: Yes PAIN: denies pain before and after session COMMUNICATION Primary Language: Telugu Able to Verbalize needs: Yes Vision:good; no issues reported Hearing:good; no issues reported ORIENTATION/COGNITION: Oriented to: person, place, date/time, and situation Awake: Yes Alert: Yes Dizzy: No Follows Commands: Yes 1-Step Yes Multi-Step Yes Inconsistent: No NEUROLOGICAL Light Touch: within functional limits bilateral LE, Heel to harden: WNL Tone: WNL BLE BALANCE: Sitting: Static: Excellent Dynamic: Excellent Standing: Static: Excellent Dynamic: Good RANGE OF MOTION: within functional limits bilateral LE, STRENGTH: 5/5 (Normal), bilateral LE ENDURANCE: Good, Room air SKIN INTEGRITY: intact, PROBLEM LIST: Decreased endurance ASSESSMENT: Patient is a 73 year old female seen secondary to the above listed diagnosis. No further inpatient PT needs identified at this time. Rehabilitation Potential: NA as no further therapy needs Goals: The following goals are to maximize independence and safety with functional mobility to eventually return to prior living situation and prior functional status. Defer as no PT needs. Treatment Plan: Evaluation only, Discharge from PT , and Safety education, patient/caregiver education PATIENT EDUCATION: Patient provided with preferred teaching of verbal information on role of PT, plan of care, . Shows readiness to learn. Verbal instruction teaching provided. Individual is able to read and verbalizes understanding of teaching provided and accurately returns demonstration of skill. Total Time Tx Codes in Minutes: 09 min Total Treatment Time in Minutes: 23 min Clovis Hassan PT, DPT License # [id number] [facility] Department of Rehabilitation Services [facility] ENTIVE MAINTENANCE ENGINEER Clovis Hassan PT [facility] - Health History and Physical Notes Date/Time Note Provider Source 2024-10-08 11:58:11 Endoscopy H & P Age: [age] year old Sex: female ASA Class: III Indication: melena Steff Jacobo is a 73 year old female with Pmhx as below presents for melena and acute blood loss anemia Antiplatelets/Anticoagulants: eliquis Histories: Past Medical History: Diagnosis Date HTN (hypertension) Tachycardia Family History Problem Relation Age of Onset Diabetes Mother Diabetes Sister Diabetes Sister Diabetes Sister Diabetes Daughter Diabetes Grandchild T1DM Past Surgical History: Procedure Laterality Date HYSTERECTOMY 1960 PHACOEMULSIFICATION OF CATARACT WITH INTRAOCULAR LENS IMPLANT Left 12/24/2023 Surgeon: Rajat Graf MD; [place] [facility] [place]EM[place] OF CATARACT WITH INTRAOCULAR LENS IMPLANT Right 01/07/2024 Surgeon: Rajat Graf MD; Location: [facility] OR LOCATION Current Facility-Administered Medications Medication Dose Route Frequency Last Rate Last Admin acetaminophen (TYLENOL) tablet 650 mg 650 mg Oral Q6HPRN dextrose 50 % in water (D50W) injection 25 mL 25 mL Slow IV Push PRN glucagon HCL injection 1 mg 1 mg Intramuscular PRN levothyroxine (SYNTHROID) tablet 125 mcg 125 mcg Oral QAM-0600 125 mcg at 10/08/24 0510 ondansetron (ZOFRAN (PF)) injection 4 mg 4 mg Slow IV Push Q6HPRN pantoprazole (PROTONIX) injection 40 mg 40 mg Slow IV Push Q12H 40 mg at 10/08/24 0920 PARoxetine (PAXIL) tablet 10 mg 10 mg Oral QHS 10 mg at 10/07/242014 polyethylene glycol 3350 powder 17 g 17 g Oral DAILY ramelteon (ROZEREM) tablet 8 mg 8 mg Oral QHS 8 mg at 10/07/242014 rosuvastatin (CRESTOR) tablet 10 mg 10 mg Oral QHS 10 mg at 10/07/242014 sennosides-docusate sodium (SENOKOT-S) 8.6-50 mg per tablet 1 tablet 1 tablet Oral DAILY 1 tablet at 10/08/24 0920 Sliding Scale Insulin - Lispro (HumaLOG) Subcutaneous TID MEALS+HS vitamin B-12 (CYANOCOBALAMIN) tablet 1,000 mcg 1,000 mcg Oral DAILY 1,000 mcg at 10/08/24 0920 Allergies Allergen Reactions Sulfa (Sulfonamide Antibiotics) Itching and Rash Social History Socioeconomic History Marital status: Tobacco Use Smoking status: Former Smokeless tobacco: Never Vaping Use Vaping status: Never Used Substance and Sexual Activity Alcohol use: Not Currently Alcohol/week: 0.0 standard drinks of alcohol Drug use: Not Currently Sexual activity: Not Currently Partners: Male Physical Exam: Mental Status: alert, oriented x3 Chest: unlabored on room air Abdomen: soft, non-distended, non-tender, no masses Impression and Plan: Steff Jacobo is a 73 year old female with PMH as above who presents for melena. Will proceed with EGD. Benefits, risks, alternatives, and likelihood of achieving patient's goals of care discussed. Risks discussed including but not limited to aspiration, infection, bleeding, injury to the GI tract or surrounding vessels/structures, perforation, missed polyps/lesions, failure to obtain a diagnosis, failure to complete the procedure, cardiovascular complications such as PR, stroke, arrhythmia, and . Informed consent obtained/verified. Education provided to the patient about the procedure. JOAQUINA Barrett 10/08/2024 11:58 AM ENTIVE MAINTENANCE ENGINEER Associated attestation - Jair Mcgill MD - 10/08/2024 12:18 PM PREVENTIVE MAINTENANCE ENGINEER I personally examined the patient on 10/08/[address] Cao's note as written . I actively participated in the decision-making process. Please see the fellow's note for additional details. Jair Mcgill MD Radiographer Mammographer of Internal Medicine Division of Gastroenterology and Hepatology [facility] 2024-10-07 16:41:08 MEDICINE [facility] PCP: Piotr Neely Date of Service: 10/07/2024 CHIEF COMPLAINT: Gi bleed History of Present Illness Steff Jacobo is a 73 year old female with a PMH significant for Type 2 diabetes mellitus, HTN, Non obstructive CAD, GERD, reported Afib on Eliquis (CV-4), hypothyroidism who presents for symptomatic anemia 2/2 gi blood loss. Orginially presented to OSH for dizziness and lightheadedness that started 1 week ago. Denies syncope. Reports she take antihypertensive only amlodipine 5 mg qdaily, 50 mg metoprolol succinate qdaily. Reports she took her BP at home it was 79/55. She says this is why she went to the hospital. She said they did a KAROLINA at OSH and it was black. She says she has been having 4 or 5 episodes of diarrhea a day. She says it has not looked black. She denies hematemesis. She denies hematochezia. She reports central abdominal pain. She says she had colonoscopy 2 years ago that was negative for polyps, did have diverticulosis present. She says she had an EGD 5 years ago for GERD symptoms and it only showed hiatal hernia. Denies smoking hx and alcohol hx. She last took Eliquis for afib yesterday morning. Also takes daily aspirin. She says she stopped taking iron tablets 6 month ago. In regard to Afib hx, no documented hx of afib. Patient states she has had palpitations in the past and was put on metoprolol for that reason. States eliquis was started for palpitations. Denies CP. She reports SOB on exertion (when she is walking around) for the past 4 months. Denies fever or chills. She lives with her . She is independent with all ADLs.She follows with PCP In [place]. She arrived to the unit with vitals BP 134/72, HR 83, RR 18, T98.7 F, and satting 98% on room air. Outside labs [facility] Hgb 7.0 Plt 331 Cr 1.03. AST <10 ALT <14 T bili 0.3 Trop HS 4.1 PT 13.5 BNP 152 CXR showed no acute intrathoracic abnormalities Social hx: none Given bolus protonix 80 mg and started on gtt Allergy to Sulfa drugs PAST MEDICAL HISTORY Past Medical History: Diagnosis Date HTN (hypertension) Tachycardia Past Surgical History: Procedure Laterality Date HYSTERECTOMY 1960 PHACOEMULSIFICATION OF CATARACT WITH INTRAOCULAR LENS IMPLANT Left 12/24/2023 Surgeon: Rajat Graf MD; Location: [facility] OR [facility] PHACOEMULSIFICATION OF CATARACT WITH INTRAOCULAR LENS IMPLANT Right 01/07/2024 Surgeon: Rajat Graf MD; Location: [facility] OR LOCATION Family History Problem Relation Age of Onset Diabetes Mother Diabetes Sister Diabetes Sister Diabetes Sister Diabetes Daughter Diabetes Grandchild T1DM ALLERGIES Allergies Allergen Reactions Sulfa (Sulfonamide Antibiotics) Itching and Rash MEDICATIONS No current facility-administered medications on file prior to encounter. Current Outpatient Medications on File Prior to Encounter Medication Sig Dispense Refill cholestyramine powder packet Take 4,000 mg by mouth in the morning and 4,000 mg in the evening. ketorolac 0.5 % ophthalmic solution INSTILL ONE (1) DROP(S) IN LEFT EYE TWICE A DAY FOR 2 WEEKS AFTER SURGERY. ofloxacin 0.3 % ophthalmic solution INSTILL ONE (1) DROP(S) IN LEFT EYE THE NIGHT BEFORE AND MORNING OF SURGERY, THEN ONE (1) DROP THREE TIMES A DAY FOR 1 WEEK POST-OP. prednisoLONE acetate 1 % ophthalmic suspension drops INSTILL ONE (1) DROP(S) IN LEFT EYE THREE TIMES A DAY FOR 1 WEEK, THEN ONE (1) DROP TWICE A DAY FOR 1 WEEK, THEN ONE (1) DROP ONCE A DAY FO ramelteon 8 mg tablet Take 1 tablet by mouth at bedtime. MOUNJARO 5 mg/0.5 mL subcutaneous injection inject 7.5 mg under the skin weekly. Pt takes on Friday amLODIPine 5 mg tablet Take 1 tablet by mouth in the morning. B.coagul,subtilis/inulin/vit C (CULTURELLE PROBIOTIC-PREBIOTIC ORAL) Take 200 mg by mouth daily before a meal. ELIQUIS 5 mg tablet Take 1 tablet by mouth in the morning and 1 tablet in the evening. pantoprazole 40 mg EC tablet Take 1 tablet by mouth in the morning. PARoxetine 10 mg tablet Take 1 tablet by mouth at bedtime. rosuvastatin 10 mg tablet Take 1 tablet by mouth at bedtime. clobetasoL 0.05 % ointment Apply to area(s) daily. Use every night for 4 weeks and then three times a week, M/W/F 45 g 1 estradioL 0.01 % (0.1 mg/gram) vaginal cream Insert 1 g into vagina in the morning. Use every night for 2 weeks and then three times a week M/W/F 42.5 g 1 GLIPIZIDE XL 2.5 mg 24 hr tablet Take 1 tablet by mouth daily with breakfast. 90 tablet 0 METFORMIN ER 500 mg 24 hr tablet TAKE FOUR (4) TABLET(S) BY MOUTH ONCE A DAY. 360 tablet 0 metoprolol succinate XL 50 mg 24 hr tablet Take 1 tablet by mouth in the morning. levothyroxine 125 mcg tablet Take 1 tablet by mouth every morning. 90 tablet 2 eszopiclone 3 mg tablet Take 1 tablet by mouth at bedtime. aspirin 81 mg EC tablet Take 1 tablet by mouth in the morning. (Patient not taking: Reported on 10/07/2024) CYANOCOBALAMIN, VITAMIN B-12, (VITAMIN B-12 ORAL) Take by mouth daily. FERROUS SULFATE (IRON ORAL) Take by mouth daily. L.ACID/L.CASEI/B.BIF/B.MELVIN/FOS (PROBIOTIC BLEND ORAL) Take by mouth daily. MV-MN/IRON/FOLIC ACID/HERB 190 (VITAMIN D3 COMPLETE ORAL) Take by mouth daily. lancets (ONE TOUCH DELICA) 33 gauge Misc Use as directed, daily, Dx:E11.65 150 Each 1 SOCIAL HISTORY Social History Socioeconomic History Marital status: Tobacco Use Smoking status: Former Smokeless tobacco: Never Vaping Use Vaping status: Never Used Substance and Sexual Activity Alcohol use: Not Currently Alcohol/week: 0.0 standard drinks of alcohol Drug use: Not Currently Sexual activity: Not Currently Partners: Male Review of Systems Constitutional: Negative for chills, fatigue and fever. Respiratory: Negative for cough and shortness of breath. Cardiovascular: Negative for chest pain and palpitations. Gastrointestinal: Negative for abdominal pain, constipation, diarrhea and nausea. Genitourinary: Negative for dysuria. Neurological: Negative for headaches. PHYSICAL EXAMINATION Vitals: 10/07/24 1637 BP: 134/72 BP Location: Right arm Patient Position: Supine Pulse: 83 Resp: 18 Temp: 37.1 ?C (98.7 ?F) SpO2: 98% Weight: 78.1 kg (172 lb 1.6 oz) Physical Exam General: A&Ox4, no acute distress Cardiovascular: regular rate and rhythm, no murmurs Respiratory: clear to auscultation bilaterally, no respiratory distress Abdomen: abdomen soft, non-tender, non-distended, +BS Extremities: no clubbing, cyanosis, or edema Neuro: no focal deficits LABS - reviewed pertinent labs as below: Labs (last 24 hours): Chemistry CBC LFTs Coags, other - - - - 11.37 (H) 8.4 (L) 270 AST: - ALT: - PT: - INR: - - - - 26.0 (L) AP: - T Marlon: - PTT: - eGFR: - Ca: - % Jessika: 82.0 Prot: - Alb: - Lact: - Procal: - Mg: - PO4: - ANC: 9.33 (H) pBNP: - Trop I: - IMAGING - reviewed, pertinent results as below: EKG: pending, evaluate for Afib CHART REVIEW: pertinent information as below: ASSESSMENT/PLAN Steff Jacobo is a 73 year old female with PMH as listed above, admitted to the hospital with: Melena Acute blood loss anemia Symptomatic anemia Palpitations on Eliquis? GERD Patient on Eliquis presenting from OSH for dizziness 2/2 blood loss anemia, positive rectal exam, hgb- 6. Holding off on further AC at this time and temporizing bleed with IV PPI. HDS upon admission. Will engage GI in AM for endoscopy evaluation. - Admit to [facility] - Admission labs: STAT CBC, CMP, Coags, LFTs, Iron studies - H pylori stool antigen - IV protonix 40 bid - 2 large bore IV - IVF prn - q12h CBC - Hold: Aspirin 81, Eliquis - Consent for blood in chart Chronic conditions: HTN|HLD T2DM Hypothyroidism - SSI - Holding home oral antidiabetics - C/w home levothyroxine - C/w home Crestor Hardeep Merritt MD Internal Medicine|PGY-2 ENTIVE MAINTENANCE ENGINEER Associated attestation - Ana Vinson MD - 10/09/2024 10:48 PM PREVENTIVE MAINTENANCE ENGINEER After discussion with Dr. Damon (and Said), I examined this patient. I agree with resident's note with the following exception(s): Give IV iron for symptomatic iron deficiency anemia. Ana Vinson MD Geriatric Faculty INTERNAL MEDICINE [facility] 2024-01-07 08:27:50 H&P Update H&P was reviewed and the patient was examined and there was no change in the patient's condition. [facility] 2023-12-24 09:33:27 H&P Update H&P was reviewed and the patient was examined and there was no change in the patient's condition. [facility] Notes Date/Time Note Provider Source 2024-10-14 12:27:40 Addendum created 10/14/24 1227 by Denilson Yeager CRNA Intraprocedure Meds edited ENTIVE MAINTENANCE ENGINEER NACR-NURSE BOAT CREW DECK HAND,CERTIFIED REGISTERED NURSE BOAT CREW DECK HAND [facility] 2024-10-14 11:42:47 TRANSITIONAL CARE MANAGEMENT ASSESSMENT 10/14/2024 Steff Jacobo [id number] Steff Jacobo is a 73 year old /White female was admitted on 10/07/[address] She was discharged on 10/12/24 with discharge disposition of HR- Routine Discharge. Admitting Physician: Ana Vinson Discharge Diagnosis: FINAL DIAGNOSIS: Strep Viridans bacteremia No linked episodes TCM Iox-muah-is-face outreach documentation: Discharge Assessment Chart Assessed: 10/14/24 TCM Outreach Completed: 10/14/24 Do you have a few minutes to speak with me about how you are doing at home?: Yes (Pt reports she is doing great.) Discharge Instructions Do you understand your at-home instructions?: Yes (No questions at this time.) Medications Have you filled your prescriptions and do you have them in your home? : Yes Do you know how to take your medications?: Yes (No questions.) Supplies Did you receive applicable home medical supplies/equipment?: N/A Follow Up Appointment Has a follow up appointment been scheduled?: No May I assist with scheduling this appointment?: Patient has outside PCP Are you able to get to your appointment? Who will be taking you?: Yes Home Health Assistance Has the home health nurse contacted you since you've been home?: N/A Survey - Recognition Do you have any other questions or concerns at this time?: No Future Appointments: NOZA Ramirez RN [facility] 2024-10-12 06:39:29 Problem: Bleeding, Risk of Goal: Absence of impaired coagulation signs and symptoms Outcome: Progressing as expected Goal: Absence of active bleeding Outcome: Progressing as expected Problem: Procedure Routine Goal: Absence of post-procedure complications Outcome: Progressing as expected Problem: Pain Goal: Control of pain at or below patient's documented comfort goal Outcome: Progressing as expected ENTIVE MAINTENANCE ENGINEER Anika Webb RN [facility] 2024-10-11 16:20:24 Problem: Bleeding, Risk of Goal: Absence of impaired coagulation signs and symptoms Outcome: Progressing as expected Goal: Absence of active bleeding Outcome: Progressing as expected ENTIVE MAINTENANCE ENGINEER Jonathan Araya RN [facility] 2024-10-11 01:32:07 Problem: Bleeding, Risk of Goal: Absence of impaired coagulation signs and symptoms Outcome: Progressing as expected Goal: Absence of active bleeding Outcome: Progressing as expected Problem: Falls, Risk of Goal: Absence of falls Outcome: Progressing as expected Problem: Procedure Routine Goal: Absence of post-procedure complications Outcome: Progressing as expected Goal: Knowledge of procedure Outcome: Progressing as expected Problem: Pain Goal: Control of pain at or below patient's documented comfort goal Outcome: Progressing as expected Goal: Reduction in pain sensation Outcome: Progressing as expected NOZA Delgado RN [facility] 2024-10-10 20:03:19 Problem: Bleeding, Risk of Goal: Absence of impaired coagulation signs and symptoms Outcome: Progressing as expected Goal: Absence of active bleeding Outcome: Progressing as expected Problem: Falls, Risk of Goal: Absence of falls Outcome: Progressing as expected Problem: Procedure Routine Goal: Absence of post-procedure complications Outcome: Progressing as expected Goal: Knowledge of procedure Outcome: Progressing as expected NOZA Salamanca RN [facility] 2024-10-10 09:51:46 Images from the original note were not included. General Vancomycin Note [facility] Clinical Pharmacist Consult Consulting Service: Vancomycin (Pharmacy to Dose) Pharmacy Vancomycin Therapeutic Monitoring Note Patient Name CIRILO Sex Unit [place] Tao [id number] 1950 female TIFFANIE [id number] Indication for vancomycin and goal Age Total Body Weight Bacteremia AUC/MARK 400-600 mcg*hr/ mL 73 year old Wt Readings from Last 1 Encounters: 10/10/24 80.5 kg (177 lb 7.5 oz) Primary Physician: Cecilio Romo Duration of Antibiotics: TBD Concurrent Antibiotics: None Microbiology: 10/09 B.Cx preliminary growing GPC Laboratory Data and Vancomycin Dosing CREATININE Date/Time Value Ref Range Status 10/10/2024 04:28 AM 0.97 0.50 - 1.04 mg/dL Final 10/09/2024 06:03 AM 0.98 0.50 - 1.04 mg/dL Final 10/08/2024 05:16 AM 1.03 0.50 - 1.04 mg/dL Final Date S.Cr (mg/dL) CrCl (mL/min) Dosing Regimen and frequency @ Times (mg) Vancomycin Level @ Time (mcg/mL) 10/10 0.97 51.1 750 mg q12h scheduled - - - - - - - Assessment & Plan Patient is being managed for preliminary GPC growing in BCx during this admission for c/o symptomatic anemia 2/2 GI blood loss Will dose vanc using the obese kinetic model given BMI >30 Start vancomycin at 750 mg q12h, given age of [age] years old; this regimen expects to yield a therapeutic AUC 484.8 mg.h/L (trough 17.5 mg/L) Will draw a random level tomorrow 10/11 AM and adjust dose accordingly if needed Thank you for allowing pharmacy to participate in the care of this patient. Please feel free to contact us with any questions or concerns. Liz Nickerson, PharmD, BCPS, BCGP, AAHIVP [facility] Department of Pharmacy [facility] Phone: GAL: [phone] NOZA Nickerson [facility] 2024-10-09 23:19:53 Problem: Bleeding, Risk of Goal: Absence of impaired coagulation signs and symptoms Outcome: Progressing as expected Goal: Absence of active bleeding Outcome: Progressing as expected Problem: Falls, Risk of Goal: Absence of falls Outcome: Progressing as expected Problem: Procedure Routine Goal: Absence of post-procedure complications Outcome: Progressing as expected Goal: Knowledge of procedure Outcome: Progressing as expected ENTIVE MAINTENANCE ENGINEER Angie Lebron RN [facility] 2024-10-09 16:54:00 Problem: Bleeding, Risk of Goal: Absence of impaired coagulation signs and symptoms Outcome: Progressing as expected Goal: Absence of active bleeding Outcome: Progressing as expected Problem: Falls, Risk of Goal: Absence of falls Outcome: Progressing as expected Problem: Procedure Routine Goal: Absence of post-procedure complications Outcome: Progressing as expected Goal: Knowledge of procedure Outcome: Progressing as expected [facility] 2024-10-09 04:40:12 Problem: Bleeding, Risk of Goal: Absence of impaired coagulation signs and symptoms Outcome: Progressing as expected Goal: Absence of active bleeding Outcome: Progressing as expected Problem: Falls, Risk of Goal: Absence of falls Outcome: Progressing as expected Problem: Procedure Routine Goal: Absence of post-procedure complications Outcome: Progressing as expected Goal: Knowledge of procedure Outcome: Progressing as expected NOZA Trujillo RN [facility] 2024-10-08 17:56:54 Patient was feeling nauseous and is now running a fever of 101.7. Tylenol given, she continues on clear liquids. NOZA Gentile RN [facility] 2024-10-08 13:46:57 Patient: Steff Jacobo Procedure Summary Date: 10/08/24 Room / Location: [place] [address] / ENDOSCOPY ([facility]) OR LOCATION Anesthesia Start: 1225 Anesthesia Stop: 1255 Procedure: ESOPHAGOGASTRODUODENOSCOPY (Mouth) Diagnosis: Melena (Melena [K92.1]) Surgeons: Jair Mcgill MD Responsible Provider: Freddy Nieto MD Anesthesia Type: TIVA ASA Status: 3 Anesthesia Type: TIVA Last vitals BP (!) 166/65 (10/08/24 1341) Temp 36.6 ?C (97.9 ?F) (10/08/24 1341) Pulse 77 (10/08/24 1341) Resp 20 (10/08/24 1341) SpO2 92 % (10/08/24 1341) There were no known notable events for this encounter. Anesthesia Post Evaluation Patient location during evaluation: PACU Patient participation: complete - patient participated Level of consciousness: awake and alert Pain management: satisfactory to patient Airway patency: patent Cardiovascular status: acceptable and blood pressure returned to baseline Respiratory status: acceptable Hydration status: acceptable Comments: VSS @ baseline [facility] AN-ANESTHESIOLOGY ANESTHESIOLOGIST [facility] 2024-10-08 12:32:56 BRIEF OPERATIVE NOTE Date of Surgery: 10/08/2024 Surgeons and Role: * Jair Mcgill MD - Primary * Robby Cao MBBS - Fellow Pre-Op Diagnosis: Melena [K92.1] Post-Op Diagnosis Codes: * Melena [K92.1] Procedures: Procedure(s) (LRB): ESOPHAGOGASTRODUODENOSCOPY (N/A) CPT: CODINGHELP, Any Complications Encounters: Coughing and desturation Estimated Blood Loss: None Specimens Removed: * No specimens in log * * No implants in log * Patient's Condition: Good Findings: EGD - irregular z line at 35 cm - HH from 42 cm to 35 cm - Few fundic gland polyps - one small erosion at the pylorus - Normal duodenum - No blood or active areas of bleeding identified Any other important information: Plan: - Switch to PO pantoprazole daily - Keep on a clear liquid diet - CTM hemoglobin q12h - Keep on a clear liquid diet - Will need a colonoscopy - timing (inpatient vs outpatient) pending clinical course and assessment over the weekend - Consider outpatient thoracic surgery referral for HH repair Please see dictated operative report for additional detail. [facility] 2024-10-08 10:32:05 Name/ MRN / Age / Gender: Steff Jacobo, [id number] 73 year old female BMI: Estimated body mass index is 30.49 kg/m? as calculated from the following: Height as of 03/23/24: 1.6 m (5' 3"). Weight as of this encounter: 78.1 kg (172 lb 1.6 oz). Allergies: Sulfa (sulfonamide antibiotics) Last Vitals: BP Readings from Last 1 Encounters: 10/08/24 107/64 Pulse Readings from Last 1 Encounters: 10/08/24 77 SpO2 Readings from Last 1 Encounters: 10/08/24 93% Date of Surgery: 10/08/2024 Surgeon: Jair Mcgill MD Procedure: ESOPHAGOGASTRODUODENOSCOPY (Mouth) OR Location: ENDOSCOPY ([facility]) OR LOCATION Anesthesia Preop Eval (physical exam) Anesthesia Preop: Finh-eq-Xpda and Chart Review [facility] questionnaire answers not incorporated [facility] Communication: Steff Jacobo is a 73 year old female with a PMH significant for Type 2 diabetes mellitus, HTN, Non obstructive CAD, GERD, reported Afib on Eliquis (CV-4), hypothyroidism who presents for symptomatic anemia 2/2 gi blood loss. NPO Status Verified Clear Liquids: > 2 Hours Solid Food/Non-Clear Liquids: > 8 Hours PONV Risk Factors: female and non-smoker PONV Risk Score: 2 Anesthesia History Anesthesia History Negative Previous Anesthetics/Airways Cardiovascular Comments: Last Eliquis 10/06 am METS: 4 METS Comments: Left ventricle size is normal. Normal wall thickness. Normal wall motion. Normal systolic function with a visually estimated EF of 55 - 60%. There is impaired relaxation. Normal left ventricular filling pressure. Right Ventricle Right ventricle size is normal. Normal systolic function. Left Atrium Left atrium size is normal. Right Atrium Right atrium size is normal. Mitral Valve Mild mitral annular calcification. Trace transvalvular regurgitation. Tricuspid Valve Tricuspid valve structure is grossly normal. Trace transvalvular regurgitation. Insufficient tricuspid regurgitation jet to estimate RVSP . RA pressure is 0-5 mmHg. Aortic Valve Aortic valve opens well. Mildly calcified cusps. Pulmonic Valve Pulmonic valve is grossly normal in structure and function. Trace transvalvular regurgitation. Ascending Aorta Mildly enlarged ascending aorta 3.6cm. Pericardium Trivial pericardial effusion present. (+) Hypertension (+) Dyslipidemia (+) Dysrhythmias and atrial fibrillation Pulmonary Pulmonary ROS Negative per Chart Review Comments: CXR showed no acute intrathoracic abnormalities Neuro/Musculoskeletal (+) Obesity GI/Hepatic Comments: Currently with H/O of GI Bleed EGD 5 years ago for GERD symptoms and it only showed hiatal hernia. (+) Acute GI bleeding Hematology Comments: CBCWBC (10*3/?L) Date Value 10/08/2024 9.95 RBC (10*6/?L) Date Value 10/08/2024 2.84 (L) PLT (10*3/?L) Date Value 10/08/2024 245 HGB (g/dL) Date Value 10/08/2024 7.2 (L) HCT (%) Date Value 10/08/2024 23.0 (L) (+) Anemia Renal Comments: H/O Chronic Kidney Disease (+) Patient reports kidney problems Skin (+) Current IV access and 20g Endo/Other Comments: BMPNA (mmol/L) Date Value 10/08/2024 140 K (mmol/L) Date Value 10/08/2024 3.8 CALCIUM (mg/dL) Date Value 10/08/2024 8.1 (L) CL (mmol/L) Date Value 10/08/2024 112 (H) BUN (mg/dL) Date Value 10/08/2024 20 CREATININE (mg/dL) Date Value 10/08/2024 1.03 GLUCOSE (mg/dL) Date Value 10/08/2024 103 CO2 TOTAL (mmol/L) Date Value 10/08/2024 22 (L) (+) Diabetes Mellitus and Type 2 Other MUSIC PASTOR MUSIC PASTOR N/A Pediatric Pediatric N/A N/A Preoperative Medication Instructions (+) Taking GLP1 Agonist Continue taking all prescribed medications except: MEI inhibitors, ARBs, diuretics, all oral diabetes medications Anticoagulant Therapy: Defer to surgeons Insulin: Take 1/2 dose the night prior to surgery. Hold on DOS. Phentermine: Alert [facility] anesthesiologist SGLT2 Inhibitors: "gliflozins" to be held for 3 days prior to elective surgeries GLP1 Agonosit: stop 7 days prior to surgery MAC Cases: Continue taking MEI inhibitors and ARBs ASA Classification ASA: 3 Labs: Chemistry 10/08/2024 CBC 10/08/2024 140 112 (H) 20 103 9.95 7.2 (L) 245 3.8 22 (L) 1.03 23.0 (L) eGFR: 57.2 Date: 10/08/2024 ANC: 6.92 Date: 10/08/2024 LFTs 10/07/2024 Coags AST: 23 AP: 37 Prot: 6.0 (L) Ca: 8.1 (L) PT: 12.5 Date: 10/08/2024 ALT: 11 T Marlon: 0.8 Alb: 3.5 PTT: 35 Date: 10/08/2024 PO4: - Date: - INR: 1.1 Date: 10/08/2024 Cardiac Endocrine & other pBNP: 55 Date: 12/18/2023 A1C: 5.7 Date: 10/08/2024 Trop I: 0.003 Date: 10/08/2024 POCT A1C: - Date: - CK: - Date: - TSH: 0.24 (L) Date: 10/07/2024 CKMB: - Date: - FT4: 1.21 Date: 10/07/2024 LDL: 44 Date: 12/18/2023 Lact: - Date: - Procal: - Date: - Respiratory -|-|-|-|- D-dimer: - ABG Date: - Date: - Miscellaneous Type and Screen: A POSITIVE Antibody: Negative Date: 10/07/2024 POCT : - Date: - Current Medications: No outpatient medications have been marked as taking for the 10/07/24 encounter (Hospital Encounter). Previous Surgeries: Past Surgical History: Procedure Laterality Date HYSTERECTOMY 1960 PHACOEMULSIFICATION OF CATARACT WITH INTRAOCULAR LENS IMPLANT Left 12/24/2023 Surgeon: Rajat Graf MD; [place] [facility] [place]ACOEMULSIFICATION OF CATARACT WITH INTRAOCULAR LENS IMPLANT Right 01/07/2024 Surgeon: Rajat Graf MD; Location: [facility] OR [facility] Anesthesia Physical Exam General no apparent distress and alert and oriented x 3 Neuro/Psych neurological Nonfocal Dental no notable dental hx Abdominal (+) obesity Airway Mallampati score:II TM distance:> 5 cm NECK: short and thick Neck ROM: full Mouth opening:normal Extremity Normal extremity Pulmonary pulmonary exam normal and bilateral clear to auscultation Other Cardiovascular cardiovascular exam normalRhythm:Regular Rate: Normal Anesthesia Plan ASA Status: 3 Plan discussed during pre-op evaluation: TIVA Anesthetic plan on DOS: TIVA Plan to include: IV induction and nasal cannula Anesthesia plan discussed with: patient or agricultural sales representative Post-Operative Analgesia: routine analgesia & antiemetics Recovery Plan: PACU Additional comments: Pt seen and examined. Chart/ interval hx/ lab data reviewed. NPO status confirmed. Anesthetic plan d/w pt and she understands/ wishes to proceed. Consent obtained. ENTIVE MAINTENANCE ENGINEER [facility] 2024-10-08 10:00:00 Report rec'd from Elizabeth MINA. Pt is AAOx4, RA, NPO, no ISO. NOZA Doe RN [facility] 2023-12-31 13:46:52 Images from the original note were not included. Your procedure is at [facility] on 01/07/24. The address is [address] [place] [address], [id number]. [facility] nursing staff will call you the workday before your procedure to let you know what time to arrive.On the day of your procedure, please go inside that door and check in at the desk. Please note: You may not travel home alone and that includes in a taxi or by bus. We must speak to your Responsible Adult (who will be picking you up) the morning of your procedure, before the start of your procedure. This person must be an adult over the age of 18 years of age. Do not eat any solid food after midnight the night before surgery. You may have sips of clear liquids such as water, gatorade, and sprite up until two hours before your scheduled procedure. You may take your medications with a sip of water as directed by physician. Anticoagulants will be per physician guidance. Medication Note(s)/Instructions: The patient was instructed to hold Mounjaro 1 week prior the procedure. Pt educated on medication. Understanding was verbalized, with no questions or concerns at this time. Teach-back method repeated and confirmed. There are no pre-op orders for labs or further testing at this time. Pending screening, we may test for COVID. If a patient tests positive, their cases are cancelled and/or rescheduled. COVID SCREENING NOTE: Denies COVID symptoms, no testing required. Additional requests, questions, concerns: Patient verbalized understanding of pre-op instructions and voiced no further questions at this time. [facility] 2023-12-19 14:50:13 Images from the original note were not included. Notified patient per Dr Maradiaga: Gabby Maradiaga MD P Cardiology Nurse Lipid panel at goal. CMP within acceptable limits. Creatinine mildly elevated 1.2 similar to 2 years ago. NT-proBNP normal. Patient verbal understanding. NOZA Clark MA [facility] 2023-12-18 09:00:00 Images from the original note were not included. Venipuncture collection performed by clean technique on the left anticubitus. Total of 1 attempts were made. Slight pressure and a bandage/dressing were applied to the site(s). The patient experienced no complications. The following specimens were processed according to instructions and sent to [facility] laboratories per lab order on 12/18/2023: LT BLUE SST 1 RED LAV PPT DK GREEN (LiHep) DK GREEN (SodH) REYNOLDS DK BLUE (K2) DK BLUE (S) ACD Blood Culture NIPT/NTD [facility] 2023-12-17 15:15:22 Images from the original note were not included. Your procedure is at [facility] on 12/24/23. The address is [address] [place] [address], [id number]. [facility] nursing staff will call you the workday before your procedure to let you know what time to arrive.On the day of your procedure, please go inside that door and check in at the desk. Please note: You may not travel home alone and that includes in a taxi or by bus. We must speak to your Responsible Adult (who will be picking you up) the morning of your procedure, before the start of your procedure. This person must be an adult over the age of 18 years of age. Do not eat any solid food after midnight the night before surgery. You may have sips of clear liquids such as water, gatorade, and sprite up until two hours before your scheduled procedure. You may take your medications with a sip of water as directed by physician. Anticoagulants will be per physician guidance. Medication Note(s)/Instructions: The patient was educated on medication. Understanding was verbalized, with no questions or concerns at this time. Teach-back method repeated and confirmed. There are no pre-op orders for labs or further testing at this time. Pending screening, we may test for COVID. If a patient tests positive, their cases are cancelled and/or rescheduled. COVID SCREENING NOTE: Denies COVID symptoms, no testing required. Additional requests, questions, concerns: Patient verbalized understanding of pre-op instructions and voiced no further questions at this time. [facility] 2023-12-05 15:17:11 Images from the original note were not included. Called patient for results patient verbalized understanding with no further questions Gabby Maradiaga MD P Cardiology Nurse Echo with in acceptable limits. Preserved LVEF. No significant valve diease noted No significant changes compared to the previous echocardiogram. Awaiting 30-day event monitor results. NOZA Jacobo MA [facility] 2023-12-04 16:00:00 [employer] 30-day event monitor applied to patient. Wear and care explained. Patient verbalized understanding. Patient given instruction on how to return monitor on 01/03/24 to [employer]. ENTIVE MAINTENANCE ENGINEER Ana Gimenez RN [facility] 2023-12-04 15:00:00 Echo with in acceptable limits. Preserved LVEF. No significant valve diease noted No significant changes compared to the previous echocardiogram. Awaiting 30-day event monitor results. [facility] 2023-11-25 11:26:20 Patient's clearance faxed to [facility] 2023-11-21 16:33:10 Patient was notified of the results below, she verbally understood and agreed to the plan. Thank you NOZA Villarreal MA [facility] 2023-11-21 14:21:04 Patient was notified of the results below, she verbally understood and agreed to the plan. Thank you NOZA Villarreal MA [facility] 2023-11-20 16:46:20 Will update the CV risk stratification during the upcoming office visit 11/24/2023 also discussed regarding the low blood pressure. [facility] 2023-11-20 16:45:12 Will update the CV risk stratification during the upcoming office visit 11/24/2023 also discussed regarding the low blood pressure. [facility] 2023-11-20 14:30:[address] Arvizu inbox folder for chart review. [facility] 2023-11-20 14:30:[address] Maradiaga. [facility] 2023-11-04 11:22:03 Call back to Ms Jacobo regarding low BP. Stated that her BP has been low 82/64, and she has lost 30 lbs. States occasional dizziness, she stopped her Metoprolol and Amlodipine x several days NOV 11/24/23 ER precautions provided , verbalized understanding Routed to Dr Maradiaga for advice [facility] Malena Otoole RN [facility]
[2024-12-30 11:54] LABS: Absolute Basophils 0.1 K/uL (0-0.5); Absolute Eosinophils 0.2 K/uL (0-0.5); Absolute Lymphocytes (CBC) 1.8 K/uL (0.7-4.9); Absolute Neutrophil 14.5 K/uL (1.8-8.0); Basophils % 0.4 % (0-1.3); Eosinophils % 1.4 % (0-4.4); Lymphocytes % 10.2 % (15.3-44.8); MCH 25.7 pg (27.0-35.0); MCHC 32.2 g/dL (32.0-36.0); MCV 79.9 fL (80-100); MPV 9.5 fL (7.6-11.3); Monocytes % 5.5 % (3.3-12.3); Neutrophils % 82.5 % (41.7-73.7); Platelets 306 thou/uL (152-406); RBC Red Blood Cell Count 3.88 M/uL (3.86-4.86); Red Cell Distribution Width 18.9 % (12.1-15.2)
[2024-12-30 12:10] LABS: Albumin 3.1 g/dL (3.4-5.0); Albumin/Globulin Ratio 0.9 (1.1-1.8); Anion Gap 8.5 mEq/L (5.0-15.0); Bilirubin Total 0.2 mg/dL (0.2-1.0); Globulin 3.6 g/dL (2.3-3.5); Potassium 4.5 mEq/L (3.5-5.1); Protein, Total 6.7 g/dL (6.4-8.2)
[2024-12-30] MEDS ORDERED: ONDANSETRON 4 MG/2 ML VIAL ONE (12:18)
[2024-12-30] MEDS ORDERED: PANTOPRAZOLE 40 MG INJ ONE (12:18)
[2024-12-30] MEDS ORDERED: NA CHLORIDE 0.9% 250 ML ONE (12:18)
[2024-12-30] MEDS ORDERED: NA CHLORIDE 0.9% 1,000 ML ONE (12:19)
--- NOTE | 2024-12-30 12:23 | RAD REPORT ---
EXAMINATION: CT Abdomen Pelvis Wo Contrast CLINICAL INDICATION: Female, 74 years old. ABD PAIN TECHNIQUE: CT abdomen and pelvis was performed, without IV contrast, as per department protocol. Axia l, sagittal and coronal reconstructions were obtained. One or more of the following dose reduction techniques were used: Automated exposure control, adjustment of the mA and kV according to the patien t size, and iterative reconstruction. Unless otherwise specified, incidental findings do not require dedicated imaging follow-up. COMPARISON: 01/14/2024 FINDINGS: The lack of intravenous contrast limits the sensitivity of this exam for evaluation of solid visceral organs, vascular structures, and retroperitoneum. LOWER CHEST: The visualized lung bases are clear. LIVER: Normal in size and contour. No focal lesion. BILIARY SYSTEM: Status post cholecystectomy. SPLEEN: Normal size. No focal lesion. PANCREAS: No mass, ductal dilation, or ion-pancreatic fluid. ADRENALS: Normal; no mass. KIDNEYS AND URETERS: Normal contour. Mild volume loss again seen. Left parapelvic suspected cyst vers us calyceal prominence measuring up to 1.3 cm, stable. No hydronephrosis. URINARY BLADDER: Normal contour. GASTROINTESTINAL TRACT: Moderate-sized sliding hiatal hernia, stable. Nonspecific fluid filling of no ndistended segmental small bowel loops. No evidence of bowel obstruction, significant free fluid, free air or abscess. APPENDIX: Normal appendix. LYMPH NODES: No lymphadenopathy. MUSCULOSKELETAL: No acute or suspicious osseous abnormality. ADDITIONAL FINDINGS: None. IMPRESSION: Nonspecific fluid filling of nondistended small bowel loops, could relate to enteritis or diarrheal s rice. No other acute or concerning abnormalities in the abdomen or pelvis, with evaluation limited by lack of IV contrast.
--- NOTE | 2024-12-30 13:14 | ER ---
Nurse's Notes [facility] Name: Steff Burger Age: 74 yrs Sex: Female : 1950 Arrival Date: 12/30/2024 Time: 11:07 Bed 4 Private MD: Diagnosis: GI Bleed/ Gastrointestinal hemorrhage, unspecified Presentation: 12/30 11:12 Chief complaint: Patient states: reports vomiting and diarrhea that began today, pt aa5 states "the diarrhea and the vomit are both black". Pt also reports feeling dizzy and weak. 11:12 Coronavirus screen: At this time, the client does not indicate any symptoms associated aa5 with coronavirus-19. Ebola Screen: Patient denies travel to an Ebola-affected area in the 21 days before illness onset. Initial Sepsis Screen: Does the patient meet any 2 criteria? No. Patient's initial sepsis screen is negative. Does the patient have a suspected source of infection? No. Patient's initial sepsis screen is negative. Risk Assessment: Do you want to hurt yourself or someone else? Patient reports no desire to harm self or others. Onset of symptoms was December 2024. 11:12 Acuity: KYE 3 aa5 11:12 Method Of Arrival: Wheelchair aa5 Historical: - Allergies: 11:26 Sulfa (Sulfonamide Antibiotics); aa5 - PMHx: 11:26 Anxiety; Diabetes - NIDDM; Hypertension; Hypothyroidism; kidney problems; "Possible aa5 heart arrhythmia/atrial fib" (Unknown); - PSHx: 11:26 hysterectomy (Unknown); Cholecystectomy; aa5 - Immunization history:: Adult Immunizations unknown. - Infectious Disease History:: Denies. - Social history:: Smoking status: Patient denies any tobacco usage or history of. Screenin:50 [facility] ED Fall Risk Assessment (Adult) History of falling in the last 3 months, iw including since admission No falls in past 3 months (0 pts) Confusion or Disorientation No (0 pts) Intoxicated or Sedated No (0 pts) Impaired Gait No (0 pts) Mobility Assist Device Used No (0 pt) Altered Elimination No (0 pt) Score/Fall Risk Level 0 - 2 = Low Risk Oriented to surroundings, Maintained a safe environment. Abuse screen: Denies threats or abuse. Nutritional screening: No deficits noted. Tuberculosis screening: No symptoms or risk factors identified. Assessment: 11:49 General: Appears in no apparent distress. Behavior is calm, cooperative. Pain: Denies iw pain. Neuro: Level of Consciousness is awake, alert, obeys commands, Oriented to person, place, time, situation, Moves all extremities. Full function. Cardiovascular: Patient's skin is warm and dry. Respiratory: Respiratory effort is even, unlabored, Respiratory pattern is regular, symmetrical. GI: Abdomen is non-distended, Reports diarrhea, rectal bleeding, bloody stool, nausea, vomiting. Derm: Skin is fragile, is thin. Musculoskeletal: Range of motion: intact in all extremities. 15:55 Reassessment: Patient appears in no apparent distress at this time. Patient and/or jb4 family updated on plan of care and expected duration. Pain level reassessed. Patient is alert, oriented x 3, equal unlabored respirations, skin warm/dry/pink. blood transfusion completed. 17:07 Reassessment: Patient appears in no apparent distress at this time. Patient and/or jb4 family updated on plan of care and expected duration. Pain level reassessed. Patient is alert, oriented x 3, equal unlabored respirations, skin warm/dry/pink. Vital Signs: 11:12 BP 123 / 72; Pulse 70; Resp 18 S; Temp 97.9(O); Pulse Ox 98% on R/A; Weight 77.11 kg aa5 (R); Height 5 ft. 3 in. (R); 12:15 BP 103 / 68; Pulse 76; Resp 19; Pulse Ox 97% on R/A; ld1 13:00 BP 99 / 66; Pulse 73; Resp 16; Pulse Ox 99% on R/A; jb4 14:00 BP 114 / 68; Pulse 75; Resp 16; Pulse Ox 98% on R/A; jb4 15:55 BP 107 / 69; Pulse 74; Resp 16; Pulse Ox 96% on R/A; jb4 16:11 BP 111 / 63; Pulse 81; Resp 23; Pulse Ox 96% on R/A; ld1 17:00 BP 106 / 66; Pulse 81; Resp 16; Pulse Ox 97% on R/A; jb4 11:12 Body Mass Index 30.11 (77.11 kg, 160.02 cm) aa5 ED Course: 11:11 Patient arrived in ED. al6 11:12 James, Isauro, MD is Attending Physician. ec2 11:12 Arm band placed on Patient placed in an exam room, on a stretcher. aa5 11:31 Triage completed. aa5 11:49 Jerilyn Mtz, RN is Primary Nurse. iw 11:49 Initial lab(s) drawn, by me, sent to lab. T\\T\\S collected, blood band applied to patient. iw Inserted saline lock: 20 gauge in left antecubital area, using aseptic technique. Blood collected. Flushed with 10 mL NS. 11:52 CT Abd/Pelvis - Without Contrast In Process Unspecified. EDMS 13:30 INITIATED TRANSFER WITH MARTHA AT [facility] TRANSFER [place]. bc6 14:14 MARTHA FROM THE TRANSFER CENTER ADVISING THERE IS A 15 MINUTE EXTENSION, WAITING ON ty GASTROENTEROLOGY. 14:55 initiated transfer with Alexa at [place] [facility] [place]. bc6 15:40 DOC TO DOC DONE WITH [facility]. bc6 15:[address] Lauren Isaac at [facility] with Davida Puga. bc6 16:27 Brian with [facility] stated he has two trucks out of the city at the time he will deny 6 transfer. 16:29 [facility] accepted transfer. bc6 17:00 Patient has correct armband on for positive identification. Bed in low position. Call jb4 light in reach. Side rails up X 1. Provided Education on: need for transfer. 17:00 No provider procedures requiring assistance completed. Patient transferred, IV remains jb4 in place. Administered Medications: 12:30 Drug: Ondansetron IVP 4 mg IVP once; over 2 minutes Route: IVP; Site: left antecubital; jb4 13:00 Follow up: Response: No adverse reaction; Marked relief of symptoms; Nausea is decreasedjb4 12:30 Drug: NS 0.9% IV 1000 ml IV at 1 bolus Per protocol; to be given as a bolus over 60 jb4 minutes Route: IV; Rate: 1 bolus; Site: left antecubital; 16:00 Follow up: Response: No adverse reaction; IV Status: Completed infusion; IV Intake: jb4 1000ml 12:38 Drug: Pantoprazole IVP 80 mg IVP once Route: IVP; Site: left antecubital; jb4 13:00 Follow up: Response: No adverse reaction jb4 12:38 Drug: Pantoprazole IV 8 mg/hr IV at 25 ml/hr continuous; (Standard dilution is 80 mg in jb4 250 mL NS) Route: IV; Rate: 25 ml/hr; Site: left antecubital; 17:09 Follow up: IV Status: Infusion continued upon transfer jb4 Medication: 11:50 VIS not applicable for this client. iw Intake: 16:00 IV: 1000ml; Total: 1000ml. jb4 Outcome: 13:13 ER care complete, transfer ordered by . ec2 17:00 Transferred by ground EMS to [facility], Transfer form completed. jb4 X-rays sent w/ patient. 17:00 Condition: stable 17:00 Discharge instructions given to patient, Instructed on the need for transfer, Demonstrated understanding of instructions, 17:10 Patient left the ED. jb4 Signatures: Dispatcher [employer] Jerilyn Zhu RN RN iw Wendy Oates RN RN aa5 Philip Bradford RN RN jb4 Dione Rendon RN RN ld1 Mojgan Theodore6 Isauro James MD MD ec2 Bret Palma Alissa al6 Corrections: (The following items were deleted from the chart) 12:38 12:00 NS 0.9% IV 1000 ml IV at 1 bolus in left antecubital jb4 jb4
--- NOTE | 2024-12-30 13:14 | EDPHYS ---
Physician Documentation [facility] Name: Steff Burger Age: 74 yrs Sex: Female : 1950 Arrival Date: 12/30/2024 Time: 11:07 Bed 4 Private MD: ED Physician Isauro James HPI: 12/30 11:40 This 74 yrs old Female presents to ER via Wheelchair with complaints of ec2 Vomiting/Diarrhea - with blood. 11:40 Patient arrives today for evaluation due to concern for coffee-ground emesis along with ec2 black stools. Patient with reported history of black stools, no previous identifiable source. Patient complaining of vomiting gritty substance that is black in color. Is currently not on blood thinners. No history of liver disease.. Historical: - Allergies: 11:26 Sulfa (Sulfonamide Antibiotics); aa5 - PMHx: 11:26 Anxiety; Diabetes - NIDDM; Hypertension; Hypothyroidism; kidney problems; "Possible aa5 heart arrhythmia/atrial fib" (Unknown); - PSHx: 11:26 hysterectomy (Unknown); Cholecystectomy; aa5 - Immunization history:: Adult Immunizations unknown. - Infectious Disease History:: Denies. - Social history:: Smoking status: Patient denies any tobacco usage or history of. ROS: 11:42 Constitutional: as per hpi ec2 Exam: 11:42 Constitutional: GEN: NAD Head: atraumatic Eyes: EOMI Ears: External ears are ec2 normal. CV: regular rate LUNGS: no respiratory distress ABD: non-distended, soft, not guarding, tender in the epigastrium SKIN: no evidence of rashes MSK: no evidence of trauma Vital Signs: 11:12 BP 123 / 72; Pulse 70; Resp 18 S; Temp 97.9(O); Pulse Ox 98% on R/A; Weight 77.11 kg aa5 (R); Height 5 ft. 3 in. (R); 12:15 BP 103 / 68; Pulse 76; Resp 19; Pulse Ox 97% on R/A; ld1 13:00 BP 99 / 66; Pulse 73; Resp 16; Pulse Ox 99% on R/A; jb4 14:00 BP 114 / 68; Pulse 75; Resp 16; Pulse Ox 98% on R/A; jb4 15:55 BP 107 / 69; Pulse 74; Resp 16; Pulse Ox 96% on R/A; jb4 16:11 BP 111 / 63; Pulse 81; Resp 23; Pulse Ox 96% on R/A; ld1 17:00 BP 106 / 66; Pulse 81; Resp 16; Pulse Ox 97% on R/A; jb4 11:12 Body Mass Index 30.11 (77.11 kg, 160.02 cm) aa5 MDM: 11:26 Medical Screening Exam initiated ec2 11:42 Data reviewed: vital signs, nurses notes. ED course: Patient arrives today for ec2 evaluation after complaints of abdominal pain. Examination yields abdominal findings as above. Will obtain lab work, CT imaging, start the patient on Protonix drip. DDx includes gastritis, ulcer, variceal bleeding. 12:43 ED course: CBC shows leukocytosis at 17.6, hemoglobin with slight anemia at 10. CMP ec2 shows some diminished renal function otherwise appropriate LFTs, CT abdomen pelvis shows fluid-filled nondistended loops of bowel.. 13:12 ED course: Further discussion with patient, patient had blood work done 1 week ago, had ec2 a hemoglobin of 12.9, given this information, will transfuse due to concern for acute blood loss.. ED course: We currently do not have GI capability, will transfer for GI management.. 12/30 11:26 Order name: CBC with Diff; Complete Time: 12:42 ec2 12/30 11:26 Order name: CMP; Complete Time: 12:42 ec2 12/30 11:26 Order name: Lipase; Complete Time: 12:42 ec2 12/30 11:40 Order name: Type And Screen ec2 12/30 13:19 Order name: Packed RBC Leukored EDWY 12/30 11:26 Order name: CT Abd/Pelvis - Without Contrast; Complete Time: 12:42 ec2 12/30 11:26 Order name: IV Saline Lock; Complete Time: 11:51 ec2 12/30 11:26 Order name: Labs collected and sent; Complete Time: 11:51 ec2 12/30 13:10 Order name: Consent for Blood Transfusion; Complete Time: 13:39 ec2 Administered Medications: 12:30 Drug: Ondansetron IVP 4 mg IVP once; over 2 minutes Route: IVP; Site: left antecubital; jb4 13:00 Follow up: Response: No adverse reaction; Marked relief of symptoms; Nausea is decreasedjb4 12:30 Drug: NS 0.9% IV 1000 ml IV at 1 bolus Per protocol; to be given as a bolus over 60 jb4 minutes Route: IV; Rate: 1 bolus; Site: left antecubital; 16:00 Follow up: Response: No adverse reaction; IV Status: Completed infusion; IV Intake: jb4 1000ml 12:38 Drug: Pantoprazole IVP 80 mg IVP once Route: IVP; Site: left antecubital; jb4 13:00 Follow up: Response: No adverse reaction jb4 12:38 Drug: Pantoprazole IV 8 mg/hr IV at 25 ml/hr continuous; (Standard dilution is 80 mg in jb4 250 mL NS) Route: IV; Rate: 25 ml/hr; Site: left antecubital; 17:09 Follow up: IV Status: Infusion continued upon transfer jb4 Disposition Summary: 12/30/24 13:13 Transfer Ordered Notes: Transfer Location: Other [facility] ec2 Reason: Higher level of care ec2 Condition: Stable ec2 Problem: an acute exacerbation ec2 Symptoms: have improved ec2 Accepting Physician: transferring doc(12/30/24 17:10) jb4 Diagnosis - GI Bleed/ Gastrointestinal hemorrhage, unspecified ec2 Forms: - Medication Reconciliation Form ec2 - SBAR form ec2 Critical care time excluding procedures: 13:12 Critical care time: Bedside Care: 30 minutes, Consultation: 5 minutes. Total time: 35 ec2 minutes Signatures: Dispatcher [employer] Wendy Swanson RN RN aa5 Philip Bradford RN RN jb4 Isauro James MD MD ec2 Corrections: (The following items were deleted from the chart) 13:18 13:10 PACKED RBC LEUKORED+BB.LAB.BRZ ordered. EDMS EDMS 13:18 13:13 ABO/RH typing ordered. EDMS EDMS 13:18 13:13 Antibody Screen ordered. EDMS EDMS 17:10 13:13 transferring doc ec2 jb4
[2024-12-30] MEDS ORDERED: NA CHLORIDE 0.9% 100 ML ONE (13:33)
[2024-12-30 17:27] VITALS: TEMP 97.9
[2024-12-30 17:37] VITALS: BP 106/66; O2SAT 97
== END 2024-12-30 17:10 | disposition short-term general hospital (02) ==
LOC: ER 11:07
PROC: 30233N1 Transfusion of Nonautologous Red Blood Cells into Peripheral Vein, Percutaneous Approach (ICD-10-PCS; principal; 2024-12-30)
DX: K92.2 Gastrointestinal hemorrhage, unspecified (principal)
CPT/HCPCS: 96365; 85025; 36415; 86900; 86850; 86901; 86920; 83690; 80053; 74176; 96375; 99285; 96366; 36430; J2470; J2405; P9016; J7050; J7030

== ENCOUNTER 2025-01-11 10:05 | Inpatient (IN) | payer OTHER ==
[2025-01-11 10:47] LABS: PT Prothrombin Time 10.9 SECONDS (10-13.0); Protime INR 0.95
[2025-01-11 10:57] LABS: Absolute Eosinophils 0.2 K/uL (0-0.5); Absolute Lymphocytes (CBC) 2.1 K/uL (0.7-4.9); Absolute Monocytes 0.5 K/uL (0.1-1.3); Absolute Neutrophil 4.1 K/uL (1.8-8.0); Basophils % 0.6 % (0-1.3); Eosinophils % 3.1 % (0-4.4); Hematocrit 34.2 % (36.0-45.0); Hemoglobin 11.1 g/dL (12.0-15.0); MCH 27.3 pg (27.0-35.0); MCHC 32.5 g/dL (32.0-36.0); MCV 83.9 fL (80-100); MPV 8.7 fL (7.6-11.3); Monocytes % 7.8 % (3.3-12.3); Neutrophils % 58.5 % (41.7-73.7); Platelets 397 thou/uL (152-406); RBC Red Blood Cell Count 4.08 M/uL (3.86-4.86); Red Cell Distribution Width 18.6 % (12.1-15.2)
[2025-01-11 10:58] LABS: ALT/SGPT 23 U/L (13-56); AST/SGOT 13 U/L (15-37); Albumin 3.6 g/dL (3.4-5.0); Albumin/Globulin Ratio 0.9 (1.1-1.8); Alkaline Phosphatase 63 U/L (45-117); Anion Gap 7.9 mEq/L (5.0-15.0); BUN Blood Urea Nitrogen 17 mg/dL (7-18); Bicarbonate 24 mEq/L (21-32); Bilirubin Total 0.3 mg/dL (0.2-1.0); Globulin 3.9 g/dL (2.3-3.5); Glomerular Filtration Rate 50 ml/min (=/>90); Glucose Level 156 mg/dL (74-106); Lipase 45 U/L (13-75); Magnesium 2.1 mg/dL (1.6-2.4); NT PRO-BNP 29 pg/mL (<450); Potassium 3.9 mEq/L (3.5-5.1); Protein, Total 7.5 g/dL (6.4-8.2); Sodium Level 139 mEq/L (136-145); Troponin High Sensitivity 3.6 pg/mL (<58.9)
[2025-01-11 11:00] LABS: Bilirubin Direct < 0.2 mg/dL (0-0.2); Bilirubin Indirect, Calculated 0.1 mg/dL (0.2-0.8)
--- NOTE | 2025-01-11 11:08 | RAD REPORT ---
EXAMINATION: ONE VIEW CHEST XR CLINICAL INDICATION: Female, 74 years old.,COUGH TECHNIQUE: Frontal chest projection is submitted. Examination is limited by patient positioning and t echnique. COMPARISON: 10/07/2024 FINDINGS: The lungs are grossly clear although suboptimal inspiratory effort somewhat limits evaluation. No pn eumothorax or sizable effusion. The heart is normal in size. Mediastinal contours are unremarkable. IMPRESSION: No acute intrathoracic abnormalities.
[2025-01-11] MEDS ORDERED: ONDANSETRON 4 MG/2 ML VIAL ONE (11:14)
[2025-01-11] MEDS ORDERED: NA CHLORIDE 0.9% 500 ML ONE (11:14)
[2025-01-11] MEDS ORDERED: PANTOPRAZOLE 40 MG INJ ONE (11:14)
--- NOTE | 2025-01-11 11:40 | EDPHYS ---
Physician Documentation [facility] Name: Steff Burger Age: 74 yrs Sex: Female : 1950 Arrival Date: 01/11/2025 Time: 10:05 Bed 7 Private MD: CHRISTAL Physician Frankie Velázquez HPI: 01/11 11:35 This 74 yrs old Female presents to ER via Ambulatory with complaints of cinthia vomiting blood. 11:35 The patient presents to the emergency department vomiting blood, a moderate amount, cinthia coffee grounds in nature, with multiple such episodes, with rectal bleeding, a moderate amount, melena, with multiple such episodes. Onset: The symptoms/episode began/occurred 3 day(s) ago. Abdominal pain: located in the epigastric area. Modifying factors: The symptoms are alleviated by nothing, the symptoms are aggravated by nothing. Associated signs and symptoms: The patient has no apparent associated signs or symptoms. Severity of symptoms: At their worst the symptoms were mild moderate in the emergency department the symptoms are unchanged. The patient has experienced similar episodes in the past, multiple times. Historical: - Allergies: 10:27 Sulfa (Sulfonamide Antibiotics); cm10 - PMHx: 10:27 Anxiety; Diabetes - NIDDM; Hypertension; Hypothyroidism; kidney problems; cm10 - PSHx: 10:27 Cholecystectomy; hysterectomy; cm10 - Immunization history:: Adult Immunizations up to date. - Infectious Disease History:: Denies. - Social history:: Smoking status: Patient denies any tobacco usage or history of. - Family history:: not pertinent. ROS: 11:35 Constitutional: Negative for fever, chills, and weight loss, Eyes: Negative for injury, cinthia pain, redness, and discharge, ENT: Negative for injury, pain, and discharge, Neck: Negative for injury, pain, and swelling, Cardiovascular: Negative for chest pain, palpitations, and edema, Respiratory: Negative for shortness of breath, cough, wheezing, and pleuritic chest pain, Back: Negative for injury and pain, : Negative for injury, bleeding, discharge, and swelling, MS/Extremity: Negative for injury and deformity, Skin: Negative for injury, rash, and discoloration, Neuro: Negative for headache, weakness, numbness, tingling, and seizure, Psych: Negative for depression, anxiety, suicide ideation, homicidal ideation, and hallucinations, Allergy/Immunology: Negative for hives, rash, and allergies, Endocrine: Negative for neck swelling, polydipsia, polyuria, polyphagia, and marked weight changes, Hematologic/Lymphatic: Negative for swollen nodes, abnormal bleeding, and unusual bruising, 11:35 Abdomen/GI: Positive for abdominal pain, nausea, vomiting, hematemesis, black/tarry stool, Exam: 11:35 Constitutional: This is a well developed, well nourished patient who is awake, alert, cinthia and in no acute distress. Head/Face: Normocephalic, atraumatic. Eyes: Pupils equal round and reactive to light, extra-ocular motions intact. Lids and lashes normal. Conjunctiva and sclera are non-icteric and not injected. Cornea within normal limits. Periorbital areas with no swelling, redness, or edema. ENT: Nares patent. No nasal discharge, no septal abnormalities noted. Tympanic membranes are normal and external auditory canals are clear. Oropharynx with no redness, swelling, or masses, exudates, or evidence of obstruction, uvula midline. Mucous membranes moist. Neck: Trachea midline, no thyromegaly or masses palpated, and no cervical lymphadenopathy. Supple, full range of motion without nuchal rigidity, or vertebral point tenderness. No Meningismus. Chest/axilla: Normal chest wall appearance and motion. Nontender with no deformity. No lesions are appreciated. Cardiovascular: Regular rate and rhythm with a normal S1 and S2. No gallops, murmurs, or rubs. Normal PMI, no JVD. No pulse deficits. Respiratory: Lungs have equal breath sounds bilaterally, clear to auscultation and percussion. No rales, rhonchi or wheezes noted. No increased work of breathing, no retractions or nasal flaring. Abdomen/GI: Soft, non-tender, with normal bowel sounds. No distension or tympany. No guarding or rebound. No evidence of tenderness throughout. Back: No spinal tenderness. No costovertebral tenderness. Full range of motion. Skin: Warm, dry with normal turgor. Normal color with no rashes, no lesions, and no evidence of cellulitis. MS/ Extremity: Pulses equal, no cyanosis. Neurovascular intact. Full, normal range of motion., bilateral aka Neuro: Awake and alert, GCS 15, oriented to person, place, time, and situation. Cranial nerves II-XII grossly intact. Motor strength 5/5 in all extremities. Sensory grossly intact. Cerebellar exam normal. Normal gait. Psych: Awake, alert, with orientation to person, place and time. Behavior, mood, and affect are within normal limits. 11:35 ECG was reviewed by the Attending Physician. Vital Signs: 10:25 BP 164 / 90; Pulse 91; Resp 18; Temp 98.1; Pulse Ox 100% ; Weight 77.7 kg (M); Height 5 cm10 ft. 3 in. (R); Pain 0/10; 11:33 BP 150 / 78; Pulse 77; Resp 16; Pulse Ox 98% ; bp 13:00 BP 137 / 78; Pulse 74; Resp 15; Pulse Ox 98% ; bp 14:00 BP 139 / 80; Pulse 76; Resp 15; Pulse Ox 99% ; bp 10:25 Body Mass Index 30.34 (77.70 kg, 160.02 cm) cm10 10:25 Pain Scale: Adult cm10 MDM: 10:08 Medical Screening Exam initiated [place] 01/11 10:10 Order name: Basic Metabolic Panel; Complete Time: 11:02 [place] 01/11 10:10 Order name: CBC with Diff [place] 01/11 10:10 Order name: LFT's; Complete Time: 11:02 [place] 01/11 10:10 Order name: Magnesium; Complete Time: 11: [place] 01/11 10:10 Order name: NT PRO-BNP; Complete Time: 11: [place] 01/11 10:10 Order name: PT-INR; Complete Time: 11: [place] 01/11 10:10 Order name: Troponin HS; Complete Time: 11:02 [place] 01/11 10:10 Order name: Lipase; Complete Time: 11:02 [place] 01/11 10:10 Order name: Urinalysis w/ reflexes [place] 01/11 10:34 Order name: Type And Screen [place] 01/11 12:34 Order name: CBC Smear Scan [facility] 01/11 10:10 Order name: XRAY Chest (1 view); Complete Time: 11:33 [place] 01/11 10:10 Order name: CT Chest, Abdomen, Pelvis - W/Contrast [place] 01/11 11:48 Order name: CONS Physician Consult [facility] 01/11 10:10 Order name: Cardiac monitoring; Complete Time: 10:31 [place] 01/11 10:10 Order name: EKG - Nurse/Tech; Complete Time: 11:11 [place] 01/11 10:10 Order name: IV Saline Lock; Complete Time: [place] 01/11 10:10 Order name: Labs collected and sent; Complete Time: [place] 01/11 10:10 Order name: O2 Per Protocol; Complete Time: [place] 01/11 10:10 Order name: O2 Sat Monitoring; Complete Time: [place] 01/11 10:30 Order name: IV - Large Bore; Complete Time: [place] EC:35 Rate is 84 beats/min. Rhythm is regular. QRS [place] is Normal. SC interval is normal. QRS cinthia interval is normal. QT interval is normal. No Q waves. T waves are Normal. No ST changes noted. Clinical impression: NSR w/ Non-specific ST/T Changes and No evidence of ischemia. Interpreted by me. Reviewed by me. Administered Medications: 10:29 CANCELLED (Duplicate Order): [id number] mg IVP once cinthia 11:24 Drug: Pantoprazole IVP 80 mg IVP once Route: IVP; Site: right antecubital; bp 14:30 Follow up: Response: No adverse reaction bp 11:25 Drug: NS 0.9% IV 500 ml 500 ml IV at 1 bolus once; to be given as a bolus over 30 bp minutes Volume: 500 ml; Route: IV; Rate: 1 bolus; Site: right antecubital; 14:31 Follow up: IV Status: Completed infusion bp 11:25 Drug: Ondansetron IVP 4 mg IVP once; over 2 minutes Route: IVP; Site: right antecubital;bp 14:31 Follow up: Response: No adverse reaction bp 12:11 Drug: Pantoprazole IV 8 mg/hr IV at 25 ml/hr continuous; (Standard dilution is 80 mg in bp 250 mL NS) Route: IV; Rate: 25 ml/hr; Site: right antecubital; 14:30 Follow up: IV Status: Infusion continued upon admission bp Disposition Summary: 01/11/25 11:39 Hospitalization Ordered Notes: Hospitalization Status: Inpatient Admission cinthia Provider: Anselmo Neely cha Condition: Fair cinthia Problem: new cinthia Symptoms: are unchanged cinthia Bed/Room Type: Standard cinthia Location: [facility] ER HOLD(01/11/25 12:52) kb3 Room Assignment: ERHOLD-(01/11/25 12:52) kb3 Diagnosis - GI Bleed/ Gastrointestinal hemorrhage, unspecified - upper, stable cinthia Forms: - Medication Reconciliation Form cinthia - SBAR form cinthia - Leadership Thank You Letter [place] Signatures: Dispatcher [employer] EDMS Frankie Velázquez MD MD cha Peltier, Brian RN Lorie Laboy RN RN kb3 Eloina Esquivel RN RN cm10 Corrections: (The following items were deleted from the chart) 10:10 10:10 BASIC METABOLIC PANEL+C.LAB.BRZ ordered. EDMS EDMS 10:10 10:10 CBC+H.LAB.BRZ ordered. EDMS EDMS 10:10 10:10 HEPATIC FUNCTION+C.LAB.BRZ ordered. EDMS EDMS 10:10 10:10 MAGNESIUM+C.LAB.BRZ ordered. EDMS EDMS 10:10 10:10 PROBNP+C.LAB.BRZ ordered. EDMS EDMS 10:10 10:10 PROTIME (+INR)+COAG.LAB.BRZ ordered. EDMS EDMS 10:10 10:10 Troponin High Sensitivity+C.LAB.BRZ ordered. EDMS EDMS 10:10 10:10 LIPASE+C.LAB.BRZ ordered. EDMS EDMS 10:10 10:10 Urinalysis+U.LAB.BRZ ordered. EDMS EDMS 10:10 10:10 Chest Single View+RAD.RAD.BRZ ordered. EDMS EDMS 10:10 10:10 Chest Abdomen Pelvis W Con+CT.RAD.BRZ ordered. EDMS EDMS 10:29 10:10 Pantoprazole IVP 40 mg IVP once ordered. [facility] 11:12 11:12 Abdomen Pelvis W Con+CT.RAD.BRZ ordered. EDMS EDMS 12:52 11:39 Telemetry/MedSurg (Inpatient) [facility] 12:52 11:39 [facility]
--- NOTE | 2025-01-11 11:40 | ER ---
Nurse's Notes [facility] Name: Steff Burger Age: 74 yrs Sex: Female : 1950 Arrival Date: 01/11/2025 Time: 10:05 Bed 7 Private MD: Diagnosis: GI Bleed/ Gastrointestinal hemorrhage, unspecified-upper, stable Presentation: 01/11 10:25 Chief complaint: Patient states: 3 episodes of dark tarry stools and coffee ground cm10 emesis since Friday. Pt states that Dr. Wall told her to come to the ER. PT reports feeling dizzy and weak. Denies any pain. Coronavirus screen: Client denies travel out of the [place] in the last 14 days. Ebola Screen: Patient denies travel to an Ebola-affected area in the 21 days before illness onset. Initial Sepsis Screen: Does the patient meet any 2 criteria? HR > 90 bpm. Does the patient have a suspected source of infection? No. Patient's initial sepsis screen is negative. Risk Assessment: Do you want to hurt yourself or someone else? Patient reports no desire to harm self or others. Onset of symptoms was January 09, 2025. 10:25 Method Of Arrival: Ambulatory cm10 10:25 Acuity: KYE 3 cm10 Triage Assessment: 10:27 General: Appears uncomfortable, Behavior is calm, cooperative. Pain: Denies pain. cm10 Neuro: No deficits noted. Level of Consciousness is awake, alert, obeys commands, Oriented to person, place, time, situation, Appropriate for age. Respiratory: No deficits noted. Airway is patent Respiratory effort is even, unlabored, Respiratory pattern is regular, symmetrical. Historical: - Allergies: 10:27 Sulfa (Sulfonamide Antibiotics); cm10 - PMHx: 10:27 Anxiety; Diabetes - NIDDM; Hypertension; Hypothyroidism; kidney problems; cm10 - PSHx: 10:27 Cholecystectomy; hysterectomy; cm10 - Immunization history:: Adult Immunizations up to date. - Infectious Disease History:: Denies. - Social history:: Smoking status: Patient denies any tobacco usage or history of. - Family history:: not pertinent. Screenin:33 [facility] ED Fall Risk Assessment (Adult) History of falling in the last 3 months, bp including since admission No falls in past 3 months (0 pts) Confusion or Disorientation No (0 pts) Intoxicated or Sedated No (0 pts) Impaired Gait No (0 pts) Mobility Assist Device Used No (0 pt) Altered Elimination No (0 pt) Score/Fall Risk Level 0 - 2 = Low Risk Oriented to surroundings. Abuse screen: Denies threats or abuse. Denies injuries from another. Nutritional screening: No deficits noted. Tuberculosis screening: No symptoms or risk factors identified. Assessment: 10:30 General: Appears in no apparent distress. comfortable, Behavior is cooperative, bp appropriate for age, anxious. 11:33 Reassessment: No changes from previously documented assessment. Patient is alert, bp oriented x 3, equal unlabored respirations, skin warm/dry/pink. 13:00 Reassessment: No changes from previously documented assessment. Patient is alert, bp oriented x 3, equal unlabored respirations, skin warm/dry/pink. 14:30 Reassessment: PT TANA WITH OR FOR ENDOSCOPY. bp Vital Signs: 10:25 BP 164 / 90; Pulse 91; Resp 18; Temp 98.1; Pulse Ox 100% ; Weight 77.7 kg (M); Height 5 cm10 ft. 3 in. (R); Pain 0/10; 11:33 BP 150 / 78; Pulse 77; Resp 16; Pulse Ox 98% ; bp 13:00 BP 137 / 78; Pulse 74; Resp 15; Pulse Ox 98% ; bp 14:00 BP 139 / 80; Pulse 76; Resp 15; Pulse Ox 99% ; bp 10:25 Body Mass Index 30.34 (77.70 kg, 160.02 cm) cm10 10:25 Pain Scale: Adult cm10 ED Course: 10:07 Patient arrived in ED. mr 10:08 Frankie Velázquez MD is Attending Physician. cinthia 10:17 Jareth Ross, KEELEY is Primary Nurse. bp 10:27 Triage completed. cm10 10:27 Arm band placed on right wrist. Patient placed in a hallway bed, on a stretcher. cm10 10:31 Initial lab(s) drawn, by me, sent to lab. Inserted saline lock: 22 gauge in right bp antecubital area, using aseptic technique. Blood collected. 10:39 XRAY Chest (1 view) In Process Unspecified. EDMS 11:12 CT Chest, Abdomen, Pelvis - W/Contrast In Process Unspecified. EDMS 11:33 Patient has correct armband on for positive identification. bp 11:39 Anselmo Neely MD is Hospitalizing Provider. cinthia 14:28 No provider procedures requiring assistance completed. Patient admitted, IV remains in bp place. 14:29 Provided Education on: NA. bp Administered Medications: 10:29 CANCELLED (Duplicate Order): [id number] mg IVP once cinthia 11:24 Drug: Pantoprazole IVP 80 mg IVP once Route: IVP; Site: right antecubital; bp 14:30 Follow up: Response: No adverse reaction bp 11:25 Drug: NS 0.9% IV 500 ml 500 ml IV at 1 bolus once; to be given as a bolus over 30 bp minutes Volume: 500 ml; Route: IV; Rate: 1 bolus; Site: right antecubital; 14:31 Follow up: IV Status: Completed infusion bp 11:25 Drug: Ondansetron IVP 4 mg IVP once; over 2 minutes Route: IVP; Site: right antecubital;bp 14:31 Follow up: Response: No adverse reaction bp 12:11 Drug: Pantoprazole IV 8 mg/hr IV at 25 ml/hr continuous; (Standard dilution is 80 mg in bp 250 mL NS) Route: IV; Rate: 25 ml/hr; Site: right antecubital; 14:30 Follow up: IV Status: Infusion continued upon admission bp Medication: 14:29 VIS not applicable for this client. bp Outcome: 11:39 Decision to Hospitalize by Provider. cinthia 14:28 Admitted to ER Hold. Please see [facility] for further documentation. bp 14:28 Condition: stable 14:28 Instructed on the need for admit, 14:57 Patient left the ED. jl7 Signatures: Dispatcher [employer] EDMS Frankie Velázquez MD MD cha Rivera, Mary, Reg Reg mr Lydia Velazco, RN RN jl7 Jareth Ross, Eloina Macdonald RN, RN RN cm10
[2025-01-11] MEDS: PANTOPRAZOLE INJ 80 MG in NA CHLORIDE 0.9% 250 ML IV SCH ×2 (12:00→14:32)
--- NOTE | 2025-01-11 12:00 | RAD REPORT ---
EXAM: CT CHEST, ABDOMEN AND PELVIS WITH CONTRAST CLINICAL INDICATION: Female, 74 years old. Chest pain;Abdominal distention TECHNIQUE: CT chest, abdomen, and pelvis was performed, following the administration of contrast, as per department protocol. Axial, sagittal and coronal reconstructions were obtained. One or more of the following dose reduction techniques were used: Automated exposure control, adjustment of the mA a nd/or kV according to patient size, and/or iterative reconstruction. Unless otherwise specified, incidental findings do not require dedicated imaging follow-up. COMPARISON: CT abdomen and pelvis 12/30/2024. FINDINGS: LUNGS AND AIRWAYS: No evidence of airspace or interstitial process. Calcified 9 mm left perifissural granuloma. No other suspicious nodules. PLEURA: No pleural effusion. No pneumothorax. MEDIASTINUM AND LYMPH NODES: No mediastinal mass or fluid collection. Normal size mediastinal, hilar, and axillary lymph nodes. THORACIC AORTA: Normal caliber and configuration. PULMONARY ARTERIES: Normal caliber. OSSEOUS STRUCTURES AND CHEST WALL: Intact. LIVER: Normal in size and contour. No focal lesion or biliary dilitation. BILIARY SYSTEM: Status post cholecystectomy. PANCREAS: No mass, ductal dilation, or ion-pancreatic fluid. SPLEEN: Normal size. No focal lesion. ADRENALS: Normal; no mass. KIDNEYS AND URETERS: Normal size and contour. No hydronephrosis. URINARY BLADDER: Normal contour. GASTROINTESTINAL TRACT: Moderate hiatal hernia. Small duodenal diverticulum. No bowel obstruction, fr ee air, significant free fluid or abscess. A few descending colon diverticula. APPENDIX: No inflammatory changes in region of appendix. LYMPH NODES: No lymphadenopathy. ABDOMINAL AORTA AND OTHER VESSELS: Normal caliber aorta and IVC. MUSCULOSKELETAL: No acute or suspicious osseous abnormality. IMPRESSION: No acute abnormalities seen in the chest, abdomen or pelvis. No suspicious masses or adenopathy. Incidental findings, including moderate-sized sliding hiatal hernia.
[2025-01-11 12:33] LABS: Anisocytosis 1+; Blood Morphology Comment NOTED (NOT SEEN); Microcytosis SLIGHT; Platelet Estimate ADEQ; White Blood Cell Scan OK (OK)
[2025-01-11] MEDS ORDERED: ACETAMINOPHEN 325 MG TABLET PO PRN (14:32)
[2025-01-11] MEDS ORDERED: ONDANSETRON 4 MG/2 ML VIAL IV PRN (14:32)
[2025-01-11] MEDS: D5 0.45 NS 1,000 ML IV SCH (14:32)
[2025-01-11] MEDS ORDERED: LIDOCAINE 1% MPF 5 ML VIAL ONE (14:36)
[2025-01-11] MEDS ORDERED: propofoL 200 MG/20 ML VIAL IV ONE (14:36)
[2025-01-11 14:38] VITALS: BMI 30.4
[2025-01-11] MEDS: NA CHLORIDE 0.9% 1,000 ML ONE (14:42)
[2025-01-11] MEDS ORDERED: MORPHINE 2 MG/ML SYR IV PRN (14:55)
[2025-01-11 17:11] VITALS: O2SAT 99
[2025-01-11] MEDS: SUCRALFATE 1GM/10ML UCUP PO SCH (17:51)
--- NOTE | 2025-01-12 00:18 | HP ---
Date of Admission: 01/11/2025 Chief Complaint: Coffee-ground emesis and black stool. History Of Present Illness: This is a 74-year-old female patient, who had episode of coffee-ground e mesis with black stool day before yesterday and today she started to have dizziness feeling, so she c fran into emergency room. She denies any abdominal pain, fever, chills. After she was evaluated, I w as contacted requesting admission to hospital and Dr. John was consulted from [facility], who did EGD on her today and found out that the patient has large hiatal hernia and within the body of stoma ch, she has some Giovani lesions in the stomach and this actually might explain her recurrent upper G I bleeding problem that she is having lately. Her first episode of upper GI bleeding was around Chri stmas time and second episode was just recently less than a month ago and she had an EGD done at [facility], which did not detect any source of bleeding. I just saw her at office last week on and she was referred to Dr. John who saw her once at office and today, he ended up doing EGD on her with findings as mentioned above. I saw her this evening. The patient was lying in bed, did not have any complaints this evening when I saw her. Review of Systems: GI: As mentioned above. All other systems reviewed and negative. Past Medical History: Type 2 diabetes mellitus, hypothyroidism, hypertension, mixed hyperlipidemia, gastroesophageal reflux disease, osteoarthritis at multiple sites, anxiety, chronic kidney disease st age IIIA. Past Surgical History: Significant for cataract surgery, cholecystectomy, hemorrhoid surgery, and hy sterectomy. Family History: Father , had prostate cancer. Mother , had heart disease, stroke, and kidne y disease. Brother , had lung cancer and sister , also had lung cancer. Social History: Prior history of smoking, not at present time. Use of alcohol, negative. Medications: List reviewed. Physical Examination: Vital Signs: Upon admission, temperature 98.3, pulse 80, respiratory rate 16, blood pressure 151/75, height 5 feet 3 inches, weight 171 pounds. General: Awake, alert, oriented, not in distress. HEENT: Head atraumatic, normocephalic. Conjunctivae nonerythematous. Sclerae white. Mouth, no thr ush or edema noted. Ears/Nose, no mass, lesion, discharge noted. Neck: Supple. No JVD, lymph nodes, bruit, thyromegaly noted. Lungs: Bilateral good equal air entry. Clear to auscultation. No rhonchi. No rales. Heart: Normal heart sounds, no murmur or gallop. Abdomen: Soft, bowel sounds normal. No guarding, rigidity, tenderness, mass, hepatosplenomegaly, dis tention, or bruit noted. Extremities: No leg edema. No calf tenderness. Skin: No rash, ulcer, cellulitis. Lymphatics: No lymph node enlargement in neck, supraclavicular, infraclavicular region. Neuro: No focal neurological deficit. Chest: Unremarkable. External Genitalia: Deferred. Rectal: Deferred. Laboratory Data: WBC 7, hemoglobin 11.1, platelets 397. Sodium 139, potassium 3.9, chloride 111, bi carb 24, BUN 17, creatinine 1.15, glucose 156. Liver function tests normal. Lipase 45. Chest x-ray , no acute cardiopulmonary changes. CAT scan of the chest, abdomen, pelvis, no acute findings. Impression: 1. Upper GI bleeding. 2. Chronic kidney disease stage IIIA. 3. Hypertension. 4. Mixed hyperlipidemia. 5. Type 2 diabetes mellitus. 6. Hypothyroidism. 7. Osteoarthritis, multiple sites. 8. Anxiety. 9. Gastroesophageal reflux disease. Plan: We will go ahead and admit the patient to hospital for further evaluation and management of th is problem. I did communicate with Dr. John before and after having EGD done today and EGD findi ngs discussed with him. At this point, we might have probable cause of her recurrent upper GI bleedi ng, but she will still need further workup done to make sure there is no other etiology for her recur rent GI bleeding problem and Dr. John will continue to follow up on outpatient basis for this and provided appropriate intervention and recommendation. At appropriate time, he will consider to refe r her to some specialist in [place] for treatment of large hiatal hernia as that could be underlying problem and may need surgical intervention. This details and plan of treatment discussed with her. Meanwhile, we will keep her on proton pump inhibitor therapy with medication like pantoprazole 40 mg 2 times a day. I will repeat blood work tomorrow morning and depending on her condition tomorrow, we will decide if we can discharge her to go home tomorrow or not. For diabetes, no need for any furth er intervention at this point. For hypertension, we will continue antihypertensive medication per or toy and for further intervention except monitoring of blood pressure. For her hyperlipidemia, no nee d for further intervention at this time. Total time spent today 65 minutes including review of last office visit note from 01/03/2025, review of emergency room visit record, communication with Dr. John, physician allergist immunologist, and kamran hernandez's evaluation and management. NNAMDI/MODL Voice ID: [id number]
[2025-01-12 05:16] LABS: Absolute Eosinophils 0.3 K/uL (0-0.5); Absolute Lymphocytes (CBC) 1.6 K/uL (0.7-4.9); Absolute Monocytes 0.5 K/uL (0.1-1.3); Absolute Neutrophil 3.6 K/uL (1.8-8.0); Basophils % 0.8 % (0-1.3); Eosinophils % 4.3 % (0-4.4); Hematocrit 28.9 % (36.0-45.0); Hemoglobin 9.3 g/dL (12.0-15.0); Lymphocytes % 26.7 % (15.3-44.8); MCH 27.2 pg (27.0-35.0); MCHC 32.3 g/dL (32.0-36.0); MCV 84.3 fL (80-100); MPV 8.5 fL (7.6-11.3); Monocytes % 8.6 % (3.3-12.3); Neutrophils % 59.6 % (41.7-73.7); Platelets 285 thou/uL (152-406); RBC Red Blood Cell Count 3.43 M/uL (3.86-4.86)
[2025-01-12 05:21] LABS: Red Cell Distribution Width 18.9 % (12.1-15.2)
[2025-01-12 05:36] LABS: ALT/SGPT 19 U/L (13-56); AST/SGOT 12 U/L (15-37); Albumin 2.8 g/dL (3.4-5.0); Albumin/Globulin Ratio 0.9 (1.1-1.8); Alkaline Phosphatase 51 U/L (45-117); Anion Gap 4.8 mEq/L (5.0-15.0); BUN Blood Urea Nitrogen 10 mg/dL (7-18); Bicarbonate 27 mEq/L (21-32); Bilirubin Total 0.3 mg/dL (0.2-1.0); Glomerular Filtration Rate 58 ml/min (=/>90); Glucose Level 143 mg/dL (74-106); Lipase 24 U/L (13-75); Potassium 3.8 mEq/L (3.5-5.1); Protein, Total 5.8 g/dL (6.4-8.2); Sodium Level 142 mEq/L (136-145)
[2025-01-12 05:38] LABS: Bilirubin Direct < 0.2 mg/dL (0-0.2); Bilirubin Indirect, Calculated 0.1 mg/dL (0.2-0.8)
[2025-01-12] MEDS: PANTOPRAZOLE INJ 80 MG in NA CHLORIDE 0.9% 250 ML IV SCH (08:00)
[2025-01-12 08:27] VITALS: BP 131/72; TEMP 98.5
--- NOTE | 2025-01-12 12:36 | EKG ---
Test Date: 2025-01-11 Test Time: 10:42:31 [place]: BP MEASUREMENT RESULTS: Intervals: Rate: 84 [place]: 164 QRSD: 80 QT: 380 QTc: 449 [place]: P: 34 [place]: 164 QRS: 80 T: 28 INTERPRETIVE STATEMENTS: Normal sinus rhythm Anterior infarct, age undetermined Abnormal ECG Compared to ECG 10/07/2024 10:48:35 Myocardial infarct finding now present Electronically Signed On 01-12-25 12:33:25 CDT by Nash Darden
--- NOTE | 2025-01-12 19:59 | DS ---
Date of Discharge: 01/12/2025 Disposition: Discharged to go home. Physical Examination: HEENT: Unremarkable. Lungs: Clear to auscultation. Heart: Sounds normal. Abdomen: Soft. Bowel sounds normal. No guarding, rigidity, tenderness, distention. Extremities: No leg edema. Laboratory Data: Yesterday WBC 7, hemoglobin 11.1, platelets 397. Today, WBC 6, hemoglobin 9.3, agustin telets . For chemistry yesterday, sodium 139, potassium 3.9, chloride 111 bicarb 24, BUN 1 7, creatinine 1.15, glucose 156. Liver function tests unremarkable. Lipase 45. Today, sodium 142, potassium 3.8, chloride 114, bicarb 27, BUN is 10, creatinine 1.01, glucose 143. Liver function test s unremarkable. Hospital Course: This is a 74-year-old pleasant female patient who came into emergency room with com plaints of feeling weak, dizzy after episode of coffee-grounds emesis and black-colored stool. Florin lo see dictated H and P for more information. The patient had 2 prior episodes of upper GI bleeding, first 1 was around Tucker time, so that was about 3 months ago. Second episode was beginning of t and this was her third episode. Her prior EGD failed to show any evidence of active GI ble eding source. So during this hospital admission, Dr. John who recently saw her as outpatient, lydia muhammad EGD on her yesterday and detected large hiatal hernia along with Giovani lesions in her body of the stomach and he has recommended for patient to stay on pantoprazole 40 mg 2 times a day at least for 1 month and then to lower it down to once a day and on outpatient basis, he will plan to refer her to see specialist in [place] for further consideration of hiatal hernia repair. He will also finish fu rther GI workup to look for source of any other area of blood loss. The patient has not had any recu rrence of coffee-grounds emesis or black-colored stool. She tolerated diet very well. No abdominal pain, nausea, vomiting. Hemodynamically, she remained stable and today she was discharged to go home in stable condition with following discharge medications and instructions. Final Diagnoses: 1. Upper gastrointestinal bleeding. 2. Acute blood loss anemia. 3. Chronic kidney disease, stage 3A. 4. Hypertension. 5. Mixed hyperlipidemia. 6. Type 2 diabetes mellitus. 7. Hypothyroidism. 8. Osteoarthritis, multiple sites. 9. Anxiety. 10. Gastroesophageal reflux disease. Discharge Medications And Instructions: 1. Continue all prior home medications. 2. Take pantoprazole 40 mg 1 tablet by mouth 2 times a day. 3. Follow up with Dr. John this week or next week. 4. Follow up at my office next week. Total time spent today 30 minutes. NNAMDI/MODL Voice ID: [id number] Report ID: [id number]
== END 2025-01-12 09:46 | disposition home or self-care (01) | DRG 378 ==
LOC: ER 10:05 → ERHOLD 11:43 → 2ND 17:14
PROVIDERS: ADMIT Internal Medicine; ATTEND Internal Medicine
PROC: 0DB68ZX Excision of Stomach, Via Natural or Artificial Opening Endoscopic, Diagnostic (ICD-10-PCS; principal; 2025-01-11 14:15)
DX: K25.0 Acute gastric ulcer with hemorrhage (principal); D62 Acute posthemorrhagic anemia; E11.22 Type 2 diabetes mellitus with diabetic chronic kidney disease; N18.31 Chronic kidney disease, stage 3a; E03.9 Hypothyroidism, unspecified; I12.9 Hypertensive chronic kidney disease with stage 1 through stage 4 chronic kidney disease, or unspecified chronic kidney disease; E78.2 Mixed hyperlipidemia; M15.9 Polyosteoarthritis, unspecified; K21.9 Gastro-esophageal reflux disease without esophagitis; K31.7 Polyp of stomach and duodenum; K44.9 Diaphragmatic hernia without obstruction or gangrene; F41.9 Anxiety disorder, unspecified
CPT/HCPCS: 36415; 71045; 71260; 74177; 80048; 80076; 82947; 83690; 83735; 83880; 84484; 85025; 85610; 86850; 86900; 86901; 88305; 88312; 93005; 96361; 96365; 96366; 96375; 99285; J2003; J2405; J2470; J2704; J7030; J7040; J7050; J7799; Q9967

== ENCOUNTER 2025-05-18 21:26 | Observation (INO) | payer OTHER ==
[2025-05-18] MEDS ORDERED: ONDANSETRON 4 MG/2 ML VIAL ONE (21:58)
[2025-05-18] MEDS ORDERED: NA CHLORIDE 0.9% 1,000 ML ONE (21:58)
[2025-05-18 22:29] LABS: Absolute Lymphocytes (CBC) 1.2 K/uL (0.7-4.9); Hematocrit 39.7 % (36.0-45.0); Hemoglobin 12.8 g/dL (12.0-15.0); MCH 25.8 pg (27.0-35.0); MCHC 32.3 g/dL (32.0-36.0); MCV 79.9 fL (80-100); MPV 9.4 fL (7.6-11.3); Nucleated RBC Absolute Count 0.0 (0-0); Nucleated Red Blood Cells % 0.0 % (0-0); RBC Red Blood Cell Count 4.96 M/uL (3.86-4.86); White Blood Count 18.00 thou/uL (4.3-10.9)
[2025-05-18 22:48] LABS: ALT/SGPT 15.0 U/L (13-56); AST/SGOT 19.0 U/L (15-37); Albumin 3.4 g/dL (3.4-5.0); Albumin/Globulin Ratio 0.9 (1.1-1.8); Alkaline Phosphatase 65.0 U/L (45-117); Anion Gap 10.0 mEq/L (5.0-15.0); BUN Blood Urea Nitrogen 22.0 mg/dL (7-18); Globulin 3.7 g/dL (2.3-3.5); Glucose Level 153.0 mg/dL (74-106); Lipase 10.0 U/L (13-75); Magnesium 2.0 mg/dL (1.6-2.4); Potassium 4.0 mEq/L (3.5-5.1)
[2025-05-18 23:24] LABS: Blood Morphology Comment NOT SEEN (NOT SEEN); Differential Total Cells Count 100; Segmented Neutrophils 55 % (40-80)
[2025-05-19] MEDS ORDERED: NA CHLORIDE 0.9% 500 ML ONE (00:56)
--- NOTE | 2025-05-19 00:56 | RAD REPORT ---
EXAM: CT Abdomen and Pelvis With Intravenous Contrast CLINICAL HISTORY: The patient is 74 years old and is Female; N/V/D, leukocytosis TECHNIQUE: Axial computed tomography images of the abdomen and pelvis with intravenous contrast. Sagittal an d coronal reformatted images were created and reviewed. This CT exam was performed using one or more of the following dose reduction techniques: automated exposure control, adjustment of the mA a nd/or kV according to patient size, and/or use of iterative reconstruction technique. COMPARISON: January 11, 2025. FINDINGS: LUNG BASES: Unremarkable. No mass. No consolidation. MEDIASTINUM: A moderate-sized hiatal hernia is present. ABDOMEN: LIVER: The liver is enlarged and mildly fatty. GALLBLADDER AND BILE DUCTS: Surgical clips are present in the right upper quadrant, consistent wi th previous cholecystectomy. PANCREAS: Fatty atrophy of the pancreas is present. SPLEEN: Calcified splenic granuloma are noted. ADRENALS: Unremarkable. No mass. KIDNEYS AND URETERS: Unremarkable. The kidneys enhance symmetrically. No obstructing renal or ure teral calculus is seen. No hydronephrosis or hydroureter. No perinephric fluid or stranding. STOMACH AND BOWEL: Stomach is distended with fluid and air. The small bowel is decompressed. A fe w the distal small bowel loops are fluid-filled and normal in caliber. Stool and air is noted throughout the colon. There is no mucosal thickening or evidence of obstruction. PELVIS: APPENDIX: The appendix is normal in caliber without surrounding inflammation. BLADDER: The bladder is incompletely distended. REPRODUCTIVE: The patient is status post hysterectomy. ABDOMEN and PELVIS: INTRAPERITONEAL SPACE: Unremarkable. No free air. No significant fluid collection. BONES/JOINTS: Minimal degenerative change of the spine is present. There is no acute fracture. SOFT TISSUES: The soft tissues are normal. VASCULATURE: Atherosclerosis of the vasculature is present. The vessels are normal in caliber. No abdominal aortic aneurysm. LYMPH NODES: Unremarkable. No enlarged lymph nodes. IMPRESSION: No acute findings on this contrasted CT of the abdomen and pelvis to explain the patient's symptoms . Electronically signed by: Paloma Rivera MD 05/19/2025 12:35 AM CDT RP Due to temporary technical issues with the PACS/[employer] reporting system, reports are being sandi d by the in-house radiologist without review as a courtesy to ensure prompt reporting the interpreting radiologist is fully responsible for the content of the report. Transcribed Date/Time: 05/19/2025 12:56 AM
--- NOTE | 2025-05-19 01:47 | EDPHYS ---
Physician Documentation [facility] Name: Steff Burger Age: 74 yrs Sex: Female : 1950 Arrival Date: 05/18/2025 Time: 21:26 Bed 16 Private MD: Ton Sparks ED Physician Boris Clark HPI: 05/18 21:45 This 74 yrs old Female presents to ER via Ambulatory with complaints of cr8 Nausea/Vomiting/Diarrhea. 21:45 Patient is a 74-year-old female with a past medical history of hypertension cr8 hyperlipidemia diabetes cholecystectomy recent urinary tract infection that comes in the emergency room complaining of nausea vomiting diarrhea. Reports this morning she woke up and has been having vomiting diarrhea all day. Currently on IV antibiotics (MERREM) for urinary tract infection. Reports it was for a UTI. She has a PICC line to the left upper extremity. She denies any abdominal pain fever. She is not having chest pain or dyspnea. Reports when she stands she feels like she has got a pass out and gets dizzy. Reports that her emesis and stools are black in color and she also has a history of peptic ulcer disease. Neurologic intact at this time.. Historical: - Allergies: 21:36 Sulfa (Sulfonamide Antibiotics); cp4 - PMHx: 21:36 Anxiety; Diabetes - NIDDM; Hypertension; Hypothyroidism; kidney problems; cp4 - PSHx: 21:36 Cholecystectomy; hysterectomy; cp4 - Immunization history:: Adult Immunizations up to date. - Infectious Disease History:: Denies. - Social history:: Smoking status: Patient denies any tobacco usage or history of. ROS: 21:45 Constitutional: as per HPI cr8 Exam: 21:45 Respiratory: Lungs have equal breath sounds bilaterally, clear to auscultation. No cr8 rales, rhonchi or wheezes noted. No increased work of breathing. Abdomen/GI: Soft, non-tender, with normal bowel sounds. No distension. No guarding or rebound. Neuro: Awake and alert, GCS 15, oriented to person, place, time, and situation. Cranial nerves II-XII grossly intact. Motor strength 5/5 in all extremities. Sensory grossly intact. 21:45 Constitutional: This is a well developed, well nourished patient who is awake, alert, cr8 and in no acute distress. ENT: Mucous membranes moist. Cardiovascular: Regular rate and rhythm with a normal S1 and S2. No gallops, murmurs, or rubs. Skin: Warm, dry with normal turgor. Normal color with no rashes, no lesions, and no evidence of cellulitis. MS/ Extremity: Pulses equal, no cyanosis. Neurovascular intact. Full, normal range of motion. 05/19 00:30 Special observations: the patient tolerates PO fluids, Reevaluated patient multiple cr8 times. She is in no acute distress. She is not have any abdominal pain discomfort. Blood pressures is soft so we will give her little more fluid. Has asked her multiple times to provide a stool sample and she has been unable to go. She has been able to get up and go to the bedside commode with minimal assistance. Continues to have no chest pain dyspnea or abdominal pain., Vital Signs: 05/18 21:34 Pulse 96; Resp 18; Temp 97.4; Pulse Ox 97% ; Weight 74.84 kg; Height 5 ft. 3 in. ; Pain cp4 0/10; 21:37 BP 96 / 62; cp4 22:23 BP 98 / 64; Pulse 86; Resp 18; Pulse Ox 95% on R/A; Weight 74.84 kg; Height 5 ft. 3 in. tb4 ; Pain 0/10; 05/19 00:03 BP 101 / 70; Pulse 69; Resp 18; Pulse Ox 99% on R/A; Pain 0/10; tb4 01:08 BP 114 / 61; Pulse 69; Resp 18; Pulse Ox 96% on R/A; Pain 0/10; tb4 02:10 BP 93 / 57; Pulse 76; Resp 18; Pulse Ox 97% on R/A; Pain 0/10; tb4 03:10 BP 93 / 51; Pulse 80; Resp 20; Pulse Ox 95% on R/A; Pain 0/10; tb4 04:04 BP 98 / 59; Pulse 78; Resp 20; Pulse Ox 100% on R/A; Pain 0/10; tb4 06:01 BP 88 / 63; Pulse 74; Resp 18; Pulse Ox 100% on R/A; Pain 0/10; tb4 05/18 22:23 Body Mass Index 29.23 (74.84 kg, 160.02 cm) tb4 05/18 21:34 Pain Scale: Adult cp4 22:23 Pain Scale: Adult tb4 05/19 00:03 Pain Scale: Adult tb4 01:08 Pain Scale: Adult tb4 02:10 Pain Scale: Adult tb4 03:10 Pain Scale: Adult tb4 04:04 Pain Scale: Adult tb4 06:01 Pain Scale: Adult tb4 MDM: 05/18 21:33 Medical Screening Exam initiated cr8 05/19 00:30 Data reviewed: vital signs, nurses notes, old medical records, Reviewed patient's cr8 previous labs from the ED April admission. Creatinine at that time was 1.06. Today is a slightly elevated 1.26. lab test result(s), amylase and lipase, CBC, electrolytes, hepatic panel, urinalysis, radiologic studies, CT scan. Counseling: I had a detailed discussion with the patient and/or guardian regarding the historical points, exam findings, and any diagnostic results supporting the discharge/admit diagnosis, lab results, radiology results, the need for further work-up and treatment in the hospital. 01:39 ED course: Patient came in the emergency room for nausea vomiting diarrhea. Abdominal cr8 exam without peritoneal signs. Diarrhea is non bloody so less likely inflammatory bowel disease. No evidence of surgical abdomen or other acute medical emergency including bowel obstruction, viscus perforation, vascular catastrophe, atypical appendicitis, acute cholecystitis, UGIB, thyrotoxicosis, or diverticulitis at this time. Patient's white blood cell count was elevated at 18.5. Manual differential came back at bands of 34. Went ahead and ordered CT abdomen pelvis given the leukocytosis/bandemia. CT abdomen pelvis did not show any evidence of acute infection or abnormality. Considered sepsis but patient is afebrile, she is not tachycardic so no SIRS criteria met at this time. Initial blood pressure was soft so considered mild hypovolemia and acute kidney injury. Her creatinine came back 1.26. Previous was 1.06 so there is some acute kidney injury present. Went ahead and reordered the urinalysis. She has been on meropenem for ESBL and receiving IV antibiotics at home for this. Patient stated her vomitus and diarrhea was black so consider GI bleed. However H\T\H is stable and denies any black tarry stools or melena. Was going to perform a occult blood testing here but was informed that this facility does not perform those anymore. Suspect the patient has C. difficile colitis however she was unable to give stool for evaluation. Also considered other form of colitis but again she has been unable to provide a stool sample. Will go ahead and add blood cultures since she has leukocytosis and bandemia. Gave her a dose of vancomycin p.o. since she has been on multiple antibiotics. Discussed the case with hospitalist shamika and the ED attending Dr. Clark.. 05/18 21:36 Order name: CBC with Diff; Complete Time: 23:25 cr8 05/18 21:36 Order name: CMP; Complete Time: 22:49 cr8 05/18 21:36 Order name: Lipase; Complete Time: 22:49 cr8 05/18 21:36 Order name: Magnesium; Complete Time: 22:49 cr8 05/18 22:34 Order name: Manual Differential; Complete Time: 23:25 EDMS 05/18 23:26 Order name: Fecal Leukocyte Stain cr8 05/18 23:26 Order name: Stool Culture cr8 05/18 23:26 Order name: CDIFF cr8 05/19 01:11 Order name: UA Rfx Jared Cult if indicated; Complete Time: 02:00 cr8 05/19 01:42 Order name: Blood Culture Adult (2) cr8 05/19 02:06 Order name: Lactate w/ 2H reflex if indic. rn 05/19 05:30 Order name: Ova and Parasites EDMS 05/18 22:56 Order name: CT Abd/Pelvis - IV Contrast Only cr8 05/18 21:36 Order name: IV Saline Lock; Complete Time: 00:20 cr8 05/18 21:36 Order name: Labs collected and sent; Complete Time: 22:45 cr8 Administered Medications: 05/18 22:44 Drug: Ondansetron IVP 4 mg IVP once; over 2 minutes Route: IVP; Site: PICC; tb4 05/19 00:20 Follow up: Response: No adverse reaction; Nausea is decreased tb4 05/18 22:44 Drug: NS 0.9% IV 1000 ml IV at 1000 ml once; to be given as a bolus over 60 minutes tb4 Route: IV; Rate: 1000 ml; Site: PICC; 05/19 00:55 Follow up: Response: No adverse reaction; IV Status: Completed infusion tb4 01:06 Drug: NS 0.9% IV 500 ml IV at bolus once; to be given as a bolus over 30 minutes Route: tb4 IV; Rate: bolus; Site: PICC; 02:48 Follow up: Response: No adverse reaction; IV Status: Completed infusion tb4 06:01 Not Given (Medication not in stockk): [id number] mg PO once tb4 Disposition Summary: 05/19/25 01:47 Hospitalization Ordered Notes: Hospitalization Status: Inpatient Admission cr8 Provider: Hamlet Jovel Location: Telemetry/MedSur (observation) cr8 Condition: Stable cr8 Problem: new cr8 Symptoms: are unchanged cr8 Bed/Room Type: Standard cr8 Room Assignment: [id number](05/19/25 05:44) kl Diagnosis - Bandemia cr8 - Diarrhea, unspecified cr8 - Nausea with vomiting, unspecified cr8 - ACUTE KIDNEY INJURY cr8 Forms: - Medication Reconciliation Form cr8 - SBAR form cr8 - Leadership Thank You Letter cr8 Addendum: 05/25/2025 19:01 Co-signature as Attending Physician, Boris Clark MD I reviewed the patient's care r n provided by the Advanced Practice Provider and agree with the diagnosis and treatment plan. Signatures: Dispatcher [employer] EDMegha Santos RN Boris Jimenez MD MD rn Potter, Christina cp4 Riddle, Christopher, NP NP cr8 Rosa Mccormick RN RN tb4 Corrections: (The following items were deleted from the chart) 05/18 21:37 21:37 CBC+H.LAB.BRZ ordered. EDWY EDMS 21:37 21:37 COMPREHENSIVE METABOLIC PANEL+C.LAB.BRZ ordered. EDWY EDMS 21:37 21:37 LIPASE+C.LAB.BRZ ordered. EDWY EDMS 21:37 21:37 MAGNESIUM+C.LAB.BRZ ordered. EDWY EDMS 21:47 21:45 Patient is a 74-year-old female. cr8 cr8 05/19 01:12 01:12 UA Rfx Jared Cult if indicated+U.LAB.BRZ ordered. EDWY EDMS 01:44 01:39 ED course: Patient came in the emergency room for nausea vomiting diarrhea. cr8 Abdominal exam without peritoneal signs. Diarrhea is non bloody so less likely inflammatory bowel disease. No evidence of surgical abdomen or other acute medical emergency including bowel obstruction, viscus perforation, vascular catastrophe, atypical appendicitis, acute cholecystitis, UGIB, thyrotoxicosis, or diverticulitis at this time. Patient's white blood cell count was elevated at 18.5. Manual differential came back at bands of 34. Went ahead and ordered CT abdomen pelvis given the leukocytosis/bandemia. CT abdomen pelvis did not show any evidence of acute infection or abnormality. Considered sepsis but patient is afebrile, she is not tachycardic so no SIRS criteria met at this time. Initial blood pressure was soft so considered mild hypovolemia and acute kidney injury. Her creatinine came back 1.26. Previous was 1.06 so there is some acute kidney injury present. Went ahead and reordered the urinalysis. She has been on meropenem for ESBL and receiving IV antibiotics at home for this.. cr8 : 08/ 21:45 Patient is a 74-year-old female with a past medical history of hypertension cr8 hyperlipidemia diabetes cholecystectomy recent urinary tract infection that comes in the emergency room complaining of nausea vomiting diarrhea. Reports this morning she woke up and has been having vomiting diarrhea all day. Currently on IV antibiotics for urinary tract infection. Reports it was for a UTI. She has a PICC line to the left upper extremity. She denies any abdominal pain fever. She is not having chest pain or dyspnea. Reports when she stands she feels like she has got a pass out and gets dizzy. Reports that her emesis and stools are black in color and she also has a history of peptic ulcer disease. Neurologic intact at this time.. cr8 05/19 02:09 01:39 ED course: Patient came in the emergency room for nausea vomiting diarrhea. cr8 Abdominal exam without peritoneal signs. Diarrhea is non bloody so less likely inflammatory bowel disease. No evidence of surgical abdomen or other acute medical emergency including bowel obstruction, viscus perforation, vascular catastrophe, atypical appendicitis, acute cholecystitis, UGIB, thyrotoxicosis, or diverticulitis at this time. Patient's white blood cell count was elevated at 18.5. Manual differential came back at bands of 34. Went ahead and ordered CT abdomen pelvis given the leukocytosis/bandemia. CT abdomen pelvis did not show any evidence of acute infection or abnormality. Considered sepsis but patient is afebrile, she is not tachycardic so no SIRS criteria met at this time. Initial blood pressure was soft so considered mild hypovolemia and acute kidney injury. Her creatinine came back 1.26. Previous was 1.06 so there is some acute kidney injury present. Went ahead and reordered the urinalysis. She has been on meropenem for ESBL and receiving IV antibiotics at home for this. Patient stated her vomitus and diarrhea was black so consider GI bleed. However H\T\H is stable and denies any black tarry stools or melena. Was going to perform a occult blood testing here but was informed that this facility does not perform those anymore. Suspect the patient has C. difficile colitis however she was unable to give stool for evaluation. Also considered other form of colitis but again she has been unable to provide a stool sample. Will go ahead and add blood cultures since she has leukocytosis and bandemia. Gave her a dose of vancomycin p.o. since she has been on multiple antibiotics.. cr8 05:44 01:47 cr8
--- NOTE | 2025-05-19 01:47 | ER ---
Nurse's Notes [facility] Name: Steff Burger Age: 74 yrs Sex: Female : 1950 Arrival Date: 05/18/2025 Time: 21:26 Bed 16 Private MD: Ton Sparks Diagnosis: Bandemia;Diarrhea, unspecified;Nausea with vomiting, unspecified;ACUTE KIDNEY INJURY Presentation: 05/18 21:34 Chief complaint: Patient states: vomiting and diarrhea that started today. Patient is cp4 still getting antibiotics through a PICC line for a uti. Coronavirus screen: Client denies travel out of the [place] in the last 14 days. At this time, the client does not indicate any symptoms associated with coronavirus-19. Ebola Screen: Patient negative for fever greater than or equal to 101.5 degrees Fahrenheit, and additional compatible Ebola Virus Disease symptoms Patient denies exposure to infectious person. Patient denies travel to an Ebola-affected area in the 21 days before illness onset. No symptoms or risks identified at this time. Initial Sepsis Screen: Does the patient meet any 2 criteria? HR > 90 bpm. No. Patient's initial sepsis screen is negative. Does the patient have a suspected source of infection? No. Patient's initial sepsis screen is negative. Risk Assessment: Do you want to hurt yourself or someone else? Patient reports no desire to harm self or others. Onset of symptoms was May 18, 2025. 21:34 Method Of Arrival: Ambulatory cp4 21:34 Acuity: KYE 3 cp4 Triage Assessment: 21:36 General: Appears in no apparent distress. uncomfortable, Behavior is calm, cooperative, cp4 appropriate for age. Pain: Denies pain. GI: Reports diarrhea, nausea, vomiting. Historical: - Allergies: 21:36 Sulfa (Sulfonamide Antibiotics); cp4 - PMHx: 21:36 Anxiety; Diabetes - NIDDM; Hypertension; Hypothyroidism; kidney problems; cp4 - PSHx: 21:36 Cholecystectomy; hysterectomy; cp4 - Immunization history:: Adult Immunizations up to date. - Infectious Disease History:: Denies. - Social history:: Smoking status: Patient denies any tobacco usage or history of. Screenin:34 [facility] ED Fall Risk Assessment (Adult) History of falling in the last 3 months, tb4 including since admission No falls in past 3 months (0 pts) Confusion or Disorientation No (0 pts) Intoxicated or Sedated No (0 pts) Impaired Gait No (0 pts) Mobility Assist Device Used No (0 pt) Altered Elimination No (0 pt) Score/Fall Risk Level 0 - 2 = Low Risk Oriented to surroundings, Maintained a safe environment, Educated pt \T\ family on fall prevention, incl call for assistance when getting out of bed. Abuse screen: Denies threats or abuse. Nutritional screening: No deficits noted. Tuberculosis screening: No symptoms or risk factors identified. Assessment: 22:10 Reassessment: Patient is alert, oriented x 3, equal unlabored respirations, skin tb4 warm/dry/pink. See triage note. General: Appears uncomfortable, Behavior is calm, cooperative. Pain: Denies pain. Neuro: Level of Consciousness is awake, alert, obeys commands, confused, Oriented to person, place, time, situation, Manager Hris are equal bilaterally Moves all extremities. Full function Gait is steady, Speech is normal, Facial symmetry appears normal. Respiratory: Airway is patent Trachea midline Respiratory effort is even, unlabored, Respiratory pattern is regular, symmetrical. GI: Abdomen is round non-distended, Bowel sounds present X 4 quads. Abd is soft and non tender X 4 quads. Reports diarrhea, nausea, vomiting. : No signs and/or symptoms were reported regarding the genitourinary system. EENT: No signs and/or symptoms were reported regarding the EENT system. Derm: Skin is intact, Skin is dry, Skin is pink, warm \T\ dry. Skin temperature is warm. Musculoskeletal: Circulation, motion, and sensation intact. Capillary refill < 3 seconds, is brisk, in bilateral fingers. Range of motion: intact in all extremities. 05/19 00:02 Reassessment: Patient dropped off to her room form CT by tech. tb4 Vital Signs: 05/18 21:34 Pulse 96; Resp 18; Temp 97.4; Pulse Ox 97% ; Weight 74.84 kg; Height 5 ft. 3 in. ; Pain cp4 0/10; 21:37 BP 96 / 62; cp4 22:23 BP 98 / 64; Pulse 86; Resp 18; Pulse Ox 95% on R/A; Weight 74.84 kg; Height 5 ft. 3 in. tb4 ; Pain 0/10; 05/19 00:03 BP 101 / 70; Pulse 69; Resp 18; Pulse Ox 99% on R/A; Pain 0/10; tb4 01:08 BP 114 / 61; Pulse 69; Resp 18; Pulse Ox 96% on R/A; Pain 0/10; tb4 02:10 BP 93 / 57; Pulse 76; Resp 18; Pulse Ox 97% on R/A; Pain 0/10; tb4 03:10 BP 93 / 51; Pulse 80; Resp 20; Pulse Ox 95% on R/A; Pain 0/10; tb4 04:04 BP 98 / 59; Pulse 78; Resp 20; Pulse Ox 100% on R/A; Pain 0/10; tb4 06:01 BP 88 / 63; Pulse 74; Resp 18; Pulse Ox 100% on R/A; Pain 0/10; tb4 05/18 22:23 Body Mass Index 29.23 (74.84 kg, 160.02 cm) tb4 05/18 21:34 Pain Scale: Adult cp4 22:23 Pain Scale: Adult tb4 05/19 00:03 Pain Scale: Adult tb4 01:08 Pain Scale: Adult tb4 02:10 Pain Scale: Adult tb4 03:10 Pain Scale: Adult tb4 04:04 Pain Scale: Adult tb4 06:01 Pain Scale: Adult tb4 ED Course: 05/18 21:27 Patient arrived in ED. jj6 21:28 Ton Sparks DO is Private Physician. jj6 21:31 Dejan Ceja NP is PHCP. cr8 21:31 Boris Clark MD is Attending Physician. cr8 21:36 Triage completed. cp4 21:36 Arm band placed on right wrist. Patient placed in waiting room. cp4 22:34 Patient has correct armband on for positive identification. Bed in low position. Call tb4 light in reach. Client placed on continuous cardiac and pulse oximetry monitoring. NIBP monitoring applied. Door closed. Lights dimmed. 23:23 Accessed PICC line. Clean \T\ dry. Dressing intact. Good blood return. Flushes easily. cp4 23:47 Initial lab(s) drawn, by ED staff, sent to lab. CT Scan. tb4 23:57 CT Abd/Pelvis - IV Contrast Only In Process Unspecified. EDMS 08/07 01:47 Hamlet Jovel, RN is Hospitalizing Provider. cr8 02:48 Blood Culture Adult (2) Sent. tb4 02:48 Lactate w/ 2H reflex if indic. Sent. tb4 06:01 No provider procedures requiring assistance completed. tb4 07:39 Patient admitted, IV remains in place. kc6 Administered Medications: 05/18 22:44 Drug: Ondansetron IVP 4 mg IVP once; over 2 minutes Route: IVP; Site: PICC; tb4 05/19 00:20 Follow up: Response: No adverse reaction; Nausea is decreased tb4 05/18 22:44 Drug: NS 0.9% IV 1000 ml IV at 1000 ml once; to be given as a bolus over 60 minutes tb4 Route: IV; Rate: 1000 ml; Site: PICC; 05/19 00:55 Follow up: Response: No adverse reaction; IV Status: Completed infusion tb4 01:06 Drug: NS 0.9% IV 500 ml IV at bolus once; to be given as a bolus over 30 minutes Route: tb4 IV; Rate: bolus; Site: PICC; 02:48 Follow up: Response: No adverse reaction; IV Status: Completed infusion tb4 06:01 Not Given (Medication not in stockk): [id number] mg PO once tb4 Medication: 05/18 22:23 VIS not applicable for this client. tb4 Outcome: 05/19 01:47 Decision to Hospitalize by Provider. cr8 07:38 Admitted to Med/surg accompanied by tech, via wheelchair, room 412, with chart, [facility] 07:38 Condition: good 07:38 Instructed on the need for admit, 07:39 Patient left the ED. kc Signatures: Dispatcher [employer] ED[facility] Josseline Healy Kaitlyn, RN RN kc6 Kavitha Reese Christopher, NP NEEDLE LEADER [email or web address] Rosa Mccormick, RN RN tb4
[2025-05-19 01:48] LABS: Sqamous Epithelial <5 /HPF (None Seen); Urine Culture Reflex Order NOT NEEDED; Urine Microscopic Reflex YN ORDER UMIC
[2025-05-19] MEDS: INSULIN REGULAR (HUMAN) 100 UNIT/ML SQ SCH (07:30)
[2025-05-19 08:08] VITALS: BMI 29.2
[2025-05-19] MEDS: Meropenem 1,000 MG in NA CHLORIDE 0.9% 100 ML IV SCH (08:20)
[2025-05-19] MEDS: NA CHLORIDE 0.9% 1,000 ML IV SCH (08:20)
[2025-05-19] MEDS: ENOXAPARIN 40 MG/0.4 ML SQ SCH (08:21)
[2025-05-19] MEDS: ONDANSETRON 4 MG/2 ML VIAL IV PRN (08:22)
--- NOTE | 2025-05-19 09:36 | P.HP ---
Certification for Inpatient Patient admitted to: Inpatient With expected LOS: >2 Midnights Patient will require the following post-hospital care: None Practitioner: I am a practitioner with admitting privileges, knowledge of patient current condition, hospital course, and medical plan of care. Services: Services provided to patient in accordance with Admission requirements found in Title 42 Section 412.3 of the Code of Federal Regulations Patient History Date of Service: 05/19/25 Reason for admission: Diarrhea, nausea and vomiting, KAILA, History of Present Illness: Patient is a pleasant 74-year-old female with past medical history of ESBL UTI, currently on meropenem for which patient states she have taken 3 doses and still needs two more doses to take making it a total of five doses which she is supposed to take as instructed after discharged from the hospital, hypertension, hyperlipidemia, type 2 diabetes mellitus. Patient reports to ER complaining of multiple episodes of nausea and vomiting, and diarrhea. States she have been having multiple episodes of nausea and vomiting nonbilious and nonbloody content of moderate amount, and diarrhea for the past couple of days which then prompted her to report to ER, states it was not getting better. Patient was recently admitted to to the hospital and treated for ESBL UTI, she had a PICC line inserted, and discharged home on meropenem antibiotic for which she was supposed to take for 5 days, and patient have taken 3 doses so far prior to visiting the ER tonight. Patient denies having associated chest pain, shortness of breath, febrile, or chills or abdominal pain.. Patient episode of diarrhea may be all related to possible C. difficile since she has been on antibiotic for some time, will move forward to order stool for C. difficile and parasites. Course in ER: CT abdomen and pelvis with intravenous contrast. Impression: No acute findings on this contrasted CT of the abdomen and pelvis to explain patient's symptoms. Allergies Sulfa (Sulfonamide Antibiotics) Allergy (Mild, Verified 07/16/23 09:11) Unknown Home Medications: Amlodipine [Norvasc*] 5 mg PO DAILY 07/15/23 Metoprolol Succinate 50 mg PO BID 07/15/23 Rosuvastatin Calcium 1 tab PO BEDTIME 07/15/23 Cholecalciferol (Vitamin D3) [Vitamin D3] 1 cap PO DAILY 01/13/24 Cyanocobalamin (Vitamin B-12) [Vitamin B-12] 1 cap PO DAILY 01/13/24 Ferrous Sulfate [Slow Fe] 1 tab PO DAILY 01/13/24 Lactobacillus Rhamnosus GG [Culturelle] 1 cap PO DAILY 01/13/24 Levothyroxine [Synthroid*] 1 tab PO [id number] 01/13/24 PARoxetine HCL [Paxil*] 1 tab PO DAILY 01/13/24 Pantoprazole [Protonix Tab*] 1 tab PO [id number] 01/13/24 Tirzepatide [Mounjaro] 7.5 mg SQ SEECOM 01/13/24 Ramelteon [Rozerem] 8 mg PO BEDTIME 05/11/25 Mupirocin Calcium [Bactroban Nasal*] 1 appl NERY BID tube 05/13/25 Phenazopyrididine [Pyridium*] 100 mg PO TID #6 tab 05/13/25 - Past Medical/Surgical History Diabetic: Yes -: DM -: Diverticulitis -: UTI ESBL -: Hypertension. -: Hyperlipidemia. -: Hysterectomy -: Cataract Sx -: Gall bladder removal - Family History Father -: Cancer, Other (see notes) Notes: prostate CA Mother -: Stroke - Social History Smoking Status: Former smoker Alcohol use: No CD- Drugs: No Caffeine use: Yes Place of Residence: Home Review of Systems 10-point ROS is otherwise unremarkable Gastrointestinal: Nausea, Vomiting, Diarrhea Physical Examination - Vital Signs Temperature: 98.5 F Blood Pressure: 129/60 Pulse: 82 Respirations: 17 Pulse Ox (%): 94 - Physical Exam General: Alert, Oriented x3, Cooperative HEENT: Atraumatic, Normocephalic, PERRLA, Mucous membr. moist/pink, Sclerae nonicteric Neck: Supple, 2+ carotid pulse no bruit, No LAD, Without JVD or thyroid abnormality Respiratory: Clear to auscultation bilaterally, Normal air movement Cardiovascular: No edema, Normal pulses, Regular rate/rhythm, Normal S1 S2, No gallops, No rubs, No murmurs Capillary refill: <2 Seconds Gastrointestinal: Normal bowel sounds, Soft and benign, Non-distended, W/out hep atomegaly, No ascites, No tenderness, No masses, No rebound, No guarding Musculoskeletal: No clubbing, No swelling, No contractures, No erythema, No tenderness, No warmth Integumentary: No rashes, No breakdown, No significant lesion, No tenderness/swelling, No erythema, No warmth, No cyanosis Neurological: Normal gait, Normal speech, Normal strength at 5/5 x4 extr, Normal tone, Sensation intact, Cranial nerves 3-12 intact, Normal reflexes 2+, Normal affect Lymphatics: No axilla or inguinal lymphadenopathy - Studies Laboratory Data (last 24 hrs) 05/18/25 05/18/25 22:19 22:19 WBC 18.00 H Hgb 12.8 Hct 39.7 Plt Count 303 Sodium 138 Potassium 4.0 BUN 22 H Creatinine 1.27 H Glucose 153 H Magnesium 2.0 Total Bilirubin 0.6 AST 19 ALT 15 Alkaline Phosphatase 65 Lipase 10 L Female Exam - Breasts Breasts: Normal configuration Assessment and Plan - Plan Patient is a 74-year-old female admitted with diagnosis of diarrhea multiple episodes, nausea and vomiting nonbloody and nonbilious content, KAILA. (1)Nausea/vomiting, diarrhea, and KAILA. -Order for C. difficile, stool parasites. Will hold off from antidiarrhea medication at this time until stool for C. difficile is collected. -Zofran 4 mg IV as needed every 6 hours. -IV NS at 75 mL/ HR. (2)Prior UTI with incomplete intravenous antibiotics. Patient was admitted recently with ESBL UTI, and discharged home on meropenem for 5 days. Patient states prior to her visit to the ER sharri, she haVE taken 3 doses out of the 5 doseS ordered administered by home visiting nurse. Patient has a current PICC line left arm with no signs of infection noted at this time. -Order meropenem 1000 mg IV every 8 for the remainder 2 doses left. (3)Patient chronic diseases medications to be resumed after reconciliation is done. (4)Explained the entire treatment plan to the patient, solicit questions answered and voiced understanding. (5)Chronic type 2 diabetes mellitus. -Moderate sliding scale, ACHS. Discharge Plan: Home Plan to discharge in: 48 Hours - Advance Directives Does patient have a Living Will: No Does patient have a Durable POA for Healthcare: No - Code Status/Comfort Care Code Status Assessed: Yes Code Status: Full Code Critical Care: No Time Spent Managing Pts Care (In Minutes): 55
[2025-05-19 11:29] LABS: C.diff Antigen/Toxin Ag neg : Tox neg (NEG : NEG); CDIFF INTERNAL NEG CONTROL White Background (WHITE BKGD); STOOL CONSISTENCY Liquid/Semi-Solid
--- NOTE | 2025-05-19 17:04 | P.PN ---
Date of Service: 05/19/25 Patient seen and examined. She reports 3 diarrheal bowel movements since this morning. She reports mild diffuse abdominal pain. Plan: Stool for C. difficile negative. Continue IV meropenem. Patient to complete course for previous UTI. Supportive measures with IV hydration. Other stress studies are pending.
[2025-05-19] MEDS: ROSUVASTATIN 10 MG TAB PO SCH (20:26)
[2025-05-19] MEDS: MELATONIN 3 MG TABLET PO SCH (20:26)
[2025-05-19] MEDS ORDERED: RAMELTEON 8 MG PO SCH (21:00)
[2025-05-19] MEDS ORDERED: HOME MED 1 EA UNK (Rosuvastatin Calcium [Rosuvastatin Calcium] 20 MG Tablet) PO SCH (21:00)
[2025-05-20 05:22] LABS: Absolute Lymphocytes (CBC) 2.5 K/uL (0.7-4.9); Hematocrit 34.3 % (36.0-45.0); Hemoglobin 11.3 g/dL (12.0-15.0); MCH 26.4 pg (27.0-35.0); MCHC 32.9 g/dL (32.0-36.0); MCV 80.1 fL (80-100); MPV 9.2 fL (7.6-11.3); Nucleated RBC Absolute Count 0.0 (0-0); Nucleated Red Blood Cells % 0.0 % (0-0); RBC Red Blood Cell Count 4.28 M/uL (3.86-4.86); White Blood Count 9.90 thou/uL (4.3-10.9)
[2025-05-20] MEDS: LEVOTHYROXINE SOD 0.112 MG TAB PO SCH (05:36)
[2025-05-20 05:41] LABS: Albumin 2.9 g/dL (3.4-5.0); Albumin/Globulin Ratio 0.8 (1.1-1.8); Alkaline Phosphatase 52 U/L (45-117); Anion Gap 5.0 mEq/L (5.0-15.0); BUN Blood Urea Nitrogen 13 mg/dL (7-18); Globulin 3.5 g/dL (2.3-3.5); Glucose Level 104 mg/dL (74-106); Magnesium 2.0 mg/dL (1.6-2.4); Potassium 4.0 mEq/L (3.5-5.1)
[2025-05-20 05:43] LABS: ALT/SGPT < 14 U/L (13-56); AST/SGOT < 10 U/L (15-37)
[2025-05-20] MEDS: VITAMIN D 1000 UNIT TAB PO SCH (07:36)
[2025-05-20] MEDS: LACTOBACILLUS/ACIDOPHILUS TAB PO SCH (07:36)
[2025-05-20] MEDS: CYANOCOBALAMIN 1,000 MCG TAB PO SCH (07:36)
[2025-05-20] MEDS: FERROUS SULFATE PO SCH (07:37)
[2025-05-20] MEDS: PANTOPRAZOLE 40MG TABLET PO SCH (07:37)
[2025-05-20] MEDS ORDERED: HOME MED 1 EA UNK (Cholecalciferol (Vitamin D3) [Vitamin D3] 25 MCG Capsule) PO SCH (09:00)
[2025-05-20] MEDS ORDERED: HOME MED 1 EA UNK (Cyanocobalamin (Vitamin B-12) [Vitamin B-12] 5,000 MCG Capsule) PO SCH (09:00)
[2025-05-20] MEDS ORDERED: LACTOBACILLUS RHAMNOSUS GG PO SCH (09:00)
[2025-05-20 09:45] VITALS: O2SAT 93
[2025-05-20] MEDS: POTASS/SODIUM PHOSPHATE 1 PKT POWD.PACK PO ONE (12:28)
--- NOTE | 2025-05-20 12:58 | P.DS ---
Admission Date: 05/19/25 Discharge Date: 05/20/25 Disposition: ROUTINE DISCHARGE Discharge Condition: FAIR Reason for Admission: Diarrhea, nausea and vomiting, KAILA, Brief History of Present Illness: 74-year-old female with past medical history of ESBL UTI, currently on meropenem for which patient states she have taken 3 doses and still needs two more doses to take making it a total of five doses which she is supposed to take as inst ructed after discharged from the hospital, hypertension, hyperlipidemia, type 2 diabetes mellitus. Patient reported to ER complaining of multiple episodes of nausea and vomiting, and diarrhea of [address] abdomen and pelvis with intravenous contrast showed no acute findings. Patient was hospitalized for further management. Hospital Course: Diagnosis KAILA Nausea and vomiting Acute diarrhea Acute gastroenteritis ESBL Klebsiella pneumoniae UTI. Patient was treated with supportive measures including IV hydration. KAILA resolved. Stool for C. difficile came back negative. Patient's symptoms resolved. Diarrhea resolved. Patient tolerated diet with no nausea or vomiting. She is currently asymptomatic, vitals are stable patient is deemed stable for discharge. Patient completed the rest of her IV meropenem for ESBL UTI infection during the hospital stay. Vital Signs/Physical Exam: Temp Pulse Resp BP Pulse Ox 98.1 F 80 18 148/77 H 95 05/20/25 12:00 05/20/25 12:00 05/20/25 12:00 05/20/25 12:00 05/20/25 12:00 General: Alert, In no apparent distress, Oriented x3 HEENT: Mucous membr. moist/pink, Sclerae nonicteric Neck: JVD not distended Respiratory: Clear to auscultation bilaterally, Normal air movement Cardiovascular: No edema, Regular rate/rhythm, Normal S1 S2 Gastrointestinal: Normal bowel sounds, Soft and benign, Non-distended Musculoskeletal: No swelling Integumentary: No rashes, No cyanosis Neurological: Normal strength at 5/5 x4 extr Laboratory Data at Discharge: WBC 9.90 thou/uL (4.3-10.9) 05/20/25 05:10 Hgb 11.3 g/dL (12.0-15.0) L 05/20/25 05:10 Hct 34.3 % (36.0-45.0) L 05/20/25 05:10 Plt Count 257 thou/uL (152-406) 05/20/25 05:10 Sodium 142 mEq/L (136-145) 05/20/25 05:10 Potassium 4.0 mEq/L (3.5-5.1) 05/20/25 05:10 BUN 13 mg/dL (7-18) 05/20/25 05:10 Creatinine 0.96 mg/dL (0.55-1.02) 05/20/25 05:10 Glucose 104 mg/dL (74-106) 05/20/25 05:10 Phosphorus 2.1 mg/dL (2.5-4.9) L 05/20/25 05:10 Magnesium 2.0 mg/dL (1.6-2.4) 05/20/25 05:10 Total Bilirubin 0.5 mg/dL (0.2-1.0) 05/20/25 05:10 AST < 10 U/L (15-37) L 05/20/25 05:10 ALT < 14 U/L (13-56) 05/20/25 05:10 Alkaline Phosphatase 52 U/L (45-117) 05/20/25 05:10 Lipase 10 U/L (13-75) L 05/18/25 22:19 Home Medications: Amlodipine [Norvasc*] 5 mg PO DAILY 07/15/23 Metoprolol Succinate 50 mg PO BID 07/15/23 Rosuvastatin Calcium 1 tab PO BEDTIME 07/15/23 Cholecalciferol (Vitamin D3) [Vitamin D3] 1 cap PO DAILY 01/13/24 Cyanocobalamin (Vitamin B-12) [Vitamin B-12] 1 cap PO DAILY 01/13/24 Ferrous Sulfate [Slow Fe] 1 tab PO DAILY 01/13/24 Lactobacillus Rhamnosus GG [Culturelle] 1 cap PO DAILY 01/13/24 Levothyroxine [Synthroid*] 1 tab PO [id number] 01/13/24 PARoxetine HCL [Paxil*] 1 tab PO DAILY 01/13/24 Pantoprazole [Protonix Tab*] 1 tab PO [id number] 01/13/24 Tirzepatide [Mounjaro] 7.5 mg SQ SEECOM 01/13/24 Ramelteon [Rozerem] 8 mg PO BEDTIME 05/11/25 Mupirocin Calcium [Bactroban Nasal*] 1 appl NERY BID tube 05/13/25 Physician Discharge Instructions: PROBLEM: Diagnosis KAILA Nausea and vomiting Acute diarrhea Acute gastroenteritis ESBL Klebsiella pneumoniae UTI. Patient was treated with supportive measures including IV hydration. Stool for C. difficile came back negative. Patient's symptoms resolved. Diarrhea resolved. Patient tolerated diet with no nausea or vomiting. She is currently asymptomatic, vitals are stable patient is deemed stable for discharge. Patient completed the rest of her IV meropenem for ESBL UTI infection during the hospital stay. GOAL: Clear understanding of disease process INSTRUCTIONS: Follow up with Dr. Neely in 1-2 weeks. Call our nurses station at [phone] if you have any questions regarding your instructions or hospital stay. Diet: Heart healthy diet Activity: fall precautions, as tolerated Diet: AHA Activity: Ad tamiko Followup: Anselmo Neely MD [Primary Care Provider] - 1-2 Weeks Time spent managing pt's care (in minutes): 32
[2025-05-20 16:12] VITALS: BP 157/86; TEMP 98.2
== END 2025-05-20 18:40 | disposition home or self-care (01) ==
LOC: ER 21:26 → ERHOLD 05-19 05:25 → INTOOBSV 05-19 05:25 → 4TH 05-19 06:31
PROVIDERS: ADMIT Internal Medicine; ATTEND Internal Medicine
DX: K52.9 Noninfective gastroenteritis and colitis, unspecified (principal); N17.9 Acute kidney failure, unspecified; R11.2 Nausea with vomiting, unspecified; I10 Essential (primary) hypertension; E78.5 Hyperlipidemia, unspecified; E11.9 Type 2 diabetes mellitus without complications; N39.0 Urinary tract infection, site not specified; B96.1 Klebsiella pneumoniae [K. pneumoniae] as the cause of diseases classified elsewhere; Z16.12 Extended spectrum beta lactamase (ESBL) resistance; Z88.2 Allergy status to sulfonamides; Z87.891 Personal history of nicotine dependence
CPT/HCPCS: 96361; 87040 ×2; 85025 ×2; 81001; 36415 ×2; 83735 ×2; 89055; 84100; 82947 ×7; 83605; 87324; 83690; 80053 ×2; 74177; 96374; 99285; Q9967; J1650 ×2; J2185 ×5; J2405 ×2; J7040; J7030 ×3; G0378

== ENCOUNTER 2025-05-31 16:05 | Inpatient (IN) | payer OTHER ==
--- NOTE | 2025-05-31 16:51 | ER ---
Nurse's Notes [facility] Name: Steff Burger Age: 74 yrs Sex: Female : 1950 Arrival Date: 05/31/2025 Time: 16:05 Bed 5 Private MD: Diagnosis: UTI/ Urinary tract infection, site not specified-failed outpatient treatment Presentation: 05/31 16:13 Chief complaint: Patient states: SHE HAS BEEN HAVING BURNING AND PAIN WHEN URINATING dd2 X2-3 WEEKS. PT REPORTS TAKING ANTIBIOTICS AND WENT FOR A FOLLOWUP TODAY AND WAS SENT TO THE ER. PT ALSO REPORTS VOMITING AND DIARRHEA SINCE THIS MORNING AND PAIN TO LOWER STOMACH. Coronavirus screen: At this time, the client does not indicate any symptoms associated with coronavirus-19. Ebola Screen: No symptoms or risks identified at this time. Initial Sepsis Screen: Does the patient meet any 2 criteria? No. Patient's initial sepsis screen is negative. Does the patient have a suspected source of infection?. Risk Assessment: Do you want to hurt yourself or someone else? Patient reports no desire to harm self or others. Onset of symptoms is unknown. 16:13 Method Of Arrival: Ambulatory dd2 16:13 Acuity: KYE 3 dd2 Triage Assessment: 16:15 General: Appears in no apparent distress. uncomfortable, Behavior is calm, cooperative, dd2 appropriate for age. Pain: Complains of pain in suprapubic area, right lower quadrant and left lower quadrant. GI: Reports diarrhea, nausea. : Reports burning with urination, pain in right in left in suprapubic area lower quadrant(s) with urination. Historical: - Allergies: 16:15 Sulfa (Sulfonamide Antibiotics); dd2 - PMHx: 16:15 Anxiety; Hypertension; Diabetes - NIDDM; kidney problems; Hypothyroidism; dd2 - PSHx: 16:15 Cholecystectomy; hysterectomy; dd2 - Immunization history:: Adult Immunizations up to date. - Infectious Disease History:: Denies. - Social history:: Smoking status: Patient denies any tobacco usage or history of. Screenin:38 [facility] ED Fall Risk Assessment (Adult) History of falling in the last 3 months, bp including since admission No falls in past 3 months (0 pts) Confusion or Disorientation No (0 pts) Intoxicated or Sedated No (0 pts) Impaired Gait No (0 pts) Mobility Assist Device Used No (0 pt) Altered Elimination No (0 pt) Score/Fall Risk Level 0 - 2 = Low Risk Oriented to surroundings. Abuse screen: Denies threats or abuse. Denies injuries from another. Nutritional screening: No deficits noted. Tuberculosis screening: No symptoms or risk factors identified. Assessment: 16:15 General: SEE TRIAGE NOTE. bp 18:38 Reassessment: Patient appears in no apparent distress at this time. Patient is alert, bp oriented x 3, equal unlabored respirations, skin warm/dry/pink. Vital Signs: 16:13 BP 124 / 81; Pulse 87; Resp 16; Temp 98.5; Pulse Ox 96% ; Weight 74.84 kg; Height 5 ft. dd2 3 in. ; Pain 3/10; 18:38 BP 132 / 82; Pulse 75; Resp 16; Temp 98.1; Pulse Ox 95% ; bp 16:13 Body Mass Index 29.23 (74.84 kg, 160.02 cm) dd2 16:13 Pain Scale: Adult dd2 ED Course: 16:09 Patient arrived in ED. cj3 16:09 [facility] Wells [facility] kb 16:09 Sandrita Concepcion MD is Attending Physician. kb 16:15 Triage completed. dd2 16:15 Arm band placed on right wrist. dd2 16:22 Jareth Ross, KEELEY is Primary Nurse. bp 16:45 No provider procedures requiring assistance completed. Initial lab(s) drawn, by ar, bp sent to lab. Inserted saline lock: 20 gauge in right antecubital area, using aseptic technique. Blood collected. Flushed with 10 mL NS. 16:50 Sunday Diaz MD is Hospitalizing Provider. kb 18:38 Patient has correct armband on for positive identification. bp 18:40 Patient admitted, IV remains in place. bp 18:44 Provided Education on: POC. hb Administered Medications: 17:12 Drug: Ondansetron IVP 4 mg IVP once; over 2 minutes Route: IVP; Site: right antecubital;bp 18:40 Follow up: Response: No adverse reaction bp 17:12 Drug: NS 0.9% IV 1000 ml IV at 1000 ml once; to be given as a bolus over 60 minutes bp Route: IV; Rate: 1000 ml; Site: right antecubital; 18:40 Follow up: IV Status: Completed infusion bp 17:23 Drug: Ertapenem IVPB 1 grams IVPB once over 30 mins; (mix in 100 mL NS) Route: IVPB; bp Infused Over: 30 mins; Site: right antecubital; 18:40 Follow up: IV Status: Completed infusion bp Medication: 18:38 VIS not applicable for this client. bp Outcome: 16:50 Decision to Hospitalize by Provider. kb 18:40 Admitted to Med/surg accompanied by tech, via wheelchair, room 412, bp 18:40 Condition: stable 18:40 Instructed on the need for admit, 19:20 Admitted to Tele accompanied by nurse, accompanied by tech, family with patient, via [facility] wheelchair, room 412, with chart, 19:20 Condition: stable 19:20 Instructed on the need for admit, 19:21 Patient left the ED. 3 Signatures: Imani Wells, OPERATING SYSTEM PROGRAMMER-C OPERATING SYSTEM PROGRAMMER-CkElizabeth Pierre, RN RN Jareth Ross, RN RN JORGE Garcia, KEELEY RN dd2 Amada Lazaro 3 Hina Birmingham RN RN 3
--- NOTE | 2025-05-31 16:51 | EDPHYS ---
Physician Documentation [facility] Name: Steff Burger Age: 74 yrs Sex: Female : 1950 Arrival Date: 05/31/2025 Time: 16:05 Bed 5 Private MD: ED Physician Sandrita Concepcion HPI: 05/31 16:17 This 74 yrs old Female presents to ER via Ambulatory with complaints of UTI. kb 16:17 Pt is a 74 year old female who presents for admission for IV antibiotics to treat a kb UTI. Pt states has had had dysuria for several weeks. States she was treated with an antibiotic and the symptoms improved, but then returned. She was given a few more rounds of different antibiotics, but the symptoms continue to return. Dr Ty did a urine culture and recommended she come to the hospital for admission for Invanz IV. Pt reports she has had diarrhea and vomiting over the last couple of days as well so she hasn't kept any fluids down. Historical: - Allergies: 16:15 Sulfa (Sulfonamide Antibiotics); dd2 - PMHx: 16:15 Anxiety; Hypertension; Diabetes - NIDDM; kidney problems; Hypothyroidism; dd2 - PSHx: 16:15 Cholecystectomy; hysterectomy; dd2 - Immunization history:: Adult Immunizations up to date. - Infectious Disease History:: Denies. - Social history:: Smoking status: Patient denies any tobacco usage or history of. ROS: 16:19 Constitutional: As per HPI kb Exam: 16:19 Constitutional: This is a well developed, well nourished patient who is awake, alert, kb and in no acute distress. Head/Face: Normocephalic, atraumatic. ENT: Moist Mucous membranes Cardiovascular: Regular rate Respiratory: Respirations even and unlabored. No increased work of breathing. Talking in full sentences Back: No spinal tenderness. No costovertebral tenderness. Full range of motion. Skin: Warm, dry with normal turgor. Normal color. MS/ Extremity: Pulses equal, no cyanosis. Neurovascular intact. Full, normal range of motion. Neuro: Awake and alert, GCS 15, oriented to person, place, time, and situation. 16:19 Abdomen/GI: Inspection: abdomen appears normal, Bowel sounds: normal, Palpation: soft, in all quadrants, mild abdominal tenderness, in the suprapubic area, right lower quadrant and left lower quadrant, Vital Signs: 16:13 BP 124 / 81; Pulse 87; Resp 16; Temp 98.5; Pulse Ox 96% ; Weight 74.84 kg; Height 5 ft. dd2 3 in. ; Pain 3/10; 18:38 BP 132 / 82; Pulse 75; Resp 16; Temp 98.1; Pulse Ox 95% ; bp 16:13 Body Mass Index 29.23 (74.84 kg, 160.02 cm) dd2 16:13 Pain Scale: Adult dd2 MDM: 16:09 Medical Screening Exam initiated 16:19 Data reviewed: vital signs, nurses notes. Consideration of Admission/Observation kb Patient was admitted/placed on observation. Escalation of care including admission/observation considered. External Records Reviewed: Outpatient labs: urine culture revealed multiple types of bacteria in urine. Dr Ty wrote his recommendations on the lab results of Invanz Q 12 hours. cbc, bmp also reviewed. . 16:22 Differential diagnosis: UTI, pyelonephritis. 16:49 Management of patient was discussed with the following: Hospitalist: Hospitalist team, pt accepted for admission under Dr Diaz. Counseling: I had a detailed discussion with the patient and/or guardian regarding the historical points, exam findings, and any diagnostic results supporting the discharge/admit diagnosis, lab results, the need for further work-up and treatment in the hospital. 05/31 16:16 Order name: Blood Culture Adult (2) 05/31 16:16 Order name: CBC with Diff 05/31 16:16 Order name: CMP; Complete Time: 17:41 05/31 16:16 Order name: Lactate w/ 2H reflex if indic.; Complete Time: 17:41 05/31 16:16 Order name: Protime (+inr); Complete Time: 17:41 05/31 16:16 Order name: Ptt, Activated; Complete Time: 17:41 05/31 18:18 Order name: CBC with Automated Diff EDMS 05/31 18:18 Order name: CBC with Automated Diff EDMS 05/31 18:18 Order name: Comprehensive Metabolic Panel EDMS 05/31 18:18 Order name: Comprehensive Metabolic Panel EDMS 05/31 18:18 Order name: Procalcitonin EDDC 05/31 18:18 Order name: Procalcitonin EDMS 05/31 18:18 Order name: Case Management Consult [facility] 05/31 16:16 Order name: IV Saline Lock - Large Bore; Complete Time: 16:55 kb 05/31 16:16 Order name: Labs collected and sent; Complete Time: 16:55 kb 05/31 16:16 Order name: O2 Per Protocol; Complete Time: 16:55 kb 05/31 16:16 Order name: O2 Sat Monitoring; Complete Time: 16:55 kb 05/31 16:16 Order name: Vital Signs; Complete Time: 16:55 kb Administered Medications: 17:12 Drug: Ondansetron IVP 4 mg IVP once; over 2 minutes Route: IVP; Site: right antecubital;bp 18:40 Follow up: Response: No adverse reaction bp 17:12 Drug: NS 0.9% IV 1000 ml IV at 1000 ml once; to be given as a bolus over 60 minutes bp Route: IV; Rate: 1000 ml; Site: right antecubital; 18:40 Follow up: IV Status: Completed infusion bp 17:23 Drug: Ertapenem IVPB 1 grams IVPB once over 30 mins; (mix in 100 mL NS) Route: IVPB; bp Infused Over: 30 mins; Site: right antecubital; 18:40 Follow up: IV Status: Completed infusion bp Disposition Summary: 05/31/25 16:50 Hospitalization Ordered Notes: Hospitalization Status: Inpatient Admission kb Provider: Sunday Diaz [facility] kb Condition: Stable kb Problem: new kb Symptoms: are unchanged kb Bed/Room Type: Standard Room Assignment: [facility](05/31/25 18:31) ja1 Diagnosis - UTI/ Urinary tract infection, site not specified - failed outpatient treatment kb Forms: - Medication Reconciliation Form kb - SBAR form kb - Leadership Thank You Letter kb Signatures: Dispatcher [employer] EDMS Imani Wells, MILK SAMPLER-C MILK SAMPLER-Marco Haley RN RN [email or web address] Jareth Ross RN RN JORGE Garcia RN RN dd2 Corrections: (The following items were deleted from the chart) 18:28 16:50 kb jeane 18:31 18:28 415 [facility] jeane
[2025-05-31] MEDS ORDERED: ONDANSETRON 4 MG/2 ML VIAL ONE (16:52)
[2025-05-31] MEDS ORDERED: NA CHLORIDE 0.9% 1,000 ML ONE (16:52)
[2025-05-31 17:07] LABS: Absolute Lymphocytes (CBC) 1.1 K/uL (0.7-4.9); Hematocrit 39.9 % (36.0-45.0); Hemoglobin 12.8 g/dL (12.0-15.0); MCH 25.9 pg (27.0-35.0); MCHC 32.1 g/dL (32.0-36.0); MCV 80.7 fL (80-100); MPV 9.2 fL (7.6-11.3); Nucleated RBC Absolute Count 0.0 (0-0); Nucleated Red Blood Cells % 0.0 % (0-0); RBC Red Blood Cell Count 4.94 M/uL (3.86-4.86); White Blood Count 22.50 thou/uL (4.3-10.9)
[2025-05-31 17:17] LABS: PT Prothrombin Time 11.5 SECONDS (10-13.0); PTT, Activated Partial Thromb 27.4 SECONDS (27.2-37.4); Protime INR 1.02
[2025-05-31 17:28] LABS: ALT/SGPT 39.0 U/L (13-56); AST/SGOT 35.0 U/L (15-37); Albumin 3.5 g/dL (3.4-5.0); Albumin/Globulin Ratio 0.9 (1.1-1.8); Alkaline Phosphatase 88.0 U/L (45-117); Anion Gap 9.4 mEq/L (5.0-15.0); BUN Blood Urea Nitrogen 23.0 mg/dL (7-18); Globulin 4.1 g/dL (2.3-3.5); Glucose Level 133.0 mg/dL (74-106); Potassium 4.4 mEq/L (3.5-5.1)
--- NOTE | 2025-05-31 18:16 | P.HP ---
Certification for Inpatient Patient admitted to: Inpatient With expected LOS: >2 Midnights Patient will require the following post-hospital care: Home Health Services Practitioner: I am a practitioner with admitting privileges, knowledge of patient current condition, hospital course, and medical plan of care. Services: Services provided to patient in accordance with Admission requirements found in Title 42 Section 412.3 of the Code of Federal Regulations Patient History Date of Service: 05/31/25 Reason for admission: UTI with multidrug-resistant infection History of Present Illness: Patient is a 74-year-old female who came to the hospital with a urinary tract infection. Patient has been on IV antibiotic therapy and this was switched over to oral antibiotic therapy on her last admission. Patient had a recurrent infection afterwards. Patient saw her infectious disease physician who recommended IV Invanz. Patient was sent into the emergency room for PICC line placement. At this time patient is clinically doing well with no complaints. Patient will be admitted for IV antibiotic therapy. Will arrange for outpatient IV antibiotic therapy at discharge. As patient had failed outpatient antibiotics patient will need prolonged IV antibiotic regimen. Will arrange for 2 weeks of total IV antibiotic therapy. Allergies Sulfa (Sulfonamide Antibiotics) Allergy (Mild, Verified 07/16/23 09:11) Unknown Home Medications: Amlodipine [Norvasc*] 5 mg PO DAILY 07/15/23 Metoprolol Succinate 50 mg PO BID 07/15/23 Rosuvastatin Calcium 1 tab PO BEDTIME 07/15/23 Cholecalciferol (Vitamin D3) [Vitamin D3] 1 cap PO DAILY 01/13/24 Cyanocobalamin (Vitamin B-12) [Vitamin B-12] 1 cap PO DAILY 01/13/24 Ferrous Sulfate [Slow Fe] 1 tab PO DAILY 01/13/24 Lactobacillus Rhamnosus GG [Culturelle] 1 cap PO DAILY 01/13/24 Levothyroxine [Synthroid*] 1 tab PO [id number] 01/13/24 PARoxetine HCL [Paxil*] 1 tab PO DAILY 01/13/24 Pantoprazole [Protonix Tab*] 1 tab PO [id number] 01/13/24 Tirzepatide [Mounjaro] 7.5 mg SQ SEECOM 01/13/24 Ramelteon [Rozerem] 8 mg PO BEDTIME 05/11/25 - Past Medical/Surgical History Diabetic: Yes -: DM -: Diverticulitis -: UTI ESBL -: Hypertension. -: Hyperlipidemia. -: Hysterectomy -: Cataract Sx -: Gall bladder removal - Family History Father Medical History: Cancer, Other (see notes) Notes: prostate CA Mother Medical History: Stroke - Social History Smoking Status: Former smoker Alcohol use: No CD- Drugs: No Caffeine use: Yes Review of Systems 10-point ROS is otherwise unremarkable Physical Examination - Vital Signs Temperature: 101 F Blood Pressure: 110/60 Pulse: 99 Respirations: 18 Pulse Ox (%): 95 - Physical Exam General: Alert, In no apparent distress, Oriented x2, Confused HEENT: Atraumatic, PERRLA, Mucous membr. moist/pink, EOMI, Sclerae nonicteric Neck: Supple, 2+ carotid pulse no bruit, No LAD, Without JVD or thyroid abnormality Respiratory: Clear to auscultation bilaterally, Normal air movement Cardiovascular: Regular rate/rhythm, Normal S1 S2 Gastrointestinal: Normal bowel sounds, Soft and benign, Non-distended, No tenderness Musculoskeletal: No clubbing, No swelling, No tenderness Integumentary: No rashes Neurological: Normal gait, Normal speech, Normal strength at 5/5 x4 extr, Normal tone, Sensation intact, Cranial nerves 3-12 intact, Normal affect Lymphatics: No axilla or inguinal lymphadenopathy - Studies Laboratory Data (last 24 hrs) 05/31/25 05/31/25 05/31/25 17:00 17:00 17:00 WBC 22.50 H Hgb 12.8 Hct 39.9 Plt Count 409 H PT 11.5 INR 1.02 APTT 27.4 Sodium 140 Potassium 4.4 BUN 23 H Creatinine 1.37 H Glucose 133 H Total Bilirubin 0.5 AST 35 ALT 39 Alkaline Phosphatase 88 Assessment & Plan - Problems (Diagnosis) (1) UTI (urinary tract infection) Current Visit: Yes Status: Acute (2) Toxic encephalopathy Current Visit: Yes Status: Acute (3) Recurrent UTI Current Visit: Yes Status: Acute - Plan Plan: 1. Continue with IV antibiotic therapy 2. Continue with gentle hydration 3. Monitor logic status 4. Urine cultures and blood cultures pending 5. Multidrug-resistant UTI on prior and outpatient cultures and will place on Invanz 6. GI DVT prophylaxis - Advance Directives Does patient have a Living Will: No Does patient have a Durable POA for Healthcare: No - Code Status/Comfort Care Code Status Assessed: Yes Code Status: Full Code Critical Care: No Time Spent Managing PTS Care (In Minutes): 45
[2025-05-31 19:33] VITALS: BMI 29.1
[2025-05-31] MEDS: NA CHLORIDE 0.9% 1,000 ML IV SCH (19:40)
[2025-05-31] MEDS: ERTAPENEM NA 1 GM in NA CHLORIDE 0.9% 100 ML IVPB ONE (19:40)
[2025-05-31] MEDS: Mupirocin NASAL 2 APPL/1 GM TUBE NAS SCH (19:40)
[2025-05-31 20:26] LABS: Blood Morphology Comment NOT SEEN (NOT SEEN); White Blood Cell Scan OK (OK)
[2025-05-31 23:38] VITALS: O2SAT 95
[2025-05-31] MEDS: Meropenem 500 MG in NA CHLORIDE 0.9% 100 ML IV SCH (23:57)
[2025-06-01 05:55] LABS: Absolute Lymphocytes (CBC) 1.9 K/uL (0.7-4.9); Hematocrit 32.9 % (36.0-45.0); Hemoglobin 10.9 g/dL (12.0-15.0); MCH 26.6 pg (27.0-35.0); MCHC 33.0 g/dL (32.0-36.0); MCV 80.5 fL (80-100); MPV 9.1 fL (7.6-11.3); Nucleated RBC Absolute Count 0.0 (0-0); Nucleated Red Blood Cells % 0.0 % (0-0); RBC Red Blood Cell Count 4.08 M/uL (3.86-4.86); White Blood Count 8.50 thou/uL (4.3-10.9)
[2025-06-01 06:15] LABS: Anion Gap 5.8 mEq/L (5.0-15.0); BUN Blood Urea Nitrogen 19.0 mg/dL (7-18); Glucose Level 103.0 mg/dL (74-106); Potassium 3.8 mEq/L (3.5-5.1)
[2025-06-01 06:16] LABS: ALT/SGPT 26.0 U/L (13-56); AST/SGOT 17.0 U/L (15-37); Albumin 2.8 g/dL (3.4-5.0); Albumin/Globulin Ratio 0.9 (1.1-1.8); Alkaline Phosphatase 71.0 U/L (45-117); Globulin 3.2 g/dL (2.3-3.5)
[2025-06-01] MEDS: INSULIN REGULAR (HUMAN) 100 UNIT/ML SQ SCH (07:30)
[2025-06-01] MEDS: ACETAMINOPHEN 500 MG TAB PO PRN (15:46)
[2025-06-01] MEDS: ACETAMINOPHEN 500 MG TAB PO ONE (16:30)
[2025-06-01] MEDS ORDERED: HYDROCODONE/APAP 10/325 TAB PO PRN (16:31)
[2025-06-02] MEDS: ONDANSETRON 4 MG/2 ML VIAL IV PRN (08:34)
[2025-06-02 12:33] VITALS: BP 130/80; TEMP 99
--- NOTE | 2025-06-02 12:33 | P.PN ---
Subjective Date of Service: 06/01/25 Patient continues to improve. Patient clinical symptoms are stable. Patient denies any new complaints. Review of Systems 10-point ROS is otherwise unremarkable Physical Examination - Vital Signs Temperature: 99 F Blood Pressure: 130/80 Pulse: 80 Respirations: 18 Pulse Ox (%): 99 - Physical Exam General: Alert, In no apparent distress, Oriented x3 HEENT: Atraumatic, PERRLA, EOMI Neck: Supple, JVD not distended Respiratory: Clear to auscultation bilaterally, Normal air movement Cardiovascular: Regular rate/rhythm, Normal S1 S2, No murmurs Gastrointestinal: Normal bowel sounds, Soft and benign, Non-distended, No tenderness Musculoskeletal: No clubbing, No swelling, No tenderness Integumentary: No rashes Neurological: Normal speech, Normal tone, Sensation intact, Cranial nerves 3-12 intact, Normal affect Lymphatics: No axilla or inguinal lymphadenopathy - Studies Medications List Reviewed: Yes Assessment & Plan - Problems (Diagnosis) (1) UTI (urinary tract infection) Current Visit: Yes Status: Acute (2) Toxic encephalopathy Current Visit: Yes Status: Acute (3) Recurrent UTI Current Visit: Yes Status: Acute - Plan Plan: Continue with current plan of care as mentioned below: 1. Continue with IV antibiotic therapy 2. Continue with gentle hydration 3. Monitor logic status 4. Urine cultures and blood cultures pending 5. Multidrug-resistant UTI on prior and outpatient cultures and will place on Invanz 6. GI DVT prophylaxis Discharge Plan: Home Plan to discharge in: Greater than 2 days - Advance Directives Does patient have a Living Will: No Does patient have a Durable POA for Healthcare: No - Code Status/Comfort Care Code Status: Full Code Critical Care: No Time Spent Managing PTS Care (In Minutes): 30
[2025-06-02] MEDS: TIRZEPATIDE 7.5 MG/0.5 ML SQ SCH (14:00)
[2025-06-02] MEDS ORDERED: METOPROLOL XL 50 MG TAB PO SCH (21:00)
[2025-06-02] MEDS ORDERED: ROSUVASTATIN 10 MG TAB PO SCH (21:00)
[2025-06-02] MEDS ORDERED: RAMELTEON 8 MG PO SCH (21:00)
[2025-06-02] MEDS ORDERED: HOME MED 1 EA UNK (Rosuvastatin Calcium [Rosuvastatin Calcium] 20 MG Tablet) PO SCH (21:00)
[2025-06-03] MEDS ORDERED: LEVOTHYROXINE SOD 0.112 MG TAB PO SCH (06:00)
[2025-06-03] MEDS ORDERED: PANTOPRAZOLE 40MG TABLET PO SCH (06:00)
[2025-06-03] MEDS ORDERED: AMLODIPINE 5 MG TAB PO SCH (09:00)
[2025-06-03] MEDS ORDERED: HOME MED 1 EA UNK (Cholecalciferol (Vitamin D3) [Vitamin D3] 25 MCG Capsule) PO SCH (09:00)
[2025-06-03] MEDS ORDERED: VITAMIN D 1000 UNIT TAB PO SCH (09:00)
[2025-06-03] MEDS ORDERED: LACTOBACILLUS/ACIDOPHILUS TAB PO SCH (09:00)
[2025-06-03] MEDS ORDERED: FERROUS SULFATE PO SCH (09:00)
[2025-06-03] MEDS ORDERED: CYANOCOBALAMIN 5000 MCG PO SCH (09:00)
[2025-06-03] MEDS ORDERED: LACTOBACILLUS RHAMNOSUS GG PO SCH (09:00)
== END 2025-06-02 15:55 | disposition home health service (06) | DRG 689 ==
LOC: ER 16:05 → 4TH 18:13 → OBSVTOIN 06-02 01:07
PROVIDERS: ADMIT Hospitalist; ATTEND Hospitalist
PROC: 02HV33Z Insertion of Infusion Device into Superior Vena Cava, Percutaneous Approach (ICD-10-PCS; principal; 2025-05-31)
DX: N39.0 Urinary tract infection, site not specified (principal); G92.9 Unspecified toxic encephalopathy; Z16.24 Resistance to multiple antibiotics; E78.5 Hyperlipidemia, unspecified; E03.9 Hypothyroidism, unspecified; I10 Essential (primary) hypertension; E11.9 Type 2 diabetes mellitus without complications; Z88.2 Allergy status to sulfonamides; Z90.49 Acquired absence of other specified parts of digestive tract; Z90.710 Acquired absence of both cervix and uterus; Z79.890 Hormone replacement therapy; Z79.899 Other long term (current) drug therapy; Z87.891 Personal history of nicotine dependence
CPT/HCPCS: 36415; 80053; 82947; 83605; 84145; 85025; 85610; 85730; 87040; 96365; 96375; 99285; G0378; J1335; J2405; J7030